=== PATIENT | female | born 1965 | race Caucasian/White ===

== ENCOUNTER 2023-07-15 15:27 | Day surgery (SDC) | payer BC, SELFPAY ==
[2023-07-15] VITALS (16 sets, daily range): BP systolic 139–220; BP diastolic 78–109; PULSE 82–98; RESP 12–20; TEMP 36.3–37.3; O2SAT 93–99; BMI 51.7
--- NOTE | 2023-07-15 | US_ITS ---
Patient: DANIEL COTE Facility:?[facility] Patient ID:?[id number] Site Patient ID:?[id number] Site :?[id number] Study:?US-Pelvis TRANSABDOMINAL AND TRANSVAGINAL-07/15/2023 5:15:53 PM Ordering Physician:?DEMETRIS PABON Final Report: Indication: Vaginal bleeding Technique: Pelvic ultrasound, transabdominal and transvaginal for better assessment of the pelvic anatomy utilizing grayscale and color and spectral Doppler. Comparison: None Findings: The uterus is within normal limits in size measuring 5.0 x 3.0 x 3.5 centimeters. No focal uterine masses or lesions. The endometrium is thickened and heterogeneous measuring 8 millimeters. The cervix is enlarged, measuring up to 4.7 centimeters in greatest dimension, with heterogeneous echogenicity and increased vascularity on color Doppler. The bilateral ovaries are not visualized. There is no suspicious adnexal masses or lesions. No free fluid. Impression: 1. The endometrium is thickened and heterogeneous measuring 8 millimeters, concerning for endometrial malignancy. 2. There is masslike enlargement of the heterogeneous cervix that demonstrates increased vascularity on color Doppler, concerning for cervical malignancy. 3. Recommend outpatient consultation with gynecology for further management recommendations. Dictated by Aristeo Guillaume MD @ 07/15/2023 5:39:56 PM Signed by:?Aristeo Guillaume MD @07/15/2023 5:39:56 PM (Electronic Signature)
--- NOTE | 2023-07-15 16:08 | ED_ITS ---
HPI - General Adult General Date Seen: 07/15/23 Chief complaint: Vaginal Bleeding Stated complaint: vaginal bleeding Time Seen by Provider: 07/15/23 16:08 History of Present Illness HPI narrative: Very pleasant 58-year-old female who is generally healthy but does not go for routine primary care presenting to the ER today for vaginal bleeding. She went through menopause about 5 or 6 years ago and really has not had any bleeding since then. She notes that she has had some intermittent spotting for the past couple of months but it has been very light. Today she is having heavy vaginal bleeding. She is having a fair amount of blood in his soaking through multiple pads per hour and sometimes is passing clots and a a few inches in diameter. She is not lightheaded or dizzy from blood loss yet. She is having lot of pelvic cramping for associated with the bleeding. No fever. No other unusual bleeding or bruising. No bloody stools. She does not take any blood thinners but she does taken [id number] baby aspirin every day. She does not take any other medications. No history of bleeding problems in the past. No known pelvic trauma. No vaginal discharge. Related Data Home Medications Medication Instructions Recorded Confirmed No Known Home Medications 07/15/23 07/15/23 Allergies Allergy/AdvReac Type Severity Reaction Status Date / Time No Known Drug Allergies Allergy Verified 07/15/23 15:50 PFSH PFSH Social History Smoking Status: Never smoker How often do you have a drink containing alcohol: 2-3 times a week AUDIT-C Alcohol total score: 3 Non-prescribed substance use: denies use service: No Exam Narrative: Exam Narrative: Constitutional: Appears well-developed and well-nourished. Alert. Conversant. Non toxic. HENT: Head: Atraumatic. Nose: Nose normal. Mouth/Throat: Oral mucosa is clear and moist. no trismus. Pharynx normal. Tongue normal Eyes: Conjunctivae normal. EOM normal. Pupils equal, round, and reactive to light. No scleral icterus. Neck: Normal range of motion. Neck supple. No tracheal deviation present. Cardiovascular: Normal rate, regular rhythm. No gallop. No friction rub. No murmur heard. Symmetric radial artery pulses . Normal cap refill. No pallor or diaphoresis. Pulmonary/Chest: Effort normal. No stridor. No respiratory distress. No wheezes. No rales. No rhonchi . Abdominal: Soft. Bowel sounds normal. No distension. No mass. Suprapubic tenderness. No rebound. No guarding. Musculoskeletal: RUE: Normal range of motion. No tenderness. No deformity LUE: Normal range of motion. No tenderness. No deformity RLE: Normal range of motion. No edema. No tenderness. No deformity LLE: Normal range of motion. No edema. No tenderness. No deformity Pelvic: Performed with female art installer. External genitalia normal. There is some clotted blood on the external vagina which I wiped away using a gauze. We performed a speculum vaginal exam. There is active bleeding, clots and red blood in the vaginal vault. The we use multiple skull PET Q-tips to remove the blood and clots. There was work recurrent bleeding. I used a ring forceps to remove some clotted material from deeper in the vagina adjacent to the cervix. With this I think I was able to briefly visualize cervical tissue, but I am not able to see the Os due to active bleeding. Neurological: Alert and oriented to person, place, and time. Normal strength. CN II-VII intact. No sensory deficit. GCS eye subscore is 4. GCS verbal subscore is 5. GCS motor subscore is 6. Normal coordination Skin: Skin is warm and dry. No rash noted. No pallor. Normal capillary refill. Psychiatric: Normal mood. Normal affect. Const: Vital Signs, click to edit/add: Vital Signs - 24 hr 07/15/23 15:45 07/15/23 17:38 07/15/23 18:50 Temperature 99.1 F Pulse Rate 93 Pulse Rate [Pulse Oximeter] 98 94 Respiratory Rate 20 20 18 Blood Pressure 180/88 H Blood Pressure [Ri ght Upper Arm] 220/109 H 167/109 H Pulse Oximetry 99 97 96 Oxygen Delivery Me thod Room Air 07/15/23 20:21 07/15/23 20:25 07/15/23 20:30 Temperature 97.9 F 97.9 F 97.9 F Pulse Rate 91 87 87 Pulse Rate [Pulse Oximeter] Respiratory Rate 12 17 18 Blood Pressure 139/78 189/96 H 184/99 H Blood Pressure [Ri ght Upper Arm] Pulse Oximetry 97 95 95 Oxygen Delivery Me thod Room Air Room Air Room Air 07/15/23 20:35 07/15/23 20:40 07/15/23 20:45 Temperature 97.9 F 97.9 F 97.9 F Pulse Rate 89 84 82 Pulse Rate [Pulse Oximeter] Respiratory Rate 16 15 13 Blood Pressure 186/96 H 191/95 H 204/94 H Blood Pressure [Ri ght Upper Arm] Pulse Oximetry 97 93 93 Oxygen Delivery Me thod Room Air Room Air Room Air 07/15/23 20:50 07/15/23 21:15 07/15/23 21:30 Temperature 98.2 F 97.4 F L Pulse Rate 82 85 84 Pulse Rate [Pulse Oximeter] Respiratory Rate 20 18 18 Blood Pressure 184/100 H 201/96 H 209/108 H Blood Pressure [Ri ght Upper Arm] Pulse Oximetry 94 95 97 Oxygen Delivery Me thod Room Air Room Air Room Air 07/15/23 21:45 07/15/23 22:00 07/15/23 22:30 Temperature Pulse Rate 84 88 85 Pulse Rate [Pulse Oximeter] Respiratory Rate 18 18 18 Blood Pressure 209/108 H 193/92 H 191/84 H Blood Pressure [Ri ght Upper Arm] Pulse Oximetry 97 95 97 Oxygen Delivery Me thod Room Air Room Air Room Air 07/15/23 22:39 Temperature 97.9 F Pulse Rate 85 Pulse Rate [Pulse Oximeter] Respiratory Rate 18 Blood Pressure 191/84 H Blood Pressure [Ri ght Upper Arm] Pulse Oximetry 97 Oxygen Delivery Me thod Room Air Course Vital Signs Vital signs: Initial Vital Signs Temperature 99.1 F 07/15/23 15:45 Temperature Source Temporal Artery Scan 07/15/23 15:45 Pulse Rate 98 07/15/23 15:45 Respiratory Rate 07/15/23 15:45 Blood Pressure 220/109 H 07/15/23 15:45 Blood Pressure Mean 146 H 07/15/23 15:45 Blood Pressure Position Supine 07/15/23 15:45 Pulse Oximetry 99 07/15/23 15:45 Oxygen Delivery Method Room Air 07/15/23 15:45 Vital Signs Temperature 99.1 F 07/15/23 15:45 Pulse Rate 98 07/15/23 15:45 Respiratory Rate 20 07/15/23 15:45 Blood Pressure 220/109 H 07/15/23 15:45 Pulse Oximetry 99 07/15/23 15:45 Oxygen Delivery Method Room Air 07/15/23 15:45 Temperature 97.9 F 07/15/23 22:39 Pulse Rate 85 07/15/23 22:39 Respiratory Rate 18 07/15/23 22:39 Blood Pressure 191/84 H 07/15/23 22:39 Pulse Oximetry 97 07/15/23 22:39 Oxygen Delivery Method Room Air 07/15/23 22:39 Medications Administered Medications: Discontinued Medications Generic Name Dose Route Start Last Admin Trade Name Freq PRN Reason Stop Dose Admin Fentanyl 50 mcg 07/15/23 19:55 07/15/23 20:40 Fentanyl 100 Mcg/2 Ml Inj IVP 50 mcg Q5M PRN Administration Hydromorphone HCl 0.5 mg 07/15/23 16:26 07/15/23 17:08 Hydromorphone 0.5 Mg/0.5 Ml Inj IVP 0.5 mg Q1H PRN Administration Pain Lactated Ringer's 1,000 ml 07/15/23 16:14 07/15/23 18:49 Lactated Ringers 1000 Ml IV 07/15/23 16:15 1,000 ml ONCE ONE Administration Lidocaine/Epinephrine 20 ml 07/15/23 19:03 07/15/23 19:54 Lidocaine 1%-Epi 1:100,000 20 Ml INFILTRATI 07/15/23 19:04 5 ml ONCE ONE Administration Morphine Sulfate 4 mg 07/15/23 21:28 07/15/23 21:40 Morphine 4 Mg/Ml Inj IVP 4 mg Q2H PRN Administration Non-Formulary Medication 1 bottle 07/15/23 20:02 07/15/23 20:02 Monsol TOPICAL 07/15/23 20:03 1 bottle ONCE ONE Administration Ondansetron HCl 4 mg 07/15/23 16:26 07/15/23 17:11 Ondansetron 2 Mg/Ml Inj IVP 07/15/23 16:27 4 mg ONCE ONE Administration Oxycodone HCl 2.5 - 10 mg 07/15/23 21:28 07/15/23 22:18 Oxycodone 5 Mg Tablet PO 10 mg Q2H PRN Administration Pain Tranexamic Acid 1,000 mg 07/15/23 18:01 07/15/23 18:26 Tranexamic Acid 100 Mg/Ml Inj IV 07/15/23 18:02 1,000 mg ONCE ONE Administration Medical Decision Making MDM Narrative Medical decision making narrative: Very pleasant 58-year-old female presenting to the ER today with few weeks of light vaginal spotting and heavier vaginal bleeding this afternoon. She soaking through a couple of pads per hour. Here in the ER she does have active bleeding with clots and red blood in her vaginal vault. There was enough active bleeding her pelvic exam that I was not able to confidently identify the cervical os. Cervix seems to be a somewhat abnormal. Pelvic ultrasound is obtained and does show a thickened endometrium and enlarged cervix which is concerning for gynecologic malignancy. We did place consultation to quality lead, Dr. Licea. She graciously came directly to the ER to evaluate the patient. She and I discussed IV TXA but decided to hold off until she could evaluate. Subsequently we did administer 1 g of tranexamic acid. Although she is actively bleeding, so far vital signs are reassuring. Her blood pressure is elevated which may reflect chronic undiagnosed hypertension or possibly could reflect anxiety due to her worry about the bleeding. Pulses in the 90s. Venous lactic acid is normal. She is not anticoagulated or known to be coagulopathic. Platelet count is 299. INR is normal at 0.92. Kidney function normal. Blood type is A positive. We established IV and administered IV crystalloid 1 L. Also Dilaudid and Zofran for symptomatic relief. She has a low-grade fever of 99.1. Oxygen sats normal. No vaginal discharge or concern for STI. We established a 2nd IV due to active bleeding, although not actively crashing and exsanguinating, bleeding is in excess of what is typical for vaginal bleeding and we wanted to be prepared in case she needs large volume transfusion. Given the ongoing active bleeding here in the ER we did consult OB. She will take the patient to the OR for further evaluation and to achieve hemostasis. Suspicion is that she may be bleeding from a cervical or intrauterine malignancy. Lab Data Labs: Lab Results 07/15/23 07/15/23 07/15/23 Range/Units 16:34 19:10 23:10 WBC 9.65 (4.50-11.00) K/uL RBC 3.67 L (4.00-5.20) m/uL Hgb 11.1 L 10.1 L 10.1 L (12.0-16.0) gm/dL Hct 33.8 (33.0-51.0) % MCV 92 (80-100) fL MCH 30 (26-34) pg MCHC 33 (32-36) gm/dL RDW Coeff of Jayleen 13.3 (11.5-15.5) % Plt Count 299 (140-440) K/uL Neut % (Auto) 73.2 H (42.0-72.0) % Lymph % (Auto) 17.9 L (20-44) % Taylor % (Auto) 6.1 (0.0-11.0) % Eos % (Auto) 2.5 (0.0-7.0) % Baso % (Auto) 0.1 (0.0-3.0) % Neut # (Auto) 7.10 H (1.7-7.0) K/uL Lymph # (Auto) 1.70 (0.90-2.90) K/uL Taylor # (Auto) 0.60 (0.00-0.90) K/UL Eos # (Auto) 0.24 (0.00-0.50) K/uL Baso # (Auto) 0.01 (0.00-0.30) K/uL Abs Immat Gran (auto) 0.02 (0.00-0.30) K/uL Imm/Tot Granulo (auto) 0.2 % INR 0.92 (0.91-1.10) Sodium 138 (135-149) mmol/L Potassium 3.7 (3.6-5.1) mmol/L Chloride 105 (96-114) mmol/L Carbon Dioxide 24 (20-32) mmol/L Anion Gap 9 (7-15) mEq/L BUN 22 (7-30) mg/dL Creatinine 0.5 (0.5-1.5) mg/dL Estimated Creat Clear 128.17 Estimated GFR 109 ml/min Glucose 109 (60-115) mg/dL Lactate 1.2 (0.5-1.9) mmol/L Calcium 9.3 (8.4-10.6) mg/dL Blood Type A Positive Antibody Screen NEGATIVE Imaging Data US pelvis: Attestation: I have reviewed the pertinent imaging results. My impression: Phone call from [facility] to notify me that the results are available at 5:45 p.m. Radiologist's impression: Impression: 1. The endometrium is thickened and heterogeneous measuring 8 millimeters, concerning for endometrial malignancy. 2. There is masslike enlargement of the heterogeneous cervix that demonstrates increased vascularity on color Doppler, concerning for cervical malignancy. 3. Recommend outpatient consultation with gynecology for further management recommendations. Discharge Plan Discharge Clinical Impression: Cervical mass, Vaginal bleeding, Thickened endometrium, Anemia
[2023-07-15 16:41] LABS: Lactate* 1.2 mmol/L (0.5-1.9)
[2023-07-15 16:42] LABS: Basophils Absolute Auto 0.01 K/uL (0.00-0.30); Basophils Percent Auto 0.1 % (0.0-3.0); Eosinophils Absolute Auto 0.24 K/uL (0.00-0.50); Eosinophils Percent Auto 2.5 % (0.0-7.0); Hematocrit 33.8 % (33.0-51.0); Hemoglobin* 11.1 gm/dL (12.0-16.0); Immature Granulocytes Abs Auto 0.02 K/uL (0.00-0.30); Immature Granulocytes Pct Auto 0.2 %; Lymphocytes Percent Auto 17.9 % (20-44); Mean Corpuscular HGB Conc 33 gm/dL (32-36); Mean Corpuscular Hemoglobin 30 pg (26-34); Mean Corpuscular Volume 92 fL (80-100); Monocytes Percent Auto 6.1 % (0.0-11.0); Neutrophils Percent Auto 73.2 % (42.0-72.0); Platelet Count* 299 K/uL (140-440); RDW Coefficient of Variation % 13.3 % (11.5-15.5); Red Blood Count 3.67 m/uL (4.00-5.20); White Blood Count* 9.65 K/uL (4.50-11.00)
[2023-07-15 16:53] LABS: Slide Review Reflex No
[2023-07-15 16:57] LABS: Chloride* 105 mmol/L (96-114); Potassium* 3.7 mmol/L (3.6-5.1); Sodium* 138 mmol/L (135-149)
[2023-07-15 16:59] LABS: INR 0.92 (0.91-1.10); Prothrombin Time 12.9 Seconds
[2023-07-15 17:00] LABS: Anion Gap 9 mEq/L (7-15); Carbon Dioxide* 24 mmol/L (20-32); Creatinine* 0.5 mg/dL (0.5-1.5); Est. Creatinine Clearance* 128.17; Estimated Glomerular Filt Rate 109 ml/min
[2023-07-15 17:01] LABS: Blood Urea Nitrogen* 22 mg/dL (7-30); Calcium* 9.3 mg/dL (8.4-10.6); Glucose* 109 mg/dL (60-115)
[2023-07-15] MEDS: HYDROmorphone 0.5 mg/0.5 ml inj IVP (17:08)
[2023-07-15] MEDS: ONDANSETRON 2 MG/ML inj 4 MG IVP (17:11)
[2023-07-15] MEDS: TRANEXAMIC ACID 100 MG/ML INJ 1000 MG IV (18:26)
[2023-07-15] MEDS: LACTATED RINGERS 1000 ML IV (18:49)
--- NOTE | 2023-07-15 18:49 | PM.GYNCN1 ---
BOBBIN HANDLER - CN: HPI Data of Consult Time Seen by Provider: 17:45 Date Seen: 07/15/23 Consult date: 07/15/23 Primary Care Provider: Not a Local Provider Consult Narrative Narrative: Mora Kessler is a 58 year old G0 female seen for acute vaginal bleeding at the request of the ED. Mora's past medical history is complicated only by history of transient global amnesia and prior tobacco use disorder by her report, but she has not seen a primary provider in >13 years. Mora describes her gynecologic history as unremarkable. She underwent menopause in her early 50s. She describes a history of intermittent spotting for the 3 last 3 months or so. Today, she noted onset of heavy vaginal bleeding since about noon. She has been soaking through several pads within an hour and passing blood clots the size of her first. Denies dizziness/lightheadedness, chest pain or dyspnea. She notes onset of low abdominal pain since about 1500, described as cramping. Denies nausea/vomiting, fevers/chills, bladder changes. She notes her stools have become more hard lately, but she continues to have daily bowel movements with no rectal bleeding or change in stool caliber. She denies abnormal vaginal discharge but has questioned malodor in the last few months. Mora has not been sexually active in about 9 years. She last had a pap test sometime >13 years ago, denies history of abnormal paps. Past medical history: Limited due to lack of preventative care - history of tobacco use and transient global amnesia Past surgical history: No prior abdominal surgeries Ob history: G0 Family history: Breast cancer in patient's mother in her late 70s. No history of colon, uterine or ovarian cancers. Social history: , seen today alongside her . Not sexually active. Former smoker, with 15 pack year history. No significant alcohol intake, denies illicit drug use. Transvaginal US today by tech report/my review of images: Uterus measures 5x3x3.5cm with 8mm endometrial stripe. Thick, heterogenous and hypervascular mass thought to be cervical in origin. Ovaries could not be visualized. cc:: CC: PFSH PFSH Social History Smoking Status: Never smoker How often do you have a drink containing alcohol: 2-3 times a week AUDIT-C Alcohol total score: 3 Non-prescribed substance use: denies use service: No Meds Home Medications and Allergies Home Medications Medication Instructions Recorded Confirmed Type No Known Home Medications 07/15/23 07/15/23 History Allergies Allergy/AdvReac Type Severity Reaction Status Date / Time No Known Drug Allergies Allergy Verified 07/15/23 15:50 BOBBIN HANDLER - Exam Physical Exam: Vital signs: Temp Pulse Resp BP Pulse Ox O2 Del Method 99.1 F 93 20 180/88 H 97 Room Air 07/15/23 15:45 07/15/23 17:38 07/15/23 17:38 07/15/23 17:38 07/15/23 17:38 07/15/23 15:45 Narrative: General: Alert and oriented, in no acute distress Psych: Appropriate mood and affect Abdomen: Soft, non-tender and non-distended Pelvic: External genital exam within normal limits. Bimanual exam notable for stricture at the mid-vagina with palpable mass anteriorly. Reaching through the area of stricture, there is palpable mass and nodularity at the proximal vagina seems to include the vaginal fornix circumferentially with left greater than right possible extension to the sidewall. Rectovaginal exam completed and negative for rectal involvement. Speculum exam inserted, where there is blood pooled in the vagina. This is a vacuum weighted with many procotoswabs where normal normal cervix can be identified. At area of palpable mass in the mid vagina anteriorly there is nodular, firm, pink to white mass noted. Ongoing accumulation of blood noted in speculum. Decision was made to proceed to the operating room for an exam under anesthesia and biopsies for better access to bleeding control. Vaginal packing placed. ED RN present as exam nuisance wildlife specialist. BOBBIN HANDLER - Results Labs Labs: Short CBC 07/15/23 Range/Units 16:34 WBC 9.65 (4.50-11.00) K/uL Hgb 11.1 L (12.0-16.0) gm/dL Hct 33.8 (33.0-51.0) % Plt Count 299 (140-440) K/uL BMP 07/15/23 16:34 Sodium 138 Potassium 3.7 Chloride 105 Carbon Dioxide 24 BUN 22 Creatinine 0.5 Glucose 109 Calcium 9.3 Assessment and Plan Assessment and plan (1) Vaginal bleeding: Status: Acute (2) Cervical mass: Status: Acute (3) Anemia: Status: Acute Plan Ms. Kessler is a 58yo G0 seen for acute vaginal bleeding in the emergency department. Past medical history is significant for limited care, episode of transient global amnesia and history of tobacco use disorder. On presentation to the emergency department, she is significantly hypertensive (220/109mmHg) and otherwise hemodynamically stable. She notes vaginal spotting for the last several months, with acute and heavy bleeding today. Throughout her time in the emergency department (approximately 2 hours), she has soaked numerous pads where she is no utilizing a super pad from the OB department. Initial hemoglobin 11.1. Pelvic ultrasound was obtained in for a large, heterogenous, hypervascular likely cervical mass. My pelvic exam in the emergency department affirms this. Specifically, there is an area of stricture at the mid vagina with associated palpable nodularity that is continuous to a mass at the proximal vagina. Mass seems to be replacing any normal cervix, palpated circumferentially around the fornix and likely to the left parametria. Speculum exam notable for ongoing vaginal bleeding, where I feel a tissue diagnosis is important but would most safely be accomplished in the operating room. Plan to proceed with exam under anesthesia, possible cervical and/or vaginal biopsies and proceed as indicated. I explained that I am highly concerned for a possible cervical cancer given my exam findings. Discussed the risks of planned procedure, where bleeding is of particular concern. Plan to proceed with 1 g of IV TXA now. Discussed the likely need for vaginal packing for additional hemostasis at completion of procedure. We reviewed that if further management of her bleeding is required, this would need to be accomplished at a facility with Interventional Radiology. Unfortunately this is not available locally, where we would proceed with transfer if required postprocedurally. All questions answered. Written consent obtained.
--- NOTE | 2023-07-15 18:51 | PC.NURSE ---
When pt. moved her vaginal packing which was part way out fell out intact at 1845, pt just passed a 5-6 cm clot and has ongoing bleeding small to moderate amount
[2023-07-15 19:12] LABS: Hemoglobin* 10.1 gm/dL (12.0-16.0)
[2023-07-15] MEDS: fentaNYL 100 MCG/2 ML inj 50 MCG IVP (20:40)
--- NOTE | 2023-07-15 21:08 | SUR.PHASEI ---
patient met discharge criteria per anesthesia. 400ml left in LR bag
--- NOTE | 2023-07-15 21:11 | W.ANESCHARGE ---
Anesthesia Charges Start Date/Time Anesthesia Start Date: 07/15/23 Anesthesia Start Time: 19:15 Stop Date/Time Anesthesia Stop Date: 07/15/23 Anesthesia Stop Time: 20:25 Summary Emergency: DIRECTOR BUSINESS INTEGRATION
--- NOTE | 2023-07-15 21:16 | W.PM.GYNPROC ---
Procedure Note Time Seen by Provider: 20:15 Date of procedure: 07/15/23 Pre-op diagnosis: Acute vaginal bleeding, cervical mass Post-op diagnosis: same Procedure: Exam under anesthesia, cervical and vaginal biopsies, vaginal packing Anesthesia: GETA Complications: None Surgeon: Heike Licea MD Estimated blood loss (mL): 100 Urine Output (mL): 100 Pathology: specimen obtained, sent to pathology Condition: stable Disposition: observation Findings: Fixed, nodular mass of the proximal vagina that replaces any appreciable normal cervix Mass seems to involve the entire vaginal fornix, with some extension to the left parametria Mass extends down anterior vagina, creating a stricture ring at the mid vagina Uterus is difficult to palpate transabdominally No apparent adnexal mass, though limited by habitus Rectovaginal exam negative for rectal involvement Procedure Description: After verifying written informed consent, the patient was taken to the operating room. A time-out was completed to verify correct patient and procedure. Anesthesia was induced and found to be adequate. She [facility] with care taken to avoid neurologic injury. She was prepared and draped in the usual sterile fashion, with a very gentle internal vaginal prep. A surgical pause was conducted to confirm correct patient and procedure. Bimanual is exam was first performed, with the above findings. Suraj retractors were utilized to visualize the vaginal and cervical mass. Mass tissue is nodular, cauliflower-like and pale pink in color. Characteristic biopsies were obtained at the mid vagina first with Tischler forceps. Sponge stick on a ring was utilized to apply gentle pressure and wipe away bleeding, where fragments of the mass would fall away with minimal pressure. Bleeding was addressed with electrocautery and pressure. The cervical mass was identified and appeared similarly, where characteristic biopsies were obtained and sent as well. Hemostasis was obtained with electrocautery first at biopsy sites. Ongoing oozing was noted across the mass, addressed with cautery. Monsel's solution was then applied. Tight vaginal packing was applied, where the entirety of one pack was inserted and about a quarter of a second. Both vaginal packings were secured to patient's legs and labeled (right distal pack, left proximal pack). Sponge and instrument count was correct. The patient was transferred to the recovery room in excellent condition. Surgical debriefing performed.
[2023-07-15] MEDS: MORPHINE 4 MG/ML INJ IVP (21:40)
[2023-07-15] MEDS: OXYCODONE 5 MG TABLET PO (22:18)
[2023-07-15 23:15] LABS: Hemoglobin* 10.1 gm/dL (12.0-16.0)
--- NOTE | 2023-07-15 23:55 | PC.NURSE ---
Pt arrived from PACU at 2114. Hypertensive, 200's/100's, aware. VS otherwise WNL and pt on RA. Rates pain 7/10 with increasing cramping. Morphine given PRN as well as PO Oxycodone. Joe patent and draining. Pt advanced to regular diet without nausea, ate several saltine crackers and juice. Vaginal packing dry and intact, without visible drainage or bleeding. Hgb drawn at 2250 prior to transfer. Pt was transferred to [facility] in [place] via [facility] at 2340. Zoe called and updated. Report given to SHERON Campbell.
== END 2023-07-15 23:40 | disposition short-term general hospital (02) ==
LOC: ED 18:56 → OR 19:15 → MEDSURG 21:28
PROVIDERS: Family Medicine; Emergency Provider Emergency Medicine; Visit Provider Obstetrics & Gynecology
PROC: (CPT 57500; principal; 2023-07-15 19:15)
DX: N93.8 Other specified abnormal uterine and vaginal bleeding (principal); N95.0 Postmenopausal bleeding; R93.89 Abnormal findings on diagnostic imaging of other specified body structures; D62 Acute posthemorrhagic anemia; I10 Essential (primary) hypertension; C53.9 Malignant neoplasm of cervix uteri, unspecified
CPT/HCPCS: 57500; 57100; 57180; 00940; 36415; 76830; 76856; 80048; 83605; 85018; 85025; 85610; 86850; 86900; 86901; 87210; 87491; 87591; 88305; 88342; 99140; 99284; 99285; A4344; A9270; J0330; J1100; J1170; J2270; J2405; J2704; J3010; J7120

== ENCOUNTER 2023-07-15 23:25 | Outpatient (CLI) | payer BC, SELFPAY | END 2023-07-15 23:26 | disposition home or self-care (01) | LOC: AMB 07-17 18:54 | PROVIDERS: Visit Provider Emergency Medicine | DX: N88.8 Other specified noninflammatory disorders of cervix uteri (principal); D64.9 Anemia, unspecified; R93.89 Abnormal findings on diagnostic imaging of other specified body structures | CPT/HCPCS: A0425; A0427 ==

== ENCOUNTER 2023-08-20 06:53 | Outpatient (CLI) | payer BC, SELFPAY ==
--- NOTE | 2023-08-20 07:15 | MR_ITS ---
Patient: DANIEL COTE Facility:?[facility] Patient ID:?[id number] Site Patient ID:?[id number]. Site :?[id number] Study:?MRI-Pelvis W/ and W/O Cont [address] TISSUE-08/20/2023 8:39:52 AM Ordering Physician:?SUKUMAR MEJIA Final Report: INDICATION: Cervical cancer. COMPARISON: Pelvic ultrasound dated 15 July 2023. TECHNIQUE: Pelvic MRI with T1, T2, and postcontrast images. Intravenous gadolinium administered. FINDINGS: 6.3 x 4.3 x 4.0 cm cervical mass extending circumferentially to the vaginal fornix. The mass abuts and appears to invade the posterior wall of the urinary bladder. Extension into the parametrium bilaterally. The mass abuts but does not appear to invade the anterior wall of the rectum. Single left pelvic sidewall lymph node measures 7 mm in short axis best seen on image 23 of series 15. No other bony or soft tissue abnormalities identified. Impression : 1. Cervical mass involving the vaginal fornix with extension into the parametrium bilaterally. 2. The mass abuts and appears to invade the posterior wall of the urinary bladder. Stage OSVALDO. 3. 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 Dictated by Saeed Perez MD @ 08/21/2023 10:46:53 AM Signed by:?Saeed Perez MD @08/21/2023 10:46:53 AM (Electronic Signature)
== END 2023-08-20 06:54 | disposition home or self-care (01) ==
PROVIDERS: Visit Provider Obstetrics & Gynecology Gynecologic Oncology
DX: C53.1 Malignant neoplasm of exocervix (principal); R19.09 Other intra-abdominal and pelvic swelling, mass and lump
CPT/HCPCS: 72197; A9575

== ENCOUNTER 2023-10-01 07:04 | Outpatient (CLI) | payer BC, SELFPAY ==
--- NOTE | 2023-10-01 07:15 | CRLHL7_ITS ---
For Patients: As a result of the Century Cures Act, medical imaging exams and procedure reports are released immediately into your electronic medical record. You may view this report before your referring provider. If you have questions, please contact your health care provider. INDICATION: Squamous cell carcinoma uterine cervix. Comparison: MRI of the pelvis August 20, 2023; pelvic ultrasound July 15, 2023. TECHNIQUE: MRI of the pelvis without and with intravenous contrast; precontrast T1 and T2 weighted imaging; T2 haste imaging; postcontrast imaging in axial, coronal and sagittal projections; 20 cc dotarem contrast was injected. FINDINGS: Previously noted mass involving the uterine cervix has shown complete necrosis with a large vesicovaginal fistula. Enhancing periphery of the cervical mass. Again appreciated is a 6.3 mm lymph node in the left external iliac chain. Extension of the cervical mass into the parametrium bilaterally. The uterus itself is unremarkable so is the endometrial lining. No obvious adnexal pathology. No free fluid identified in the pelvic cul-de-sac. No obvious involvement of the anterior wall of the rectum. Marked thickening of the wall of the urinary bladder with fluid level. IMPRESSION: 1. Necrosis of the previously noted mass involving the uterine cervix with a large vesicovaginal fistula and marked thickening of the wall of the urinary bladder. 2. Extension of this cervical tumor to the parametrium bilateral. 3. A 0.6 cm lymph node left external iliac chain without any interval change. Dictated by Lissa Yang MD @ 10/02/2023 7:55:50 AM (Electronically Signed)
== END 2023-10-01 07:05 | disposition home or self-care (01) ==
LOC: MRI 07:04
PROVIDERS: Visit Provider Radiology Radiation Oncology
DX: C53.9 Malignant neoplasm of cervix uteri, unspecified (principal)
CPT/HCPCS: 72197; A9575

== ENCOUNTER 2023-12-16 08:52 | Outpatient (CLI) | payer BC, SELFPAY ==
--- OUTSIDE RECORDS SUMMARY | 2023-12-16 08:56 | XMS_ITS | Referral Summary ---
Author Organization [facility] Address [address] [place] [address] Care Team Providers Care Technician Trainee Name Role Phone Clinic, [facility] Primary Care Provider Encounters Date Type Department Care Team Description 11/25/2023 9:47 AM CDT - 11/25/2023 1:55 PM CDT Hospital Encounter [facility] [address] [phone] Non-Fv Credentialed Provider, Radiology Marylin Pavon DO Vesicovaginal fistula Discharge Disposition: Home or Self Care 11/24/2023 Telephone [facility] Inter[facility] [address] [phone] Matilde Hill RN 10/19/2023 Orders Only [facility] [address] [phone] Bhakti Contreras RN Malignant neoplasm of exocervix (H) (Primary Dx) 10/15/2023 7:37 AM CDT - 10/15/2023 3:17 PM CDT Hospital Encounter [facility] [address] [phone] Non-Fv Credentialed Provider, Radiology Ramón Diane MD Cancer of exocervix (H) Discharge Disposition: Home or Self Care 10/13/2023 Telephone [facility] Interventional Radiology [address] [place] [phone] Marielena Benitez RN 10/08/2023 Travel 10/08/2023 12:40 PM CDT Ancillary Procedure [facility] [address] [place] [phone] Aurea Altamirano APRN CNP Malignant neoplasm of exocervix (H) 10/07/2023 7:43 AM CDT - 10/07/2023 12:45 PM CDT Hospital Encounter [facility] [address] [place] [phone] Non-Fv Credentialed Provider, Radiology Aurea Altamirano APRN CORPORATE ADMINISTRATIVE ASSISTANT Malignant neoplasm of exocervix (H) (Primary Dx) Discharge Disposition: Home or Self Care 10/06/2023 Medical Correspondence [facility] [address] [place] [phone] Scan, Non-Provider 10/06/2023 Orders Only [facility] [address] [place] [phone] Brooke Aguillon Malignant neoplasm of exocervix (H) 10/06/2023 Travel 10/06/2023 Orders Only [facility] [address] [place] [phone] Aurea Altamirano APRN CNP Malignant neoplasm of exocervix (H) (Primary Dx) 10/05/2023 7:33 AM CDT Anesthesia Event [facility] [address] [place] [phone] Dixon Golden MD Young, Addilyn 10/05/2023 7:30 AM CDT - 10/05/2023 9:00 AM CDT Surgery [facility] [address] [place] [phone] Jennifer Peguero MD Pelvic examination under anesthesia, 10/05/2023 5:33 AM CDT - 10/05/2023 10:14 AM CDT Hospital Encounter [facility] Pre[facility]/Phase II [address] [place] [phone] Jennifer Peguero MD Discharge Disposition: Home or Self Care 09/30/2023 Travel 09/30/2023 12:20 PM CDT - 09/30/2023 11:59 PM CDT Hospital Encounter [facility] [address] [place] [phone] Aurea Altamirano APRN CNP Cancer of exocervix (H); Kidney failure Discharge Disposition: Home or Self Care from Last 3 Months Allergies Active Allergy Reactions Criticality Noted Date Comments Shellfish-Derived Products Shortness Of Breath,Hives High 08/05/2023 Medications Medication Sig Dispensed Refills Start Date End Date Status hydrOXYzine nii (VISTARIL) 25 MG capsule Take 25 mg by mouth every 4 hours as needed for itching Active carvedilol (COREG) 3.125 MG tablet Take 3.125 mg by mouth 2 times daily (with meals) Active amLODIPine (NORVASC) 10 MG tablet Take 10 mg by mouth daily Active acetaminophen (TYLENOL) 500 MG tablet Take 500-1,000 mg by mouth every 6 hours as needed for mild pain Active ibuprofen (ADVIL/MOTRIN) 200 MG tablet Take 200 mg by mouth every 4 hours as needed for pain Active HYDROmorphone (DILAUDID) 2 MG tabletIndications:A cute post-operative pain Take 1 tablet (2 mg) by mouth every 4 hours as needed for moderate pain 20 tablet 08/11/2023 Active senna-docusate (SENOKOT-S/PERICOLA CE) 8.6-50 MG tabletIndications:D rug-induced constipation Take 1 tablet by mouth 2 times daily as needed for constipation 30 tablet 08/11/2023 Active DULoxetine (CYMBALTA) 30 MG capsule Take 30 mg by mouth 2 times daily Active hydrOXYzine HCl (ATARAX) 25 MG tablet Take 25 mg by mouth 3 times daily as needed for itching Active losartan-hydrochlor othiazide (HYZAAR) 100-12.5 MG tablet Take 1 tablet by mouth daily Active oxyCODONE IR (ROXICODONE) 10 MG tablet Take 5 mg by mouth every 4 hours as needed for severe pain Active Active Problems Problem Noted Date Diagnosed Date Malignant neoplasm of exocervix 10/05/2023 Primary cancer of right middle lobe of lung 12/2023 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 08/10/2023 Social History Tobacco Use Types Packs/Day Years Used Date Smoking Tobacco: Former Cigarettes 1 15 1 4 - 1998 Cigars Smokeless Tobacco: Never Tobacco Cessation:Counseling Given: Not Answered Comments:Cigars a few times a month Alcohol Use Standard Drinks/Week Comments Yes 0 (1 standard drink = 0.6 oz pur e alcohol) 2-3 drinks per week Adolescent Education Answer Date Record ed Getting School Help Needed Not on file 08/09 Sex and Gender Information Value Date Recorded Sex Assigned at Not on file Gender Identity Not on file Sexual Orientation Not on file Last Filed Vital Signs Vital Sign Reading Time Taken Comments Blood Pressure 116/61 11/25/2023 1:15 PM CDT Pulse 69 11/25/2023 1:15 PM CDT Temperature 36.8 ??C (98.2 ??F) 11/25/2023 10:03 AM C DT Respiratory Rate 16 11/25/2023 1:15 PM CDT Oxygen Saturation 99% 11/25/2023 1:15 PM CDT Inhaled Oxygen Concentration - - Weight 135.2 kg (298 lb) 11/25/2023 10:03 AM CDT Height 175.3 cm (5' 9) 11/25/2023 10:03 AM CDT Body Mass Index 44.01 11/25/2023 10:03 AM CDT Plan of Treatment Upcoming Encounters Date Type Department Care Team (Late st Contact Info) Description 03/07/2024 Hospital Encounter [facility] [address] [phone] 03/07/2024 2:20 PM LEGAL ADVISER Ancillary Procedure [facility] [address] [facility] [place] [phone] Otilia Escoto, PA-C [facility] [address] [place] [address] Procedures Procedure Name Priority Date/Time Associated Diagnosis Comments IR PROCEDURE NOTE Routine 11/25/2023 4:3 9 PM CDT IR NEPHROSTOMY TUBE CHANGE BILATERAL Urgent: 3-5 Days 11/25/2023 12:09 PM CDT Vesicovaginal fistula IR NEPHROSTOMY TUBE PLACEMENT BILATERAL Emergency: 1-2 Days 10/15/2023 11:07 AM CDT Cancer of exocervix (H) BASIC METABOLIC PANEL STAT 10/15/2023 8:25 AM CDT INR STAT 10/15/2023 8:[address] ABDOMEN PELVIS W CONTRAST STAT 10/08/2023 12:42 PM CDT Malignant neoplasm of exocervix (H) TRANSFUSE RED BLOOD CELLS (UNIT) Routine 10/07/2023 10:30 AM CDT TRANSFUSE RED BLOOD CELLS (UNIT) Routine 10/07/2023 8:45 AM CDT PREPARE RED BLOOD CELLS (UNIT) Routine 10/07/2023 7:58 AM CDT PREPARE RED BLOOD CELLS (UNIT) Routine 10/07/2023 7:58 AM CDT ANE AIRWAY SUPRAGLOTTIC PERFORMABLE Routine 10/05/2023 7:56 AM CDT PELVIC EXAMINATION W ANESTH 10/05/2023 7:34 AM CDT Malignant neoplasm of exocervix (H) Special Needs *htn, [id number] req ABO/RH TYPE AND SCREEN STAT 10/05/2023 6:27 AM CDT TYPE AND SCREEN, ADULT STAT 10/05/2023 6:27 AM CDT POTASSIUM STAT 10/05/2023 6:27 AM CDT CBC WITH PLATELETS STAT 10/05/2023 6: 27 AM CDT US RENAL COMPLETE NON-VASCULAR STAT 09/30/2023 2:00 PM CDT Cancer of exocervix (H) Kidney failure from Last 3 Months Results * Bilateral nephrostomy tube exchange/upsize (11/25/2023 4:39 PM CDT) Narrative Marylin Pavon DO - 11/25/2023 4:39 PM CDT Marylin Pavon, DO ? 11/25/2023 ??4:40 PM [facility] Procedure: Bilateral nephrostomy tube exchange/upsize Date/Time: 11/25/2023 4:39 PM Performed by: Marylin Pavon DO Authorized by: Marylin Pavon DO ?? UNIVERSAL PROTOCOL Site Marked: NA Prior Images Obtained and Reviewed: ??Yes Required items: Required blood products, implants, devices and special equipment available ?? Patient identity confirmed: ??Verbally with patient, arm band, provided demographic data and hospital-assigned identification number Patient was reevaluated immediately before administering moderate or deep sedation or anesthesia Confirmation Checklist: ??Patient's identity using two indicators, relevant allergies, procedure was appropriate and matched the consent or emergent situation and correct equipment/implants were available Time out: Immediately prior to the procedure a time out was called ?? [place] Protocol: the Joint Commission [place] Protocol was followed ?? Preparation: Patient was prepped and draped in usual sterile fashion ?? ANESTHESIA Anesthesia: ??Local infiltration Local Anesthetic: ??Lidocaine 1% without epinephrine SEDATION Patient Sedated: Yes ?? Sedation Type: ??Moderate (conscious) sedation Vital signs: Vital signs monitored during sedation ?? See dictated procedure note for full details. Findings: Bilateral nephrostomy tube exchange/upsize. Specimens: none Complications: None Condition: Stable Plan: Routine exchange in 3 months. PROCEDURE Patient Tolerance: ??Patient tolerated the procedure well with no immediate complications Length of time physician/provider present for 1:1 monitoring during sedation: 10 Marylin Pavon DO PROCEDURE/ MINOR SURGICAL ORDERABLES * IR Nephrostomy Tube Change Bilateral (11/25/2023 12:09 PM CDT) Anatomical Region Laterality Modality Abdomen/Pelvis Radio Fluoroscop y Impressions 11/26/2023 3:12 PM CDT IMPRESSION: Successful bilateral 10.2 Jordanian nephrostomy tube exchanges/upsize, as detailed above. PLAN: ??The patient should return for routine exchange in 3 months. MARYLIN PAVON DO Narrative 11/26/2023 3:12 PM CDT PROCEDURE(S): 1. Left antegrade nephrostogram 2. Left percutaneous nephrostomy tube exchange 3. Right antegrade nephrostogram 4. Right percutaneous nephrostomy tube exchange DATE OF PROCEDURE: 11/25/2023 MODERATE SEDATION: Versed 3 mg IV; Fentanyl 150 mcg IV. During the time out, immediately prior to the administration of medications, the patient was reassessed for adequacy to receive conscious sedation. Under physician supervision, Versed and fentanyl were administered for moderate sedation. Pulse oximetry, heart rate and blood pressure were continuously monitored by an independent trained observer. The physician spent 9 minutes of [id number] sedation time with the patient. CONTRAST: 10 mL Isovue 300 into the renal collecting system FLUOROSCOPY TIME: 1.1 minutes AIR KERMA: 24.65 mGy COMPLICATIONS: None CLINICAL HISTORY/INDICATION: Vesicovaginal fistula. Nephrostomy tubes with decreasing output and increasing vaginal urine output. PROCEDURES AND FINDINGS: Following a discussion of the risks, benefits, indications and alternatives to treatment, appropriate informed consent was obtained. The patient was brought to the interventional radiology suite and placed prone on the table. The bilateral flank, including the indwelling percutaneous nephrostomy tubes, were prepped and draped in usual sterile fashion. A time out was performed per universal protocol policy to ensure correct patient, site and procedure to be performed. Local anesthesia was obtained at the skin entry sites of the nephrostomy tubes with 1% Lidocaine. An initial spot radiograph was performed and reveals locking loop catheters present in bilateral flanks. ??Contrast was injected through the indwelling left nephrostomy tube. Routine antegrade nephrostogram demonstrates the nephrostomy tube is patent and centered in the renal pelvis. The catheter retention suture was cut and a 0.035 guidewire was advanced into and coiled within the renal pelvis. ??The indwelling nephrostomy tube was then exchanged over the wire for a new 10.2 Jordanian left nephrostomy tube, and its tip was coiled in the renal pelvis. Injection of contrast confirms its location within the renal pelvis. The contrast was aspirated, the tube was flushed, and sutured to the skin using 2 silk. A sterile dressing was applied. The tube was placed to gravity bag drainage. Attention was then turned to the right sided nephrostomy tube. Contrast was injected through the indwelling right nephrostomy tube. Routine antegrade nephrostogram demonstrates nephrostomy tube is patent centered in the renal pelvis. The catheter retention suture was cut and a 0.035 guidewire was advanced through the catheter into the renal pelvis. The catheter was removed maintaining wire access and a new 10.2 Jordanian right sided nephrostomy tube was advanced over the wire and it tip was coiled in the renal pelvis. ??Injection of contrast confirms its location within the renal pelvis. The catheter was aspirated, flushed, and sutured to the skin with 2 silk. A sterile dressing was applied. ?? Throughout the procedure, the patient was monitored by a radiology nurse for cardiac rhythm and oxygen saturation which remained stable. The patient tolerated the procedure well and left interventional radiology in stable condition. Procedure Note Marylin Pavon, DO - 11/26/2023 PROCEDURE(S): 1. Left antegrade nephrostogram 2. Left percutaneous nephrostomy tube exchange 3. Right antegrade nephrostogram 4. Right percutaneous nephrostomy tube exchange DATE OF PROCEDURE: 11/25/2023 MODERATE SEDATION: Versed 3 mg IV; Fentanyl 150 mcg IV. During the time out, immediately prior to the administration of medications, the patient was reassessed for adequacy to receive conscious sedation. Under physician supervision, Versed and fentanyl were administered for moderate sedation. Pulse oximetry, heart rate and blood pressure were continuously monitored by an independent trained observer. The physician spent 9 minutes of [id number] sedation time with the patient. CONTRAST: 10 mL Isovue 300 into the renal collecting system FLUOROSCOPY TIME: 1.1 minutes AIR KERMA: 24.65 mGy COMPLICATIONS: None CLINICAL HISTORY/INDICATION: Vesicovaginal fistula. Nephrostomy tubes with decreasing output and increasing vaginal urine output. PROCEDURES AND FINDINGS: Following a discussion of the risks, benefits, indications and alternatives to treatment, appropriate informed consent was obtained. The patient was brought to the interventional radiology suite and placed prone on the table. The bilateral flank, including the indwelling percutaneous nephrostomy tubes, were prepped and draped in usual sterile fashion. A time out was performed per universal protocol policy to ensure correct patient, site and procedure to be performed. Local anesthesia was obtained at the skin entry sites of the nephrostomy tubes with 1% Lidocaine. An initial spot radiograph was performed and reveals locking loop catheters present in bilateral flanks. Contrast was injected through the indwelling left nephrostomy tube. Routine antegrade nephrostogram demonstrates the nephrostomy tube is patent and centered in the renal pelvis. The catheter retention suture was cut and a 0.035 guidewire was advanced into and coiled within the renal pelvis. The indwelling nephrostomy tube was then exchanged over the wire for a new 10.2 Jordanian left nephrostomy tube, and its tip was coiled in the renal pelvis. Injection of contrast confirms its location within the renal pelvis. The contrast was aspirated, the tube was flushed, and sutured to the skin using 2 silk. A sterile dressing was applied. The tube was placed to gravity bag drainage. Attention was then turned to the right sided nephrostomy tube. Contrast was injected through the indwelling right nephrostomy tube. Routine antegrade nephrostogram demonstrates nephrostomy tube is patent centered in the renal pelvis. The catheter retention suture was cut and a 0.035 guidewire was advanced through the catheter into the renal pelvis. The catheter was removed maintaining wire access and a new 10.2 Jordanian right sided nephrostomy tube was advanced over the wire and it tip was coiled in the renal pelvis. Injection of contrast confirms its location within the renal pelvis. The catheter was aspirated, flushed, and sutured to the skin with 2 silk. A sterile dressing was applied. Throughout the procedure, the patient was monitored by a radiology nurse for cardiac rhythm and oxygen saturation which remained stable. The patient tolerated the procedure well and left interventional radiology in stable condition. IMPRESSION: Successful bilateral 10.2 Jordanian nephrostomy tube exchanges/upsize, as detailed above. PLAN: The patient should return for routine exchange in 3 months. MARYLIN PAVON DO Jennifer Peguero MD [facility] IR ORDERABLES * IR Nephrostomy Tube Placement Bilateral (10/15/2023 11:07 AM CDT) Anatomical Region Laterality Modality Abdomen/Pelvis Radio Fluoroscop y Impressions 10/15/2023 3:59 PM CDT IMPRESSION: ?? 1. Successful bilateral percutaneous nephrostomy tube placement. [place] bag for drainage, no flushing needed. RAMÓN DIANE MD Narrative 10/15/2023 3:59 PM CDT [facility] LOCATION: DATE: 10/15/2023 PROCEDURE: BILATERAL ANTEGRADE PYELOGRAM AND BILATERAL PERCUTANEOUS NEPHROSTOMY 1. Bilateral ultrasound-guided access of the both intrarenal collecting systems. 2. Bilateral antegrade pyelography. 3. Bilateral percutaneous nephrostomy tube placement. 4. Moderate sedation. 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 CONSENT: The risks, benefits and alternatives of bilateral nephrostomy tube placement for urinary diversion were discussed with the patient in detail. All questions were answered. Informed consent was given to proceed with the procedure. MODERATE SEDATION: Versed 12 mg IV; Fentanyl 500 mcg IV. During the time out, immediately prior to the administration of medications, the patient was reassessed for adequacy to receive conscious sedation. Under physician supervision, Versed and fentanyl were administered for moderate sedation. Pulse oximetry, heart rate and blood pressure were continuously monitored by an independent trained observer. The physician spent 68 minutes of [id number]-[id number]-[id number] sedation time with the patient. CONTRAST: 90 cc of Isovue-300 into the collecting system. FLUOROSCOPIC TIME: 19 minutes. RADIATION DOSE: Air Kerma: 1103 mGy. COMPLICATIONS: No immediate complications. STERILE BARRIER TECHNIQUE: Maximum sterile barrier technique was used. Cutaneous antisepsis was performed at the operative site with application of 2% chlorhexidine and large sterile drape. Prior to the procedure, the payloader operator and pathology assistant performed hand hygiene and wore hat, mask, sterile gown, and sterile gloves during the entire procedure. PROCEDURE: ?? Using real-time sonographic guidance, a 22 gauge needle was inserted into the left collecting system, and a left antegrade pyelogram was performed. This was performed multiple times. An AccuStick set was then placed, and a 8 Jordanian nephrostomy tube was placed in the left renal pelvis. A post placement left nephrostogram was performed. The catheter was sutured to the skin and placed to gravity bag drainage. Using real-time sonographic guidance, a 22 gauge needle was inserted into the right collecting system, and a right antegrade pyelogram was performed. This was performed multiple times. An AccuStick set was then placed, and a 8 Jordanian nephrostomy tube was placed in the right renal pelvis. A post placement right nephrostogram was performed. The catheter was sutured to the skin and placed to gravity bag drainage. FINDINGS: Ultrasound demonstrated no evidence of hydronephrosis. Left antegrade pyelogram demonstrates appropriate needle positioning into a posterior middle pole calyx. Postplacement left nephrostogram demonstrates appropriate positioning and function of the left nephrostomy tube in the renal collecting system. Ultrasound demonstrated no evidence of hydronephrosis. Right antegrade pyelogram demonstrates appropriate needle positioning into a posterior middle pole calyx. Postplacement right nephrostogram demonstrates appropriate positioning and function of the right nephrostomy tube in the renal collecting system. Procedure Note Ramón Diane MD - 10/15/2023 [facility] LOCATION: DATE: 10/15/2023 PROCEDURE: BILATERAL ANTEGRADE PYELOGRAM AND BILATERAL PERCUTANEOUS NEPHROSTOMY 1. Bilateral ultrasound-guided access of the both intrarenal collecting systems. 2. Bilateral antegrade pyelography. 3. Bilateral percutaneous nephrostomy tube placement. 4. Moderate sedation. 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 CONSENT: The risks, benefits and alternatives of bilateral nephrostomy tube placement for urinary diversion were discussed with the patient in detail. All questions were answered. Informed consent was given to proceed with the procedure. MODERATE SEDATION: Versed 12 mg IV; Fentanyl 500 mcg IV. During the time out, immediately prior to the administration of medications, the patient was reassessed for adequacy to receive conscious sedation. Under physician supervision, Versed and fentanyl were administered for moderate sedation. Pulse oximetry, heart rate and blood pressure were continuously monitored by an independent trained observer. The physician spent 68 minutes of [id number] sedation time with the patient. CONTRAST: 90 cc of Isovue-300 into the collecting system. FLUOROSCOPIC TIME: 19 minutes. RADIATION DOSE: Air Kerma: 1103 mGy. COMPLICATIONS: No immediate complications. STERILE BARRIER TECHNIQUE: Maximum sterile barrier technique was used. Cutaneous antisepsis was performed at the operative site with application of 2% chlorhexidine and large sterile drape. Prior to the procedure, the payloader operator and pathology assistant performed hand hygiene and wore hat, mask, sterile gown, and sterile gloves during the entire procedure. PROCEDURE: Using real-time sonographic guidance, a 22 gauge needle was inserted into the left collecting system, and a left antegrade pyelogram was performed. This was performed multiple times. An AccuStick set was then placed, and a 8 Jordanian nephrostomy tube was placed in the left renal pelvis. A post placement left nephrostogram was performed. The catheter was sutured to the skin and placed to gravity bag drainage. Using real-time sonographic guidance, a 22 gauge needle was inserted into the right collecting system, and a right antegrade pyelogram was performed. This was performed multiple times. An AccuStick set was then placed, and a 8 Jordanian nephrostomy tube was placed in the right renal pelvis. A post placement right nephrostogram was performed. The catheter was sutured to the skin and placed to gravity bag drainage. FINDINGS: Ultrasound demonstrated no evidence of hydronephrosis. Left antegrade pyelogram demonstrates appropriate needle positioning into a posterior middle pole calyx. Postplacement left nephrostogram demonstrates appropriate positioning and function of the left nephrostomy tube in the renal collecting system. Ultrasound demonstrated no evidence of hydronephrosis. Right antegrade pyelogram demonstrates appropriate needle positioning into a posterior middle pole calyx. Postplacement right nephrostogram demonstrates appropriate positioning and function of the right nephrostomy tube in the renal collecting system. IMPRESSION: 1. Successful bilateral percutaneous nephrostomy tube placement. [place] bag for drainage, no flushing needed. RAMÓN DIANE MD Jennifer Peguero MD [facility] IR ORDERABLES * INR (10/15/2023 8:25 AM CDT) INR 1.08 0.85 - 1.15 10/15/2023 8:45 AM CDT LABORATORY Blood BLOOD SPECIMEN / Unknown IVAD (Port) / Unknown 10/15/2023 8:25 AM CDT 10/15/2023 8:31 AM CDT [facility] G[employer] PRESERVE MANAGER CORPORATE ADMINISTRATIVE ASSISTANT LAB - BLOOD ORDERABLES LABORATORY [facility] [address] 1st floor, [address] [place] [address], [facility] [phone] * (ABNORMAL) Basic metabolic panel (10/15/2023 8:25 AM CDT) Pathologist [facility] Sodium 139 135 - 145 mmol/L 10/15/2023 9:07 AM [facility] Comment:Reference intervals for this test were updated on 01/27/2023 to more accurately reflect our healthy population. There may be differences in the flagging of prior results with similar values performed with this method. Interpretation of those prior results can be made in the context of the updated reference intervals. Potassium 3.8 3.4 - 5.3 mmol/L 10/15/2023 9:07 AM [facility] Chloride 103 98 - 107 mmol/L 10/15/2023 9:07 AM [facility] Carbon Dioxide (CO2) 23 22 - 29 mmol/L 10/15/2023 9:07 AM [facility] Anion Gap 13 7 - 15 mmol/L 10/15/2023 9:07 AM [facility] Urea Nitrogen 32.2(H) 6.0 - 20.0 mg/dL 10/15/2023 9:07 AM [facility] Creatinine 1.51(H) 0.51 - 0.95 mg/dL 10/15/2023 9:07 AM [facility] GFR Estimate 40(L) >60 mL/min/1. 73m2 10/15/2023 9:07 AM [facility] Calcium 7.6(L) 8.6 - 10.0 mg/dL 10/15/2023 9:07 AM [facility] Glucose 101(H) 70 - 99 mg/dL 10/15/2023 9:07 AM CDT LABORATORY Blood BLOOD SPECIMEN / Unknown IVAD (Port) / Unknown 10/15/2023 8:25 AM CDT 10/15/2023 8:31 AM CDT Ashanti Fitzgerald GAME PRESERVE MANAGER CORPORATE ADMINISTRATIVE ASSISTANT LAB - BLOOD ORDERABLES LABORATORY [facility] [address] 1[address] floor, [address] [place] [address], [facility] [phone] * CT Abdomen Pelvis w Contrast (10/08/2023 12:42 PM CDT) Anatomical Region Laterality Modality Abdomen/Pelvis, SUBRAD CT RASHEL DY, UMP CT ABDOMEN PELVIS, RAD CT Computed Tomography 10/08/2023 12:4 2 PM CDT Impressions 10/08/2023 1:14 PM CDT IMPRESSION: 1. ??The known cervical mass is not conspicuous on CT. The bladder is thick- walled with perivesicular fat stranding and contains air within the lumen from known fistulous disease posteriorly. The other bladder findings could be related to an infectious or posttreatment cystitis. 2. ??Stable 1.4 cm indeterminate lesion anteriorly in hepatic segment 3. 3. ??Slightly increased mild splenomegaly with stable indeterminate hypoenhancing lesion. 4. ??Stable mildly enlarged to prominent bilateral inguinal lymph nodes. No new abdominopelvic lymphadenopathy. 5. ??Interval right middle lobe wedge resection, partially imaged. 6. ??Left renal angiomyolipomas. Narrative 10/08/2023 1:14 PM CDT EXAM: CT ABDOMEN PELVIS W CONTRAST LOCATION: [facility] DATE: 10/08/2023 INDICATION: ??Malignant neoplasm of exocervix (H) COMPARISON: 07/16/2023, 10/01/2023. TECHNIQUE: CT scan of the abdomen and pelvis was performed following injection of IV contrast. Multiplanar reformats were obtained. Dose reduction techniques were used. CONTRAST: FINDINGS: LOWER CHEST: Interval right middle lobe wedge resection changes with surrounding soft tissue scarring, incompletely imaged. No new lung base nodule. HEPATOBILIARY: Smooth liver contour with stable 1.4 cm slightly hypoenhancing lesion anteriorly in hepatic segment 3 (series 3, image 81). No new liver lesion. Normal gallbladder and bile ducts. PANCREAS: Normal. SPLEEN: Slightly increased mild splenomegaly measuring 15 cm, previously 14.5 cm. Stable 10 mm hypoenhancing lesion anterolaterally (series 3, image 47). ADRENAL GLANDS: Normal. KIDNEYS/BLADDER: Stable 2.1 cm lesion anteriorly in the interpolar left kidney which contains macroscopic fat, likely an angiomyolipoma. Another 7 mm angiomyolipoma in the left kidney posteriorly is also stable. No hydronephrosis. The bladder is collapsed with diffuse irregular wall thickening, perivesicular stranding and intraluminal air from known fistulous disease. BOWEL: Nondistended. Colonic diverticulosis. LYMPH NODES: No new retroperitoneal lymphadenopathy. Bilateral prominent to mildly enlarged inguinal lymph nodes are stable such as a 15 mm right inguinal lymph node and a 14 mm left inguinal lymph node. VASCULATURE: Mild atherosclerosis without aneurysmal dilation. PELVIC ORGANS: The known cervical mass is not conspicuous on CT. There is irregular appearance of the vaginal cuff and cervix which contain air which extends either into the endocervical canal or lower uterine segment. The remainder of the uterus is normal. Regional soft tissue stranding without distinct soft tissue nodularity no adnexal mass. Presacral edema is posttreatment related. MUSCULOSKELETAL: No aggressive osseous lesion. Procedure Note Félix Padilla MD - 10/08/2023 EXAM: CT ABDOMEN PELVIS W CONTRAST LOCATION: [facility] DATE: 10/08/2023 INDICATION: Malignant neoplasm of exocervix (H) COMPARISON: 07/16/2023, 10/01/2023. TECHNIQUE: CT scan of the abdomen and pelvis was performed followinginjection of IV contrast. Multiplanar reformats were obtained. Dosereduction techniques were used. CONTRAST: FINDINGS: LOWER CHEST: Interval right middle lobe wedge resection changes withsurrounding soft tissue scarring, incompletely imaged. No new lung basenodule. HEPATOBILIARY: Smooth liver contour with stable 1.4 cm slightlyhypoenhancing lesion anteriorly in hepatic segment 3 (series 3, image 81).No new liver lesion. Normal gallbladder and bile ducts. PANCREAS: Normal. SPLEEN: Slightly increased mild splenomegaly measuring 15 cm, jnqyxpkjnt24.5 cm. Stable 10 mm hypoenhancing lesion anterolaterally (series 3,image 47). ADRENAL GLANDS: Normal. KIDNEYS/BLADDER: Stable 2.1 cm lesion anteriorly in the interpolar leftkidney which contains macroscopic fat, likely an angiomyolipoma. Another 7mm angiomyolipoma in the left kidney posteriorly is also stable. Nohydronephrosis. The bladder is collapsed with diffuse irregular wall thickening, perivesicular strandingand intraluminal air from known fistulous disease. BOWEL: Nondistended. Colonic diverticulosis. LYMPH NODES: No new retroperitoneal lymphadenopathy. Bilateral prominentto mildly enlarged inguinal lymph nodes are stable such as a 15 mm rightinguinal lymph node and a 14 mm left inguinal lymph node. VASCULATURE: Mild atherosclerosis without aneurysmal dilation. PELVIC ORGANS: The known cervical mass is not conspicuous on CT. There isirregular appearance of the vaginal cuff and cervix which contain airwhich extends either into the endocervical canal or lower uterine segment.The remainder of the uterus is normal. Regional soft tissue stranding without distinct soft tissuenodularity no adnexal mass. Presacral edema is posttreatment related. MUSCULOSKELETAL: No aggressive osseous lesion. IMPRESSION: 1. The known cervical mass is not conspicuous on CT. The bladder isthick-walled with perivesicular fat stranding and contains air within thelumen from known fistulous disease posteriorly. The other bladder findingscould be related to an infectious or posttreatment cystitis. 2. Stable 1.4 cm indeterminate lesion anteriorly in hepatic segment 3. 3. Slightly increased mild splenomegaly with stable indeterminatehypoenhancing lesion. 4. Stable mildly enlarged to prominent bilateral inguinal lymph nodes. Nonew abdominopelvic lymphadenopathy. 5. Interval right middle lobe wedge resection, partially imaged. 6. Left renal angiomyolipomas. Aurea Altamirano APRN CORPORATE ADMINISTRATIVE ASSISTANT IMG CT ORDERA BLES * Transfuse red blood cells (unit) (10/07/2023 12:25 PM CDT) Only the most recent of2 resultswithin the time period is included. Aurea Altamirano APRN CORPORATE ADMINISTRATIVE ASSISTANT BLOOD TRANSFU TIN ORDERABLES * Prepare red blood cells (unit) (10/07/2023 7:58 AM CDT) Only the most recent of2 resultswithin the time period is included. Blood Component Type Red Blood Cells BLOOD BANK Product Code [id number] SH BLOO D BANK Unit Status Transfused SH BLOO D BANK Unit Number [id number] B LOOD BANK CROSSMATCH Compatible BLOOD BANK CODING SYSTEM [id number] SH BLO OD BANK ISSUE DATE AND TIME [id number] BLOOD BANK UNIT ABO/RH A+ BLOOD BANK UNIT TYPE ISBT 6200 BL OOD BANK 10/07/2023 7:58 AM CDT Aurea Fairbanks Adarsh HANNON CORPORATE ADMINISTRATIVE ASSISTANT BLOOD BANK AL ODUCT ORDERABLES BLOOD BANK [address] [place] [address], [facility] * ANE AIRWAY SUPRAGLOTTIC PERFORMABLE (10/05/2023 7:56 AM CDT) Narrative Lakesha Rosario APRN HOSE TESTER - 10/05/2023 7:56 AM CDT Lakesha Rosario APRN HOSE TESTER ? 10/05/2023 ??7:57 AM Airway ? Patient location during procedure: OR Staff - ? Anesthesiologist: ??Dixon Golden MD ? HOSE TESTER: Lakesha Rosario APRN CRNA ? Other Anesthesia Staff: Garry Butterfield ? Performed By: SRNA and with CRNAs ? Procedure performed by resident/fellow/HOSE TESTER in presence of a teaching physician. Consent for Airway ? Urgency: elective Indications and Patient Condition ? Indications for airway management: nathaly-procedural ? Induction type:intravenous ? Mask difficulty assessment: 0 - not attempted Final Airway Details ? Final airway type: supraglottic airway Supraglottic Airway Details ? Type: LMA ? Brand: Ambu AuraGain ? LMA size: 4 Post intubation assessment ? Placement verified by: capnometry, equal breath sounds and chest rise ? Number of attempts at approach: 1 ? Number of other approaches attempted: 0 ? Secured with: tape ? Ease of procedure: easy ? Dentition: Intact and Unchanged Dixon Golden MD AL ANESTHESIA * Adult Type and Screen (10/05/2023 6:27 AM CDT) Pathologist [facility] ABO/RH(D) A POS 10/05/2023 6:00 AM CDT BLOOD BANK Antibody Screen Negative Negative 10/05/2023 6:00 AM CDT BLOOD BANK SPECIMEN EXPIRATION DATE [id number] 10/05/2023 6:00 AM CDT BLOOD BANK Blood STRUCTURE OF LEFT UPPER LIMB / Unknown Venipuncture / Unknown 10/05/2023 6:27 AM CDT 10/05/2023 6:33 AM CDT Swati Real PA-C LAB - BLOOD BAN K TEST ORDER BLOOD BANK [address] [place] [address], [facility] * Potassium - Pre-Op (10/05/2023 6:27 AM CDT) [facility] Potassium 3.5 3.4 - 5.3 mmol/L 10/05/2023 6:59 AM CDT LABORATORY Blood STRUCTURE OF LEFT UPPER LIMB / Unknown Venipuncture / Unknown 10/05/2023 6:27 AM CDT 10/05/2023 6:33 AM CDT Dixon Golden MD LAB - BLOOD ORDER TRACI LABORATORY [facility] [address] 1[address] floor, [address] [place] [phone], [facility] [phone] * (ABNORMAL) CBC with platelets (10/05/2023 6:27 AM CDT) Pathologist [facility] WBC Count 3.6(L) 4.0 - 11.0 10e3/uL 10/05/2023 6:37 AM CDT LABORATORY RBC Count 2.63(L) 3.80 - 5.20 10e6/uL 10/05/2023 6:37 AM CDT LABORATORY Hemoglobin 7.6(L) 11.7 - 15.7 g/dL 10/05/2023 6:37 AM CDT LABORATORY Hematocrit 23.7(L) 35.0 - 47.0 % 10/05/2023 6:37 AM CDT LABORATORY MCV 90 78 - 100 fL 10/05/2023 6:37 AM CDT LABORATORY MCH 28.9 26.5 - 33.0 pg 10/05/2023 6:37 AM CDT LABORATORY MCHC 32.1 31.5 - 36.5 g/dL 10/05/2023 6:37 AM CDT LABORATORY RDW 16.4(H) 10.0 - 15.0 % 10/05/2023 6:37 AM CDT LABORATORY Platelet Count 112(L) 150 - 450 10e3/uL 10/05/2023 6:37 AM CDT LABORATORY Blood STRUCTURE OF LEFT UPPER LIMB / Unknown Venipuncture / Unknown 10/05/2023 6:27 AM CDT 10/05/2023 6:33 AM CDT Swati Real PA-C LAB - BLOOD ORD ERABLES LABORATORY [facility] [address] 1[address] floor, Room [address] [place] [address], [facility] [phone] * US Renal Complete Non-Vascular (09/30/2023 2:00 PM CDT) Anatomical Region Laterality Modality Abdomen/Pelvis Ultrasound Impressions 09/30/2023 2:07 PM CDT IMPRESSION: 1. ??No hydronephrosis. Unremarkable sonographic appearance of the kidneys. 2. ??Incidentally noted hepatic steatosis. GAVINO WAKEFIELD MD Narrative 09/30/2023 2:07 PM CDT US RENAL COMPLETE NON-VASCULAR 09/30/2023 2:00 PM CLINICAL HISTORY: US Kidney and ureters. Known cervical cancer, now with worsening kidney function. Assess for hydronephrosis or other mechanical blockage; Cancer of exocervix (H); Kidney failure TECHNIQUE: Routine Bilateral Renal and Bladder Ultrasound. COMPARISON: None. FINDINGS: RIGHT KIDNEY: 11.8 x 5.5 x 4.4 cm. Normal echogenicity without hydronephrosis or masses. No cysts. LEFT KIDNEY: 12.2 x 5.0 x 4.6 cm. Normal echogenicity without hydronephrosis or masses. No cysts. BLADDER: Decompressed. Incidentally noted echogenic hepatic parenchyma. Procedure Note Gavino Wakefield MD - 09/30/2023 US RENAL COMPLETE NON-VASCULAR 09/30/2023 2:00 PM CLINICAL HISTORY: US Kidney and ureters. Known cervical cancer, now with worsening kidney function. Assess for hydronephrosis or other mechanical blockage; Cancer of exocervix (H); Kidney failure TECHNIQUE: Routine Bilateral Renal and Bladder Ultrasound. COMPARISON: None. FINDINGS: RIGHT KIDNEY: 11.8 x 5.5 x 4.4 cm. Normal echogenicity without hydronephrosis or masses. No cysts. LEFT KIDNEY: 12.2 x 5.0 x 4.6 cm. Normal echogenicity without hydronephrosis or masses. No cysts. BLADDER: Decompressed. Incidentally noted echogenic hepatic parenchyma. IMPRESSION: 1. No hydronephrosis. Unremarkable sonographic appearance of the kidneys. 2. Incidentally noted hepatic steatosis. GAVINO WAKEFIELD MD Aurea Fairbanks Adarsh GAME PRESERVE MANAGER CORPORATE ADMINISTRATIVE ASSISTANT IMG US ORDERA BLES from Last 3 Months Advance Directives For more information, please contact: [phone] * Full Code (Latest Code Status on File) Date Activated Date Inactivated Comments 08/10/2023 12:09 PM 08/11/2023 3:01 PM All basic and advanced life-sustaining interventions are performed as appropriate Question Answer Comments Code status determined by: Discussion with meg nt/ legal decision maker Care Teams Technician Trainee Relationship Specialty Start Date End Date [facility], [address] [address] PCP - General 07/31/23
--- OUTSIDE RECORDS SUMMARY | 2023-12-16 08:56 | XMS_ITS | Encounter Summary ---
Author Organization [place] Address [address] [place] [address] Care Team Providers Care Carpet Installation Specialist Name Role Phone Clinic, [facility] Primary Care Provider Encounter Details Date Type Department Care Team (Late st Contact Info) Description 11/24/2023 Telephone [facility] Interventional Radiology [address] [facility] [address] [place] [phone] Matilde Hill, RN Social History Tobacco Use Types Packs/Day Years Used Date Smoking Tobacco: Former Cigarettes 1 15 1 4 - 1998 Cigars Smokeless Tobacco: Never Comments:Cigars a few times a month Alcohol Use Standard Drinks/Week Comments Yes 0 (1 standard drink = 0.6 oz pur e alcohol) 2-3 drinks per week Adolescent Education Answer Date Record ed Getting School Help Needed Not on file 08/09 Sex and Gender Information Value Date Recorded Sex Assigned at Not on file Gender Identity Not on file Sexual Orientation Not on file documented as of this encounter Miscellaneous Notes * Telephone Encounter - Matilde Hill RN - 11/24/2023 1:50 PM CDT Called to provide pre-procedure instructions to patient. She states that she has already received them from program services assistant. H&P done today, she is aware of fasting parameters. Matilde Vargas abap developer Urgent Care Physician Assistant [phone] * Telephone Encounter - Matilde Hill RN - 11/24/2023 1:39 PM CDT INTERVENTIONAL RADIOLOGY INSTRUCTIONS You are scheduled for an upcoming procedure in the Interventional Radiology Department at [facility]. Date: ThursdayNovember 24 Procedure: Nephrostomy Tube Change Address: [facility] [address] [place], [place] [address] [facility] [facility] is located on [address], across the street from hospital. There is a skyway connecting this ramp to the hospital and it will deliver you to the patient check in area. Check into the Skyway Lounge at: 10:30 am On the date of procedure, please do not eat any food after: 02:30 am (8 hours before arrival time) On the date of this procedure, you may drink clear liquids until 08:30 am (2 hours before arrival time) Clear liquid examples are: water, apple juice, black coffee or tea (no cream, sugar or milk), Gatorade & Jello. You will need to have someone available to drive you home. A ride share service ([employer], [employer], [employer]) does not qualify for transportation home unless you have another adult accompanying you home. We recommend that you do not not drive, or operate heavy machinery for 24 hours after receiving sedation for this procedure. We recommend that you have a responsible adult with you for 24 hours after you get home. Please take all of your medications as prescribed with a sip of water on the date of this procedure, unless you are contacted by a nurse from our department to hold them. This requirement has been fulfilled. No further action needed! Please confirm that you have received these instructions by replying to this [employer] message, or ifyou have any questions, please call the Interventional Radiology team at [phone]. Thank you! Matilde Vargas Interventional Radiology Intake Nurse Coordinator [phone] documented in this encounter Plan of Treatment Upcoming Encounters Date Type Department Care Team (Late st Contact Info) Description 03/07/2024 Hospital Encounter [facility] Imaging [address] [place] [phone] 03/07/2024 2:20 PM ANIMAL PHYSIOLOGY TEACHER Ancillary Procedure [facility] [address] [place] [phone] Otilia Escoto, PA-C [place] [facility] [address] [address] documented as of this encounter Visit Diagnoses Not on filedocumented in this encounter Care Teams Carpet Installation Specialist Relationship Specialty Start Date End Date Clinic, [address] [address] PCP - General 07/31/23 documented as of this encounter
--- OUTSIDE RECORDS SUMMARY | 2023-12-16 08:56 | XMS_ITS | Encounter Summary ---
Author Organization [place] Address [address] [facility] [place] [address] Care Team Providers Care Leadership Program Associate Name Role Phone Clinic, [facility] Primary Care Provider Reason for Referral * Therapeutic Imaging/IR (Routine) - Pending Review Specialty Diagnoses / Procedures Referred By Pam hay Referred To Contact Radiology. Diagnoses Malignant neoplasm of exocervix (H) Procedures IR Nephrostomy Tube Change Bilateral Ashanti Mandujano APRN [employer] [address] [place] [address] Referral ID Status Reason Start Date Expiration Date V isits Requested Visits Authorized [id number] Pending Review 10/19/2023 10/18/2024 1 1 Encounter Details Date Type Department Care Team (Late st Contact Info) Description 10/19/2023 Orders Only [facility] Interventional Radiology [address] [facility] [place] [phone] Bhakti Contreras, RN Malignant neoplasm of exocervix (H) (Primary Dx) Social History Tobacco Use Types Packs/Day Years Used Date Smoking Tobacco: Former Cigarettes 1 15 1 984 - 1998 Cigars Smokeless Tobacco: Never Comments:Cigars [...] on file documented as of this encounter Plan of Treatment Upcoming Encounters Date Type Department Care Team (Late st Contact Info) Description 03/07/2024 Hospital Encounter [facility] Imaging [address] [place] [phone] 03/07/2024 2:20 PM LANOLIN PLANT OPERATOR Ancillary Procedure [facility] [address] [facility] [place] [phone] Otilia Escoto, PA-C [place] [facility] [address] [place] [address] Scheduled Orders Name Type Priority Associated Diagnoses Orde r Schedule IR Nephrostomy Tube Change Bilateral Imaging Routine Malignant neoplasm of exocervix (H) Expected: 01/19/2024 (Approximate), Expires: 10/18/2024 documented as of this encounter Visit Diagnoses Diagnosis Malignant neoplasm of exocervix (H)- Primary Malignant neoplasm of exocervix documented in this encounter Care Teams Leadership Program Associate Relationship Specialty Start Date End Date Clinic, [facility] [address] [place] [address] PCP - General 07/31/23 documented as of this encounter
--- OUTSIDE RECORDS SUMMARY | 2023-12-16 08:56 | XMS_ITS | Encounter Summary ---
Author Organization [place] Address [address] [facility] [place] [address] Care Team Providers Care Membership Coordinator Name Role Phone Clinic, [facility] Primary Care Provider Reason for Referral * Therapeutic Imaging/IR (Emergency: 1-2 Days) - Closed Specialty Diagnoses / Procedures Referred By Pam hay Referred To Contact Radiology. Diagnoses Cancer of exocervix (H) Procedures IR Nephrostomy Tube Placement Bilateral IR Referral Jennifer Peguero MD [facility] [address] [facility] [address] [place] [address] Interventional Rad [address] [place] [phone] Referral ID Status Reason Start Date Expiration Date Visits Re quested Visits Authorized [id number] Closed 10/05/2023 10/04/2024 1 1 Reason for Visit * Auth/Cert Specialty Diagnoses / Procedures Referred By Pam hay Referred To Contact Med Surg Diagnoses unknown Procedures IR Nephrostomy Tube Placement Bilateral Care Suites [address] [phone] Referral ID Status Reason Start Date Expiration Date Visits Re quested Visits Authorized [id number] 1 1 Encounter Details Date Type Department Care Team (Late st Contact Info) Description 10/15/2023 7:37 AM CDT - 10/15/2023 3:17 PM CDT Hospital Encounter [facility] Care [address]es [address] [phone] Non-Fv Credentialed Provider, Radiology Ramón Diane MD [facility] [address] [place] [address] Cancer of exocervix (H) Discharge Disposition: Home or Self Care Social History Tobacco Use Types Packs/Day Years [...] on file documented as of this encounter Last Filed Vital Signs Vital Sign Reading Time Taken Comments Blood Pressure 130/66 10/15/2023 1:30 PM CDT Pulse 72 10/15/2023 1:15 PM CDT Temperature 36.6 ??C (97.8 ??F) 10/15/2023 7:47 AM CD T Respiratory Rate 16 10/15/2023 1:30 PM CDT Oxygen Saturation 100% 10/15/2023 1:30 PM CDT Inhaled Oxygen Concentration - - Weight 138.8 kg (306 lb) 10/15/2023 7:47 AM CDT Height 175.3 cm (5' 9) 10/15/2023 7:47 AM CDT Body Mass Index 45.19 10/15/2023 7:47 AM CDT documented in this encounter Discharge Instructions * Discharge Instructions* Rodríguez Leos RN - 10/15/2023 9:08 AM CDT Nephrostomy Tube/Stent Insertion/Exchange Discharge Instructions After you go home: You may resume your normal diet Drink plenty of fluids, especially water Have an adult stay with you for 6 hours if you received sedation For 24 hours - due to the sedation you received: Relax and take it easy Do NOT make any important or legal decisions Do NOT drive or operate machines at home or at work Do NOT drink alcohol Care of Tube Site: For the first 48 hrs, check your puncture site every couple hours while you are awake Check the tube site twice a day for signs of infection Keep the dressing around the tube dry Change the dressing every 2-3 days if it is gauze/tape. If there is a Stay Fix dressing intact - this should be changed weekly. Change the dressing if it becomes wet or dirty You may shower but do not get the dressing wet. Place a waterproof cover over the dressing (such asplastic wrap). No tub baths, whirlpools or swimming until the tube is removed Activity: You may go back to normal activity in 24 hours Wait 48 hours before lifting, straining, exercise or other strenuous activity Medicines: You may resume all medications Resume your Warfarin/Coumadin at your regular dose today. Follow up with your provider to have yourINR rechecked Resume your Platelet Inhibitors and Aspirin tomorrow at your regular dose For minor pain, you may take Acetaminophen (Tylenol) or Ibuprofen (Advil) Call the provider who ordered this procedure if: The site is red, swollen, hot or tender There is foul-smelling drainage from the tube site You have pain that is getting worse or that does not improve with pain medication You have chills or a fever greater than 101 F (38 C) Fluid stops draining or is leaking around the tube onto your skin The tube falls out Any questions or concerns Call 911 or go to the Emergency Room if: Severe pain or trouble breathing Bleeding that you cannot control Other Instructions: If the tube falls out - cover the opening with gauze & tape Record drainage output amounts & bring sheet to return appointments Take your temperature daily If you have questions call: [facility] Radiology Dept @ [phone] Or you can contact your provider via My Chart documented in this encounter Medications at Time of Discharge Medication Sig Dispensed Refills Start Date End Date acetaminophen (TYLENOL) 500 MG tablet Take 500-1,000 mg by mouth every 6 hours as needed for mild pain amLODIPine (NORVASC) 10 MG tablet Take 10 mg by mouth daily carvedilol (COREG) 3.125 MG tablet Take 3.125 mg by mouth 2 times daily (with meals) DULoxetine (CYMBALTA) 30 MG capsule Take 30 mg by mouth 2 times daily HYDROmorphone (DILAUDID) 2 MG tabletIndications:Acute post-operative pain Take 1 tablet (2 mg) by mouth every 4 hours as needed for moderate pain 20 tablet 08/11/2023 hydrOXYzine HCl (ATARAX) 25 MG tablet Take 25 mg by mouth 3 times daily as needed for itching hydrOXYzine nii (VISTARIL) 25 MG capsule Take 25 mg by mouth every 4 hours as needed for itching ibuprofen (ADVIL/MOTRIN) 200 MG tablet Take 200 mg by mouth every 4 hours as needed for pain losartan-hydrochlorothi azide (HYZAAR) 100-12.5 MG tablet Take 1 tablet by mouth daily oxyCODONE IR (ROXICODONE) 10 MG tablet Take 5 mg by mouth every 4 hours as needed for severe pain senna-docusate (SENOKOT-S/PERICOLACE) 8.6-50 MG tabletIndications:Drug- induced constipation Take 1 tablet by mouth 2 times daily as needed for constipation 30 tablet 08/11/2023 documented as of this encounter Progress Notes * Rodríguez Leos RN - 10/15/2023 1:53 PM CDT Care Suites Discharge Nursing Note Patient Information Name: Mora Kessler Age: [age] year old Discharge Education: Discharge instructions reviewed: Yes Additional education/resources provided: tube care Patient/patient call center representative verbalizes understanding: Yes Patient discharging on new medications: No Medication education completed: N/A Discharge Plans: Discharge location: home Discharge ride contacted: Yes Approximate discharge time: 1350 Discharge Criteria: Discharge criteria met and vital signs stable: Yes Rao neph tube draining serosangous urine - dressing CDI Patient Belongs: Patient belongings returned to patient: Yes Rodríguez Leos RN * Marylin Hyman RN - 10/15/2023 11:24 AM CDT Care Suites Post Procedure Note Patient Information Name: Mora Kessler Age: [age] year old Post Procedure Time patient returned to Care Suites: 1115 Concerns/abnormal assessment: no If abnormal assessment, provider notified: N/A Plan/Other: Continue to monitor post sedation for 2 hours per IR. Monitor. Marylin Hyman, RN * Rodríguez Leos RN - 10/15/2023 8:30 AM CDT Care Suites Admission Nursing Note Patient Information Name: Mora Kessler Age: [age] year old Reason for admission: Neph tube placement Care Suites arrival time: 0800 Visitor Information Name: Zoe Patient Admission/Assessment Pre-procedure assessment complete: Yes If abnormal assessment/labs, provider notified: N/A NPO: Yes Medications held per instructions/orders: N/A Consent: deferred If applicable, test status: deferred Patient oriented to room: Yes Education/questions answered: Yes Plan/other: proceed with plan Discharge Planning Discharge name/phone number: Zoe [phone] Overnight post sedation caregiver: Zoe Discharge location: home Rodríguez Leos RN documented in this encounter Procedure Notes * Ramón Diane MD - 10/15/2023 11:26 AM CDT Interventional Radiology Post-Procedure Note ? Brief Procedure Note: Patient name: Mora Kessler Pt Date of procedure: 10/15/2023 Procedure(s): Image guided bilateral percutaneous nephrostomy tube placement Sedation method: Moderate sedation was employed. The patient was monitored by an interventional radiology nurse at all times throughout the procedure under my direct guidance. Pre Procedure Diagnosis: Bilateral ureteral fistulae Post Procedure Diagnosis: Same Indications: Hydronephrosis ? Attending: Ramón Diane M.D. Specimen(s) removed: None Additional studies ordered: None Drains: Bilateral 8 Fr locking pigtail nephrostomy catheters Estimated Blood Loss: Minimal Complications: None Vascular closure method: N/A Findings/Notes/Comments: Successful placement of bilateral percutaneous nephrostomy tubes Tubes controls renal collecting systems well. Asher bag drainage without need for flushing. Patient to return to IR in three month intervals for routine exchange or earlier as needed. ? Please see dictation in PACS or under the Imaging tab in [facility] for detailed procedure note. Ramón Diane M.D. Vascular and Interventional Radiology Pager: After Hours / Scheduling: 10/15/2023 11:26 AM documented in this encounter Miscellaneous Notes * IR Note - Luis Fernando Ca RN - 10/15/2023 9:10 AM CDT Patient Name: Mora Kessler Today's Date: 10/15/2023 Procedure: Bilateral Nephrostomy Tube Placement Proceduralist: Dr. Diane Pathology present: no Procedure Start: 953 Procedure end: 1101 Sedation medications administered: Last Dose: 1055, Fentanyl 500 mcg, Versed 12 mg, Lidocaine 11 ml's. Report given to: ANDREI Parrish RN Child Care Education Coordinator: no Other Notes: Pt will require 2 bedrest post procedure. Pt arrived to IR room 2 from 10. Consent reviewed. Pt denies any questions or concerns regarding procedure. Pt positioned prone and monitoredper protocol. Pt tolerated procedure without any noted complications. * Pre-Procedure - Ashanti Mandujano APRN CNP - 10/15/2023 8:37 AM CDT GENERAL PRE-PROCEDURE: Procedure: Bilateral nephrostomy tube placement with moderate sedation Date/Time: 10/15/2023 8:37 AM Written consent obtained?: Yes Risks and benefits: Risks, benefits and alternatives were discussed Consent given by: Patient Patient states understanding of procedure being performed: Yes Patient's understanding of procedure matches consent: Yes Procedure consent matches procedure scheduled: Yes Expected level of sedation: Moderate Appropriately NPO: Yes ASA Class: 3 Mallampati : Grade 3- soft palate visible, posterior pharyngeal wall not visible Lungs: Lungs clear with good breath sounds bilaterally and other (comment) Lung exam comment: Decreased Heart: Normal heart sounds and rate History & Physical reviewed: History and physical reviewed and no updates needed Statement of review: I have reviewed the lab findings, diagnostic data, medications, and the plan for sedation Total time: [address] minutes [address] [facility] Interventional Radiology UNIFIED COMMUNICATIONS ENGINEER ([phone]) (phone [phone]) Electronically signed by [facility] mountain[facility]anti APRN UNIFIED COMMUNICATIONS ENGINEER at 10/15/2023 8:38 AM CDT documented in this encounter Plan of Treatment Upcoming Encounters Date Type Department Care Team (Late st Contact Info) Description 03/07/2024 Hospital Encounter [facility] [address] [place] [phone] 03/07/2024 2:20 PM RECEIVING SUPERVISOR Ancillary Procedure [facility] [address] [facility] [address] Otilia Escoto, PA-C [facility] [address] [place] [address] documented as of this encounter Procedures Procedure Name Priority Date/Time Associated Diagnosis Comments IR NEPHROSTOMY TUBE PLACEMENT BILATERAL Emergency: 1-2 Days 10/15/2023 11:07 AM CDT Cancer of exocervix (H) INR STAT 10/15/2023 8:25 AM CDT BASIC METABOLIC PANEL STAT 10/15/2023 8:25 AM CDT documented in this encounter Results * IR Nephrostomy Tube Placement Bilateral (10/15/2023 11:07 AM CDT) Anatomical Region Laterality Modality Abdomen/Pelvis Radio Fluoroscop y Impressions 10/15/2023 3:59 PM CDT IMPRESSION: ?? 1. Successful bilateral percutaneous nephrostomy tube placement. Asher bag for drainage, no flushing needed. RAMÓN DIANE MD Narrative 10/15/2023 3:59 PM CDT [facility] LOCATION: DATE: 10/15/2023 PROCEDURE: BILATERAL ANTEGRADE [...] observer. The physician spent 68 minutes of [id number] sedation time with the patient. CONTRAST: 90 cc of Isovue-300 into the collecting system. FLUOROSCOPIC TIME: 19 minutes. RADIATION DOSE: Air Kerma: 1103 mGy. COMPLICATIONS: No immediate complications. STERILE BARRIER TECHNIQUE: Maximum sterile barrier technique was used. Cutaneous antisepsis was performed at the operative site with application of 2% chlorhexidine and large sterile drape. Prior to the procedure, the service unit operator and dental office assistant performed hand hygiene and wore hat, mask, sterile gown, and sterile gloves during the entire procedure. PROCEDURE: ?? Using real-time sonographic guidance, a 22 gauge needle was inserted into the left collecting system, and a left antegrade pyelogram was performed. This was performed multiple times. An AccuStick set was then placed, and a 8 Haitian nephrostomy tube was placed in the left [...] set was then placed, and a 8 Haitian nephrostomy tube was placed in the right [...] Procedure Note Ramón Diane MD - 10/15/2023 [facility] LOCATION: DATE: 10/15/2023 PROCEDURE: BILATERAL ANTEGRADE [...] observer. The physician spent 68 minutes of [id number] sedation time with the patient. CONTRAST: 90 cc of Isovue-300 into the collecting system. FLUOROSCOPIC TIME: 19 minutes. RADIATION DOSE: Air Kerma: 1103 mGy. COMPLICATIONS: No immediate complications. STERILE BARRIER TECHNIQUE: Maximum sterile barrier technique was used. Cutaneous antisepsis was performed at the operative site with application of 2% chlorhexidine and large sterile drape. Prior to the procedure, the service unit operator and dental office assistant performed hand hygiene and wore hat, mask, sterile gown, and sterile gloves during the entire procedure. PROCEDURE: Using real-time sonographic guidance, a 22 gauge needle was inserted into the left collecting system, and a left antegrade pyelogram was performed. This was performed multiple times. An AccuStick set was then placed, and a 8 Haitian nephrostomy tube was placed in the left [...] set was then placed, and a 8 Haitian nephrostomy tube was placed in the right [...] 1. Successful bilateral percutaneous nephrostomy tube placement. Asher bag for drainage, no flushing needed. RAMÓN DIANE MD Jennifer Peguero MD [facility] [place] [place] IR ORDERABLES * (ABNORMAL) Basic metabolic panel (10/15/2023 8:25 AM CDT) [facility] Sodium 139 135 - 145 mmol/L 10/15/2023 9:07 AM T LABORATORY Comment:Reference intervals for this test were updated on 01/27/2023 to more accurately reflect our healthy population. There may be differences in the flagging of prior results with similar values performed with this method. Interpretation of those prior results can be made in the context of the updated reference intervals. Potassium 3.8 3.4 - 5.3 mmol/L 10/15/2023 9:07 AM CDT LABORATORY Chloride 103 98 - 107 mmol/L 10/15/2023 9:07 AM CDT LABORATORY Carbon Dioxide (CO2) 23 22 - 29 mmol/L 10/15/2023 9:07 AM CDT LABORATORY Anion Gap 13 7 - 15 mmol/L 10/15/2023 9:07 AM CDT LABORATORY Urea Nitrogen 32.2(H) 6.0 - 20.0 mg/dL 10/15/2023 9:07 AM CDT LABORATORY Creatinine 1.51(H) 0.51 - 0.95 mg/dL 10/15/2023 9:07 AM CDT LABORATORY GFR Estimate 40(L) >60 mL/min/1. 73m2 10/15/2023 9:07 AM CDT LABORATORY Calcium 7.6(L) 8.6 - 10.0 mg/dL 10/15/2023 9:07 AM CDT LABORATORY Glucose 101(H) 70 - 99 mg/dL 10/15/2023 9:07 AM CDT LABORATORY Blood BLOOD SPECIMEN / Unknown IVAD (Port) / Unknown 10/15/2023 8:25 AM CDT 10/15/2023 8:31 AM CDT [facility] - BLOOD ORDERABLES [facility] [address], [place] [address] [address], [facility] [[email or web address]] [phone] * INR (10/15/2023 8:25 AM CDT) INR 1.08 0.85 - 1.15 10/15/2023 8:45 AM CDT LABORATORY Blood BLOOD SPECIMEN / Unknown IVAD (Port) / Unknown 10/15/2023 8:25 AM CDT 10/15/2023 8:31 AM CDT Ashanti Shauna [facility] - BLOOD ORDERABLES [facility] [address], [address] [place] [address], [place] [phone] documented in this encounter Visit Diagnoses Diagnosis Cancer of exocervix (H) Malignant neoplasm of exocervix documented in this encounter Administered Medications Inactive Administered Medications - up to 3 most recent administrations Medication Order MAR Action Action Date Dose Rate Site acetaminophen (TYLENOL) tablet 650 mg 650 mg, Oral, ONCE PRN, mild pain, Starting on Daysi 10/15/23 at 1113, Maximum acetaminophen dose from all sources = 75 mg/kg/day not to exceed 4 grams/day. $Given 10/15/2023 11:56 AM CDT 650 mg cefTAZidime (FORTAZ) 1 g vial to attach to NS 100 ml bag for ADULTS or NS 50 ml bag for PEDS Routine, 1 g, Intravenous, PRE-OP/PRE-PROCEDURE, Starting on Daysi 10/15/23 at 0757, For 1 dose, Give dose within one hour PRIOR to procedure., Indications: Perioperative Pharmacoprophylaxis, IR Pre-procedure $New Bag 10/15/2023 8:57 AM CDT 1 g fentaNYL (PF) (SUBLIMAZE) injection 25-50 mcg 25-50 mcg, Intravenous, EVERY 5 MIN PRN, severe pain, If inadequate response may repeat 25 mcg IV slowly every 5 min PRN severe pain; when verbally requested by provider., Administer over 2 Minutes, Starting on Daysi 10/15/23 at 0921, Doses can be exceeded under direct oversight of patient by physician., IR Intra-procedure $Given 10/15/2023 10:55 AM CDT 50 mcg $Given 10/15/2023 10:50 AM CDT 50 mcg $Given 10/15/2023 10:45 AM CDT 50 mcg flumazenil (ROMAZICON) injection 0.2 mg 0.2 mg, Intravenous, EVERY 1 MIN PRN, benzodiazepine reversal, If inadequate response after 45 seconds, may repeat 0.2 mg IV every 1 minute PRN oversedation., Administer over 1 Minutes, Starting on Daysi 10/15/23 at 0921, Give over 15 seconds. Maximum total dose of 1 mg. Continue monitoring until discharge criteria met for a minimum of 2 hours. Irritant. Use with caution in patients on benzodiazepine therapy., IR Intra-procedure heparin lock flush 10 unit/mL injection 5-10 mL 5-10 mL, Intracatheter, EVERY 1 HOUR PRN, post meds or blood draw, other, to lock each port in dual implanted port, Starting on Daysi 10/15/23 at 0841, Flush each port lumen with the sodium chloride 0.9% flush followed by the heparin flush. MAX dose: 5 mL of heparin for each lumen heparin lock flush 10 unit/mL injection 5-10 mL 5-10 mL, Intracatheter, EVERY 24 HOURS, First dose on Daysi 10/15/23 at 0900, To lock each dormant port in dual implanted port. MAX: 5 mL of heparin for each lumen Check PRN heparin flush order to see when the last dose of the PRN heparin was given before administering this heparin dose. Flush with sodium chloride 0.9% followed by the heparin flush. heparin lock flush 100 unit/mL injection 5-10 mL 5-10 mL, Intracatheter, EVERY 28 DAYS, First dose on Daysi 10/15/23 at 0900, To de-access each port in dual implanted port. Flush with 10 mL NS sodium chloride 0.9% flush followed by 5 mL heparin (100 units/mL) at discharge and at least every 28 days. MAX: 5 mL per each port lumen $Given 10/15/2023 1:34 PM CDT 5 mLs iopamidol (ISOVUE-300) solution 61% 50 mL 50 mL, Tube, ONCE, On Daysi 10/15/23 at 1000, For 1 dose, Supplied and administered by Radiology., IR Intra-procedure $Given 10/15/2023 11:07 AM CDT 90 mLs lidocaine 1 % 1-30 mL 1-30 mL, Intradermal, ONCE PRN, local anesthetic. When verbally ordered by prescriber during the procedure., Starting on Daysi 10/15/23 at 0921, For 1 dose, Dose to be divided into smaller volumes appropriate for the procedure. Provider to administer intradermally., IR Intra-procedure $Given by Other Clinician 10/15/2023 10:58 AM CDT 11 mLs midazolam (VERSED) injection 0.5-2 mg 0.5-2 mg, Intravenous, Administer over 1 Minutes, EVERY 4 MIN PRN, sedation, If inadequate response may repeat 0.5 mg IV slowly every 4 minutes PRN sedation until desired response; when verbally requested by provider., Starting on Daysi 10/15/23 at 0921, Doses can be exceeded under direct oversight of patient by physician. This drug may cause significant respiratory depression. Monitor respiratory status and vital signs carefully for 1 hour after each dose., IR Intra-procedure $Given 10/15/2023 10:55 AM CDT 1 mg $Given 10/15/2023 10:50 AM CDT 1 mg $Given 10/15/2023 10:45 AM CDT 1 mg naloxone (NARCAN) injection 0.2 mg 0.2 mg, Intravenous, EVERY 2 MIN PRN, opioid reversal, Starting on Daysi 10/15/23 at 0921, Administer intravenous route when available and notify provider when administered. For unintended sedation or respiratory depression if all of the below criteria are met: ~ respiratory rate LESS than or EQUAL to 8. ~SaO2 less than 92% and or/end-tidal CO2 is greater than 50. ~ the patient is receiving an opioid, has unintended sedations assessed as RASS (-3), and is currently not on mechanical ventilation. RASS scale moderate (-3) is movement or eye opening to voice but no eye contact. Patient Monitoring Once the patient has demonstrated a response to the naloxone, continue to monitor respiratory rate, depth, oxygen saturation and end-tidal CO2 (if available) every 15 minutes x 2, then every 30 minutes x 2, then every 1 hour x 1 after each naloxone dose. Consider transfer to ICU if patient respiratory parameters have not improved after 4 naloxone doses., IR Intra-procedure naloxone (NARCAN) injection 0.2 mg 0.2 mg, Intramuscular, EVERY 2 MIN PRN, opioid reversal, Starting on Daysi 10/15/23 at 0921, Administer intramuscular if an intravenous route is not available and notify provider when administered. For unintended sedation or respiratory depression if all of the below criteria are met: ~ respiratory rate LESS than or EQUAL to 8. ~SaO2 less than 92% and or/end-tidal CO2 is greater than 50. ~ the patient is receiving an opioid, has unintended sedations assessed as RASS (-3), and is currently not on mechanical ventilation. RASS scale moderate (-3) is movement or eye opening to voice but no eye contact. Patient Monitoring Once the patient has demonstrated a response to the naloxone, continue to monitor respiratory rate, depth, oxygen saturation and end-tidal CO2 (if available) every 15 minutes x 2, then every 30 minutes x 2, then every 1 hour x 1 after each naloxone dose. Consider transfer to ICU if patient respiratory parameters have not improved after 4 naloxone doses., IR Intra-procedure naloxone (NARCAN) injection 0.4 mg 0.4 mg, Intravenous, EVERY 2 MIN PRN, opioid reversal, Starting on [facility] 10/15/23 at 0921, Administer intravenous route when available and notify provider when administered. For unintended sedation or respiratory depression if all of the below criteria are met: ~ respiratory rate LESS than or EQUAL to 8. ~ SaO2 less than 92% and or/end-tidal CO2 is greater than 50. ~ the patient is receiving an opioid, has unintended sedation assessed as RASS (-4) or (-5) and patient is currently not on mechanical ventilation. RASS scale (-4) is deep sedation with no response to voice but movement or eye opening to physical stimulation. RASS scale (-5) is unarousable. Patient Monitoring Once the patient has demonstrated a response to the naloxone, continue to monitor respiratory rate, depth, oxygen saturation and end-tidal CO2 (if available) every 15 minutes x 2, then every 30 minutes x 2, then every 1 hour x 1 after each naloxone dose. Consider transfer to ICU if patient respiratory parameters have not improved after 4 naloxone doses., IR Intra-procedure naloxone (NARCAN) injection 0.4 mg 0.4 mg, Intramuscular, EVERY 2 MIN PRN, opioid reversal, Starting on [facility] 10/15/23 at 0921, Administer intramuscular if an intravenous route is not available and notify provider when administered. For unintended sedation or respiratory depression if all of the below criteria are met: ~ respiratory rate LESS than or EQUAL to 8. ~ SaO2 less than 92% and or/end-tidal CO2 is greater than 50. ~ the patient is receiving an opioid, has unintended sedation assessed as RASS (-4) or (-5) and patient is currently not on mechanical ventilation. RASS scale (-4) is deep sedation with no response to voice but movement or eye opening to physical stimulation. RASS scale (-5) is unarousable. Patient Monitoring Once the patient has demonstrated a response to the naloxone, continue to monitor respiratory rate, depth, oxygen saturation and end-tidal CO2 (if available) every 15 minutes x 2, then every 30 minutes x 2, then every 1 hour x 1 after each naloxone dose. Consider transfer to ICU if patient respiratory parameters have not improved after 4 naloxone doses., IR Intra-procedure sodium chloride (PF) 0.9% PF flush 10-20 mL 10-20 mL, Intracatheter, EVERY 1 MIN PRN, line flush, post meds or blood draw, to flush each lumen of the CVC Implanted port, Starting on [facility] 10/15/23 at 0840, 10 mL per port lumen post IV meds; 20 mL per port lumen post post blood draw. sodium chloride (PF) 0.9% PF flush 10-20 mL 10-20 mL, Intracatheter, EVERY 1 HOUR PRN, other, to de-access port when not in use, Starting on [facility] 10/15/23 at 0840, Use sodium chloride 0.9% at least daily to de-access each port and lock dormant implanted port while not in use. Flush each port access with 10 mL sodium chloride 0.9% MAX: 10 mL per each port lumen sodium chloride (PF) 0.9% PF flush 10-20 mL 10-20 mL, Intracatheter, EVERY 28 DAYS, First dose on [facility] 10/15/23 at 0900, To flush and lock each port in dual implanted port. Flush each port with 10 mL sodium chloride 0.9% followed by either heparin or anticoagulant citrate as ordered. Max: 10 mL per each port lumen. sodium chloride (PF) 0.9% PF flush 3 mL 3 mL, Intracatheter, EVERY 8 HOURS, First dose on [facility] 10/15/23 at 0800, to lock peripheral IV dormant line, IR Pre-procedure sodium chloride (PF) 0.9% PF flush 3 mL 3 mL, Intracatheter, EVERY 1 MIN PRN, line flush, other, to ensure patency or to lock dormant line, Starting on [facility] 10/15/23 at 0757, IR Pre-procedure sodium chloride 0.9 % bag TABLE SOLN 1 Bag, TABLE SOLN, EVERY 5 MIN PRN, other, Catheter prep table solution use as directed by provider., Starting on [facility] 10/15/23 at 0757, For 5 doses, Maximum total dose 5000 mL Nurse will document number of bags used at the end of the procedure., IR Pre-procedure documented in this encounter Active and Recently Administered Medications Times are shown in CDT. Scheduled Medication Order 10/13/2023 10/14/2023 10/15/2023 cefTAZidime (FORTAZ) 1 g vial to attach to NS 100 ml bag for ADULTS or NS 50 ml bag for PEDS (COMPLETED) Routine, 1 g, Intravenous, PRE-OP/PRE-PROCEDURE, Starting on [facility] 10/15/23 at 0757, For 1 dose, Give dose within one hour PRIOR to procedure., Indications: Perioperative Pharmacoprophylaxis, IR Pre-procedure 0857 ($New Bag - Pro vider: Rodríguez Leos RN)1135 (Stopped - Provider: Marylin Hyman RN) heparin lock flush 10 unit/mL injection 5-10 mL 5-10 mL, Intracatheter, EVERY 24 HOURS, First dose on [facility] 10/15/23 at 0900, To lock each dormant port in dual implanted port. MAX: 5 mL of heparin for each lumen Check PRN heparin flush order to see when the last dose of the PRN heparin was given before administering this heparin dose. Flush with sodium chloride 0.9% followed by the heparin flush. 0900 (Canceled Entry - Provider: Orders Generic Provider - Comment: Automatically canceled at discontinue of medication order) heparin lock flush 100 unit/mL injection 5-10 mL 5-10 mL, Intracatheter, EVERY 28 DAYS, First dose on [facility] 10/15/23 at 0900, To de-access each port in dual implanted port. Flush with 10 mL NS sodium chloride 0.9% flush followed by 5 mL heparin (100 units/mL) at discharge and at least every 28 days. MAX: 5 mL per each port lumen 1334 ($Given - Provi yon: Rodríguez Leos RN) iopamidol (ISOVUE-300) solution 61% 50 mL (COMPLETED) 50 mL, Tube, ONCE, On Days[facility] 10/15/23 at 1000, For 1 dose, Supplied and administered by Radiology., IR Intra-procedure 1107 ($Given - Provi yon: Matilde Coelho) sodium chloride (PF) 0.9% PF flush 10-20 mL 10-20 mL, Intracatheter, EVERY 28 DAYS, First dose on [facility] 10/15/23 at 0900, To flush and lock each port in dual implanted port. Flush each port with 10 mL sodium chloride 0.9% followed by either heparin or anticoagulant citrate as ordered. Max: 10 mL per each port lumen. 0900 (Canceled Entry - Provider: Orders Generic Provider - Comment: Automatically canceled at discontinue of medication order) sodium chloride (PF) 0.9% PF flush 3 mL 3 mL, Intracatheter, EVERY 8 HOURS, First dose on [facility] 10/15/23 at 0800, to lock peripheral IV dormant line, IR Pre-procedure 0800 (Canceled Entry - Provider: Orders Generic Provider - Comment: Automatically canceled at discontinue of medication order)1600 (Canceled Entry - Provider: Orders Generic Provider - Comment: Automatically canceled at discontinue of medication order) PRN Medication Order 10/13/2023 10/14/2023 10/15/2023 acetaminophen (TYLENOL) tablet 650 mg 650 mg, Oral, ONCE PRN, mild pain, Starting on [facility] 10/15/23 at 1113, Maximum acetaminophen dose from all sources = 75 mg/kg/day not to exceed 4 grams/day. 1156 ($Given - Provi yon: Marylin Hyman RN) fentaNYL (PF) (SUBLIMAZE) injection 25-50 mcg 25-50 mcg, Intravenous, EVERY 5 MIN PRN, severe pain, If inadequate response may repeat 25 mcg IV slowly every 5 min PRN severe pain; when verbally requested by provider., Administer over 2 Minutes, Starting on [facility] 10/15/23 at 0921, Doses can be exceeded under direct oversight of patient by physician., IR Intra-procedure 0955 ($Given - Provi yon: Luis Fernando Ca RN)1005 ($Given - Provider: Luis Fernando Ca RN)1013 ($Given - Provider: Luis Fernando Ca RN)1018 ($Given - Provider: Luis Fernando Ca, RN)1029 ($Given - Provider: Luis Fernando Ca, SHERON)1035 ($Given - Provider: Luis Fernando Ca, SHERON)1040 ($Given - Provider: Luis Fernando Ca, SHERON)1045 ($Given - Provider: Luis Fernando Ca, RN)1050 ($Given - Provider: Luis Fernando Ca, SHERON)1055 ($Given - Provider: Luis Fernando Ca RN) flumazenil (ROMAZICON) injection 0.2 mg 0.2 mg, Intravenous, EVERY 1 MIN PRN, benzodiazepine reversal, If inadequate response after 45 seconds, may repeat 0.2 mg IV every 1 minute PRN oversedation., Administer over 1 Minutes, Starting on [facility] 10/15/23 at 0921, Give over 15 seconds. Maximum total dose of 1 mg. Continue monitoring until discharge criteria met for a minimum of 2 hours. Irritant. Use with caution in patients on benzodiazepine therapy., IR Intra-procedure heparin lock flush 10 unit/mL injection 5-10 mL 5-10 mL, Intracatheter, EVERY 1 HOUR PRN, post meds or blood draw, other, to lock each port in dual implanted port, Starting on [facility] 10/15/23 at 0841, Flush each port lumen with the sodium chloride 0.9% flush followed by the heparin flush. MAX dose: 5 mL of heparin for each lumen lidocaine 1 % 1-30 mL (COMPLETED) 1-30 mL, Intradermal, ONCE PRN, local anesthetic. When verbally ordered by prescriber during the procedure., Starting on [facility] 10/15/23 at 0921, For 1 dose, Dose to be divided into smaller volumes appropriate for the procedure. Provider to administer intradermally., IR Intra-procedure 1058 ($Given by Nita r Clinician - Provider: Luis Fernando Ca RN) midazolam (VERSED) injection 0.5-2 mg 0.5-2 mg, Intravenous, Administer over 1 Minutes, EVERY 4 MIN PRN, sedation, If inadequate response may repeat 0.5 mg IV slowly every 4 minutes PRN sedation until desired response; when verbally requested by provider., Starting on [facility] 10/15/23 at 0921, Doses can be exceeded under direct oversight of patient by physician. This drug may cause significant respiratory depression. Monitor respiratory status and vital signs carefully for 1 hour after each dose., IR Intra-procedure 0955 ($Given - Provi yon: Luis Fernando Ca RN)1005 ($Given - Provider: Luis Fernando Ca RN)1013 ($Given - Provider: Luis Fernando Ca RN)1018 ($Given - Provider: Luis Fernando Ca RN)1029 ($Given - Provider: Luis Fernando Ca RN)1040 ($Given - Provider: Luis Fernando Ca RN)1045 ($Given - Provider: Luis Fernando Ca RN)1050 ($Given - Provider: Luis Fernando Ca RN)1055 ($Given - Provider: Luis Fernando Ca RN) naloxone (NARCAN) injection 0.2 mg(Linked Group 1) 0.2 mg, Intravenous, EVERY 2 MIN PRN, opioid reversal, Starting on [facility] 10/15/23 at 0921, Administer intravenous route when available and notify provider when administered. For unintended sedation or respiratory depression if all of the below criteria are met: ~ respiratory rate LESS than or EQUAL to 8. ~SaO2 less than 92% and or/end-tidal CO2 is greater than 50. ~ the patient is receiving an opioid, has unintended sedations assessed as RASS (-3), and is currently not on mechanical ventilation. RASS scale moderate (-3) is movement or eye opening to voice but no eye contact. Patient Monitoring Once the patient has demonstrated a response to the naloxone, continue to monitor respiratory rate, depth, oxygen saturation and end-tidal CO2 (if available) every 15 minutes x 2, then every 30 minutes x 2, then every 1 hour x 1 after each naloxone dose. Consider transfer to ICU if patient respiratory parameters have not improved after 4 naloxone doses., IR Intra-procedure naloxone (NARCAN) injection 0.2 mg(Linked Group 1) 0.2 mg, Intramuscular, EVERY 2 MIN PRN, opioid reversal, Starting on [facility] 10/15/23 at 0921, Administer intramuscular if an intravenous route is not available and notify provider when administered. For unintended sedation or respiratory depression if all of the below criteria are met: ~ respiratory rate LESS than or EQUAL to 8. ~SaO2 less than 92% and or/end-tidal CO2 is greater than 50. ~ the patient is receiving an opioid, has unintended sedations assessed as RASS (-3), and is currently not on mechanical ventilation. RASS scale moderate (-3) is movement or eye opening to voice but no eye contact. Patient Monitoring Once the patient has demonstrated a response to the naloxone, continue to monitor respiratory rate, depth, oxygen saturation and end-tidal CO2 (if available) every 15 minutes x 2, then every 30 minutes x 2, then every 1 hour x 1 after each naloxone dose. Consider transfer to ICU if patient respiratory parameters have not improved after 4 naloxone doses., IR Intra-procedure naloxone (NARCAN) injection 0.4 mg(Linked Group 1) 0.4 mg, Intravenous, EVERY 2 MIN PRN, opioid reversal, Starting on [facility] 10/15/23 at 0921, Administer intravenous route when available and notify provider when administered. For unintended sedation or respiratory depression if all of the below criteria are met: ~ respiratory rate LESS than or EQUAL to 8. ~ SaO2 less than 92% and or/end-tidal CO2 is greater than 50. ~ the patient is receiving an opioid, has unintended sedation assessed as RASS (-4) or (-5) and patient is currently not on mechanical ventilation. RASS scale (-4) is deep sedation with no response to voice but movement or eye opening to physical stimulation. RASS scale (-5) is unarousable. Patient Monitoring Once the patient has demonstrated a response to the naloxone, continue to monitor respiratory rate, depth, oxygen saturation and end-tidal CO2 (if available) every 15 minutes x 2, then every 30 minutes x 2, then every 1 hour x 1 after each naloxone dose. Consider transfer to ICU if patient respiratory parameters have not improved after 4 naloxone doses., IR Intra-procedure naloxone (NARCAN) injection 0.4 mg(Linked Group 1) 0.4 mg, Intramuscular, EVERY 2 MIN PRN, opioid reversal, Starting on [facility] 10/15/23 at 0921, Administer intramuscular if an intravenous route is not available and notify provider when administered. For unintended sedation or respiratory depression if all of the below criteria are met: ~ respiratory rate LESS than or EQUAL to 8. ~ SaO2 less than 92% and or/end-tidal CO2 is greater than 50. ~ the patient is receiving an opioid, has unintended sedation assessed as RASS (-4) or (-5) and patient is currently not on mechanical ventilation. RASS scale (-4) is deep sedation with no response to voice but movement or eye opening to physical stimulation. RASS scale (-5) is unarousable. Patient Monitoring Once the patient has demonstrated a response to the naloxone, continue to monitor respiratory rate, depth, oxygen saturation and end-tidal CO2 (if available) every 15 minutes x 2, then every 30 minutes x 2, then every 1 hour x 1 after each naloxone dose. Consider transfer to ICU if patient respiratory parameters have not improved after 4 naloxone doses., IR Intra-procedure sodium chloride (PF) 0.9% PF flush 10-20 mL 10-20 mL, Intracatheter, EVERY 1 MIN PRN, line flush, post meds or blood draw, to flush each lumen of the CVC Implanted port, Starting on Days[facility] 10/15/23 at 0840, 10 mL per port lumen post IV meds; 20 mL per port lumen post post blood draw. sodium chloride (PF) 0.9% PF flush 10-20 mL 10-20 mL, Intracatheter, EVERY 1 HOUR PRN, other, to de-access port when not in use, Starting on [facility] 10/15/23 at 0840, Use sodium chloride 0.9% at least daily to de-access each port and lock dormant implanted port while not in use. Flush each port access with 10 mL sodium chloride 0.9% MAX: 10 mL per each port lumen sodium chloride (PF) 0.9% PF flush 3 mL 3 mL, Intracatheter, EVERY 1 MIN PRN, line flush, other, to ensure patency or to lock dormant line, Starting on [facility] 10/15/23 at 0757, IR Pre-procedure sodium chloride 0.9 % bag TABLE SOLN 1 Bag, TABLE SOLN, EVERY 5 MIN PRN, other, Catheter prep table solution use as directed by provider., Starting on [facility] 10/15/23 at 0757, For 5 doses, Maximum total dose 5000 mL Nurse will document number of bags used at the end of the procedure., IR Pre-procedure Linked Groups Order Group 1: naloxone (NARCAN) injection 0.2 mgJump to med 0.2 mg, Intravenous, EVERY 2 MIN PRN, opioid reversal, Starting on Days[facility] 10/15/23 at 0921, Administer intravenous route when available and notify provider when administered. For unintended sedation or respiratory depression if all of the below criteria are met: ~ respiratory rate LESS than or EQUAL to 8. ~SaO2 less than 92% and or/end-tidal CO2 is greater than 50. ~ the patient is receiving an opioid, has unintended sedations assessed as RASS (-3), and is currently not on mechanical ventilation. RASS scale moderate (-3) is movement or eye opening to voice but no eye contact. Patient Monitoring Once the patient has demonstrated a response to the naloxone, continue to monitor respiratory rate, depth, oxygen saturation and end-tidal CO2 (if available) every 15 minutes x 2, then every 30 minutes x 2, then every 1 hour x 1 after each naloxone dose. Consider transfer to ICU if patient respiratory parameters have not improved after 4 naloxone doses., IR Intra- procedure Or naloxone (NARCAN) injection 0.4 mgJump to med 0.4 mg, Intravenous, EVERY 2 MIN PRN, opioid reversal, Starting on [facility] 10/15/23 at 0921, Administer intravenous route when available and notify provider when administered. For unintended sedation or respiratory depression if all of the below criteria are met: ~ respiratory rate LESS than or EQUAL to 8. ~ SaO2 less than 92% and or/end-tidal CO2 is greater than 50. ~ the patient is receiving an opioid, has unintended sedation assessed as RASS (-4) or (-5) and patient is currently not on mechanical ventilation. RASS scale (-4) is deep sedation with no response to voice but movement or eye opening to physical stimulation. RASS scale (-5) is unarousable. Patient Monitoring Once the patient has demonstrated a response to the naloxone, continue to monitor respiratory rate, depth, oxygen saturation and end-tidal CO2 (if available) every 15 minutes x 2, then every 30 minutes x 2, then every 1 hour x 1 after each naloxone dose. Consider transfer to ICU if patient respiratory parameters have not improved after 4 naloxone doses., IR Intra-procedure Or naloxone (NARCAN) injection 0.2 mgJump to med 0.2 mg, Intramuscular, EVERY 2 MIN PRN, opioid reversal, Starting on [facility] 10/15/23 at 0921, Administer intramuscular if an intravenous route is not available and notify provider when administered. For unintended sedation or respiratory depression if all of the below criteria are met: ~ respiratory rate LESS than or EQUAL to 8. ~SaO2 less than 92% and or/end-tidal CO2 is greater than 50. ~ the patient is receiving an opioid, has unintended sedations assessed as RASS (-3), and is currently not on mechanical ventilation. RASS scale moderate (-3) is movement or eye opening to voice but no eye contact. Patient Monitoring Once the patient has demonstrated a response to the naloxone, continue to monitor respiratory rate, depth, oxygen saturation and end-tidal CO2 (if available) every 15 minutes x 2, then every 30 minutes x 2, then every 1 hour x 1 after each naloxone dose. Consider transfer to ICU if patient respiratory parameters have not improved after 4 naloxone doses., IR Intra- procedure Or naloxone (NARCAN) injection 0.4 mgJump to med 0.4 mg, Intramuscular, EVERY 2 MIN PRN, opioid reversal, Starting on [facility] 10/15/23 at 0921, Administer intramuscular if an intravenous route is not available and notify provider when administered. For unintended sedation or respiratory depression if all of the below criteria are met: ~ respiratory rate LESS than or EQUAL to 8. ~ SaO2 less than 92% and or/end-tidal CO2 is greater than 50. ~ the patient is receiving an opioid, has unintended sedation assessed as RASS (-4) or (-5) and patient is currently not on mechanical ventilation. RASS scale (-4) is deep sedation with no response to voice but movement or eye opening to physical stimulation. RASS scale (-5) is unarousable. Patient Monitoring Once the patient has demonstrated a response to the naloxone, continue to monitor respiratory rate, depth, oxygen saturation and end-tidal CO2 (if available) every 15 minutes x 2, then every 30 minutes x 2, then every 1 hour x 1 after each naloxone dose. Consider transfer to ICU if patient respiratory parameters have not improved after 4 naloxone doses., IR Intra- procedure documented in this encounter Care Teams Membership Coordinator Relationship Specialty Start Date End Date [address] [address] PCP - General 07/31/23 documented as of this encounter
--- OUTSIDE RECORDS SUMMARY | 2023-12-16 08:56 | XMS_ITS | Encounter Summary ---
Author Organization [facility] Address [address] [place] [address] Care Team Providers Care Senior Informatic[employer] Developer Name Role Phone Clinic, [facility] Primary Care Provider Encounter Details Date Type Department Care Team (Late st Contact Info) Description 11/25/2023 9:47 AM CDT - 11/25/2023 1:55 PM CDT Hospital Encounter [facility] Care [facility] [address] [place] [phone] Non-Fv Credentialed Provider, Radiology Marylin Pavon DO [facility] [address] [place], [place] [id number] Vesicovaginal fistula Discharge Disposition: Home or Self Care Social [...] Mass Index 44.01 11/25/2023 10:03 AM CDT documented in this encounter Discharge Instructions * Discharge Instructions* Rodríguez Leos RN - 11/25/2023 10:29 AM CDT Neph. Tube Insertion/Exchange Discharge Instructions After you go home: [...] 911 or go to the Emergency Room if you have: Severe pain or trouble breathing Bleeding that you cannot control Other Instructions: If the tube falls out - cover the opening with gauze & tape Record drainage output amounts & bring sheet to return appointments Take your temperature daily If you have questions call: [facility] Radiology Dept @ [phone] Or you can contact your provider via [...] as of this encounter Progress Notes * Daisy Cabrera RN - 11/25/2023 1:33 PM CDT Care Suites Discharge Nursing Note Patient Information Name: Mora Kessler Age: [age] year old Discharge Education: Discharge instructions reviewed: Yes Additional education/resources provided: AVS Patient/patient policy services representative verbalizes understanding: Yes Patient discharging on new medications: No Medication education completed: N/A Discharge Plans: Discharge location: home Discharge ride contacted: Yes Approximate discharge time: 1350 Discharge Criteria: Discharge criteria met and vital signs stable: Yes. Tolerated crackers and juice. Denies pain. Sites remain CDI. Patient Belongs: Patient belongings returned to patient: Yes Daisy Cabrera RN * Marcia Rivera RN - 11/25/2023 12:33 PM CDT 1107 Report received from Francois Leos RN. Waiting for procedure. 1220 Pt returned from IR. A/O. Bilateral neph tubes securely intact. Drsgs CDI. Pt's family at bedside. Detailed update given. 1230 Pt taking diet & flds well. No complaints. Report given to Daisy Cabrera RN. * Rodríguez Leos RN - 11/25/2023 10:26 AM CDT Care Suites Admission Nursing Note Patient Information Name: Mora Kessler Age: [age] year old Reason for admission: Neph tube change Care Suites arrival time: 1000 Visitor Information Name: Zoe Patient Admission/Assessment Pre-procedure assessment complete: Yes If abnormal assessment/labs, provider notified: N/A NPO: Yes Medications held per instructions/orders: Yes Consent: deferred If applicable, test status: deferred Patient oriented to room: Yes Education/questions answered: Yes Plan/other: Proceed with plan Discharge Planning Discharge name/phone number: Zoe [phone] Overnight post sedation caregiver: Zoe Discharge location: home Rodríguez Leos RN documented in this encounter Procedure Notes * Marylin Pavon DO - 11/25/2023 1:55 PM CDTAssociated Order(s): Bilateral nephrostomy tube exchange/upsize [facility] Procedure: Bilateral nephrostomy tube exchange/upsize Date/Time: 11/25/2023 4:39 PM Performed by: Marylin Pavon DO Authorized by: Marylin Pavon DO [employer] Site Marked: NA Prior Images Obtained and Reviewed: Yes Required items: Required blood products, implants, devices and special equipment available Patient identity confirmed: Verbally with patient, arm band, provided demographic data and hospital-assigned identification number Patient was reevaluated immediately before administering moderate or deep sedation or anesthesia Confirmation Checklist: Patient's identity using two indicators, relevant allergies, procedure was appropriate and matched the consent or emergent situation and correct equipment/implants were available Time out: Immediately prior to the procedure a time out was called Keatchie Protocol: the Joint Commission [place] Protocol was followed Preparation: Patient was prepped and draped in usual sterile fashion ANESTHESIA Anesthesia: Local infiltration Local Anesthetic: Lidocaine 1% without epinephrine SEDATION Patient Sedated: Yes Sedation Type: Moderate (conscious) sedation Vital signs: Vital signs monitored during sedation See dictated procedure note for full details. Findings: Bilateral nephrostomy tube exchange/upsize. Specimens: none Complications: None Condition: Stable Plan: Routine exchange in 3 months. PROCEDURE Patient Tolerance: Patient tolerated the procedure well with no immediate complications Length of time physician/provider present for 1:1 monitoring during sedation: 10 documented in this encounter Miscellaneous Notes * IR Note - Steve Mcnally RN - 11/25/2023 11:40 AM CDT Interventional Radiology Intra-procedural Nursing Note Patient Name: Mora Kessler Today's Date: November 25, 2023 Procedure: Bi-Lateral Nephrostomy Tube Change with Moderate Sedation Start time: 1156 End time: 1205 Report provided to: Marcia HOLBROOK Note: Patient entered Interventional Radiology Suite number 1 via cart. Patient awake, alert and orientated. Assisted onto procedural table in prone position. Prepped and draped. Dr. Pavon in room. Time out and procedure started. Vital signs stable. Telemetry reading NSR. Procedure well tolerated by patient without complications. Procedure end with debrief by Dr. Pavon. Administered medication totals: Lidocaine 1% 10 mL Intradermal Versed 3 mg IVP Fentanyl 150 mcg IVP Last dose of sedation administered at 1159. * Pre-Procedure - LiaAshanti APRN CNP - 11/25/2023 10:40 AM CDT GENERAL PRE-PROCEDURE: Procedure: Bilateral nephrostomy tube exchange with moderate sedation Date/Time: 11/25/2023 10:40 AM Written consent obtained?: Yes Risks and benefits: Risks, benefits and alternatives were discussed Consent given by: Patient Patient states understanding of procedure being performed: Yes Patient's understanding of procedure matches consent: Yes Procedure consent matches procedure scheduled: Yes Expected level of sedation: Moderate Appropriately NPO: Yes ASA Class: 3 Mallampati : Grade 2- soft palate, base of uvula, tonsillar pillars, and portion of posterior pharyngeal wall visible Lungs: Lungs clear with good breath sounds bilaterally Heart: Normal heart sounds and rate History & Physical reviewed: History and physical reviewed and no updates needed Statement of review: I have reviewed the lab findings, diagnostic data, medications, and the plan for sedation Patient has noted decreased outputs from the left PNT and stopped completely for a day on the Rightbut started up again. Increased vaginal urine drainage. She was started on an oral cephalsporin as she was having vaginal burning. She is aware that she may need to start flushing the PNTs as there is sediment in her urine which may plug the tubes easier. Total time: 20 minutes Thanks [facility] Interventional Radiology TELECOM NETWORK MANAGER ([phone]) (phone [phone]) documented in this encounter Plan of Treatment Upcoming Encounters Date Type Department Care Team (Late st Contact Info) Description 03/07/2024 Hospital Encounter [facility] Imaging [address] [phone] 03/07/2024 2:20 PM EDITORIAL DIRECTOR Ancillary Procedure [facility] [address] [place] [phone] Otilia Escoto, [facility] [address] [place] [address] documented as of this encounter Procedures Procedure Name Priority Date/Time Associated Diagnosis Comments IR PROCEDURE NOTE Routine 11/25/2023 4:3 9 PM CDT IR NEPHROSTOMY TUBE CHANGE BILATERAL Urgent: 3-5 Days 11/25/2023 12:09 PM CDT Vesicovaginal fistula documented in this encounter Results * Bilateral nephrostomy tube exchange/upsize (11/25/2023 4:39 PM CDT) Narrative Marylin Pavon DO - 11/25/2023 4:39 PM CDT Marylin Pavon, DO ? 11/25/2023 ??4:40 PM [facility] Procedure: Bilateral nephrostomy tube exchange/upsize Date/Time: 11/25/2023 [...] procedure a time out was called ?? Keatchie Protocol: the Joint Commission Ke[place] Protocol was followed ?? Preparation: Patient was [...] 3:12 PM CDT IMPRESSION: Successful bilateral 10.2 Malian nephrostomy tube exchanges/upsize, as detailed above. PLAN: [...] observer. The physician spent 9 minutes of [id number]-dd-occs sedation time with the patient. CONTRAST: 10 [...] over the wire for a new 10.2 Malian left nephrostomy tube, and its tip was [...] maintaining wire access and a new 10.2 Malian right sided nephrostomy tube was advanced over [...] observer. The physician spent 9 minutes of fosp-vb-voep sedation time with the patient. CONTRAST: 10 [...] over the wire for a new 10.2 Malian left nephrostomy tube, and its tip was [...] maintaining wire access and a new 10.2 Malian right sided nephrostomy tube was advanced over [...] in stable condition. IMPRESSION: Successful bilateral 10.2 Malian nephrostomy tube exchanges/upsize, as detailed above. PLAN: The patient should return for routine exchange in 3 months. MARYLIN PAVON DO Jennifer Peguero MD IMG IR ORDERABLES documented in this encounter Visit Diagnoses Diagnosis Vesicovaginal fistula Urinary-genital tract fistula, female documented in this encounter Administered Medications Inactive Administered Medications - up to 3 most recent administrations Medication Order MAR Action Action Date Dose Rate Site acetaminophen (TYLENOL) tablet 650 mg 650 mg, Oral, ONCE PRN, mild pain, Starting on Thu11/25/23 at 1251, Maximum acetaminophen dose from all sources = 75 mg/kg/day not to exceed 4 grams/day. cefTAZidime (FORTAZ) 1 g vial to attach to NS 100 ml bag for ADULTS or NS 50 ml bag for PEDS Routine, 1 g, Intravenous, PRE-OP/PRE-PROCEDURE, Starting on Thu11/25/23 at 1000, For 1 dose, Give dose within one hour PRIOR to procedure., Indications: Perioperative Pharmacoprophylaxis, IR Pre-procedure $New Bag 11/25/2023 10:38 AM CDT 1 g fentaNYL (PF) (SUBLIMAZE) injection 25-50 mcg 25-50 mcg, Intravenous, EVERY 5 MIN PRN, severe pain, If inadequate response may repeat 25 mcg IV slowly every 5 min PRN severe pain; when verbally requested by provider., Administer over 2 Minutes, Starting on Thu11/25/23 at 1138, Doses can be exceeded under direct oversight of patient by physician., IR Intra-procedure $Given 11/25/2023 11:59 AM CDT 50 mcg $Given 11/25/2023 11:55 AM CDT 50 mcg $Given 11/25/2023 11:49 AM CDT 50 mcg flumazenil (ROMAZICON) injection 0.2 mg 0.2 mg, Intravenous, EVERY 1 MIN PRN, benzodiazepine reversal, If inadequate response after 45 seconds, may repeat 0.2 mg IV every 1 minute PRN oversedation., Administer over 1 Minutes, Starting on Thu11/25/23 at 1138, Give over 15 seconds. Maximum total dose of 1 mg. Continue monitoring until discharge criteria met for a minimum of 2 hours. Use with caution in patients on benzodiazepine therapy., IR Intra-procedure heparin lock flush 10 unit/mL injection 5-10 mL 5-10 mL, Intracatheter, EVERY 1 HOUR PRN, post meds or blood draw, other, to lock each port in dual implanted port, Starting on Thu11/25/23 at 1315, Flush each port lumen with the sodium chloride 0.9% flush followed by the heparin flush. MAX dose: 5 mL of heparin for each lumen heparin lock flush 10 unit/mL injection 5-10 mL 5-10 mL, Intracatheter, EVERY 24 HOURS, First dose on Thu11/25/23 at 1330, To lock each dormant port in dual [...] Intracatheter, EVERY 28 DAYS, First dose on Thu11/25/23 at 1330, To de-access each port in dual implanted port. Flush with 10 mL NS sodium chloride 0.9% flush followed by 5 mL heparin (100 units/mL) at discharge and at least every 28 days. MAX: 5 mL per each port lumen $Given 11/25/2023 1:23 PM CDT 5 mLs iopamidol (ISOVUE-300) solution 61% 50 mL 50 mL, Tube, ONCE, On Thu11/25/23 at 1200, For 1 dose, Supplied and administered by Radiology., IR Intra-procedure $Given 11/25/2023 12:04 PM CDT 10 mLs lidocaine 1 % 0.1-1 mL 0.1-1 mL, Other, EVERY 1 HOUR PRN, mild pain with VAD insertion, Starting on Thu11/25/23 at 1000, MAX dose 1 mL subcutaneous OR intradermal along the side of the vein in divided doses as needed for VAD insertion. Do NOT give if patient has a history of allergy to any local anesthetic or any vinicio product. Do NOT use both lidocaine intradermal/subcutaneous injection and the lidocaine cream on the same site., IR Pre-procedure lidocaine 1 % 1-30 mL 1-30 mL, Intradermal, ONCE PRN, local anesthetic. When verbally ordered by prescriber during the procedure., Starting on Thu11/25/23 at 1138, For 1 dose, Dose to be divided into smaller volumes appropriate for the procedure. Provider to administer intradermally., IR Intra-procedure midazolam (VERSED) injection 0.5-2 mg 0.5-2 mg, Intravenous, Administer over 1 Minutes, EVERY 4 MIN PRN, sedation, If inadequate response may repeat 0.5 mg IV slowly every 4 minutes PRN sedation until desired response; when verbally requested by provider., Starting on Thu11/25/23 at 1138, Doses can be exceeded under direct oversight of patient by physician. This drug may cause significant respiratory depression. Monitor respiratory status and vital signs carefully for 1 hour after each dose., IR Intra-procedure $Given 11/25/2023 11:58 AM CDT 1 mg $Given 11/25/2023 11:55 AM CDT 0.5 mg $Given 11/25/2023 11:48 AM CDT 0.5 mg naloxone (NARCAN) injection 0.2 mg 0.2 mg, Intravenous, EVERY 2 MIN PRN, opioid reversal, Starting on Thu11/25/23 at 1138, Administer intravenous route when available and notify [...] 2 MIN PRN, opioid reversal, Starting on Thu11/25/23 at 1138, Administer intramuscular if an intravenous route is [...] 2 MIN PRN, opioid reversal, Starting on Thu11/25/23 at 1138, Administer intravenous route when available and notify [...] 2 MIN PRN, opioid reversal, Starting on Thu11/25/23 at 1138, Administer intramuscular if an intravenous route is [...] improved after 4 naloxone doses., IR Intra-procedure ondansetron (ZOFRAN) injection 4 mg 4 mg, Intravenous, ONCE PRN, nausea, vomiting, Administer over 2-5 Minutes, Starting on Thu11/25/23 at 1138, For 1 dose, IR Intra-procedure sodium chloride (PF) 0.9% PF flush 10-20 mL 10-20 mL, Intracatheter, EVERY 1 MIN PRN, line flush, post meds or blood draw, to flush each lumen of the CVC Implanted port, Starting on Thu11/25/23 at 1315, 10 mL per port lumen post IV meds; 20 mL per port lumen post post blood draw. sodium chloride (PF) 0.9% PF flush 10-20 mL 10-20 mL, Intracatheter, EVERY 1 HOUR PRN, other, to de-access port when not in use, Starting on Thu11/25/23 at 1315, Use sodium chloride 0.9% at least daily to de-access each port and lock dormant implanted port while not in use. Flush each port access with 10 mL sodium chloride 0.9% MAX: 10 mL per each port lumen $Given 11/25/2023 1:22 PM CDT 20 mLs sodium chloride (PF) 0.9% PF flush 10-20 mL 10-20 mL, Intracatheter, EVERY 28 DAYS, First dose on Thu11/25/23 at 1330, To flush and lock each port in dual implanted port. Flush each port with 10 mL sodium chloride 0.9% followed by either heparin or anticoagulant citrate as ordered. Max: 10 mL per each port lumen. sodium chloride (PF) 0.9% PF flush 3 mL 3 mL, Intracatheter, EVERY 8 HOURS, First dose on Thu11/25/23 at 1030, to lock peripheral IV dormant line, IR Pre-procedure sodium chloride (PF) 0.9% PF flush 3 mL 3 mL, Intracatheter, EVERY 1 MIN PRN, line flush, other, to ensure patency or to lock dormant line, Starting on Thu11/25/23 at 1000, IR Pre-procedure sodium chloride 0.9 % bag TABLE SOLN 1 Bag, TABLE SOLN, EVERY 5 MIN PRN, other, Catheter prep table solution use as directed by provider., Starting on Thu11/25/23 at 1000, For 5 doses, Maximum total dose 5000 mL Nurse will document number of bags used at the end of the procedure., IR Intra-procedure documented in this encounter Active and Recently Administered Medications Times are shown in CDT. Scheduled Medication Order 11/23/2023 11/24/2023 11/25/2023 cefTAZidime (FORTAZ) 1 g vial to attach to NS 100 ml bag for ADULTS or NS 50 ml bag for PEDS (COMPLETED) Routine, 1 g, Intravenous, PRE-OP/PRE-PROCEDURE, Starting on Thu11/25/23 at 1000, For 1 dose, Give dose within one hour PRIOR to procedure., Indications: Perioperative Pharmacoprophylaxis, IR Pre-procedure 1038 ($New Bag - Pro vider: Rodríguez Leos RN)1112 (Stopped - Provider: Rodríguez Leos RN) heparin lock flush 10 unit/mL injection 5-10 mL 5-10 mL, Intracatheter, EVERY 24 HOURS, First dose on Thu11/25/23 at 1330, To lock each dormant port in dual implanted port. MAX: 5 mL of heparin for each lumen Check PRN heparin flush order to see when the last dose of the PRN heparin was given before administering this heparin dose. Flush with sodium chloride 0.9% followed by the heparin flush. 1330 (Canceled Entry - Provider: Orders Generic Provider - Comment: Automatically canceled at discontinue of medication order) heparin lock flush 100 unit/mL injection 5-10 mL 5-10 mL, Intracatheter, EVERY 28 DAYS, First dose on Thu11/25/23 at 1330, To de-access each port in dual implanted port. Flush with 10 mL NS sodium chloride 0.9% flush followed by 5 mL heparin (100 units/mL) at discharge and at least every 28 days. MAX: 5 mL per each port lumen 1323 ($Given - Provi yon: Daisy Cabrera RN) iopamidol (ISOVUE-300) solution 61% 50 mL (COMPLETED) 50 mL, Tube, ONCE, On Thu11/25/23 at 1200, For 1 dose, Supplied and administered by Radiology., IR Intra-procedure 1204 ($Given - Provi yon: Reilly Mcleod ARRT) sodium chloride (PF) 0.9% PF flush 10-20 mL 10-20 mL, Intracatheter, EVERY 28 DAYS, First dose on Thu11/25/23 at 1330, To flush and lock each port in dual implanted port. Flush each port with 10 mL sodium chloride 0.9% followed by either heparin or anticoagulant citrate as ordered. Max: 10 mL per each port lumen. 1330 (Canceled Entry - Provider: Orders Generic Provider - Comment: Automatically canceled at discontinue of medication order) sodium chloride (PF) 0.9% PF flush 3 mL 3 mL, Intracatheter, EVERY 8 HOURS, First dose on Thu11/25/23 at 1030, to lock peripheral IV dormant line, IR Pre-procedure 1030 (Canceled Entry - Provider: Orders Generic Provider - Comment: Automatically canceled at discontinue of medication order) PRN Medication Order 11/23/2023 11/24/2023 11/25/2023 acetaminophen (TYLENOL) tablet 650 mg 650 mg, Oral, ONCE PRN, mild pain, Starting on Thu11/25/23 at 1251, Maximum acetaminophen dose from all sources = 75 mg/kg/day not to exceed 4 grams/day. fentaNYL (PF) (SUBLIMAZE) injection 25-50 mcg 25-50 mcg, Intravenous, EVERY 5 MIN PRN, severe pain, If inadequate response may repeat 25 mcg IV slowly every 5 min PRN severe pain; when verbally requested by provider., Administer over 2 Minutes, Starting on Thu11/25/23 at 1138, Doses can be exceeded under direct oversight of patient by physician., IR Intra-procedure 1149 ($Given - Provi yon: Steve Mcnally RN)1155 ($Given - Provider: Steve Mcnally RN)1159 ($Given - Provider: Steve Mcnally RN - Comment: Per ) flumazenil (ROMAZICON) injection 0.2 mg 0.2 mg, Intravenous, EVERY 1 MIN PRN, benzodiazepine reversal, If inadequate response after 45 seconds, may repeat 0.2 mg IV every 1 minute PRN oversedation., Administer over 1 Minutes, Starting on Thu11/25/23 at 1138, Give over 15 seconds. Maximum total dose of 1 mg. Continue monitoring until discharge criteria met for a minimum of 2 hours. Use with caution in patients on benzodiazepine therapy., IR Intra-procedure heparin lock flush 10 unit/mL injection 5-10 mL 5-10 mL, Intracatheter, EVERY 1 HOUR PRN, post meds or blood draw, other, to lock each port in dual implanted port, Starting on Thu11/25/23 at 1315, Flush each port lumen with the sodium chloride 0.9% flush followed by the heparin flush. MAX dose: 5 mL of heparin for each lumen lidocaine 1 % 0.1-1 mL 0.1-1 mL, Other, EVERY 1 HOUR PRN, mild pain with VAD insertion, Starting on Thu11/25/23 at 1000, MAX dose 1 mL subcutaneous OR intradermal along the side of the vein in divided doses as needed for VAD insertion. Do NOT give if patient has a history of allergy to any local anesthetic or any vinicio product. Do NOT use both lidocaine intradermal/subcutaneous injection and the lidocaine cream on the same site., IR Pre-procedure lidocaine 1 % 1-30 mL 1-30 mL, Intradermal, ONCE PRN, local anesthetic. When verbally ordered by prescriber during the procedure., Starting on Thu11/25/23 at 1138, For 1 dose, Dose to be divided into smaller volumes appropriate for the procedure. Provider to administer intradermally., IR Intra-procedure midazolam (VERSED) injection 0.5-2 mg 0.5-2 mg, Intravenous, Administer over 1 Minutes, EVERY 4 MIN PRN, sedation, If inadequate response may repeat 0.5 mg IV slowly every 4 minutes PRN sedation until desired response; when verbally requested by provider., Starting on Thu11/25/23 at 1138, Doses can be exceeded under direct oversight of patient by physician. This drug may cause significant respiratory depression. Monitor respiratory status and vital signs carefully for 1 hour after each dose., IR Intra-procedure 1138 ($Given - Provi yon: Steve Mcnally RN)1148 ($Given - Provider: Steve Mcnally RN)1155 ($Given - Provider: Steve Mcnally RN)1158 ($Given - Provider: Steve Mcnally RN - Comment: per MD) naloxone (NARCAN) injection 0.2 mg(Linked Group 1) 0.2 mg, Intravenous, EVERY 2 MIN PRN, opioid reversal, Starting on Thu11/25/23 at 1138, Administer intravenous route when available and notify [...] 2 MIN PRN, opioid reversal, Starting on Thu11/25/23 at 1138, Administer intramuscular if an intravenous route is [...] 2 MIN PRN, opioid reversal, Starting on Thu11/25/23 at 1138, Administer intravenous route when available and notify [...] 2 MIN PRN, opioid reversal, Starting on Thu11/25/23 at 1138, Administer intramuscular if an intravenous route is [...] improved after 4 naloxone doses., IR Intra-procedure ondansetron (ZOFRAN) injection 4 mg 4 mg, Intravenous, ONCE PRN, nausea, vomiting, Administer over 2-5 Minutes, Starting on Thu11/25/23 at 1138, For 1 dose, IR Intra-procedure sodium chloride (PF) 0.9% PF flush 10-20 mL 10-20 mL, Intracatheter, EVERY 1 MIN PRN, line flush, post meds or blood draw, to flush each lumen of the CVC Implanted port, Starting on Thu11/25/23 at 1315, 10 mL per port lumen post IV meds; 20 mL per port lumen post post blood draw. sodium chloride (PF) 0.9% PF flush 10-20 mL 10-20 mL, Intracatheter, EVERY 1 HOUR PRN, other, to de-access port when not in use, Starting on Thu11/25/23 at 1315, Use sodium chloride 0.9% at least daily to de-access each port and lock dormant implanted port while not in use. Flush each port access with 10 mL sodium chloride 0.9% MAX: 10 mL per each port lumen 1322 ($Given - Provi yon: Daisy Cabrera RN) sodium chloride (PF) 0.9% PF flush 3 mL 3 mL, Intracatheter, EVERY 1 MIN PRN, line flush, other, to ensure patency or to lock dormant line, Starting on Thu11/25/23 at 1000, IR Pre-procedure sodium chloride 0.9 % bag TABLE SOLN 1 Bag, TABLE SOLN, EVERY 5 MIN PRN, other, Catheter prep table solution use as directed by provider., Starting on Thu11/25/23 at 1000, For 5 doses, Maximum total dose 5000 mL Nurse will document number of bags used at the end of the procedure., IR Intra-procedure Linked Groups Order Group 1: naloxone (NARCAN) injection 0.2 mgJump to med 0.2 mg, Intravenous, EVERY 2 MIN PRN, opioid reversal, Starting on Thu11/25/23 at 1138, Administer intravenous route when available and notify [...] 2 MIN PRN, opioid reversal, Starting on Thu11/25/23 at 1138, Administer intravenous route when available and notify [...] 2 MIN PRN, opioid reversal, Starting on Thu11/25/23 at 1138, Administer intramuscular if an intravenous route is [...] 2 MIN PRN, opioid reversal, Starting on Thu11/25/23 at 1138, Administer intramuscular if an intravenous route is [...] procedure documented in this encounter Care Teams Senior Inform[employer] Developer Relationship Specialty Start Date End Date [place] [id number] PCP - General 07/31/23 documented as of this encounter
--- OUTSIDE RECORDS SUMMARY | 2023-12-16 08:56 | XMS_ITS | Clinical Summary ---
Author Organization [place] Address [address] [facility] [place] [address] Care Team Providers Care Pipe Connector Name Role Phone Clinic, [facility] Primary Care Provider Allergies Active Allergy Reactions Criticality Noted Date [...] middle lobe of right dilcia ng 08/10/2023 Encounters Date Type Department Care Team Description 11/25/2023 9:47 AM CDT - 11/25/2023 1:55 PM CDT Hospital Encounter [facility] [address] [phone] Non-Fv Credentialed Provider, Radiology Marylin Pavon DO Vesicovaginal fistula Discharge Disposition: Home or Self Care 11/24/2023 Telephone [facility] Interventional Radiology [address] [phone] Matilde Hill, SHERON 10/19/2023 Orders Only [facility] Interventional Radiology [address] [phone] Bhakti Contreras, SHERON Malignant neoplasm of exocervix (H) (Primary Dx) 10/15/2023 7:37 AM CDT - 10/15/2023 3:17 PM CDT Hospital Encounter [facility] [address] [phone] Non-Fv Credentialed Provider, Radiology Ramón Diane MD Cancer of exocervix (H) Discharge Disposition: Home or Self Care 10/13/2023 Telephone [facility] Interventional Radiology [address] [place] [address] Marielena Benitez, SHERON 10/08/2023 12:40 PM CDT Ancillary Procedure [facility] [address] [facility] [place] [phone] Aurea Altamirano APRN CNP Malignant neoplasm of exocervix (H) 10/08/2023 Travel 10/07/2023 7:43 AM CDT - 10/07/2023 12:45 PM CDT Hospital Encounter [facility] [address] [phone] Non-Fv Credentialed Provider, Radiology Aurea Altamirano, PARVEZ TWIST MAKER Malignant neoplasm of exocervix (H) (Primary Dx) Discharge Disposition: Home or Self Care 10/06/2023 Medical Correspondence [facility] [address] [phone] Scan, Non-Provider 10/06/2023 Orders Only [facility] Laboratory [address] [phone] Brooke Aguillon Malignant neoplasm of exocervix (H) 10/06/2023 Travel 10/06/2023 Orders Only [facility] Laboratory [address] [phone] Aurea Altamirano, PARVEZ TWIST MAKER Malignant neoplasm of exocervix (H) (Primary Dx) 10/05/2023 7:33 AM CDT Anesthesia Event [facility] PeriOP Services [address] [place] [address] Dixon Golden [facility] 10/05/2023 7:30 AM CDT - 10/05/2023 9:00 AM CDT Surgery [facility] [address] [place] [phone] Jennifer Peguero MD Pelvic examination under anesthesia, 10/05/2023 5:33 AM CDT - 10/05/2023 10:14 AM CDT Hospital Encounter [facility] PreOP/Phase II [address] [place] [phone] Jennifer Peguero MD Discharge Disposition: Home or Self Care 09/30/2023 12:20 PM CDT - 09/30/2023 11:59 PM CDT Hospital Encounter [facility] [address] [phone] Aurea Altamirano APRN TWIST MAKER Cancer of exocervix (H); Kidney failure Discharge Disposition: Home or Self Care 09/30/2023 Travel from Last 3 Months Social History Tobacco Use Types Packs/Day Years [...] st Contact Info) Description 03/07/2024 Hospital Encounter [facility] [address] [phone] 03/07/2024 2:20 PM PRESSURE SUPERVISOR Ancillary Procedure [facility] [address] [facility] [place] [phone] Otilia Escoto, PA-C [facility] [address] [facility] [address] [place] [address] Health Maintenance Due Date Last Done Comments ADVANCE CARE PLANNING 1965 ANNUAL REVIEW OF HM ORDERS 1965 CT COLONOGRAPHY 1965 FIT 1965 FLEX SIG 1965 MAMMO SCREENING 1965 YEARLY PREVENTIVE VISIT 1965 sDNA (Cologuard) 1965 Pneumococcal Vaccine: Pediatrics (0 to 5 Years) and At-Risk Patients (6 to 64 Years) (1 of 2 - PCV) 07/08/1971 COLONOSCOPY 07/08/1975 COLORECTAL CANCER SCREENING 07/08/1975 HIV SCREENING 1980 HEPATITIS C SCREENING 07/08/1983 HEPATITIS B IMMUNIZATION (1 of 3 - 19+ 3-dose series) 1984 ZOSTER IMMUNIZATION (1 of 2) 1984 PAP 1986 LIPID 2005 COVID-19 Vaccine (3 - Pfizer risk series) 10/11/2020 09/13/2020, 08/23/2020 PHQ-2 (once per calendar year) 2023 DTAP/TDAP/TD IMMUNIZATION (2 - Td or Tdap) 10/30/2023 10/29/2013 INFLUENZA VACCINE (#1) 2024 GLUCOSE 10/14/2026 10/15/2023, 08/11/2023, 08/10/2023 HPV IMMUNIZATION Aged Out No longer e ligible based on patient's age to complete this topic IPV IMMUNIZATION Aged Out No longer e ligible based on patient's age to complete this topic MENINGITIS IMMUNIZATION Aged Out No l onger eligible based on patient's age to complete this topic RSV MONOCLONAL ANTIBODY Aged Out No l onger eligible based on patient's age to complete this topic Procedures Procedure Name Priority Date/Time Associated Diagnosis [...] neoplasm of exocervix (H) Special Needs *htn, [id number] req ABO/RH TYPE AND SCREEN STAT 10/05/2023 6:27 AM CDT TYPE AND SCREEN, ADULT STAT 10/05/2023 6:27 AM CDT POTASSIUM STAT 10/05/2023 6:27 AM CDT CBC WITH PLATELETS STAT 10/05/2023 6: 27 AM CDT US RENAL COMPLETE NON-VASCULAR STAT 09/30/2023 2:00 PM CDT Cancer of exocervix (H) Kidney failure from Last 3 Months Results * Bilateral nephrostomy tube exchange/upsize (11/25/2023 4:39 PM CDT) Marylin Rios DO - 11/25/2023 4:39 PM CDT Marylin Pavon, ? 11/25/2023 ??4:40 PM [facility] Procedure: Bilateral nephrostomy tube exchange/upsize Date/Time: 11/25/2023 [...] procedure a time out was called ?? [place] Protocol: the Joint Commission [place] Protocol was followed ?? Preparation: Patient was [...] 3:12 PM CDT IMPRESSION: Successful bilateral 10.2 Ukrainian nephrostomy tube exchanges/upsize, as detailed above. PLAN: [...] observer. The physician spent 9 minutes of gqah-dp-xikr sedation time with the patient. CONTRAST: 10 [...] over the wire for a new 10.2 Ukrainian left nephrostomy tube, and its tip was [...] maintaining wire access and a new 10.2 Ukrainian right sided nephrostomy tube was advanced over [...] interventional radiology in stable condition. Procedure Note Moises Marylin Maribel, DO - 11/26/2023 PROCEDURE(S): 1. Left antegrade [...] observer. The physician spent 9 minutes of lceb-fw-kqdz sedation time with the patient. CONTRAST: 10 [...] over the wire for a new 10.2 Ukrainian left nephrostomy tube, and its tip was [...] maintaining wire access and a new 10.2 Ukrainian right sided nephrostomy tube was advanced over [...] in stable condition. IMPRESSION: Successful bilateral 10.2 Ukrainian nephrostomy tube exchanges/upsize, as detailed above. PLAN: The patient should return for routine exchange in 3 months. MARYLIN PAVON DO Jennifer Peguero MD [facility] [place] ORDERABLES * IR Nephrostomy Tube Placement Bilateral (10/15/2023 11:07 AM CDT) Anatomical Region Laterality Modality Abdomen/Pelvis Radio Fluoroscop y Impressions 10/15/2023 3:59 PM CDT IMPRESSION: ?? 1. Successful bilateral percutaneous nephrostomy tube placement. Ringgold bag for drainage, no flushing needed. RAMÓN DIANE MD Narrative 10/15/2023 3:59 PM CDT [facility] LOCATION: DATE: 10/15/2023 PROCEDURE: BILATERAL ANTEGRADE [...] observer. The physician spent 68 minutes of gzpg-iu-hxrr sedation time with the patient. CONTRAST: 90 cc of Isovue-300 into the collecting system. FLUOROSCOPIC TIME: 19 minutes. RADIATION DOSE: Air Kerma: 1103 mGy. COMPLICATIONS: No immediate complications. STERILE BARRIER TECHNIQUE: Maximum sterile barrier technique was used. Cutaneous antisepsis was performed at the operative site with application of 2% chlorhexidine and large sterile drape. Prior to the procedure, the grapple operator and topographical field assistant performed hand hygiene and wore hat, mask, sterile gown, and sterile gloves during the entire procedure. PROCEDURE: ?? Using real-time sonographic guidance, a 22 gauge needle was inserted into the left collecting system, and a left antegrade pyelogram was performed. This was performed multiple times. An AccuStick set was then placed, and a 8 Ukrainian nephrostomy tube was placed in the left [...] set was then placed, and a 8 Ukrainian nephrostomy tube was placed in the right [...] Procedure Note Ramón Diane MD - 10/15/2023 [facility] LOCATION: DATE: 10/15/2023 PROCEDURE: BILATERAL ANTEGRADE [...] observer. The physician spent 68 minutes of lcht-ad-thpq sedation time with the patient. CONTRAST: 90 cc of Isovue-300 into the collecting system. FLUOROSCOPIC TIME: 19 minutes. RADIATION DOSE: Air Kerma: 1103 mGy. COMPLICATIONS: No immediate complications. STERILE BARRIER TECHNIQUE: Maximum sterile barrier technique was used. Cutaneous antisepsis was performed at the operative site with application of 2% chlorhexidine and large sterile drape. Prior to the procedure, the grapple operator and topographical field assistant performed hand hygiene and wore hat, mask, sterile gown, and sterile gloves during the entire procedure. PROCEDURE: Using real-time sonographic guidance, a 22 gauge needle was inserted into the left collecting system, and a left antegrade pyelogram was performed. This was performed multiple times. An AccuStick set was then placed, and a 8 Ukrainian nephrostomy tube was placed in the left [...] set was then placed, and a 8 Ukrainian nephrostomy tube was placed in the right [...] 1. Successful bilateral percutaneous nephrostomy tube placement. Ringgold bag for drainage, no flushing needed. RAMÓN DIANE MD Jennifer Peguero MD [facility] IR ORDERABLES * INR (10/15/2023 8:25 AM CDT) INR 1.08 0.85 - 1.15 10/15/2023 8:45 AM CDT LABORATORY Blood BLOOD SPECIMEN / Unknown IVAD (Port) / Unknown 10/15/2023 8:25 AM CDT 10/15/2023 8:31 AM CDT [facility] GAME AGENT TWIST MAKER LAB - BLOOD ORDERABLES LABORATORY [facility] [address] floor, [address] [place] [address], [facility] [phone] * (ABNORMAL) Basic metabolic panel (10/15/2023 8:25 AM CDT) [facility] Sodium 139 135 - 145 mmol/L 10/15/2023 9:07 AM [facility] Comment:Reference intervals for this test were [...] 98 - 107 mmol/L 10/15/2023 9:07 AM T LABORATORY Carbon Dioxide (CO2) 23 22 - 29 mmol/L 10/15/2023 9:07 AM T LABORATORY Anion Gap 13 7 - 15 mmol/L 10/15/2023 9:07 AM CDT LABORATORY Urea Nitrogen 32.2(H) 6.0 - 20.0 mg/dL 10/15/2023 9:07 AM T LABORATORY Creatinine 1.51(H) 0.51 - 0.95 mg/dL 10/15/2023 9:07 AM T LABORATORY GFR Estimate 40(L) >60 mL/min/1. 73m2 10/15/2023 9:07 AM T LABORATORY Calcium 7.6(L) 8.6 - 10.0 mg/dL 10/15/2023 9:07 AM T LABORATORY Glucose 101(H) 70 - 99 mg/dL 10/15/2023 9:07 AM T LABORATORY Blood BLOOD SPECIMEN / Unknown IVAD (Port) / Unknown 10/15/2023 8:25 AM CDT 10/15/2023 8:31 AM CDT Ashanti Fitzgerald GAME AGENT TWIST MAKER LAB - BLOOD ORDERABLES LABORATORY [facility] [address] floor, [address] [place] [address], [facility] [phone] * CT Abdomen Pelvis w Contrast (10/08/2023 [...] EXAM: CT ABDOMEN PELVIS W CONTRAST LOCATION: [facility] DATE: 10/08/2023 INDICATION: ??Malignant neoplasm of exocervix [...] EXAM: CT ABDOMEN PELVIS W CONTRAST LOCATION: [facility] DATE: 10/08/2023 INDICATION: Malignant neoplasm of exocervix [...] Slightly increased mild splenomegaly measuring 15 cm, vikraiklgo17.5 cm. Stable 10 mm hypoenhancing lesion anterolaterally [...] 6. Left renal angiomyolipomas. Aurea Altamirano APRN TWIST MAKER IMG CT ORDERA BLES * Transfuse red blood cells (unit) (10/07/2023 12:25 PM CDT) Only the most recent of2 resultswithin the time period is included. Aurea Altamirano APRN TWIST MAKER BLOOD TRANSFU TIN ORDERABLES * Prepare red blood cells (unit) (10/07/2023 7:58 AM CDT) Only the most recent of2 resultswithin the time period is included. Blood Component Type Red Blood Cells BLOOD BANK Product Code [id number] BLOO D BANK Unit Status Transfused BLOO D BANK Unit Number [id number] B LOOD BANK CROSSMATCH Compatible BLOOD BANK CODING SYSTEM [id number] BLO OD BANK ISSUE DATE AND TIME [id number] BLOOD BANK UNIT ABO/RH A+ BLOOD BANK UNIT TYPE ISBT 6200 BL OOD BANK 10/07/2023 7:58 AM CDT Aurea Altamirano GAME AGENT [facility] BLOOD BANK [place] ODUCT ORDERABLES BLOOD BANK [address] [place], [place] [phone], [facility] * ANE AIRWAY SUPRAGLOTTIC PERFORMABLE (10/05/2023 7:56 AM CDT) Narrative Lkaesha Rosario APRN TAPE CONTROL SKIN OR SPAR MILL OPERATOR - 10/05/2023 7:56 AM CDT Lakesha Rosario APRN TAPE CONTROL SKIN OR SPAR MILL OPERATOR ? 10/05/2023 ??7:57 AM Airway ? Patient location during procedure: OR Staff - ? Anesthesiologist: ??Dixon Golden MD ? TAPE CONTROL SKIN OR SPAR MILL OPERATOR: Lakesha Rosario APRN CRNA ? Other Anesthesia Staff: Garry Butterfield ? Performed By: SRNA and with CRNAs ? Procedure performed by resident/fellow/TAPE CONTROL SKIN OR SPAR MILL OPERATOR in presence of a teaching physician. Consent [...] Dentition: Intact and Unchanged Dixon Golden MD [place] ANESTHESIA * Adult Type and Screen (10/05/2023 6:27 AM CDT) ABO/RH(D) A POS 10/05/2023 6:00 AM CDT BLOOD BANK Antibody Screen Negative Negative 10/05/2023 6:00 AM CDT BLOOD BANK SPECIMEN EXPIRATION DATE [id number] 10/05/2023 6:00 AM CDT BLOOD BANK Blood STRUCTURE OF LEFT UPPER LIMB / Unknown Venipuncture / Unknown 10/05/2023 6:27 AM CDT 10/05/2023 6:33 AM CDT Swati Real PA-C LAB - BLOOD BAN K TEST ORDER BLOOD BANK [address] [place] [address], [facility] * Potassium - Pre-Op (10/05/2023 6:27 AM CDT) Potassium 3.5 3.4 - 5.3 mmol/L 10/05/2023 6:59 AM CDT LABORATORY Blood STRUCTURE OF LEFT UPPER LIMB / Unknown Venipuncture / Unknown 10/05/2023 6:27 AM CDT 10/05/2023 6:33 AM CDT Dixon Golden MD LAB - BLOOD ORDER TRACI LABORATORY [facility] [address] floor, [address] [place] [address], [facility] [phone] * (ABNORMAL) CBC with platelets (10/05/2023 6:27 AM CDT) WBC Count 3.6(L) 4.0 - 11.0 10e3/uL [...] PA-C LAB - BLOOD ORD ERABLES LABORATORY [facility] [address], [address] [place] [address], [facility] [phone] * US Renal Complete Non-Vascular (09/30/2023 2:00 [...] noted hepatic steatosis. GAVINO WAKEFIELD MD Aurea Tiki Altamirano GAME AGENT TWIST MAKER IMG US ORDERA BLES from Last 3 Months Advance Directives For more information, please contact: [phone] * Full Code (Latest Code Status on File) Date Activated Date Inactivated Comments 08/10/2023 12:09 PM 08/11/2023 3:01 PM All basic and advanced life-sustaining interventions are performed as appropriate Question Answer Comments Code status determined by: Discussion with meg nt/ legal decision maker Care Teams Pipe Connector Relationship Specialty Start Date End Date Clinic, [facility] [address] [place] [address] PCP - General 07/31/23
--- OUTSIDE RECORDS SUMMARY | 2023-12-16 08:56 | XMS_ITS ---
Author Organization [place] Address [address] [facility] 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 Past Plans No past plan information found. Radiation Treatments * No radiation treatments are documented for this patient in [facility]. Treatments may have been administered in another system. Lifetime Dose Tracking * Chemical Lifetime Dose Automatic Entry Manual Entr y Total Air Kerma 1,127.65 mGy 1,127.65 mGy 0 mGy Fluoro Time 20.1 Minutes 20.1 Minutes 0 Minutes
--- OUTSIDE RECORDS SUMMARY | 2023-12-16 08:57 | XMS_ITS | Encounter Summary ---
Author Organization [place] Address [address] [place] [address] Care Team Providers Care Technical Documentation Specialist Name Role Phone Clinic, [facility] Primary Care Provider Encounter Details Date Type Department Care Team (Late st Contact Info) Description 10/06/2023 Orders Only [facility] [address] [phone] Brooke Aguillon Malignant neoplasm of exocervix (H) Social History Tobacco Use Types Packs/Day Years [...] st Contact Info) Description 03/07/2024 Hospital Encounter [facility] [address] [phone] 03/07/2024 2:20 PM APPLICATIONS SCIENTIST Ancillary Procedure [facility] [address] [phone] Otilia Escoto, PA-C [facility] [address] [place] [address] documented as of this encounter Visit Diagnoses Diagnosis Malignant neoplasm of exocervix (H) Malignant neoplasm of exocervix documented in this encounter Care Teams Technical Documentation Specialist Relationship Specialty Start Date End Date [facility], [address] [address] PCP - General 07/31/23 documented as of this encounter
--- OUTSIDE RECORDS SUMMARY | 2023-12-16 08:57 | XMS_ITS | Clinical Summary ---
Author Organization [employer] [facility] Address [place], [place] [address] Care Team Providers Care Budget Accountant Name Role Phone Paulina Del Valle MD Primary Care Prov ider Allergies Active Allergy Reactions Criticality Noted Date Comments Shellfish Derived Hives,Shortness Of Breath Medications Medication Sig Dispensed Refills Start Date End Date Status ibuprofen (ADVIL; MOTRIN) 200 mg tablet Take 400 mg by mouth every 6 hours if needed for Pain. Active acetaminophen (TYLENOL EXTRA STRGTH) 500 mg tablet Take 1,000 mg by mouth every 6 hours if needed for Pain. Max acetaminophen dose: 4000mg in 24 hrs. Active carvediloL (COREG) 6.25 mg tabletIndication s:HTN (hypertension) Take 1 Tablet (6.25 mg) by mouth two times daily with meals. 120 Tablet 1 08/07/2023 Active sennosides-docus ate (SENOKOT S) (8.6-50 mg) tablet Take 1 Tablet by mouth two times daily. 08/11/2023 Active DULoxetine (CYMBALTA) 30 mg Delayed-release capsuleIndicatio ns:Adjustment disorder, unspecified type Take 1 Capsule (30 mg) by mouth once daily. 30 Capsule 08/14/2023 Active amLODIPine (NORVASC) 10 mg tabletIndication s:HTN (hypertension) Take 1 Tablet (10 mg) by mouth once daily. 90 Tablet 3 09/14/2023 Active hydrOXYzine HCL (ATARAX) 25 mg tabletIndication s:Adjustment disorder, unspecified type Take 1 Tablet (25 mg) by mouth every 6 hours if needed for Anxiety. 90 Tablet 3 09/14/2023 Active losartan-hydroch lorothiazide (HYZAAR) 100-12.5 mg tabletIndication s:HTN (hypertension) Take 1 Tablet by mouth once daily. 90 Tablet 3 10/12/2023 Active HYDROmorphone (DILAUDID) 2 mg tablet Take 2 mg by mouth every 6 hours if needed for Pain. 08/11/2023 Discontinue d(*Med complete/Re gimen complete/Le jil of care change) Active Problems Problem Noted Date Diagnosed Date Adenocarcinoma, lung 07/23/2023 Hypertension 07/23/2023 Hypertensive urgency 07/16/2023 Excessive vaginal bleeding 07/16/2023 Cervical cancer 07/16/2023 Endometrial cancer 07/16/2023 Hyperglycemia 07/16/2023 Acute blood loss anemia 07/16/2023 Morbid obesity 07/16/2023 TGA (transient global amnesia) 12/05/2017 Encounters Date Type Department Care Team Description 12/10/2023 Lab Requisition [facility] [phone] Unknown, Doctor 11/24/2023 3:20 PM CDT Office Visit [facility] [address] [place] [address] Tommie Del Rio MD Preoperative Exam (DOS: 11/25/2023, replacement kidney tubes, [facility], ) 11/24/2023 Travel 10/12/2023 10:40 AM CDT Office Visit [facility] [address] [place] [address] Paulina Del Valle MD Medication Management (Blood pressure ) 10/12/2023 Travel 09/30/2023 10:15 AM CDT Preop Visit [facility] [address] [place] [address] Paulina Del Valle MD Preoperative Exam (10/05/23 [facility] inserting Arnold ring with Dr. Peguero) 09/30/2023 Travel 09/15/2023 Refill [facility] [address] [place] [address] Paulina Del Valle MD Refill Request (Losartan/HCTZ) from Last 3 Months Immunizations Name Administration Dates Next Due COVID-19 vaccine ([employer] 30mcg/0.3mL) BELLA Colon 09/13/2020,08/23/2020 Tdap 10/29/2013 Family History Medical History Relation Name Comments Heart attack Maternal Grandfather Cancer-breast Mother Hypertension Mother Kidney disease Mother on dialysis Atrial fibrillation Sister 1 Diabetes Sister 3 Anesthesia Problem No Family History Relation Name Status Comments Father Alive Maternal Grandfather Maternal Grandmother Mother Alive Paternal Grandfather Paternal Grandmother Sister 1 Alive x3 Sister 2 Alive Sister 3 Alive Social History Tobacco Use Types Packs/Day Years Used Date Smoking Tobacco: Former Cigarettes 1 15 1 984 - 1998 Cigars Tobacco Cessation:Counseling Given: No Comments:cigar a few times a month. Alcohol Use Standard Drinks/Week Comments Yes 0 (1 standard drink = 0.6 oz pur e alcohol) 2-3 drinks per week PHQ-2 Answer Date Recorded PHQ-2 TOTAL SCORE 1 08/14/2023 Social Connections Answer Date Recorded Frequency of Communication with Friends and Fami ly 0 07/16/2023 Alcohol Use Answer Date Recorded How often do you have a drink containing alcohol ? 3 08/07/2023 How many drinks containing a lcohol do you have on a typical day when you are drinking? 0 08/07/2023 How often do you have five or more drinks on one occasion? 0 08/07/2023 Financial Resource Strain Answer Date R ecorded Difficulty of Paying Living Expenses 3 07/16/2023 Difficulty of Paying Living Expenses Not on file 07/16/2023 Food Insecurity Answer Date Recorded Worried About Running Out of Food in the Last Ye ar 1 07/16/2023 Transportation Needs Answer Date Record ed Lack of Transportation (Medical) 1 07/16/2023 Housing Stability Answer Date Recorded Unable to Pay for Housing in the Last Year 1 07/16/2023 Sex and Gender Information Value Date Recorded Sex Assigned at Not on file Gender Identity Not on file Sexual Orientation Not on file Obstetrics History Last Filed Vital Signs Vital Sign Reading Time Taken Comments Blood Pressure 156/88 11/24/2023 3:24 PM CDT Pulse 96 11/24/2023 3:24 PM CDT Temperature 36.4 ??C (97.5 ??F) 08/07/2023 3:02 PM CD T Respiratory Rate 18 07/23/2023 6:39 PM CDT Oxygen Saturation 95% 11/24/2023 3:24 PM CDT Inhaled Oxygen Concentration - - Weight 135.5 kg (298 lb 12.8 oz) 11/24/2023 3:24 PM CDT Height 171.6 cm (5' 7.56) 11/24/2023 3:24 PM CD T Body Mass Index 46.03 11/24/2023 3:24 PM CDT Plan of Treatment Upcoming Encounters Date Type Department Care Team (Late st Contact Info) Description 12/22/2023 3:30 PM CDT Office Visit [facility] [address] [place] [address] Paulina Del Valle MD [address] [place] [address] Health Maintenance Due Date Last Done Comments Pneumococcal series for age 6-64 (1 of 2 - PCV) 07/08/1971 HIV for age 15-65 1980 Hepatitis C screening for age 18-79 07/08/1983 Zoster (shingles) series for age 50+ (1 of 2) 1984 Pap test for age 21-65 1986 Colonoscopy through age 75 2010 Mammogram for age 45-75 2010 COVID-19 vaccine series (3 - Pfizer risk series) 10/11/2020 09/13/2020, 08/23/2020 Tetanus booster 10/30/2023 10/29/2013 Influenza for age 50-64 01/03/2024 Depression screening for age 12+ 08/16/2024 08/17/2023, 08/14/2023, 08/14/2023 BMI (ht and wt on same day) for age 18+ 11/23/2024 11/24/2023, 08/07/2023, 07/23/2023 Lipids for age 45-75 07/15/2028 07/16/2023 Tdap Completed 10/29/2013 Procedures Procedure Name Priority Date/Time Associated Diagnosis Comments PROCESSING 2 Routine 12/10/2023 8:00 AM CDT LIPID PANEL STAT 07/16/2023 1:21 AM CDT from Last 3 Months or Most Recently Relevant to Health Maintenance Results * PROCESSING 2 (12/10/2023 8:00 AM CDT) Other (Other) Client Collect / Unknown 12/10/2023 8:00 AM CDT 12/10/2023 11:42 AM CDT Doctor Unknown LAB BILL ONLY [facility] [address] [place] [address], * LIPID PANEL (07/16/2023 1:21 AM CDT) CHOLESTEROL,TOTAL 154 100 - 199 mg/dL 07/16/2023 2:02 AM [facility] Comment: Cholesterol, Total Reference Ranges Desirable <200 mg/dL Borderline 200-239 mg/dL High >=240 mg/dL TRIGLYCERIDES 105 <150 mg/dL 07/16/2023 2:02 AM [facility] HDL CHOLESTEROL 48 >40 mg/dL 2:02 AM [facility] NON-HDL CHOLESTEROL 106 <145 mg/dl 07/16/2023 2:02 AM [facility] CHOL/HDL RATIO 3.21 <4.50 07/16/2023 2:02 AM [facility] LDL CHOLESTEROL 85 <=130 mg/dL 07/16/2023 2:02 AM [facility] VLDL CHOLESTEROL 21 <=30 mg/dL 07/16/2023 2:02 AM [facility] PROVIDER ORDERED STATUS RANDOM 07/16/2023 2:02 AM [facility] Blood BLOOD SPECIMEN / Unknown Butterfly / Unknown 07/16/2023 1:21 AM CDT 07/16/2023 1:33 AM CDT Daisy Cross MD CHEMISTRY [facility] [place]NAL ZIP [id number] [address] [place] [address] from Last 3 Months or Most Recently Relevant to Health Maintenance Advance Directives * Full Code (Latest Code Status on File) Date Activated Date Inactivated Comments 07/16/2023 12:58 AM 07/17/2023 4:26 PM Question Answer Comments Code Status Discussion: Reviewed Preferences * Full Code Date Activated Date Inactivated Comments 12/05/2017 4:48 PM 12/06/2017 3:22 PM Care Teams Budget Accountant Relationship Specialty Start Date End Date Paulina Del Valle MD [address] [place] [address] PCP - General Family Practice 08/14/23
--- OUTSIDE RECORDS SUMMARY | 2023-12-16 08:57 | XMS_ITS | Referral Summary ---
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 For routine questions regarding patient records, call [phone] during business hours, M-F 8:00 AM - 5:00 PM Central Time. Record requests for emergency care only can be directed to [phone] at any time.[facility] Encounters Date Type Department Care Team Description 12/11/2023 9:00 AM CDT Infusion Department of Infusion Therapy in [address] [phone] Aurea Altamirano C.N.P. Anemia (Primary Dx); Malignant Neoplasm Of Exocervix (HCC) 12/10/2023 2:00 PM CDT Lab Department of Infusion Therapy in [address] [phone] Aurea Altamirano, C.N.P. Malignant Neoplasm Of Exocervix (HCC) (Primary Dx); Anemia 12/09/2023 Orders Only Department of Oncology in [address] [phone] Agata Melendez R.N. Anemia (Primary Dx); Malignant Neoplasm Of Exocervix (HCC) 11/12/2023 8:00 AM CDT Infusion Department of Infusion Therapy in [address] [phone] Czel, Aurea B, C.N.P. Malignant Neoplasm Of Exocervix (HCC) (Primary Dx); Anemia 11/12/2023 7:26 AM CDT - 11/12/2023 11:59 PM CDT Hospital Encounter Department of Laboratory Medicine in [place], [place] [address] [place] [address] Aurea Altamirano, C.N.P. Anemia; Malignant Neoplasm Of Exocervix (HCC) Discharge Disposition: Home or Self Care 11/11/2023 Orders Only Department of Oncology in [place], [place] [address] [place] [phone] Deyanira Mariscal R.N. Anemia (Primary Dx); Malignant Neoplasm Of Exocervix (HCC) from Last 3 Months Allergies Active Allergy Reactions Criticality Noted Date Comments Shellfish Containing Products Hives (Reselect Reaction),Shortness of breath (Reselect Reaction) High 08/05/2023 Medications Medication Sig Dispensed Refills Start Date End Date Status amLODIPine (Norvasc) 10 mg tablet Take 10 mg by mouth daily. 07/18/2023 Active carvediloL (Coreg) 6.25 mg tablet Take 6.25 mg by mouth 2 (two) times a day with meals. 08/07/2023 Active ibuprofen 200 mg tablet Take 400 mg by mouth every 6 (six) hours as needed. Active lidocaine (Xylocaine) 4 % (40 mg/mL) topical solution Apply 1 Application to the mouth or throat as needed. 09/23/2023 Active loperamide (Imodium A-D) 2 mg capsule Take 1 capsule by mouth as needed. 09/21/2023 Active losartan-hydroCHLORO thiazide (Hyzaar) 100-12.5 mg per tablet Take 1 tablet by mouth daily. 10/12/2023 Active morphine (MS Contin) 15 mg ER tablet Take 15 mg by mouth every 12 (twelve) hours. 09/30/2023 Active oxyCODONE (Roxicodone) 10 mg IR tablet Take 5 mg by mouth as needed. Active sennosides-docusate sodium (Senokot-S) 8.6-50 mg per tablet Take 1 tablet by mouth 2 (two) times a day as needed. 08/11/2023 Active Active Problems Problem Noted Date Diagnosed Date Anemia 11/11/2023 Malignant Neoplasm Of Exocervix 11/11/2023 Social History Tobacco Use Types Packs/Day Years Used Date Smoking Tobacco: Never Assessed Nutrition Answer Date Recorded Nutrition: EVOO Fat Source Unknown 07/16 Nutrition: Servings of Fruits/Vegetables per Day Not on file 07/17/2023 Dental Answer Date Recorded Dental: Regular Dentist Unknown 07/17/19 Sex and Gender Information Value Date Recorded Sex Assigned at Not on file Gender Identity Not on file Sexual Orientation Not on file Last Filed Vital Signs Vital Sign Reading Time Taken Comments Blood Pressure 125/69 12/11/2023 2:00 PM CDT Pulse 66 12/11/2023 2:00 PM CDT Temperature 36 ??C (96.8 ??F) 12/11/2023 2:00 PM CDT Respiratory Rate 16 12/11/2023 2:00 PM CDT Oxygen Saturation 100% 12/11/2023 2:00 PM CDT Inhaled Oxygen Concentration - - Weight - - Height - - Body Mass Index - - Plan of Treatment Not on file Procedures Procedure Name Priority Date/Time Associated Diagnosis Comments TRANSFUSE RED BLOOD CELLS Routine 12/11/2023 11:58 AM CDT Anemia Malignant Neoplasm Of Exocervix (HCC) TRANSFUSE RED BLOOD CELLS Routine 12/11/2023 9:38 AM CDT Anemia Malignant Neoplasm Of Exocervix (HCC) PREPARE RED BLOOD CELLS Routine 12/10/2023 2:01 PM CDT Anemia Malignant Neoplasm Of Exocervix (HCC) TESTING LOCATION Routine 12/10/2023 2:01 PM CDT TYPE AND SCREEN Routine 12/10/2023 2:01 PM CDT Anemia Malignant Neoplasm Of Exocervix (HCC) TRANSFUSE RED BLOOD CELLS Routine 11/12/2023 11:47 AM CDT Anemia Malignant Neoplasm Of Exocervix (HCC) TRANSFUSE RED BLOOD CELLS Routine 11/12/2023 9:15 AM CDT Anemia Malignant Neoplasm Of Exocervix (HCC) PREPARE RED BLOOD CELLS Routine 11/12/2023 7:40 AM CDT Anemia Malignant Neoplasm Of Exocervix (HCC) TESTING LOCATION Routine 11/12/2023 7:40 AM CDT TYPE AND SCREEN Routine 11/12/2023 7:40 AM CDT Anemia Malignant Neoplasm Of Exocervix (HCC) from Last 3 Months Results * Transfuse Red Blood Cells : (12/11/2023 2:15 PM CDT) Only the most recent of4 resultswithin the time period is included. Aurea Altamirano C.N.P. BLOOD TRANSFUSION OR DERABLES * Testing Location (12/10/2023 2:01 PM CDT) Only the most recent of2 resultswithin the time period is included. Testing Location [facility] DEFAULT 12/10/2023 2:04 PM CDT NPRG Blood 12/10/2023 2:01 PM CDT 12/10/2023 2:04 PM CDT Soft Results Interface LAB BLOOD BANK TE ST ORDERABLES Performing Organization Address City/State/[facility] Co de Phone Number [facility] [address] [place] [address], [facility] NPRG [place] [address] [place] [address] * Type and Screen (with Reflex Antibody ID) (12/10/2023 2:01 PM CDT) Only the most recent of2 resultswithin the time period is included. ABO Group A 12/10/2023 2:57 PM CDT NPRG Rh Type POS 12/10/2023 2:57 PM CDT NPRG Antibody Screen NEG 2:57 PM CDT NPRG Type & Screen Expiration 12/13/2023 23:59 12/10/2023 2:57 PM CDT NPRG ELXM Eligible Y 12/10/2023 2:57 PM CDT NPRG Blood (Blood, Venous) 12/10/2023 2:01 PM CDT 12/10/2023 2:04 PM CDT Aurea Altamirano C.N.P. LAB BLOOD BANK TEST ORDERABLES [facility] [address] [place] [address], [place] NPRG [facility] [address] [place] [address] from Last [address] HARISH Kumar [phone]
--- OUTSIDE RECORDS SUMMARY | 2023-12-16 08:57 | XMS_ITS | Encounter Summary ---
Author Organization [facility] Address [address] 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] Procedures DC PELVIC EXAMINATION W ANESTH DC INSERT UTERINE TANDEM/VAG OVOID FOR BRACHYTHERAPY Pelvic examination under anesthesia, dilation of cervix, Kari sleeve placement, tandem and ring placement Periop Services [address], [address] [place] [address] Referral ID Status Reason Start Date Expiration Date Visits Re quested Visits Authorized [id number] 1 1 Encounter Details Date Type Department Care Team (Late st Contact Info) Description 10/05/2023 7:30 AM CDT - 10/05/2023 9:00 AM CDT Surgery [facility] PeriOP Services [address] [place] [address] Jennifer Peguero MD [facility] [address] [place], [place] [id number] Pelvic examination under anesthesia, Surgery Details Date/Time Status Location OR Service Patient Class Case Class Case Type Trauma Case? 10/05/23 7:30 AM Posted OR OR M 23 Gynecology Oncology Same Day Surgery Elective Panel 1 Procedure LRB Anes Op Region Wound Class Comments Pelvic examination under anesthesia, N/A General Cervix II-Clean Contaminated Surgeon Surgeon Role Service Panel Swati Real PA-C Assisting 1 Justice Hickman MD Assisting Radiation O ncology 1 Jennifer Peguero MD Primary Gynecology Oncolog y 1 Special Needs *htn, [id number] req documented in this encounter Social History Tobacco Use Types Packs/Day Years Used Date Smoking Tobacco: Former Cigarettes 1 15 1 984 - 1998 Cigars Smokeless Tobacco: Never Tobacco [...] Sign Reading Time Taken Comments Blood Pressure 164/80 10/05/2023 9:00 AM CDT Pulse 78 10/05/2023 9:00 AM CDT Temperature 36.2 ??C (97.1 ??F) 10/05/2023 8:41 AM CD T Respiratory Rate 16 10/05/2023 9:00 AM CDT Oxygen Saturation 95% 10/05/2023 9:00 AM CDT Inhaled Oxygen Concentration - - Weight 139.7 kg (308 lb) 10/05/2023 5:57 AM CDT Height 175.3 cm (5' 9) 10/05/2023 5:57 AM CDT Body Mass Index 45.48 10/05/2023 5:57 AM CDT documented in this encounter Discharge Instructions * Discharge Instructions* Emanuel Godfrey RN - 10/05/2023 8:58 AM CDT Today you received Toradol, an antiinflammatory medication similar to Ibuprofen. You should not take other antiinflammatory medication, such as Ibuprofen, Motrin, Advil, Aleve, Naprosyn, etc until 3:20 PM. Same Day Surgery Discharge Instructions for Sedation and General Anesthesia It's not unusual to feel dizzy, light-headed or faint for up to 24 hours after surgery or while taking pain medication. If you have these symptoms: sit for a few minutes before standing and have someone assist you when you get up to walk or use the bathroom. You should rest and relax for the next 24 hours. We recommend you make arrangements to have an adult stay with you for at least 24 hours after your discharge. Avoid hazardous and strenuous activity. DO NOT DRIVE any vehicle or operate mechanical equipment for 24 hours following the end of your surgery. Even though you may feel normal, your reactions may be affected by the medication you have received. Do not drink alcoholic beverages for 24 hours following surgery. Slowly progress to your regular diet as you feel able. It's not unusual to feel nauseated and/or vomit after receiving anesthesia. If you develop these symptoms, drink clear liquids (apple juice, jose rj, broth, 7-up, etc. ) until you feel better. If your nausea and vomiting persists for 24 hours, please notify your surgeon. All narcotic pain medications, along with inactivity and anesthesia, can cause constipation. Drinking plenty of liquids and increasing fiber intake will help. For any questions of a medical nature, call your surgeon. Do not make important decisions for 24 hours. If you had general anesthesia, you may have a sore throat for a couple of days related to the breathing tube used during surgery. You may use Cepacol lozenges to help with this discomfort. If it worsens or if you develop a fever, contact your surgeon. If you feel your pain is not well managed with the pain medications prescribed by your surgeon, please contact your surgeon's office to let them know so they can address your concerns. If you have questions or concerns about your procedure, call Dr. Peguero at [phone] documented in this encounter Medications at Time [...] as of this encounter Progress Notes * Swati Real PA-C - 10/01/2023 12:07 PM CDT GYNECOLOGIC ONCOLOGY FOLLOW-UP VISIT Patient Name: MORA COTE : 1965 Date of Visit: 09/29/2023 Referring Provider: Attending: Jennifer Peguero (Gynecological/Oncology) Chief Complaint (Exhaust Worker Oncology): Chemo RT surveillance History of Present Illness (Exhaust Worker Oncology): 58 yo postmenopausal female with newly diagnosed dual primaries (squamous cell carcinoma ofcervix and adenocarcinoma of right middle lobe lung) 07/15/2023: Patient presented to [place] ER for heavy vaginal bleeding. Reported soaking through multiple pads in an hour and also passing clots. Hgb was 11.1 --> 10. Pelvic ultrasound noted an abnormal cervical mass. Asset Protection Manager was consulted and she was taken for EUA, cervical and vaginal biopsies, vaginal packing with Dr. Bela Licea. There was fixed, nodular mass of proximal vagina that replaced any appreciable normal cervix. The mass seemed to involve the entire vaginal fornix with some extension to left parametria. Mass extended down anterior vagina creating a stricture ring at midvagina. Tumor was friable and required packing. Pathology returned as moderately differentiated squamous cell carcinoma, both cervical biopsy and vaginal biopsy. Request was made for inpatient transfer due to heavy, brisk bleeding, likely gynecologic malignancy and lack of IR capabilities in event of emergency. Open [facility] bed for transfer was [facility]. 07/15 - : Inpatient transfer/hospitalization at [facility]. Seen by Dr. Noe. CT chest/abd/pelvis with 3.4 cm soft tissue mass at the cervix also with packing material still present. There was apartially cavitary soft tissue mass involving the right middle lobe that measured 1.3 x 1.4 cm. There was hepatic steatosis. There was a 7 mm low-attenuation lesion involving the spleen. There was noevidence for lymphadenopathy involving the pelvis. Hgb rogerio was 9.5. Hgb at time of discharge was 10.1. She was discharged with plan for outpatient CTO Exhaust Worker Onc follow-up. 07/21/2023: CT-guided biopsy of right middle lobe lung mass at [facility]. Pathology returned positive for malignancy, adenocarcinoma of lung. 07/23/2023: Follow-up visit with PCP in [place]. Concern for continued vaginal bleeding. Patient presented to ER in [place] followed by ER visit to [facility] for vaginal bleeding. Hgb 10.7 --> 10.4and bleeding had stabilized. Treated for UTI with dose of ceftriaxone. 07/28/2023: Presented to [facility] for outpatient consultation visits with Exhaust Worker Onc (Dr. Peguero) and Thoracic Surgery (Dr. Gandara). 08/03/2023: PET-CT IMPRESSION: 1. Irregular part solid 1.5 cm right middle lobe pulmonary nodule consistent with biopsy-proven adenocarcinoma. No evidence of metastasis. 2. Irregular infiltrative soft tissue mass involving the cervix measuring up to 5.7 cm with possible early invasion of the bladder.No evidence of metastasis. 08/10/2023: s/p right video-assisted thoracoscopy with resection of right middle lobe lung nodule with Dr. Gandara. Surgical margins negative for malignancy. Final pathologic stage T2a NX M0, final stage IB. 08/11/23: CT head: No acute findings 08/20/2023: MRI pelvis W/WO contrast with extension into parametrium bilaterally and noted to invade posterior wall of the urinary bladder (Stage OSVALDO). 08/25/2023: Tx planning visits with Dr. Hickman & Dr. Peguero for chemoradiation. 09/01/23: C1 cisplatin/RT CA125 = 12.5 U/mL 09/08/23: C2 cisplatin/RT 09/15/23: C3 cisplatin/RT 09/22/23: C4 cisplatin/RT 09/29/23: C5 cisplatin/RT (dose reduced to 20mg/m2) due to renal function Genetic Testing (Exhaust Worker Oncology): Somatic testing (cervical biopsy) = pending Interval History (Exhaust Worker Oncology) She is tearful today. 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 Standing for long periods of time is difficult. She feels exhausted all the time and short of breath. She also has quite a bit of pain vaginally, worse when she urinates which is often. She is using topical lidocaine and barrier creams which help a little bit. Review of Systems: A complete 14-point review of systems is negative except as noted in the above history of present illness. Past Medical History: Adenocarcinoma, right lung Cervical cancer Morbid obesity, BMI 48.21 Excessive vaginal bleeding Acute blood loss anemia Hypertensive urgency Transient global amnesia - 2019 Surgical History: Radical benign tumor resection of left arm at the age of 14 yo. Right video-assisted thoracoscopy with resection of right middle lobe lung nodule. 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 Ab 1. Menarche: 13 yo Remote hx of OCP use x 5 years. Postmenopausal status. Menopause: age 52 yo. Not currently sexually active. Allergies: shellfish derived Medications: Lidocaine Mucosal Liquid 4 % 4 % (40 mg/mL) solution 5 mL to affected mucosal area every 4 hours asneeded. Prochlorperazine Oral 10 mg tablet 1 tablet orally every 6 hours as needed for nausea and vomiting. Sulfamethoxazole-Trimethoprim Oral 800 mg-160 mg (DS) 800-160 mg tablet 1 tablet orally 2 times perday. Oxycodone Oral 5.0 mg Oral Once every 6 Hours Cyclobenzaprine Oral 10 mg tablet 1 tablet orally 3 times per day. as needed for pelvic pain Loperamide Oral 2 mg capsule 1 capsule orally 4 times per day as needed for loose stool. Oxycodone Oral 5 mg tablet 1-2 tabs every 4 hours as needed for cancer related pain Ibuprofen Oral 400.0 mg Oral Once every 6 Hours Polyethylene Glycol Oral Powder 17 gram powder in packet 1 powder in packet orally daily as needed.If needed for opiate-induced constipation Amlodipine Oral 10.0 mg Oral Once a Day Olanzapine Oral 2.5 mg tablet 2.5 mg orally every day at bedtime. Take for 4 days starting Day 1 ofchemotherapy for nausea. Acetaminophen Oral 1000.0 mg Oral Once every 6 Hours Carvedilol Oral 3.125 mg Oral Once every 0.5 Days Hydroxyzine Pamoate Oral 25.0 mg Oral Once every 4 Hours Family History: Breast cancer- mother dx at 78 yo. Social History: Smoking Status Smoking Tobacco : Former smoker. Quit smoking at age 50 yo. Previous use = 1/2 or 1/3 pack of cigarettes a day for 35 years. Intermittent cigar use. Alcohol consumption: 2-3 drinks per week x 10.5 years. is named Zoe. Lives in [place], [place]. Trade school. 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 Health Maintenance: Last pap smear: ~25 years ago Last mammogram: has never had a mammogram Last colonoscopy: has never had a colonoscopy Vital Signs: Blood pressure: 118/74, Pulse: 94, Temperature: 99.7 F, Respirations: 16, O2 sat: 97%, Pain Scale: 4, Height: 70 in, Weight: 313 lb, BSA: 2.52, BMI: 44.91 kg/m2 Physical Exam (Exhaust Worker Oncology): General: alert, cooperative, no acute distress Lungs: CTAB, good inspiratory effort, no wheezes Cardiac: RRR, no murmurs heard Lab Results 09/29/2023 09/22/2023 09/15/2023 09/08/2023 09/01/2023 08/30/2023 Tumor Markers CA 125 U/mL 12.50 Laboratory Data: CBC Lab Results 09/29/2023 09/22/2023 09/15/2023 09/08/2023 09/01/2023 08/30/2023 CBC WBC x 10^3/uL 5.6 6.9 9.2 (H) 10.6 (H) 8.7 RBC x 10^6/uL 3.06 (L) 3.29 (L) 3.37 (L) 3.54 (L) 3.56 (L) NRBC % /100 wbc 0.0 0.0 0.0 0.0 0.0 HGB g/dL 9.0 (L) 9.5 (L) 10.1 (L) 10.6 (L) 10.6 (L) HCT % 27.4 (L) 29.9 (L) 30.7 (L) 31.8 (L) 32.1 (L) MCV fL 89.5 90.9 91.1 89.8 90.2 MCH pg 29.4 28.9 30.0 29.9 29.8 MCHC g/dL 32.8 31.8 32.9 33.3 33.0 RDW % 15.20 14.60 14 13.50 13.30 PLT x 10^3/uL 154 215 199 280 274 MPV fL 8.6 (L) 9.8 9.5 9.2 (L) 9.2 (L) Reema % 80.1 (H) 73.7 85.4 (H) 77.9 (H) 74.0 LY % 4.8 (L) 5.2 (L) 5.4 (L) 8.4 (L) 15.4 MO % 7.4 4.9 (L) 4.6 (L) 8.3 6.8 EO % 6.3 14.2 (H) 3.9 3.9 2.9 IG % 0.9 (H) 1.3 (H) 0.4 1.0 (H) 0.3 Reema # (ANC) x 10^3/uL 4.5 5.1 7.9 (H) 8.3 (H) 6.4 BA % 0.5 0.7 0.3 0.5 0.6 MO # x 10^3/uL 0.4 0.3 0.4 0.9 0.6 EO # x 10^3/uL 0.4 1.0 (H) 0.4 0.4 0.3 BA # x 10^3/uL 0.0 0.1 0.0 0.1 0.1 IG # x 10^3/uL 0.05 (H) 0.09 (H) 0.04 (H) 0.11 (H) 0.03 LY # x 10^3/uL 0.3 (L) 0.4 0.5 0.9 1.3 CMP Lab Results 09/29/2023 09/22/2023 09/15/2023 09/08/202309/01/2023 08/30/2023 Chemistries Glucose mg/dL 138 (H) 106 (H) 110 (H) BUN mg/dL 32.0 (H) 27.0 (H) 17.0 Creatinine mg/dL 1.30 (H) 0.90 0.70 Creatinine, iSTAT mg/dL 1.5 (H) 1.4 (H) 0.9 1.0 0.6 Sodium mmol/L 137 135 (L) 137 Potassium mmol/L 3.8 3.6 3.8 Chloride mmol/L 107 102 103 CO2 mmol/L 20 (L) 23 23 Calcium mg/dL 7.9 (L) 8.5 9.1 Albumin g/dL 3.7 4.2 4.1 Total protein g/dL 7.0 7.5 7.4 Bilirubin, total mg/dL 0.3 0.4 0.2 Alkaline phosphatase U/L 104 96 83 AST/SGOT U/L 27 28 27 ALT/SGPT U/L 23 19 18 GFR estimate mL/min/1.73m2 40.1 (L) 47.6 (L); 43.6 (L) 74.0 74.0; 65.2 100.1; 103.9 Lab Results 09/29/2023 09/22/2023 09/15/2023 09/08/2023 09/01/2023 08/30/2023 Tumor Markers CA 125 U/mL 12.50 Imaging: MRI pelvis W/WO contrast on 08/20/2023 Impression : 1. Cervical mass involving the vaginal fornix with extension into the parametrium bilaterally. 2. The mass abuts and appears to invade the posterior wall of the urinary bladder. Stage OSVALDO. PET-CT Skull Base to Mid-Thigh 08/03/2023 IMPRESSION: 1. Irregular part solid 1.5 cm right middle lobe pulmonary nodule consistent with biopsy-proven adenocarcinoma. No evidence of metastasis. 2. Irregular infiltrative soft tissue mass involving the cervix measuring up to 5.7 cm with possible early invasion of the bladder. No evidence of metastasis. CT chest, abdomen and pelvis on 07/16/2023 IMPRESSION: 1. A 3.4 cm heterogeneously enhancing soft tissue mass at the cervix. Recommend correlation with biopsy results for cervical malignancy. Packing material adjacent to the mass within the vagina. Minimal amount of fluid in the vaginal fornices. 2. Partially cavitary mixed density soft tissue mass involving the right middle lobe anteriorly measuring 1.3 x 1.4 cm. Findings may represent metastatic disease or primary lung malignancy. Benign cavitary nodule or infectious nodule could also have this appearance. Consider further evaluation withPET/CT or tissue diagnosis. 3. A 0.7 cm low-attenuation lesion involving the spleen is indeterminate and may represent a benignentity but metastatic disease cannot be excluded given the cervical mass. This can be further evaluated with PET/CT or MRI. 4. Hepatic steatosis. 5. Mass containing macroscopic fat involving anterior aspect left kidney measuring 1.6 cm most compatible with a renal angiomyolipoma. 6. No evidence for lymphadenopathy involving the pelvis. Problems: Invasive cervical cancer ( Stage Date: Unknown, Stage FIGO IB3 ) ADVANCED DIRECTIVE DISCUSSED WITH PATIENT Dehydration Desquamation Diarrhea Dysuria (finding) Hx of smoking Pain due to neoplastic disease (finding) Palliative care Personal history of lung cancer Radiation-induced dermatitis Renal insufficiency Assessment & Plan (Exhaust Worker Oncology): Mora is a giulia 58 yo postmenopausal female with dual primaries (squamous cell carcinomaof cervix and adenocarcinoma of right middle lobe lung) here for cervical cancer chemotherapy/RT surveillance 1. Squamous cell carcinoma of cervix (Stage IVAr) She is now undergoing chemo/RT with weekly Cisplatin and daily (5x/week) RT. She is working with Dr. Hickman next door. Plan for 6-7 cycles, or for duration of external beam RT (she will not need cisplatin during internal RT). She tells me today that external beam radiation is planned to continue through 10/23/2023. Unfortunately we may need to add an 8 cycle of cisplatin to accommodate this. I have reached out to Dr. Hickman to confirm this. We are planning to do a repeat MRI pelvis coming up as well, which may allow us fewer radiation treatments in general, depending on response Plan for kari sleeve as well, which has been scheduled for October 04. Vaginal brachytherapy currently scheduled for 10/05/2023, 10/09/2023, 10/12/2023, 10/16/2023, and 10/19/2023. She is also interested in possibly pursuing THC. She is also getting a port placed because blood draws have been historically very difficult for her. She met with palliative care who started her on oxycodone for the pain. Toxicities: Nausea: She is utilizing olanzapine every night. As needed Compazine works fairly well. Urinary incontinence: This is a normal and expected side effect from radiation. She is using adult undergarments. Urine culture from 09/15/2023 negative for infection. Dysuria: Urine culture negative. This is a typical side effect from cisplatin. She is utilizing barrier creams , topical lidocaine as well. She also finds that using the Kait bottle during urination helps to dilute it. Decreased kidney function: Creatinine worse today at 1.5. She denies diarrhea, and feels that she is drinking well. I did speak with Dr. Peguero. Will check renal U/S to rule out mechanical barrier aswell. Cisplatin has been dose reduced to 20 mg/m??. Diarrhea: She states this is better. She is utilizing Imodium as needed. I did warn her that use ofoxycodone well solidify stools more. Vaginal pain: She is using topical barrier creams, lidocaine cream, oxycodone which works well. 2. Primary adenocarcinoma of lung (Stage 1B s/p surgery on 08/10/2023) 08/10/2023: right video-assisted thoracoscopy with resection of right middle lobe lung nodule with Dr. Gandara. Surgical margins negative for malignancy. Final pathologic stage T2a NX M0, final stage IB. Will not require adjuvant therapy. Will continue to follow with surveillance visits with Dr. Gandara. 4. Medical comorbidities No medical care for long period of time Has had hypertensive urgency during ER visits & was initiated on anti- hypertensive medications during [facility] inpatient hospitalization Likely underlying chronic HTN Morbid obesity, BMI 47.41 Pain Care Management: Pain Scale: 4 Patient Care needs: Depressions Status: Was screened; Outcome positive: No; Screening Date: 07/28/2023; Screening Tool: MD-PHQ2 Psycho-Social PHQ-9 Follow-up Plan (if applicable): Smoking Status: Smoking Tobacco : Former smoker; Smokeless Tobacco : none found; Vaping : none found Aurea Altamirano APRN, CNP documented in this encounter Nursing Notes * Marixa Call RN - 10/05/2023 10:[address] Stanford notified per patient request. Dr. Stanford called them and there will be no radiation today. Patient to be discharged to home. 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 ANESTHESIA: General with LMA ESTIMATED BLOOD LOSS: 0 cc IV FLUIDS: 400 ml crystalloid URINE OUTPUT: N/A INDICATIONS: Mora Cote is a 58 year old postmenopausal female who was recently discovered to have dual primaries with squamous cell carcinoma of the cervix and adenocarcinoma of right middle lobe of the lung. She is s/p video-assisted thoracoscopy with resection of right middle lobe pulmonary nodule on 08/10/[address] Gandara with final stage IB. Baseline PET-CT on 08/03/2023 noted a 5.7 cm cervical tumor with possible early invasion of the bladder. She underwent baseline MRI pelvison 08/20/2023 which noted bilateral parametrial extension with invasion of the posterior wall of theurinary bladder (Stage OSVALDO). She initiated weekly cisplatin cycle #1 on 09/01/2023 and external beamradiation therapy on 09/01/2023. Recent MRI pelvis has noted vesicovaginal fistula, thus, will plan for urinary diversion and completion of definitive curative intent treatment. She will require internal radiation therapy as part of her treatment plan. She agreed to proceed to the operating room. FINDINGS: On pelvic examination under anesthesia, bilateral vulva were without masses or lesions. The vaginal canal is long, but, narrow. There were necrotic tumor fragments that were removed. The cervix was small and very anterior with a stenotic cervical os. There was a large posterior bladder wall defect as could palpate the Joe bulb through this area. This was at least ~2 x 2 cm. There was constant urine leakage throughout the case. There was cobblestoning circumferentially around the upper vagina difficult to fully differentiate radiation fibrosis versus residual tumor. This seemed consistent with obliterated cervix. Bilateral parametria were without any obvious nodularity and appeared palpably smooth. Dr. Hickman was able to perform pelvic examination and was present during the procedure in terms of treatment decision-making. Kari sleeve was NOT able to be placed secondary to disorted anatomy and inability to place any sutures into surrounding tissues given extensive tumor necrosis and radiation fibrosis. Patient will be scheduled for bilateral percutaneous nephrostomy tubes STAT this week for urinary diversion, as critical to continue radiation therapy with limited interruptions and minimal treatment breaks for curative intent therapy. Patient and aware will likely require a future, complex surgery. Patientwill be referred to Dr. Gaines at [facility] and aware he will be added to her treatment team. SPECIMENS: * No specimens in log * COMPLICATIONS: None. CONDITION: Stable to PACU. OPERATIVE PROCEDURE IN DETAIL: Consent was reviewed with the patient in the preoperative setting and confirmed. The patient received . Bilateral sequential compression devices were placed for venous thromboembolism prophylaxis. A surgical debriefing was performed with the operating room team prior to patient entry into the operating room. The patient was transferred to the operating room and placed in dorsal supine position. General anesthetic was obtained in the usual manner without noted difficulties. The patient was then positioned onto Terry stirrups. The patient was prepped and draped for the above-mentioned procedure. A Joe catheter was placed under sterile technique. Timeout was called at which point the patient's name, procedure and operative site was confirmed bythe operative team. A pelvic examination under anesthesia was performed with findings noted above. A sterile speculum was placed into the patient's vagina. Dr. Hickman was able to be present during my portion of the procedure and was able to perform a pelvic examination under anesthesia. Kari sleeve was NOT able to be placed secondary to disorted anatomy and inability to place any sutures into surrounding tissues given extensive tumor necrosis and radiation fibrosis. The speculum was then removed. The Joe catheter was also removed. There were no qualified assistants available to assist in the case. All instruments and sponge counts were correct x 2. General anesthesia was reserved without any issues. The patient was then awakened and taken to the recovery room in stable condition. I was presentand scrubbed for the entire procedure. Jennifer Peguero MD Gynecologic Oncology [facility] Oncology 10/05/2023 documented in this encounter Plan of Treatment Upcoming Encounters Date Type Department Care Team (Late st Contact Info) Description 03/07/2024 Hospital Encounter [facility] 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 [address] [facility] [place] [phone] Otilia Escoto, PAMarceloC [facility] [address] [place] [address] documented as of this encounter Procedures Procedure Name Priority Date/Time Associated Diagnosis Comments PELVIC EXAMINATION W ANESTH 10/05/2023 7:34 AM CDT Malignant neoplasm of exocervix (H) Special Needs *htn, [id number] req TYPE AND SCREEN, ADULT STAT 10/05/2023 6:27 AM CDT POTASSIUM STAT 10/05/2023 6:27 AM CDT ABO/RH TYPE AND SCREEN STAT 10/05/2023 6:27 AM CDT CBC WITH PLATELETS STAT 10/05/2023 6: 27 AM CDT documented in this encounter Results * Adult Type and Screen (10/05/2023 6:27 AM CDT) ABO/RH(D) A POS 10/05/2023 6:00 AM CDT BLOOD BANK Antibody Screen Negative Negative 10/05/2023 6:00 AM CDT BLOOD BANK SPECIMEN EXPIRATION DATE [id number] 10/05/2023 6:00 AM CDT BLOOD BANK Blood STRUCTURE OF LEFT UPPER LIMB / Unknown Venipuncture / Unknown 10/05/2023 6:27 AM CDT 10/05/2023 6:33 AM CDT Swati Real PA-C LAB - BLOOD BAN K TEST ORDER BLOOD BANK [address] [place] [address], [facility] * Potassium - Pre-Op (10/05/2023 6:27 AM CDT) Pathologist [facility] Potassium 3.5 3.4 - 5.3 mmol/L 10/05/2023 6:59 AM CDT LABORATORY Blood STRUCTURE OF LEFT UPPER LIMB / Unknown Venipuncture / Unknown 10/05/2023 6:27 AM CDT 10/05/2023 6:33 AM CDT Dixon Golden MD LAB - BLOOD ORDER [facility] [address] floor, [address] [place] [address], [facility] [phone] * (ABNORMAL) CBC with platelets (10/05/2023 6:27 [...] PA-C LAB - BLOOD ORD ERABLES LABORATORY [facility] 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 If ordered intravenously (IV) : administer through a running maintenance fluid over 1 minute followed by a flush. If patient complains of pain on injection, may dilute 15-30 mg in 5 mL and push over 1 to 2 minutes., PACU $Given 10/05/2023 9:20 AM CDT 15 mg sodium chloride 0.9% (bottle) irrigation PRN, Starting on Thu10/05/23 at 0805, Intra-procedure $Given 10/05/2023 8:05 AM CDT 1,000 mLs documented in this encounter Active and Recently Administered Medications Times are shown in CDT. Scheduled Medication Order 10/03/2023 10/04/2023 10/05/2023 ceFAZolin Sodium (ANCEF) injection 3 g (COMPLETED) Routine, 3 g, Intravenous, 30 MIN PRE-OP, Starting on Thu10/05/23 at 0559, For 1 dose, Give first dose within 1 hour PRIOR to incision., Indications: Perioperative Pharmacoprophylaxis, Pre-procedure 0735 ($Given - Provi yon: Lakesha Rosario APRN CRNA) ketorolac (TORADOL) injection 15 mg (COMPLETED) 15 mg, Intravenous, ONCE, On Thu10/05/23 at 0930, For 1 dose, Can cause pain on injection. If ordered intravenously (IV) : administer through a running maintenance fluid over 1 minute followed by a flush. If patient complains of pain on injection, may dilute 15-30 mg in 5 mL and push over 1 to 2 minutes., PACU 0920 ($Given - Provi yon: Emanuel Godfrey RN) Continuous Medication Order 10/03/2023 10/04/2023 10/05/2023 lactated ringers infusion (CANCELED) at 10 mL/hr, Intravenous, CONTINUOUS, IF patient NOT on dialysis., Pre-procedure, Starting on Thu10/05/23 at 0630, Until Thu10/05/23 at 0842 0733 ($New Bag - Pro vider: Lakesha Rosario APRN CRNA)0830 (Anesthesia Volume Adjustment - Provider: Lakesha Rosario APRN CRNA) PRN Medication Order 10/03/2023 10/04/2023 10/05/2023 acetaminophen (TYLENOL) tablet 650 mg 650 mg, Oral, ONCE PRN, mild pain, to moderate pain, Starting on Thu10/05/23 at 0857, One time prior to discharge. Maximum acetaminophen dose from all sources = 75 mg/kg/day not to exceed 4 grams/day. oxyCODONE (ROXICODONE) tablet 10 mg 10 mg, Oral, ONCE PRN, other, pain control or improvement in physical function.??, Starting on Thu10/05/23 at 0857, For 1 dose, Notify provider to assess for uncontrolled pain or analgesic side effects. sodium chloride 0.9% (bottle) irrigation (CANCELED) PRN, Starting on Thu10/05/23 at 0805, Intra-procedure 0805 ($Given - Provi yon: Jennifer Peguero MD) documented in this encounter Care Teams K 9 Handler/ Deputy Relationship Specialty Start Date End Date [facility], [place] [id number] PCP - General 07/31/23 documented as of this encounter
--- OUTSIDE RECORDS SUMMARY | 2023-12-16 08:57 | XMS_ITS | Encounter Summary ---
Author Organization [place] Address [address] [facility] [place] [address] Care Team Providers Care Educational Institution Curator Name Role Phone Clinic, [facility] Primary Care Provider Reason for Referral * Diagnostic Imaging Ultrasound (Urgent: 3-5 Days) - Pending Review Specialty Diagnoses / Procedures Referred By Pam hay Referred To Contact Radiology. Diagnoses Cancer of exocervix (H) Kidney failure Procedures US Renal Complete Non-Vascular Aurea Altamirano APRN CNP [facility] [address] [place] [address] Referral ID Status Reason Start Date Expiration Date V isits Requested Visits Authorized [id number] Pending Review 09/30/2023 09/29/2024 1 1 Reason for Visit * Diagnostic Imaging Ultrasound (Urgent: 3-5 Days) - Pending Review Specialty Diagnoses / Procedures Referred By Pam hay Referred To Contact Radiology. Diagnoses Cancer of exocervix (H) Kidney failure Procedures US Renal Complete Non-Vascular Aurea Altamirano APRN CNP [facility] [address] [place] [address] [address] [place] [address] Referral ID Status Reason Start Date Expiration Date V isits Requested Visits Authorized [id number] Pending Review 09/30/2023 09/29/2024 1 1 Encounter Details Date Type Department Care Team (Latest Contact Info) Description 09/30/2023 12:20 PM CDT - 09/30/2023 11:59 PM CDT Hospital Encounter [facility] [address] [place] [phone] Aurea Altamirano APRN [facility] [address] [facility] [address] [place] [phone] Cancer of exocervix (H); Kidney failure Discharge Disposition: Home or Self Care Social History Tobacco Use Types Packs/Day Years Used Date Smoking Tobacco: Former Cigarettes 1 15 1 - 1998 Cigars Smokeless Tobacco: Never Comments:Cigars [...] on file documented as of this encounter Medications at Time of Discharge [...] tablet 08/11/2023 documented as of this encounter Plan of Treatment Upcoming Encounters Date Type Department Care Team (Late st Contact Info) Description 03/07/2024 Hospital Encounter [facility] [address] [place] [phone] 03/07/2024 2:20 PM BOMB LOADER Ancillary Procedure [facility] [address] [place] [phone] Otilia Escoto, PA-C [facility] [address] [place] [address] documented as of this encounter Procedures Procedure Name Priority Date/Time Associated Diagnosis Comments US RENAL COMPLETE NON-VASCULAR STAT 09/30/2023 2:00 PM CDT Cancer of exocervix (H) Kidney failure documented in this encounter Results * US Renal Complete Non-Vascular (09/30/2023 2:00 [...] hepatic steatosis. GAVINO WAKEFIELD MD Aurea Fairbanks Lambertoyogi DIVISION OFFICER [employer] DE[employer] INSURANCE CLERK IMG US ORDERA BLES documented in this encounter Visit Diagnoses Diagnosis Cancer of exocervix (H) Malignant neoplasm of exocervix Kidney failure Renal failure, unspecified documented in this encounter Care Teams Educational Institution Curator Relationship Specialty Start Date End Date [facility], [address] [address] PCP - General 07/31/23 documented as of this encounter
--- OUTSIDE RECORDS SUMMARY | 2023-12-16 08:57 | XMS_ITS | Encounter Summary ---
Author Organization [place] Address [address] [place] [address] Care Team Providers Care Icu Nurse Name Role Phone Clinic, [facility] Primary Care Provider Encounter Details Date Type Department Care Team (Late st Contact Info) Description 10/06/2023 Orders Only [facility] [address] [place] [phone] Aurea Altamirano APRN [facility] [address] [facility] [address] [place] [address] Malignant neoplasm of exocervix (H) (Primary Dx) [...] st Contact Info) Description 03/07/[address] [facility] [address] [place] [phone] 03/07/2024 2:20 PM FURNACE MECHANIC Ancillary Procedure [facility] [address] [facility] [place] [phone] Jevon, Otilia B, PA-C [place] [facility] [address] [place] [address] documented as of this encounter Visit Diagnoses Diagnosis Malignant neoplasm of exocervix (H)- Primary Malignant neoplasm of exocervix documented in this encounter Care Teams Icu Nurse Relationship Specialty Start Date End Date [facility], [facility] [address] [place] [address] PCP - General 07/31/23 documented as of this encounter
--- OUTSIDE RECORDS SUMMARY | 2023-12-16 08:57 | XMS_ITS | Encounter Summary ---
Author Organization [place] Address [address] [facility] [place] [address] Care Team Providers Care Biofuels Production Associate Name Role Phone Clinic, [facility] Primary Care Provider Reason for Visit * Diagnostic Imaging CT Scan (Urgent: 3-5 Days) - Closed Specialty Diagnoses / Procedures Referred By Pam hay Referred To Contact Radiology. Diagnoses Malignant neoplasm of exocervix (H) Procedures CT Abdomen Pelvis w Contrast Aurea Altamirano APRN [facility] [address] [place] [address] Referral ID Status Reason Start Date Expiration Date Visits Re quested Visits Authorized [id number] Closed 10/07/2023 10/06/2024 1 1 Encounter Details Date Type Department Care Team (Latest Contact Info) Description 10/08/2023 12:40 PM CDT Ancillary Procedure [facility] [address] [place] [phone] Aurea Altamirano APRN [facility] [address] [place] [id number] Malignant neoplasm of exocervix (H) Social History [...] Hospital Encounter [facility] [address] [place] [phone] 03/07/2024 2:20 PM MERCHANDISE PROCESSOR Ancillary Procedure [facility] [address] [facility] [place] [phone] Otilia Escoto PA-C [place] [facility] [address] [place] [phone] documented as of this encounter Procedures Procedure Name Priority Date/Time Associated Diagnosis Comments CT ABDOMEN PELVIS W CONTRAST STAT 10/08/2023 12:42 PM CDT Malignant neoplasm of exocervix (H) documented in this encounter Results * CT Abdomen Pelvis w Contrast (10/08/2023 [...] EXAM: CT ABDOMEN PELVIS W CONTRAST LOCATION: [facility] DATE: 10/08/2023 INDICATION: ??Malignant neoplasm of exocervix [...] EXAM: CT ABDOMEN PELVIS W CONTRAST LOCATION: [facility] DATE: 10/08/2023 INDICATION: Malignant neoplasm of exocervix [...] Slightly increased mild splenomegaly measuring 15 cm, ysaxmigave15.5 cm. Stable 10 mm hypoenhancing lesion anterolaterally [...] imaged. 6. Left renal angiomyolipomas. Aurea Altamirano DIRECTOR MEDICARE SALES ENTRY LEVEL MARKETING ASSISTANT IMG CT ORDERA BLES documented in this encounter Visit Diagnoses Diagnosis Malignant neoplasm of exocervix (H) Malignant neoplasm of exocervix documented in this encounter Administered Medications Inactive Administered Medications - up to 3 most recent administrations Medication Order MAR Action Action Date Dose Rate Site iopamidol (ISOVUE-370) solution 100 mL 100 mL, Intravenous, ONCE, On Daysi 10/08/23 at 1230, For 1 dose $Given 10/08/2023 12:25 PM CDT 100 mLs sodium chloride 0.9 % bag [address] scan flush use Intravenous, 40 mL, ONCE, On Daysi 10/08/23 at 1230, For 1 dose, This entry is for use by Radiology to intermittently used as a flush in patients receiving a CT scan. $Given 10/08/2023 12:24 PM CDT 40 mLs documented in this encounter Care Teams Biofuels Production Associate Relationship Specialty Start Date End Date [facility], [facility] [address] [place] [address] PCP - General 07/31/23 documented as of this encounter
--- OUTSIDE RECORDS SUMMARY | 2023-12-16 08:57 | XMS_ITS | Encounter Summary ---
Author Organization [place] Address [address] [facility] [place] [address] Care Team Providers Care Tank Cooper Name Role Phone Clinic, [facility] Primary Care Provider Reason for Visit * Auth/Cert Specialty Diagnoses / Procedures Referred By Pam hay Referred To Contact Med Surg Diagnoses UNKNOWN Care Suites [address] [phone] Referral ID Status Reason Start Date Expiration Date Visits Re quested Visits Authorized [id number] 1 1 Encounter Details Date Type Department Care Team (Late st Contact Info) Description 10/07/2023 7:43 AM CDT - 10/07/2023 12:45 PM CDT Hospital Encounter [facility] [address] [phone] Non-Fv Credentialed Provider, Radiology Aurea Altamirano APRN [facility] ON[facility]Y [address] [facility] [address] [place] [address] Malignant neoplasm of exocervix (H) (Primary Dx) Discharge Disposition: Home or Self Care Social [...] Sign Reading Time Taken Comments Blood Pressure 144/66 10/07/2023 12:25 PM CDT Pulse 67 10/07/2023 12:25 PM CDT Temperature 36.6 ??C (97.9 ??F) 10/07/2023 12:25 PM C DT Respiratory Rate 14 10/07/2023 12:25 PM CDT Oxygen Saturation 98% 10/07/2023 12:25 PM CDT Inhaled Oxygen Concentration - - Weight 139.7 kg (308 lb) 10/07/2023 8:00 AM CDT Height 175.3 cm (5' 9) 10/07/2023 8:00 AM CDT Body Mass Index 45.48 10/07/2023 8:00 AM CDT documented in this encounter Medications at Time [...] as of this encounter Progress Notes * Syeda Fenton RN - 10/07/2023 12:46 PM CDT Care Suites Discharge Nursing Note Patient Information Name: Mora Kessler Age: [age] year old Discharge Education: Discharge instructions reviewed: Yes Additional education/resources provided: No Patient/patient uniforms sales representative verbalizes understanding: Yes Patient discharging on new medications: No Medication education completed: N/A Discharge Plans: Discharge location: home Discharge ride contacted: N/A Approximate discharge time: 1245 Discharge Criteria: Discharge criteria met and vital signs stable: Yes Patient Belongs: Patient belongings returned to patient: Yes Syeda Fenton RN * Eric Smith RN - 10/07/2023 8:03 AM CDT Care Suites Admission Nursing Note Patient Information Name: Mora Kessler Age: [age] year old Reason for admission: blood transfusion Care Suites arrival time: 0800 Visitor Information Name: n/a Patient Admission/Assessment Pre-procedure assessment complete: Yes If abnormal assessment/labs, provider notified: N/A NPO: N/A Medications held per instructions/orders: Yes Consent: obtained If applicable, test status: n/a Patient oriented to room: Yes Education/questions answered: Yes Plan/other: proceed Discharge Planning Discharge name/phone number: shoaib [phone] Overnight post sedation caregiver: n/a Discharge location: home Eric Smith RN documented in this encounter Plan of Treatment Upcoming Encounters Date Type Department Care Team (Late st Contact Info) Description 03/07/2024 Hospital Encounter [facility] [address] [phone] 03/07/2024 2:20 PM NEGATIVE TURNER APPRENTICE Ancillary Procedure [facility] [address] [place] [address] [place] [phone] Otilia Escoto PA-C [place] ONCOLOGY PA [facility] [address] [place] [address] documented as of this encounter Procedures Procedure Name Priority Date/Time Associated Diagnosis Comments TRANSFUSE RED BLOOD CELLS (UNIT) Routine 10/07/2023 10:30 AM CDT TRANSFUSE RED BLOOD CELLS (UNIT) Routine 10/07/2023 8:45 AM CDT PREPARE RED BLOOD CELLS (UNIT) Routine 10/07/2023 7:58 AM CDT PREPARE RED BLOOD CELLS (UNIT) Routine 10/07/2023 7:58 AM CDT documented in this encounter Results * Transfuse red blood cells (unit) (10/07/2023 12:25 PM CDT) Aurea Altamirano APRN LINUX ADMIN ENGINEER BLOOD TRANSFU TIN ORDERABLES * Transfuse red blood cells (unit), 2 Units (10/07/2023 12:25 PM CDT) Aurea Altamirano APRN LINUX ADMIN ENGINEER BLOOD TRANSFU TIN ORDERABLES * Transfuse red blood cells (unit) (10/07/2023 10:18 AM CDT) Aurea Altamirano APRN LINUX ADMIN ENGINEER BLOOD TRANSFU TIN ORDERABLES * Prepare red blood cells (unit) (10/07/2023 7:58 AM CDT) Blood Component Type Red Blood Cells BLOOD BANK Product Code [id number] BLOO D BANK Unit Status Transfused BLOO D BANK Unit Number [id number] B LOOD BANK CROSSMATCH Compatible BLOOD BANK CODING SYSTEM [id number] BLO OD BANK ISSUE DATE AND TIME [id number] BLOOD BANK UNIT ABO/RH A+ BLOOD BANK UNIT TYPE ISBT 6200 BL OOD BANK 10/07/2023 7:58 AM CDT Aurea Altamirano APRN [facility] [place] ODUCT ORDERABLES BLOOD BANK [address] [phone] * Prepare red blood cells (unit) (10/07/2023 7:58 AM CDT) Blood Component Type Red Blood Cells BLOOD BANK Product Code [id number] BLOO D BANK Unit Status Transfused SH BLOO D BANK Unit Number [id number] B LOOD BANK CROSSMATCH Compatible BLOOD BANK CODING SYSTEM [id number] BLO OD BANK ISSUE DATE AND TIME [id number] BLOOD BANK UNIT ABO/RH A+ BLOOD BANK UNIT TYPE ISBT 6200 BL OOD BANK 10/07/2023 7:58 AM CDT Aurea Altamirano BATCH ANALYST [facility] BLOOD [facility] [place] ODUCT ORDERABLES BLOOD BANK [address] [place] [address] documented in this encounter Visit Diagnoses Diagnosis Malignant neoplasm of exocervix (H)- Primary Malignant neoplasm of exocervix documented in this encounter Administered Medications Inactive Administered Medications - up to 3 most recent administrations Medication Order MAR Action Action Date Dose Rate Site heparin lock flush 10 unit/mL injection 5-10 mL 5-10 mL, Intracatheter, EVERY 1 HOUR PRN, post meds or blood draw, other, to lock each port in dual implanted port, Starting on Thu10/07/23 at 0834, Flush each port lumen with the sodium chloride 0.9% flush followed by the heparin flush. MAX dose: 5 mL of heparin for each lumen heparin lock flush 10 unit/mL injection 5-10 mL 5-10 mL, Intracatheter, EVERY 24 HOURS, First dose on Thu10/07/23 at 0900, To lock each dormant port [...] Intracatheter, EVERY 28 DAYS, First dose on Thu10/07/23 at 0900, To de-access each port in dual implanted port. Flush with 10 mL NS sodium chloride 0.9% flush followed by 5 mL heparin (100 units/mL) at discharge and at least every 28 days. MAX: 5 mL per each port lumen $Given 10/07/2023 12:40 PM CDT 5 mLs sodium chloride (PF) 0.9% PF flush 10-20 mL 10-20 mL, Intracatheter, EVERY 1 MIN PRN, line flush, post meds or blood draw, to flush each lumen of the CVC Implanted port, Starting on Thu10/07/23 at 0834, 10 mL per port lumen post IV meds; 20 mL per port lumen post post blood draw. sodium chloride (PF) 0.9% PF flush 10-20 mL 10-20 mL, Intracatheter, EVERY 1 HOUR PRN, other, to de-access port when not in use, Starting on Thu10/07/23 at 0834, Use sodium chloride 0.9% at least daily to de-access each port and lock dormant implanted port while not in use. Flush each port access with 10 mL sodium chloride 0.9% MAX: 10 mL per each port lumen sodium chloride (PF) 0.9% PF flush 10-20 mL 10-20 mL, Intracatheter, EVERY 28 DAYS, First dose on Thu10/07/23 at 0900, To flush and lock each port in dual implanted port. Flush each port with 10 mL sodium chloride 0.9% followed by either heparin or anticoagulant citrate as ordered. Max: 10 mL per each port lumen. sodium chloride 0.9% BOLUS 1-250 mL Intravenous, 1-250 mL, EVERY 1 HOUR PRN, To prime infusion tubing AND flush blood through tubing POST blood component administration., Starting on Thu10/07/23 at 0757, IF blood component ordered, nurse to administer rate and volume of fluid pre-blood component administration to PRIME tubing AND to FLUSH blood through tubing post blood component administration UNTIL tubing is clear of visible blood. Use MINIMUM volume necessary for pre and post blood component administration. IF duplicate order nurse to discontinue the duplicate order. documented in this encounter Active and Recently Administered Medications Times are shown in CDT. Scheduled Medication Order 10/05/2023 10/06/2023 10/07/2023 heparin lock flush 10 unit/mL injection 5-10 mL 5-10 mL, Intracatheter, EVERY 24 HOURS, First dose on Thu10/07/23 at 0900, To lock each dormant port [...] Intracatheter, EVERY 28 DAYS, First dose on Thu10/07/23 at 0900, To de-access each port in dual implanted port. Flush with 10 mL NS sodium chloride 0.9% flush followed by 5 mL heparin (100 units/mL) at discharge and at least every 28 days. MAX: 5 mL per each port lumen 1240 ($Given - Provi yon: Syeda Fenton RN) sodium chloride (PF) 0.9% PF flush 10-20 mL 10-20 mL, Intracatheter, EVERY 28 DAYS, First dose on Thu10/07/23 at 0900, To flush and lock each port in dual implanted port. Flush each port with 10 mL sodium chloride 0.9% followed by either heparin or anticoagulant citrate as ordered. Max: 10 mL per each port lumen. 0900 (Canceled Entry - Provider: Orders Generic Provider - Comment: Automatically canceled at discontinue of medication order) PRN Medication Order 10/05/2023 10/06/2023 10/07/2023 heparin lock flush 10 unit/mL injection 5-10 mL 5-10 mL, Intracatheter, EVERY 1 HOUR PRN, post meds or blood draw, other, to lock each port in dual implanted port, Starting on Thu10/07/23 at 0834, Flush each port lumen with the sodium chloride 0.9% flush followed by the heparin flush. MAX dose: 5 mL of heparin for each lumen sodium chloride (PF) 0.9% PF flush 10-20 mL 10-20 mL, Intracatheter, EVERY 1 MIN PRN, line flush, post meds or blood draw, to flush each lumen of the CVC Implanted port, Starting on Thu10/07/23 at 0834, 10 mL per port lumen post IV meds; 20 mL per port lumen post post blood draw. sodium chloride (PF) 0.9% PF flush 10-20 mL 10-20 mL, Intracatheter, EVERY 1 HOUR PRN, other, to de-access port when not in use, Starting on Thu10/07/23 at 0834, Use sodium chloride 0.9% at least daily to de-access each port and lock dormant implanted port while not in use. Flush each port access with 10 mL sodium chloride 0.9% MAX: 10 mL per each port lumen sodium chloride 0.9% BOLUS 1-250 mL Intravenous, 1-250 mL, EVERY 1 HOUR PRN, To prime infusion tubing AND flush blood through tubing POST blood component administration., Starting on Thu10/07/23 at 0757, IF blood component ordered, nurse to administer rate and volume of fluid pre-blood component administration to PRIME tubing AND to FLUSH blood through tubing post blood component administration UNTIL tubing is clear of visible blood. Use MINIMUM volume necessary for pre and post blood component administration. IF duplicate order nurse to discontinue the duplicate order. documented in this encounter Care Teams Tank Cooper Relationship Specialty Start Date End Date [address] [address] PCP - General 07/31/23 documented as of this encounter
--- OUTSIDE RECORDS SUMMARY | 2023-12-16 08:57 | XMS_ITS | Encounter Summary ---
Author Organization [place] Address [address] [facility] 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] Procedures OK PELVIC EXAMINATION W ANESTH OK INSERT UTERINE TANDEM/VAG OVOID FOR BRACHYTHERAPY Pelvic examination under anesthesia, dilation of cervix, Kari sleeve placement, tandem and ring placement Periop Services [address] [place] [address] Referral ID Status Reason Start Date Expiration Date Visits Re quested Visits Authorized [id number] 1 1 Encounter Details Date Type Department Care Team (Late st Contact Info) Description 10/05/2023 5:33 AM CDT - 10/05/2023 10:14 AM CDT Hospital Encounter [facility] PreOP/Phase II [address] [place] [address] Jennifer Peguero MD [facility] [address] [facility] [address] [place], [place] [address] Discharge Disposition: Home or Self Care Social [...] Sign Reading Time Taken Comments Blood Pressure 150/88 10/05/2023 10:00 AM CDT Pulse 82 10/05/2023 10:00 AM CDT Temperature 36.3 ??C (97.4 ??F) 10/05/2023 10:00 AM C DT Respiratory Rate 16 10/05/2023 10:00 AM CDT Oxygen Saturation 95% 10/05/2023 9:15 AM CDT Inhaled Oxygen Concentration - - Weight 139.7 kg (308 lb) 10/05/2023 5:57 AM CDT Height 175.3 cm (5' 9) 10/05/2023 5:57 AM CDT Body Mass Index 45.48 10/05/2023 5:57 AM CDT documented in this encounter Discharge Instructions * Discharge Instructions* Emanuel Godfrey, SHERON - 10/05/2023 8:58 AM CDT Today you [...] about your procedure, call Dr. 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 Reported soaking through multiple pads in an hour and also passing clots. Hgb was 11.1 --> 10. Pelvic ultrasound noted an abnormal cervical mass. Construction Administrative Assistant was consulted and she was taken for [...] IR capabilities in event of emergency. Open [facility] bed for transfer was [facility]. 07/15 - : Inpatient transfer/hospitalization at [facility]. Seen by Dr. Noe. CT chest/abd/pelvis with [...] She was discharged with plan for outpatient [facility] Server Onc follow-up. 07/21/2023: CT-guided biopsy of right middle lobe lung mass at [facility]. Pathology returned positive for malignancy, adenocarcinoma of lung. 07/23/2023: Follow-up visit with PCP in [place]. Concern for continued vaginal bleeding. Patient presented to ER in [place] followed by ER visit to [facility] for vaginal bleeding. Hgb 10.7 --> 10.4and bleeding had stabilized. Treated for UTI with dose of ceftriaxone. 07/28/2023: Presented to [facility] for outpatient consultation visits with [facility] Onc (Dr. Peguero) and Thoracic Surgery (Dr. [...] 20mg/m2) due to renal function Genetic Testing (Server Oncology): Somatic testing (cervical biopsy) = pending Interval History (Server Oncology) She is tearful today. She is [...] resection of right middle lobe lung nodule. as400 operator History: . Ab 1. Menarche: 13 yo [...] 10.5 years. is named Zoe. Lives in [place], [place]. Trade school. 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 Health Maintenance: Last pap smear: ~25 years ago Last mammogram: has never had a mammogram Last colonoscopy: has never had a colonoscopy Vital Signs: Blood pressure: 118/74, Pulse: 94, Temperature: 99.7 F, Respirations: 16, O2 sat: 97%, Pain Scale: 4, Height: 70 in, Weight: 313 lb, BSA: 2.52, BMI: 44.91 kg/m2 Physical Exam (Server Oncology): General: alert, cooperative, no acute distress [...] 1.3 CMP Lab Results 09/29/2023 09/22/2023 09/15/2023 09/08/2023 09/01/2023 08/30/2023 Chemistries Glucose mg/dL 138 (H) 106 [...] Radiation-induced dermatitis Renal insufficiency Assessment & Plan (Server Oncology): Mora is a giulia 58 yo [...] right middle lobe lung nodule with Dr. aGndara. Surgical margins negative for malignancy. Final pathologic stage T2a NX M0, final stage IB. Will not require adjuvant therapy. Will continue to follow with surveillance visits with Dr. Gandara. 4. Medical comorbidities No medical care for long period of time Has had hypertensive urgency during ER visits & was initiated on anti- hypertensive medications during [facility] inpatient hospitalization Likely underlying chronic HTN Morbid obesity, BMI 47.41 Pain Care Management: Pain Scale: 4 Patient Care needs: Depressions Status: Was screened; Outcome positive: No; Screening Date: 07/28/2023; Screening Tool:PRIME GUTHRIE-PHQ2 Psycho-Social PHQ-9 Follow-up Plan (if applicable): Smoking [...] Gynecologic Oncology Operative Report 10/05/2023 Mora Cote [id number] PREOPERATIVE DIAGNOSIS: Squamous cell carcinoma of cervix (presumed Stage IVAr due to posterior bladder wall involvement), 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 Gaines at [facility] and aware he will be added [...] entire procedure. Jennifer Peguero MD Gynecologic Oncology [facility] Oncology 10/05/2023 documented in this encounter Plan of Treatment Upcoming Encounters Date Type Department Care Team (Late st Contact Info) Description 03/07/2024 Hospital Encounter [facility] Imaging [address] [place] [phone] 03/07/2024 2:20 PM MACHINE SHOP INSPECTOR Ancillary Procedure [facility] Center [address] [place] [phone] Otilia Escoto PAMarceloC [place] [facility] [address] [place] [address] documented as of this encounter Procedures Procedure Name Priority Date/Time Associated Diagnosis Comments PELVIC EXAMINATION W ANESTH 10/05/2023 7:34 AM CDT Malignant neoplasm of exocervix (H) Special Needs *htn, [id number] req TYPE AND SCREEN, ADULT STAT 10/05/2023 [...] AM CDT BLOOD BANK SPECIMEN EXPIRATION DATE [id number] 10/05/2023 6:00 AM CDT BLOOD BANK Blood STRUCTURE OF LEFT UPPER LIMB / Unknown Venipuncture / Unknown 10/05/2023 6:27 AM CDT 10/05/2023 6:33 AM CDT Swati Real PA-C LAB - BLOOD BAN K TEST ORDER BLOOD BANK [address] [place] [phone], [facility] * Potassium - Pre-Op (10/05/2023 6:27 AM CDT) [facility] Potassium 3.5 3.4 - 5.3 mmol/L 10/05/2023 6:59 AM CDT LABORATORY Blood STRUCTURE OF LEFT UPPER LIMB / Unknown Venipuncture / Unknown 10/05/2023 6:27 AM CDT 10/05/2023 6:33 AM CDT Dixon Golden MD LAB - BLOOD ORDER [facility] LABORAT[facility] Acute Care Lab [address] floor, [address] [place] [phone], [facility] [phone] * (ABNORMAL) CBC with platelets (10/05/2023 6:27 AM CDT) [facility] WBC Count 3.6(L) 4.0 - 11.0 10e3/uL [...] AM CDT 10/05/2023 6:33 AM CDT Swati Kellee Real PA-C LAB - BLOOD ORD ERABLES LABORATORY [facility] Acute Care Lab [address] floor, [address] [place] [address], [facility] [phone] documented in this encounter Visit Diagnoses Diagnosis Malignant neoplasm of exocervix (H)- Primary Malignant neoplasm of exocervix Primary cancer of right middle lobe of lung (H) documented in this encounter Admitting Diagnoses Diagnosis [...] $Given 10/05/2023 9:20 AM CDT 15 mg documented in this encounter Active and Recently [...] MD) documented in this encounter Care Teams Truck Chauffeur Relationship Specialty Start Date End Date [facility], [place] [id number] PCP - General 07/31/23 documented as of this encounter
--- OUTSIDE RECORDS SUMMARY | 2023-12-16 08:57 | XMS_ITS | Encounter Summary ---
Author Organization [place] Address [address] [place] [address] Care Team Providers Care Sap Specialist Name Role Phone [facility], [facility] Primary Care Provider Encounter Details Date Type Department Care Team (Latest Contact Info) Description 10/06/2023 Travel Social History Tobacco Use Types Packs/Day Years [...] st Contact Info) Description 03/07/2024 Hospital Encounter [facility] Imaging [address] [place] [phone] 03/07/2024 2:20 PM POLICE ACADEMY PROGRAM COORDINATOR Ancillary Procedure [facility] Center [address] [place] [phone] Otilia Escoto PA-C [place] [facility] [address] [facility] [address] [place] [address] documented as of this encounter Visit Diagnoses Not on filedocumented in this encounter Care Teams Sap Specialist Relationship Specialty Start Date End Date Clinic, [facility] [address] [place] [address] PCP - General 07/31/23 documented as of this encounter
--- OUTSIDE RECORDS SUMMARY | 2023-12-16 08:57 | XMS_ITS | Encounter Summary ---
Author Organization [place] Address [address] [facility] [place] [address] Care Team Providers Care Hydrogenation Operator Name Role Phone Clinic, [facility] Primary Care Provider Encounter Details Date Type Department Care Team (Late st Contact Info) Description 10/13/2023 Telephone [facility] Interventional Radiology [address] [place] [phone] Marielena Benitez RN Social History Tobacco Use Types Packs/Day Years Used Date Smoking Tobacco: Former Cigarettes 1 15 4 - 1998 Cigars Smokeless Tobacco: Never [...] st Contact Info) Description 03/07/2024 Hospital Encounter [facility] Imaging [address] [place] [phone] 03/07/2024 2:20 PM WAITER/WAITRESS FORMAL Ancillary Procedure [facility] Center [address] [facility] [place] [phone] Otilia Escoto, PAMarceloC [place] [facility] [address] [place] [address] documented as of this encounter Visit Diagnoses Not on filedocumented in this encounter Care Teams Hydrogenation Operator Relationship Specialty Start Date End Date Clinic, [address] [address] PCP - General 07/31/23 documented as of this encounter
--- OUTSIDE RECORDS SUMMARY | 2023-12-16 08:57 | XMS_ITS | Encounter Summary ---
Author Organization [place] Address [address] [place] [address] Care Team Providers Care Electrical Integrator Name Role Phone [facility], [facility] Primary Care Provider Encounter Details Date Type Department Care Team (Latest Contact Info) Description 10/08/2023 Travel Social History Tobacco Use Types Packs/Day [...] st Contact Info) Description 03/07/2024 Hospital Encounter [facility] Imaging [address] [place] [phone] 03/07/2024 2:20 PM WAVE GUIDE ASSEMBLER Ancillary Procedure [facility] Center [address] [place] [phone] Otilia Escoto PA-C [place] [facility] [address] [facility] [address] [place] [address] documented as of this encounter Visit Diagnoses Not on filedocumented in this encounter Care Teams Electrical Integrator Relationship Specialty Start Date End Date Clinic, [facility] [address] [place] [address] PCP - General 07/31/23 documented as of this encounter
--- OUTSIDE RECORDS SUMMARY | 2023-12-16 08:57 | XMS_ITS | Encounter Summary ---
Author Organization [facility] Address [address] [facility] [place] [address] Care Team Providers Care Horse Wrangler Name Role Phone Clinic, [facility] Primary Care Provider Encounter Details Date Type Department Care Team (Late Contact Info) Description 10/06/[address] [facility] [address] [place] [address] Scan, Non-Provider Social History Tobacco Use Types Packs/Day Years [...] Encounters Date Type Department Care Team (Late Contact Info) Description 03/07/2024 Hospital Encounter [facility] [address] [place] [phone] 03/07/2024 2:20 PM CONTROL OFFICER Ancillary Procedure [facility] [address] [facility] [place] [phone] Otilia Escoto [facility] [place] [facility] [address] [place] [address] documented as of this encounter Visit Diagnoses Not on filedocumented in this encounter Care Teams Horse Wrangler Relationship Specialty Start Date End Date [facility], [place] [id number] PCP - General 07/31/23 documented as of this encounter
--- OUTSIDE RECORDS SUMMARY | 2023-12-16 08:57 | XMS_ITS | Encounter Summary ---
Author Organization [place] Address [address] [facility] 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 PeriOP Services [address] [place] [address] Dixon Golden MD [facility] [address] [place] [address] [id number] Garry Butterfield Anesthesia Record Procedure Summary Procedure Name Responsible Anesthesiologist Anesthesia Start Time Anesthesia Stop Time Pelvic examination under anesthesia, (Cervix) Dixon Golden MD 10/05/23 0733 10/05/23 0841 Events Date Time Event Comment 10/05/2023 0646 0733 An Start Anesthesia Star t is defined as when the anesthesia provider assumed care, began anesthesia prep, remained continuously present with the patient, and excludes all time for performing the pre-anesthesia evaluation. The Pre-Anesthesia Evaluation was completed before Anesthesia Start. 0734 An Start Data 0734 AN REASSESS I attest that I have identified and re-evaluated the patient immediately before the induction of anesthesia and I am satisfied that the anesthetic plan is suitable for the patient's condition and procedure. The first vital signs recorded are pre- induction. Lakesha Rosario APRN HYDRAULIC LIFT OPERATOR 0738 An Induction 0738 MD Present 0740 An LMA 0743 Anesthesia Ready for Procedu re 0837 MD Present 0839 LMA Removed 0840 an stop data 0841 An Stop Electronically signed by Lakesha Rosario APRN HYDRAULIC LIFT OPERATOR on October 05, 2023 8:46 AM Meds Name Total midazolam 1 mg/mL 2 mg fentaNYL 50 mcg/mL 100 mcg lidocaine 2% 100 mg propofol 10 mg/mL 330 mg propofol drip mcg/kg/min 382.78 mg dexamethasone (DECADRON) 4 mg/mL 4 mg ondansetron 2 mg/mL 4 mg ceFAZolin Sodium (ANCEF) injection 3 g 3 g dexmedeTOMIDine (PRECEDEX) 4 mcg/mL in N aCl 25mL 20 mcg lactated ringers infusion 400 mL * Agents Name O2 N2O Air Exp Sevoflurane Exp Isoflurane Exp Desflurane Ins Sevoflurane Ins Isoflurane Ins Desflurane * Blood No blood administrations on file. Lines, Drains, and Airways Type Details Placement Removal Incision/Surgical Site 08/10/23; Right, Upper, Lateral; Chest 08/10/23 0000 by Berenice Alonso RN Incision/Surgical Site 08/10/23; 1151; R ight, Upper, Posterior; Back; Steri strips 08/10/23 1151 by Jovany Brito RN Port a Cath 10/01/23; 0800; Sing le Lumen; Right; Chest wall; Yes; [id number]; 6 Fr; Dr. figueredo 10/01/23 0800 by Eric Smith RN Peripheral IV 10/05/23; 0632; 20 G ; Right; Hand; Chlorhexidine; None; Tolerated well 10/05/23 0632 by Swati Still RN 10/05/23 0942 by Emanuel Godfrey RN Supraglottic Airway Placement Date: 10/05/23; Placement Time: 0757 (created via procedure documentation); Mask Ventilation: 0; LMA Size: 4; Airway Brand: Ambu AuraGain; Attempts: 1 10/05/23 0757 by Lakesha Rosario APRN CRNA 10/05/23 0839 by Lakesha Rosario APRN CRNA Urethral Catheter 10/05/23; 0809; No; Surgical procedure; 16 fr 10/05/23 0809 by Tiki Khanna RN 10/05/23 0831 by Tiki Khanna RN documented in this encounter Social History Tobacco [...] on file documented as of this encounter OR Notes * Anesthesia Postprocedure Evaluation - Dixon Golden MD - 10/05/2023 9:31 AM CDT Patient: Mora Kessler Procedure: Procedure(s): Pelvic examination under anesthesia, Anesthesia Type: General Note: Disposition: Outpatient Postop Pain Control: Uneventful Sign Out: Well controlled pain PONV: No Neuro/Psych: Uneventful Sign Out: Acceptable/Baseline neuro status Airway/Respiratory: Uneventful Sign Out: Acceptable/Baseline resp. status CV/Hemodynamics: Uneventful Sign Out: Acceptable CV status Other NRE: NONE DID A NON-ROUTINE EVENT OCCUR? No Last vitals: Vitals Value Taken Time BP 144/81 10/05/23 0915 Temp Pulse 80 10/05/23 0921 Resp 12 10/05/23 0921 SpO2 97 % 10/05/23 0922 Vitals shown include unfiled device data. Electronically Signed By: Dixon Golden MD October 05, 2023 9:31 AM * Anesthesia Procedure Notes - Lakesha Rosario APRN CRNA - 10/05/2023 7:56 AM CDTAssociated Order(s): Airway Airway Patient location during procedure: OR Staff - Anesthesiologist: Dixon Golden MD HYDRAULIC LIFT OPERATOR: Lakesha Rosario APRN CRNA Other Anesthesia Staff: Garry Butterfield Performed By: SRNA and with CRNAs Procedure performed by resident/fellow/HYDRAULIC LIFT OPERATOR in presence of a teaching physician. Consent for Airway Urgency: elective Indications and Patient Condition Indications for airway management: nathaly-procedural Induction type:intravenous Mask difficulty assessment: 0 - not attempted Final Airway Details Final airway type: supraglottic airway Supraglottic Airway Details Type: LMA Brand: Ambu AuraGain LMA size: 4 Post intubation assessment Placement verified by: capnometry, equal breath sounds and chest rise Number of attempts at approach: 1 Number of other approaches attempted: 0 Secured with: tape Ease of procedure: easy Dentition: Intact and Unchanged * Anesthesia Preprocedure Evaluation - Dixon Golden MD - 10/05/2023 6:40 AM CDT Anesthesia Pre-Procedure Evaluation Patient: Mora Kessler : 1965 Procedure : Procedure(s): Pelvic examination under anesthesia, dilation of cervix, Arnold sleeve placement, tandem and ring placement Past Medical History: Diagnosis Date Adenocarcinoma, lung, right (H) Anemia due to blood loss, acute Cervical cancer (H) Complicated UTI (urinary tract infection) Endometrial cancer (H) Excessive vaginal bleeding Hyperglycemia Hypertension Hypertensive urgency Morbid obesity (H) Transient global amnesia Urine frequency Past Surgical History: Procedure Laterality Date (IA) MI RADICAL RESEC TUMOR OF ARM/ELBOW<5CM Left 1979 IR LUNG BIOPSY MEDIASTINUM RIGHT 07/21/2023 THORACOSCOPIC WEDGE RESECTION LUNG Right 08/10/2023 Procedure: RIGHT VIDEO ASSISTED THORACOSCOPY WEDGE RESECTION RIGHT MIDDLE LOBE LUNG NODULE; Surgeon: Josafat Gandara MD; Location: OR Allergies Allergen Reactions Shellfish-Derived Products Shortness Of Breath and Hives Social History Tobacco Use Smoking status: Former Current packs/day: 0.00 Average packs/day: 1 pack/day for 15.0 years (15.0 ttl pk-yrs) Types: Cigarettes, Cigars Start date: 1983 Quit date: 1998 Years since quittin.4 Smokeless tobacco: Never Tobacco comments: Cigars a few times a month Substance Use Topics Alcohol use: Yes Comment: 2-3 drinks per week Wt Readings from Last 1 Encounters: 10/05/23 139.7 kg (308 lb) Anesthesia Evaluation ROS/MED HX ENT/Pulmonary: (+) tobacco use, Past use, Neurologic: Cardiovascular: (+) Dyslipidemia hypertension- - - - - METS/Exercise Tolerance: Hematologic: (+) anemia, Musculoskeletal: GI/Hepatic: Renal/Genitourinary: Endo: (+) Obesity, Psychiatric/Substance Use: Infectious Disease: Malignancy: (+) Malignancy, History of Lung and Other.Other CA endometrial/cervical status post. Other: Physical Exam Airway Mallampati: II TM distance: > 3 FB Neck ROM: full Mouth opening: > 3 cm Respiratory Devices and Support Dental Cardiovascular Rhythm and rate: regular and normal Pulmonary breath sounds clear to auscultation OUTSIDE LABS: CBC: Lab Results Component Value Date WBC 3.6 (L) 10/05/2023 WBC 7.3 08/10/2023 HGB 7.6 (L) 10/05/2023 HGB 10.0 (L) 08/10/2023 HCT 23.7 (L) 10/05/2023 HCT 31.1 (L) 08/10/2023 PLT 112 (L) 10/05/2023 PLT 257 08/10/2023 BMP: Lab Results Component Value Date NA 142 08/10/2023 POTASSIUM 4.2 08/10/2023 CHLORIDE 106 08/10/2023 CO2 24 08/10/2023 BUN 16.3 08/10/2023 CR 0.60 08/10/2023 CR 0.66 08/10/2023 GLC 124 (H) 08/11/2023 GLC 120 (H) 08/10/2023 COAGS: Lab Results Component Value Date INR 1.01 08/10/2023 POC: No results found for: BGM, HCG, HCGS HEPATIC: No results found for: ALBUMIN, PROTTOTAL, ALT, AST, GGT, ALKPHOS, BILITOTAL,BILIDIRECT, SHIRIN OTHER: Lab Results Component Value Date GORDO 9.1 08/10/2023 Anesthesia Plan ASA Status: 3 NPO Status: NPO Appropriate Anesthesia Type: General. - Airway: LMA Induction: Intravenous, Propofol. Maintenance: Balanced. Consents Anesthesia Plan(s) and associated risks, benefits, and realistic alternatives discussed. Questions answered and patient/sales representative malt liquors(s) expressed understanding. - Discussed: Risks, Benefits and Alternatives for BOTH SEDATION and the PROCEDURE were discussed - Discussed with: Patient Postoperative Care Pain management: IV analgesics, Multi-modal analgesia. PONV prophylaxis: Ondansetron (or other 5HT-3), Dexamethasone or Solumedrol, Background Propofol Infusion Comments: Dixon Golden MD I have reviewed the pertinent notes and labs in the chart from the past 30 days and (re)examined the patient. Any updates or changes from those notes are reflected in this note. # Thrombocytopenia: Lowest platelets = 112 in last 2 days, will monitor for bleeding # Severe Obesity: Estimated body mass index is 45.48 kg/m?? as calculated from the following: Height as of this encounter: 1.753 m (5' 9). Weight as of this encounter: 139.7 kg (308 lb). 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 Anesthesia Type: General Note: Oropharynx: oropharynx clear of all foreign objects and spontaneously breathing Level of Consciousness: awake Oxygen Supplementation: face mask Level of Supplemental Oxygen (L/min / FiO2): 6 Independent Airway: airway patency satisfactory and stable Dentition: dentition unchanged Vital Signs Stable: post-procedure vital signs reviewed and stable Report to RN Given: handoff report given Patient transferred to: PACU Handoff Report: Identifed the Patient, Identified the Reponsible Provider, Reviewed the pertinent medical history, Discussed the surgical course, Reviewed Intra-OP anesthesia mangement and issues during anesthesia, Set expectations for post-procedure period and Allowed opportunity for questions andacknowledgement of understanding Vitals: Vitals Value Taken Time BP 149/80 Temp Pulse 73 Resp 18 SpO2 100 Electronically Signed By: Lakesha Rosario APRN CRNA October 05, 2023 8:42 AM documented in this encounter Plan of Treatment Upcoming Encounters Date Type Department Care Team (Late st Contact Info) Description 03/07/2024 Hospital Encounter [facility] [address] [place] [address] 03/07/2024 2:20 PM SECURITY SPECIALIST Ancillary Procedure [facility] [address] [place] [phone] Otilia Escoto, PA-C [place] [facility] [address] [facility] [address] [place] [address] documented as of this encounter Procedures Procedure Name Priority Date/Time Associated Diagnosis Comments ANE AIRWAY SUPRAGLOTTIC PERFORMABLE Routine 10/05/2023 7:56 AM CDT documented in this encounter Results * ANE AIRWAY SUPRAGLOTTIC PERFORMABLE (10/05/2023 7:56 AM CDT) Narrative Lakesha Rosario APRN CRNA - 10/05/2023 7:56 AM CDT Lakesha Rosario APRN CRNA ? 10/05/2023 ??7:57 AM Airway ? Patient location during procedure: OR Staff - ? Anesthesiologist: ??Dixon Golden MD ? HYDRAULIC LIFT OPERATOR: Lakesha Rosario APRN CRNA ? Other Anesthesia Staff: Garry Butterfield ? Performed By: SRNA and with CRNAs ? Procedure performed by resident/fellow/HYDRAULIC LIFT OPERATOR in presence of a teaching physician. Consent for Airway ? Urgency: elective Indications and Patient Condition ? Indications for airway management: nathaly-procedural ? Induction type:intravenous ? Mask difficulty assessment: 0 - not attempted Final Airway Details ? Final airway type: supraglottic airway Supraglottic Airway Details ? Type: LMA ? Brand: Ambu WardaGain ? LMA size: 4 Post intubation assessment ? Placement verified by: capnometry, equal breath sounds and chest rise ? Number of attempts at approach: 1 ? Number of other approaches attempted: 0 ? Secured with: tape ? Ease of procedure: easy ? Dentition: Intact and Unchanged Dixon ANSARI ANESTHESIA documented in this encounter Visit Diagnoses Not on filedocumented in this encounter Administered Medications Inactive Administered Medications - up to 3 most recent administrations Medication Order MAR Action Action Date Dose Rate Site ceFAZolin Sodium (ANCEF) injection 3 g Routine, 3 g, Intravenous, 30 MIN PRE-OP, Starting on Thu10/05/23 at 0559, For 1 dose, Give first dose within 1 hour PRIOR to incision., Indications: Perioperative Pharmacoprophylaxis, Pre-procedure $Given 10/05/2023 7:35 AM CDT 3 g dexAMETHasone (DECADRON) injection Intravenous, PRN, Administer over 1 Minutes, Starting on Thu10/05/23 at 0738, Anesthesia Intra-op $Given 10/05/2023 7:38 AM CDT 4 mg dexmedeTOMIDine (PRECEDEX) 4 mcg/mL in sodium chloride 0.9 % 50 mL infusion Intravenous, PRN, Starting on Thu10/05/23 at 0751, Anesthesia Intra-op $Given 10/05/2023 8:11 AM CDT 8 mcg $Given 10/05/2023 7:51 AM CDT 12 mcg fentaNYL (PF) (SUBLIMAZE) injection Intravenous, PRN, Administer over 3-5 Minutes, Starting on Thu10/05/23 at 0738, Anesthesia Intra-op $Given 10/05/2023 7:57 AM CDT 50 mcg $Given 10/05/2023 7:38 AM CDT 50 mcg lactated ringers infusion at 10 mL/hr, Intravenous, CONTINUOUS, IF patient NOT on dialysis., Pre-procedure, Starting on Thu10/05/23 at 0630, Until Thu10/05/23 at 0842 $New Bag 10/05/2023 7:33 AM CDT lidocaine 2% injection (MDV) Intravenous, PRN, Starting on Thu10/05/23 at 0738, Anesthesia Intra-op $Given 10/05/2023 7:38 AM CDT 100 mg midazolam (VERSED) injection Intravenous, Administer over 2 Minutes, PRN, Starting on Thu10/05/23 at 0733, Anesthesia Intra-op $Given 10/05/2023 7:33 AM CDT 2 mg ondansetron (ZOFRAN) injection Intravenous, PRN, Administer over 2-5 Minutes, Starting on Thu10/05/23 at 0830, Anesthesia Intra-op $Given 10/05/2023 8:30 AM CDT 4 mg propofol (DIPRIVAN) infusion Intravenous, CONTINUOUS PRN, Starting on Thu10/05/23 at 0742, Anesthesia Intra-op Rate/Dose Change 10/05/2023 7:50 AM CDT 100 mcg/kg/min 83.82 mL/hr $New Bag 10/05/2023 7:42 AM CDT 30 mcg/kg/min 25.146 mL/ hr propofol (DIPRIVAN) injection 10 mg/mL vial Intravenous, PRN, Starting on Thu10/05/23 at 0738, Anesthesia Intra-op $Given 10/05/2023 8:30 AM CDT 30 mg $Given 10/05/2023 8:15 AM CDT 50 mg $Given 10/05/2023 8:02 AM CDT 50 mg documented in this encounter Care Teams Reading Specialist Relationship Specialty Start Date End Date [address] [address] PCP - General 07/31/23 documented as of this encounter
--- OUTSIDE RECORDS SUMMARY | 2023-12-16 08:57 | XMS_ITS | Encounter Summary ---
Author Organization [place] Address [address] [place] [address] Care Team Providers Care Phlebotomist Lab Assistant Name Role Phone [facility] Primary Care Provider Encounter Details Date Type Department Care Team (Latest Contact Info) Description 09/30/2023 Travel Social History Tobacco Use Types Packs/Day [...] st Contact Info) Description 03/07/2024 Hospital Encounter [facility] [address] [place] [phone] 03/07/2024 2:20 PM WRITING MANAGER Ancillary Procedure [facility] [address] [place] [phone] Otilia Escoto PA-C [place] [facility] [address] [facility] [address] [place] [address] documented as of this encounter Visit Diagnoses Not on filedocumented in this encounter Care Teams Phlebotomist Lab Assistant Relationship Specialty Start Date End Date Clinic, [facility] [address] [place] [address] PCP - General 07/31/23 documented as of this encounter
--- OUTSIDE RECORDS SUMMARY | 2023-12-16 08:57 | XMS_ITS | Clinical Summary ---
Author Organization [facility] Address [address] [place] [address] Care Team Providers Care Flaking Roll Operator Name Role Phone Unavailable Primary Care Provider Unavailabl e Source Comments Patient records contain information from all sites at [facility]. For routine questions regarding patient records, call [phone] during business hours, M-F 8:00 AM - 5:00 PM Central Time. Record requests for emergency care only can be directed to [phone] at any time.[facility] Allergies Active Allergy Reactions Criticality Noted Date [...] Anemia 11/11/2023 Malignant Neoplasm Of Exocervix 11/11/2023 Encounters Date Type Department Care Team Description 12/11/2023 9:00 AM CDT Infusion Department of Infusion Therapy in [address] [place] [address] Aurea Altamirano, C.N.P. Anemia (Primary Dx); Malignant Neoplasm Of Exocervix (HCC) 12/10/2023 2:00 PM CDT Lab Department of Infusion Therapy in [address] [place] [address] Aurea Altamirano C.N.P. Malignant Neoplasm Of Exocervix (HCC) (Primary Dx); Anemia 12/09/2023 Orders Only Department of Oncology in [address] [place] [address] Agata Melendez R.N. Anemia (Primary Dx); Malignant Neoplasm Of Exocervix (HCC) 11/12/2023 8:00 AM CDT Infusion Department of Infusion Therapy in [address] [place] [address] Aurea Altamirano, C.N.P. Malignant Neoplasm Of Exocervix (HCC) (Primary Dx); Anemia 11/12/2023 7:26 AM CDT - 11/12/2023 11:59 PM CDT Hospital Encounter Department of Laboratory Medicine in [address] [place] [address] Aurea Altamirano C.N.P. Anemia; Malignant Neoplasm Of Exocervix (HCC) Discharge Disposition: Home or Self Care 11/11/2023 Orders Only Department of Oncology in [address] [place] [address] Deyanira Mariscal R.N. Anemia (Primary Dx); Malignant Neoplasm Of Exocervix (HCC) from Last 3 Months Social History Tobacco [...] Mass Index - - Plan of Treatment Health Maintenance Due Date Last Done Comments CT Colonography 1965 Cervical Cancer Screening 1965 Cologuard 1965 Colonoscopy 1965 Colorectal Cancer Screening 1965 FIT 1965 Generalized Anxiety (REJI-7) 1965 HIV Screening 1965 Hepatitis C Screening 1965 Mammogram 1965 Hepatitis B Vaccines (1 of 3 - 19+ 3-dose series) 1984 Zoster Vaccines (1 of 2) 07/08/2015 COVID-19 Vaccine (3 - 2022-24 season) 2023 09/13/2020, 08/23/2020 Depression Screening (Annual PHQ-2) 05/04/2023 DTaP,Tdap,and Td Vaccines (2 - Td or Tdap) 10/30/2023 10/29/2013 Controlled Substance Agreement 11/12/2023 Controlled Substance Monitoring (PHQ-9) 11/12/2023 Controlled Substance Monitoring 11/12/2023 Opioid Risk Tool (ORT) 11/12/2023 PEG assessment for Opioid therapy 11/12/2023 Influenza Vaccine (#1) 2024 Creatinine Level (Kidney Function Test) 10/14/2024 10/15/2023, 08/10/2023, 08/10/2023, Additional history exists Potassium Level 10/14/2024 10/15/2023, 06/0 07/2023, 08/10/2023, Additional history exists Sodium Level 10/14/2024 10/15/2023, 04/0 12/2023, 07/23/2023, Additional history exists Fasting Glucose for Diabetes Screening 10/14/2026 10/15/2023, 08/10/2023, 07/23/2023, Additional history exists Lipid (Cholesterol) Screening 07/15/2028 07/16/2023 Pneumococcal vaccine (0-64 years) Aged Out No longer eligible based on patient's age to complete [...] the time period is included. Testing Location [facility] DEFAULT 12/10/2023 2:04 PM CDT NPRG Blood 12/10/2023 2:01 PM CDT 12/10/2023 2:04 PM CDT Soft Results Interface LAB BLOOD BANK TE ST ORDERABLES [facility] [address] [place] [address], [facility] NPRG [place] [address] [place] [address] * Type and Screen (with Reflex Antibody [...] Altamirano C.N.P. LAB BLOOD BANK TEST ORDERABLES [facility] [address] [place] [address], [place] NPRG [place] [address] [place] [address] from Last [address] [place] [address]
--- OUTSIDE RECORDS SUMMARY | 2023-12-16 08:58 | XMS_ITS ---
Author Organization [facility] Address [address] [place] [address] Care Team Providers Care Process Cheese Cooker Name Role Phone Unavailable Unavailable Unavailable Surgery Details Not on file Complications Check Surgery Details section. Procedure Estimated Blood Loss Check Surgery Details section. Procedure Findings Check Surgery Details section. Procedure Specimens Taken Check Surgery Details section.
--- OUTSIDE RECORDS SUMMARY | 2023-12-16 08:58 | XMS_ITS | Encounter Summary ---
Author Organization [facility] Address [address] [place] [address] Care Team Providers Care Candy Starch Mold Printer Name Role Phone Unavailable Primary Care Provider Unavailabl e Encounter Details Date Type Department Care Team (Latest Contact Info) Description 11/12/2023 7:26 AM CDT - 11/12/2023 11:59 PM CDT Hospital Encounter Department of Laboratory Medicine in [place], [place] [address] [place] [address] Aurea Altamirano, C.N.P. [address] , [facility] [address] [place] [address] Anemia; Malignant Neoplasm Of Exocervix (HCC) Discharge Disposition: Home or Self Care Social [...] Sig Dispensed Refills Start Date End Date amLODIPine (Norvasc) 10 mg tablet Take 10 mg by mouth daily. 07/18/2023 carvediloL (Coreg) 6.25 mg tablet Take 6.25 mg by mouth 2 (two) times a day with meals. 08/07/2023 ibuprofen 200 mg tablet Take 400 mg by mouth every 6 (six) hours as needed. lidocaine (Xylocaine) 4 % (40 mg/mL) topical solution Apply 1 Application to the mouth or throat as needed. 09/23/2023 loperamide (Imodium A-D) 2 mg capsule Take 1 capsule by mouth as needed. 09/21/2023 losartan-hydroCHLOROthi azide (Hyzaar) 100-12.5 mg per tablet Take 1 tablet by mouth daily. 10/12/2023 morphine (MS Contin) 15 mg ER tablet Take 15 mg by mouth every 12 (twelve) hours. 09/30/2023 oxyCODONE (Roxicodone) 10 mg IR tablet Take 5 mg by mouth as needed. sennosides-docusate sodium (Senokot-S) 8.6-50 mg per tablet Take 1 tablet by mouth 2 (two) times a day as needed. 08/11/2023 documented as of this encounter Plan of Treatment Not on file documented as of this encounter Procedures Procedure Name Priority Date/Time Associated Diagnosis Comments TESTING LOCATION Routine 11/12/2023 7:40 AM CDT TYPE AND SCREEN Routine 11/12/2023 7:40 AM CDT Anemia Malignant Neoplasm Of Exocervix (HCC) documented in this encounter Results * Testing Location (11/12/2023 7:40 AM CDT) Testing Location [facility] DEFAULT 11/12/2023 7:45 AM CDT NPRG Blood 11/12/2023 7:40 AM CDT 11/12/2023 7:45 AM CDT Soft Results Interface LAB BLOOD BANK TE ST ORDERABLES [facility] [address] [place] [address], [place] NPRG [facility] [address] [place] [address] * Type and Screen (with Reflex Antibody ID) (11/12/2023 7:40 AM CDT) ABO Group A 11/12/2023 8:49 AM CDT NPRG Rh Type POS 11/12/2023 8:49 AM CDT NPRG Antibody Screen NEG 8:55 AM CDT NPRG Type & Screen Expiration 11/15/2023 23:59 11/12/2023 8:55 AM CDT NPRG ELXM Eligible Y 11/12/2023 8:55 AM CDT NPRG Blood (Blood, Venous) 11/12/2023 7:40 AM CDT 11/12/2023 7:45 AM CDT Aurea Altamirano C.N.P. LAB BLOOD BANK TEST ORDERABLES [facility] [address] [place] [address], [facility] NPRG [facility] [address] [place] [address] documented in this encounter Visit Diagnoses Diagnosis Anemia Malignant Neoplasm Of Exocervix (HCC) documented in this encounter
--- OUTSIDE RECORDS SUMMARY | 2023-12-16 08:58 | XMS_ITS | Encounter Summary ---
Author Organization [facility] Address [address] [place] [address] Care Team Providers Care Overlock Waistline Joiner Name Role Phone Unavailable Primary Care Provider Unavailabl e Reason for Visit * Reason Comments Outpatient Infusion 2 units PRBCs Encounter Details Date Type Department Care Team (Late st Contact Info) Description 12/11/2023 9:00 AM CDT Infusion Department of Infusion Therapy in [place], [place] [address] [place] [address] Aurea Altamirano, C.N.P. [address], [facility] [address] [place] [address] Anemia (Primary Dx); Malignant Neoplasm Of Exocervix (HCC) Social History Tobacco Use Types Packs/Day Years Used Date Smoking Tobacco: Never Assessed Nutrition Answer Date Recorded Nutrition: EVOO Fat Source Unknown 07/16 Nutrition: Servings of Fruits/Vegetables per Day Not on file 07/17/2023 Dental Answer Date Recorded Dental: Regular Dentist Unknown 07/17/19 24 Sex and Gender Information Value Date Recorded [...] - - Body Mass Index - - documented in this encounter Patient Instructions * Patient Instructions* Jessica English R.N. - 12/11/2023 9:00 AM CDT You may notice some tenderness or swelling on your arm where you received IV medications, this should disappear in 1-2 days. A warm, wet washcloth applied for 15-20 minutes, four times per day can help ease the discomfort. If pain, swelling, redness or warmth continue, please contact your physician. Watch for signs of a reaction You had a blood transfusion. Although rare, it is possible to have a reaction from the blood you received. This can happen hours, days, weeks, or months after your transfusion. When to get medical help Get emergency medical care if you have: Trouble breathing. Chest pain or tightness. Contact your health care provider if you have: Rash, hives or itching. Red or unusually dark urine. Back pain. Pain around the infusion area. Nausea, vomiting, or both. Fever. Chills. Loss of appetite. Severe fatigue. Dry cough. Unusual bruising, nosebleeds or petechiae, which are small spots of bleeding in the skin. Joint pains. Jaundice or yellow skin. Signs of anemia to include but not limited to shortness of breath, lightheadedness, pale skin colorand or fatigue. To Contact Us: Thursday through Thursday 8:00 a.m. to 4:30 p.m. [phone] After Hours/Weekends/Holidays You will reach the [facility] in [place] switchboard- tell the brush operator you need to leave a message for the oncologist recreation therapy aides teacher and he will return your phone call. documented in this encounter Plan of Treatment Pending Results Name Type Priority Associated Diagnoses Date /Time Prepare Red Blood Cells, 2 Units Blood Bank Routine Anemia Malignant Neoplasm Of Exocervix (HCC) 12/10/2023 2:01 PM CDT documented as of this encounter Procedures Procedure [...] (HCC) documented in this encounter Results * Transfuse Red Blood Cells : (12/11/2023 2:15 PM CDT) Aurea Tolliver Czel C.N.P. BLOOD TRANSFUSION OR DERABLES * Transfuse Red Blood Cells : , 2 Units (12/11/2023 2:15 PM CDT) Aurea Tolliver Czel C.N.P. BLOOD TRANSFUSION OR DERABLES * Transfuse Red Blood Cells : (12/11/2023 11:56 AM CDT) Aurea Tolliver Czel C.N.P. BLOOD TRANSFUSION OR DERABLES documented in this encounter Visit Diagnoses Diagnosis Anemia- Primary Malignant Neoplasm Of Exocervix (HCC) documented in this encounter Administered Medications Inactive Administered Medications - up to 3 most recent administrations Medication Order MAR Action Action Date Dose Rate Site heparin flush 500 Units 500 Units, intra-catheter, As needed, line care, Starting on Thu12/11/23 at 1417, When IVAD accessed and not infusing: When no infusion to maintain patency flush every 7 days following NaCL flush. 5 mL (500 units) of Heparin 100 units/mL to each port/lumen. When IVAD not accessed or infusing: When no infusion to maintain patency flush every 28 days following NaCL flush. 5 mL (500 units) of Heparin 100 units/mL to each port/lumen. Given 12/11/2023 2:00 PM CDT 500 Units sodium chloride 0.9 % injection 10-20 mL 10-20 mL, intra-catheter, As needed, line care, Starting on Thu12/11/23 at 1417, When IVAD accessed and infusing: Flush prior to and following infusion, between multiple consecutive infusions. 10 mL to each port/lumen. Given 12/11/2023 2:00 PM CDT 20 mL documented in this encounter
--- OUTSIDE RECORDS SUMMARY | 2023-12-16 08:58 | XMS_ITS | Encounter Summary ---
Author Organization [facility] Address [address] [place] [address] Care Team Providers Care Glass Vial Bending Conveyor Feeder Name Role Phone Unavailable Primary Care Provider Unavailabl e Reason for Visit * Reason Comments Outpatient Infusion 2 unit prbc Encounter Details Date Type Department Care Team (Late st Contact Info) Description 11/12/2023 8:00 AM CDT Infusion Department of Infusion Therapy in [place], [place] [address] [place] [address] Aurea Altamirano, C.N.P. [address], [facility] [address] [place] [address] Malignant Neoplasm Of Exocervix (HCC) (Primary Dx); Anemia Social History Tobacco Use Types Packs/Day Years [...] Sign Reading Time Taken Comments Blood Pressure 138/65 11/12/2023 2:16 PM CDT Pulse 73 11/12/2023 2:16 PM CDT Temperature 36.6 ??C (97.9 ??F) 11/12/2023 2:16 PM CD T Respiratory Rate 14 11/12/2023 2:16 PM CDT Oxygen Saturation 100% 11/12/2023 2:16 PM CDT Inhaled Oxygen Concentration - - Weight - - Height - - Body Mass Index - - documented in this encounter Plan of Treatment Pending Results Name Type Priority Associated Diagnoses Date /Time Prepare Red Blood Cells, 2 Units Blood Bank Routine Anemia Malignant Neoplasm Of Exocervix (HCC) 11/12/2023 7:40 AM CDT documented as of this encounter Procedures Procedure Name Priority Date/Time Associated Diagnosis Comments TRANSFUSE RED BLOOD CELLS Routine 11/12/2023 11:47 AM CDT Anemia Malignant Neoplasm Of Exocervix (HCC) TRANSFUSE RED BLOOD CELLS Routine 11/12/2023 9:15 AM CDT Anemia Malignant Neoplasm Of Exocervix (HCC) PREPARE RED BLOOD CELLS Routine 11/12/2023 7:40 AM CDT Anemia Malignant Neoplasm Of Exocervix (HCC) documented in this encounter Results * Transfuse Red Blood Cells : (11/12/2023 2:16 PM CDT) Aurea Tolliver Czel C.N.P. BLOOD TRANSFUSION OR DERABLES * Transfuse Red Blood Cells : , 2 Units (11/12/2023 2:16 PM CDT) Aurea Tolliver Czel C.N.P. BLOOD TRANSFUSION OR DERABLES * Transfuse Red Blood Cells : (11/12/2023 11:34 AM CDT) Aurea Tolliver Czel C.N.P. BLOOD TRANSFUSION OR DERABLES documented in this encounter Visit Diagnoses Diagnosis Malignant Neoplasm Of Exocervix (HCC)- Primary Anemia documented in this encounter Administered Medications Inactive Administered Medications - up to 3 most recent administrations Medication Order MAR Action Action Date Dose Rate Site heparin flush 500 Units 500 Units, intra-catheter, As needed, line care, Starting on Thu11/12/23 at 0922, When IVAD accessed and not infusing: When no infusion to maintain patency flush every 7 days following NaCL flush. 5 mL (500 units) of Heparin 100 units/mL to each port/lumen. When IVAD not accessed or infusing: When no infusion to maintain patency flush every 28 days following NaCL flush. 5 mL (500 units) of Heparin 100 units/mL to each port/lumen. Given 11/12/2023 2:17 PM CDT 500 Units sodium chloride 0.9 % injection 10-20 mL 10-20 mL, intra-catheter, As needed, line care, Starting on Daysi 11/12/23 at 0922, When IVAD accessed and infusing: Flush prior to and following infusion, between multiple consecutive infusions. 10 mL to each port/lumen. Given 11/12/2023 2:17 PM CDT 20 mL documented in this encounter
--- OUTSIDE RECORDS SUMMARY | 2023-12-16 08:58 | XMS_ITS | Data Portability ---
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 Unfortunately, with the nature of her disease she is unable to receive the initially planned brachytherapy. Per discussions with Dr. Mejia and Dr. Hickman, because she is unable to receive brachytherapy her disease is currently potentially undertreated. Additionally, she has developed a significant vesicovaginal fistula. Because this is malignant in origin and now status post radiation it is very unlikely to heal given its large size. She continues to have significant leakage despite proximal diversion with bilateral nephrostomy tubes. We had a long discussion about the potential for anterior pelvic exenteration in order to treat any residual cancer in her pelvis as well as manage the vesicovaginal fistula. Unfortunately, it does not appear that she has any other good options for managing both her cancer and her large fistula. I think she was somewhat surprised by this assessment today and was teary but did seem accepting of this plan. We discussed the details of anterior pelvic exenteration/ radical cystectomy with urinary diversion and the expected post-operative course. I explained that this involves removal of the bladder, uterus/cervix, tubes and ovaries, and anterior vaginal wall in order to treat any remaining cancer in the pelvis. We discussed that while the goal of this operation is to cure her cancer, in some cases this is not possible and she may require additional treatments for the cancer. I explained that the best option for urinary diversion for her is ileal conduit. We discussed that the reported overall complication rate of radical cystectomy is nearly 50%, with major complication rate of approximately 10-15%, and mortality rate of 1%. Risks of the procedure include infection, ileus, hernia, stomal stenosis, bowel obstruction, urine leak, blood loss requiring transfusion, injury to nerves, blood vessels, or bowel that could require additional procedures. There is also risk of anesthesia including blood clots, cardiopulmonary complications, and the risk of mortality. - tentatively schedule anterior pelvic exenteration with ileal conduit, coordinate with Dr. Sudhir wheatley Not available 10/29/2023 18:16:08 Plan of Treatment Reminders Order Date Submit Date Provider Last Modified By Organization Details Last Modified Time Details Appointments None record ed. Lab None record ed. Referral None record ed. Procedures None record ed. Surgeries None record ed. Imaging None record ed. Medication Orders None record ed. Patient TargetsNo targets recorded. Patient InstructionsNo instructions recorded. Reason for Referral None Reported. Results Created Date Observation Date Name Description Value Unit Range Abnormal Flag LastModifiedBy Organization Detail LastModifiedTime 10/27/19 24 07/16/2023 CT, chest + abdom en + pelvi s, w/ contr ast No observ ation record ed. Not Available 10/27/2023 10:44:48 Result Notes None recorded. Problems Name Status Onset Date Resolution Date Notes Provider Name and Address Organization Details Recorded Time Carcinoma of cervix Active 10/29/19 Félix talavera MD, PHD [address] [place] [address],[address], [address], [facility] 10/29/2023 12:03:59 Vesicovaginal fistula Active 10/29/19 Félix talavera MD, PHD [address] [place] [address],[address], [address], [facility] 10/29/2023 12:04:07 Problem Notes None recorded. Procedures Surgical History None recorded. Imaging Results Imaging Date Name Status LastModified by Organiz ation Details LastModified Time 07/16/2023 CT, chest + abdomen + pelvis, w/ contrast completed Information not available 10/27/2023 10:44:48 Procedure Notes None recorded. Medical Equipment None Reported. Allergies No known drug allergies Medications Name Sig Start Date Stop Date Status Note LastModified by Organization Details LastModified Time cyclobenzap rine 10 mg tablet TAKE 1 TABLET BY MOUTH 3 TIMES PER DAY NEEDED FOR PELVIC PAIN active Not Available Not Available No t Available amoxicillin 500 mg capsule TAKE 1 CAPSULE BY MOUTH EVERY 6 HOURS UNTIL GONE 10/28 completed Not Available Not Available Not Available carvedilol 6.25 mg tablet 10/28 completed Not Available Not Available Not Available loperamide 2 mg capsule TAKE 1 CAPSULE BY MOUTH FOUR TIMES DAILY NEEDED FOR LOOSE STOOLS active Not Available Not Available No t Available hydrocodone 5 mg-acetamin ophen 325 mg tablet TAKE 1 TABLET BY MOUTH EVERY 4 TO 6 HOURS NEEDED FOR PAIN active Not Available Not Available No t Available prochlorper azine maleate 10 mg tablet TAKE 1 TABLET BY MOUTH EVERY 6 HOURS NEEDED FOR NAUSEA OR VOMITING active Not Available Not Available No t Available sulfamethox azole 800 mg-trimetho prim 160 mg tablet TAKE 1 TABLET BY MOUTH TWICE DAILY active Not Available Not Available No t Available olanzapine 2.5 mg tablet TAKE 1 TABLET BY MOUTH EVERY NIGHT AT BEDTIME. TAKE FOR 4 DAYS STARTING DAY 1 OF CHEMOTHER APY FOR NAUSEA. active Not Available Not Available No t Available carvedilol 3.125 mg tablet active Not Available Not Available Not Available ondansetron 8 mg disintegrat ing tablet DISSOLVE 1 TABLET ON THE TONGUE EVERY 8 HOURS NEEDED FOR NAUSEA OR VOMITING active Not Available Not Available No t Available hydromorpho ne 2 mg tablet 10/28 completed Not Available Not Available Not Available lorazepam 0.5 mg tablet TAKE 1-2 TABLETS BY MOUTH DAILY WITH EACH BRACHYTHE RAPY TREATMENT NEEDED active Not Available Not Available No t Available lidocaine HCl 4 % (40 mg/mL) mucosal solution APPLY 5ML TO AFFECTED MUCOSAL AREA EVERY 4 HOURS NEEDED active Not Available Not Available No t Available amlodipine 10 mg tablet active Not Available Not Available Not Available dexamethaso ne 2 mg tablet active Not Available Not Available Not Available cephalexin 500 mg capsule 10/28 completed Not Available Not Available Not Available hydroxyzine HCl 25 mg tablet 10/28 completed Not Available Not Available Not Available morphine ER 15 mg tablet,exte nded release TAKE 1 TABLET BY MOUTH EVERY 12 HOURS FOR CANCER RELATED PAIN active Not Available Not Available No t Available losartan 50 mg-hydrochl orothiazide 12.5 mg tablet TAKE 1 TABLET BY MOUTH DAILY active Not Available Not Available No t Available oxycodone 5 mg tablet TAKE 1-2 TABLETS BY MOUTH EVERY 4 HOURS NEEDED FOR CANCER RELATED PAIN active Not Available Not Available No t Available hydroxyzine pamoate 25 mg capsule active Not Available Not Available N ot Available duloxetine 30 mg capsule,del ayed release active Not Available Not Available Not Available losartan 100 mg-hydrochl orothiazide 12.5 mg tablet TAKE 1 TABLET BY MOUTH DAILY active Not Available Not Available No t Available Vitals Date Recorded Body height Body mass index (BMI) Body weight Provider Name and Address Organization Details Last Updated DateTime 10/29/2023 175.26 cm 44.3 kg/m2 105027.71 g Félix mulligan MD, PHD [address] [place] [address],[address], [phone] [place] [address] Urology 10/29/2023 11:35:30 Social History Question Answer Notes LastModified by Organizat ion Details LastModified Time Tobacco Smoking Status Former Smoker Félix Gaines MD, PHD [address] [place] [address], [phone], [facility] 10/29/2023 11:38:59 What Is Your Level Of Alcohol Consumption? None Information not available 10/29/2023 What Is Your Level Of Caffeine Consumption? Occasional Information not available 10/29/2023 When Did You Quit Smoking? 6-10yearssincel astcigarette Information not available 10/29/2023 What Was The Date Of Your Most Recent Tobacco Screening? 10/29/2023 Information not available 10/29/2023 Sex: Unknown Functional Status None recorded. Mental Status None recorded. Family History Nothing Reported. Medical History No medical history recorded. Gynecological HistoryNo gynecological history recorded. Obstetrics History GPAL:G 0 P 0 0 0 0 Immunizations Vaccine Type Date Status Provider Name and Address Organization Details Recorded Time Tdap 10/29/2013 completed Félix Gaines MD, PHD [address] [place] [address],[address], [address], [facility] 10/29/2023 11:35:41 Past Encounters Encounter ID Performer Location Encounter Start Date Encounter Closed Date Diagnosis/Indication Diagnosis SNOMED-CT Code [id number] Fléix talavera MD, PHD [facility] [address] [place] [address] 10/29/2023 11:18:50 10/30/2023 12:39:02 Vesicovaginal fistula [id number] Carcinoma of cervix [id number] Health Concerns Section Related Observation LastModified by Organization Detai ls LastModified Time None Recorded Concern Status LastModified by Organization Details LastModified Time None Recorded Advance Directives Directive None Recorded Payers Encounter Date Sequence Insurance Name Policy Number Policy Penn Covered Member ID Penn Member ID Guarantor Name 10/29/2023 1 [place] [employer] Zoe Kessler [id number] Mora Kessler Notes Date Note Type Note Provider Name and Address Organization Details Recorded Time 10/29/2023 text/html HPI Notes: 58F w ith cervical cancer and vesicovaginal fistula. Here Zoe. Has completed RT with Dr Hickman as of 10/22/23. Has bilateral nephrostomies to divert urine. Less bother from leakage but still leaking. Uses 3-4 ppd. Per previous discussions with Dr Mejia, will need anterior pelvic exenteration. 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
--- OUTSIDE RECORDS SUMMARY | 2023-12-16 08:58 | XMS_ITS ---
Author Organization [facility] Address [address] [place] [address] Care Team Providers Care A R Specialist Name Role Phone Unavailable Primary Care Provider Unavailabl e Active Problems Problem Noted Date Diagnosed Date Anemia 11/11/2023 Malignant Neoplasm Of Exocervix 11/11/2023 Current Oncology Plans *Blood Administration - Red Blood Cells (RBC) - For patients greater than 35 kg (Units)* Plan Start Date:12/11/2023 Plan Provider:Generic, Care Everywhere Linked Problems AnemiaMalignant Neoplasm Of Exocervix (HCC) Treatment Medications No medications scheduled. Vascular Access Patency - Implanted Vascular Access Device (IVAD) Venous Non-Valved* Plan Start Date:11/12/2023 Plan Provider:Generic, Care Everywhere Linked Problems Malignant Neoplasm Of Exocer vix (HCC)Anemia Treatment Medications No medications scheduled. Past Plans Blood Plan Name Start Date Discontinue Date Treatment Medications Discontinue Reason Plan Provider *Blood Administration - Red Blood Cells (RBC) - For patients greater than 35 kg (Units) 11/11/2023 11/12/2023 No medications scheduled. Therapy Complete Generic, Care Everywhere Radiation Treatments * No radiation treatments are documented for this patient in [facility]. Treatments may have been administered in another system.
--- OUTSIDE RECORDS SUMMARY | 2023-12-16 08:58 | XMS_ITS | Continuity of Care Document ---
Author Organization [facility] Address [address] [place] [address] Care Team Providers Care Wood Room Supervisor Name Role Phone SUKUMAR MEJIA Referring Provider [phone] Assessment Encounter Date Assessment Date Assessment LastModified [...] contr ast No observ ation record ed. [email or web address] Not Available 10/27/2023 10:44:48 Result Notes None recorded. Problems Name Status Onset Date Resolution Date Notes Provider Name and Address Organization Details Recorded Time Carcinoma of cervix Active 10/29/19 Félix talavera MD, PHD [address] [place] [address], [phone], [facility] 10/29/2023 12:03:59 Vesicovaginal fistula Active 10/29/19 Félix talavera MD, PHD [address] [place] [address],[address], [phone], [facility] 10/29/2023 12:04:07 Problem Notes None recorded. Medical Equipment None Reported. [...] Updated DateTime 10/29/2023 175.26 cm 44.3 kg/m2 836952.71 g Félix mulligan MD, PHD [address] [place] [address], [phone] [place] [address] Urolog 10/29/2023 11:35:30 Social History Question Answer Notes LastModified by Organizat ion Details LastModified Time Tobacco Smoking Status Former Smoker Félix Gaines MD, PHD [address] [place] [address] [phone] [place] [address] Urology 10/29/2023 11:38:59 What Is Your Level [...] Tdap 10/29/2013 completed Félix Gaines MD, PHD [address] [place] [address], [phone], [facility] 10/29/2023 11:35:41 Past Encounters Encounter ID Performer Location Encounter Start Date Encounter Closed Date Diagnosis/Indication Diagnosis SNOMED-CT Code [id number] Félix talavera MD, PHD [facility] [address] [place] [phone] 10/29/2023 11:18:50 10/30/2023 12:39:02 Vesicovaginal fistula [id number] Carcinoma of cervix [id number] Health Concerns Section Related Observation LastModified by Organization Detai ls LastModified Time None Recorded Concern Status LastModified by Organization Details LastModified Time None Recorded Payers Encounter Date Sequence Insurance Name Policy Number Policy Penn Covered Member ID Penn Member ID Guarantor Name 10/29/2023 1 [place] [employer] Zoe Kessler [id number] Mora Kessler Notes Date Note Type Note [...] EtOH: FamHx: Félix Gaines MD, PHD [address], [place], [address], [facility] 10/29/2023 18:16:30 OBGyn Episode No OBEpisode recorded.
--- OUTSIDE RECORDS SUMMARY | 2023-12-16 08:58 | XMS_ITS | Encounter Summary ---
Author Organization [facility] Address [address] [place] [address] Care Team Providers Care Hvac Sheet Metal Installer Name Role Phone Unavailable Primary Care Provider Unavailabl e Encounter Details Date Type Department Care Team (Late st Contact Info) Description 11/11/2023 Orders Only Department of Oncology in [place], [place] [address] [place] [phone] Deyanira Mariscal, RDottieNDottie [address] [place] [phone] Anemia (Primary Dx); Malignant Neoplasm Of Exocervix [...] on file documented as of this encounter Results * Type and Screen (with Reflex Antibody [...] Altamirano C.N.P. LAB BLOOD BANK TEST ORDERABLES [facility] [address] [place] [address], [facility] [address] [place] [address] documented in this encounter Visit Diagnoses Diagnosis Anemia- Primary Malignant Neoplasm Of Exocervix (HCC) documented in this encounter
--- OUTSIDE RECORDS SUMMARY | 2023-12-16 08:58 | XMS_ITS | Encounter Summary ---
Author Organization [facility] Address [address] [place] [address] Care Team Providers Care Endless Belt Finisher Name Role Phone Unavailable Primary Care Provider Unavailabl e Reason for Visit * Reason Comments Lab Monitoring Encounter Details Date Type Department Care Team (Late st Contact Info) Description 12/10/2023 2:00 PM CDT Lab Department of Infusion Therapy in [place], [place] [address] [place] [address] Aurea Altamirano, C.N.P. [address], [facility] [address] [place] [phone] Malignant Neoplasm Of Exocervix (HCC) (Primary Dx); [...] Date/Time Associated Diagnosis Comments TESTING LOCATION Routine 12/10/2023 2:01 PM CDT TYPE AND SCREEN Routine 12/10/2023 2:01 PM CDT Anemia Malignant Neoplasm Of Exocervix (HCC) documented in this encounter Results * Testing Location (12/10/2023 2:01 PM CDT) Testing Location [facility] DEFAULT 12/10/2023 2:04 PM CDT [facility] Blood 12/10/2023 2:01 PM CDT 12/10/2023 2:04 PM CDT Soft Results Interface LAB BLOOD BANK TE ST ORDERABLES Performing Organization Address [facility]/ZIP Co de Phone Number [facility] [address] [place] [address], [facility] NPRG [place] [address] [place] [address] * Type and Screen (with Reflex Antibody ID) (12/10/2023 2:01 PM CDT) ABO Group A 12/10/2023 2:57 PM CDT [facility] Rh Type POS 12/10/2023 2:57 PM CDT NPR[facility] Antibody Screen NEG 2:57 PM CDT NPR[facility] Type & Screen Expiration 12/13/2023 23:59 12/10/2023 2:57 PM CDT NPRG ELXM Eligible Y 12/10/2023 2:57 PM CDT [facility] Blood (Blood, Venous) 12/10/2023 2:01 PM CDT 12/10/2023 2:04 PM CDT Aurea Altamirano C.N.P. LAB BLOOD BANK TEST ORDERABLES Performing Organization Address [facility] Co de Phone Number [facility] [address] [place] [address], [facility] NPRG [place] [address] [place] [address] documented in this encounter Visit Diagnoses Diagnosis Malignant Neoplasm Of Exocervix (HCC)- Primary Anemia documented in this encounter Administered Medications Inactive Administered Medications - up to 3 most recent administrations Medication Order MAR Action Action Date Dose Rate Site heparin flush 500 Units 500 Units, intra-catheter, As needed, line care, Starting on Daysi 12/10/23 at 1354, When IVAD accessed and not infusing: When no infusion to maintain patency flush every 7 days following NaCL flush. 5 mL (500 units) of Heparin 100 units/mL to each port/lumen. When IVAD not accessed or infusing: When no infusion to maintain patency flush every 28 days following NaCL flush. 5 mL (500 units) of Heparin 100 units/mL to each port/lumen. Given 12/10/2023 2:00 PM CDT 500 Units sodium chloride 0.9 % injection 10-20 mL 10-20 mL, intra-catheter, As needed, line care, Starting on Daysi 12/10/23 at 1354, When IVAD accessed and infusing: Flush prior to and following infusion, between multiple consecutive infusions. 10 mL to each port/lumen. Given 12/10/2023 2:00 PM CDT 10 mL documented in this encounter
--- OUTSIDE RECORDS SUMMARY | 2023-12-16 08:58 | XMS_ITS | Encounter Summary ---
Author Organization [facility] Address [address] [place] [address] Care Team Providers Care Primer Boxer Name Role Phone Unavailable Primary Care Provider Unavailabl e Encounter Details Date Type Department Care Team (Late st Contact Info) Description 12/09/2023 Orders Only Department of Oncology in [place], [place] [address] [place] [phone] Agata Melendez R.N. [address] [place] [phone] Anemia (Primary Dx); Malignant Neoplasm Of Exocervix [...] Altamirano C.N.P. LAB BLOOD BANK TEST ORDERABLES [facility] [address] [place] [address], [facility] NPRG [facility] [address] [place] [address] documented in this encounter Visit Diagnoses Diagnosis Anemia- Primary Malignant Neoplasm Of Exocervix (HCC) documented in this encounter
--- NOTE | 2023-12-16 09:15 | CRLHL7_ITS ---
For Patients: As a result of the Century Cures Act, medical imaging exams and procedure reports are released immediately into your electronic medical record. You may view this report before your referring provider. If you have questions, please contact your health care provider. INDICATION: Cervical cancer. Personality change. Technique Multiplanar multisequence MR imaging of brain prior to and following intravenous contrast. Comparison None. FINDINGS: Minimal diffuse cerebral volume loss. No mass effect or midline shift. Minimal FLAIR hyperintensities in the supratentorial white matter, typical for chronic microvascular ischemic changes. No diffusion restriction to suggest acute infarction. Small curvilinear enhancement at the posteromedial right occipital convexity (series 6 image 126). No pathologic intra-axial enhancement. No intracranial hemorrhage or pathologic extra-axial fluid collection. The major arterial flow voids at the skullbase are preserved. The globes are symmetric. Small to moderate maxillary sinus retention cysts or polyps. The mastoid air cells are clear. Large 3.6 cm circumscribed lesion in the left suboccipital scalp, typical for an epidermal inclusion cyst. IMPRESSION: 1. No acute intracranial abnormality. 2. No pathologic brain parenchymal enhancement. 3. Small curvilinear enhancement at the posteromedial right occipital convexity is nonspecific, though may represent a vascular malformation such as a dural arteriovenous fistula, or prominent cortical vein. CTA head may be helpful for further evaluation. 4. Minimal chronic microvascular ischemic changes and diffuse cerebral volume loss. Dictated by Félix Gage MD @ 12/16/2023 12:43:42 PM (Electronically Signed)
== END 2023-12-16 08:53 | disposition home or self-care (01) ==
PROVIDERS: PCP Student in an Organized Health Care Education/Training Program; Visit Provider Nurse Practitioner Family
DX: C53.1 Malignant neoplasm of exocervix (principal); I67.82 Cerebral ischemia
CPT/HCPCS: 70553; A9575

== ENCOUNTER 2024-02-01 09:06 | Outpatient (CLI) | payer BC, SELFPAY ==
--- OUTSIDE RECORDS SUMMARY | 2024-02-03 01:23 | XMS_ITS | Referral Summary ---
Author Organization [place] Address [address] [place] [address] Care Team Providers Care Smooth Stucco Resurfacer Name Role Phone Clinic, [facility] ([place], [place]) Primary Care Provider Encounters Date Type Department Care Team Description 02/01/2024 Travel 02/01/2024 10:14 AM CDT - Present Hospital Encounter [facility] 88 Oncology [address], [address] [place] [phone] Shaista Dimas MD Chen, Oscar Collins MD Severe sepsis (H); Urinary tract infection with hematuria, site unspecified; History of cancer; Renal failure, unspecified chronicity; Generalized weakness; Diarrhea, unspecified type 11/25/2023 9:47 AM CDT - 11/25/2023 1:55 PM CDT Hospital Encounter [facility] [address] [place] [phone] Non-Fv Credentialed Provider, Radiology Marylin Pavon DO Vesicovaginal fistula Discharge Disposition: Home or Self Care 11/24/2023 Telephone [facility] Interventional Radiology [address] [place] [phone] Matilde Hill RN from Last 3 Months Allergies Active Allergy Reactions Criticality Noted Date Comments Shellfish-Derived Products Shortness Of Breath,Hives High 08/05/2023 Medications Medication Sig Dispensed Refills Start Date End Date Status hydrOXYzine nii (VISTARIL) 25 MG capsule Take 25 mg by mouth 3 times daily as needed for itching. 02/01/20 24 Discontinued( Med Rec(No AVS / No eCancel)) carvedilol (COREG) 6.25 MG tablet Take 6.25 mg by mouth 2 times daily (with meals). Suspended amLODIPine (NORVASC) 10 MG tablet Take 10 mg by mouth daily Suspended acetaminophen (TYLENOL) 500 MG tablet Take 500-1,000 mg by mouth every 6 hours as needed for mild pain Suspended ibuprofen (ADVIL/MOTRIN) 200 MG tablet Take 200 mg by mouth every 4 hours as needed for pain 02/01/20 24 Discontinued( Med Rec(No AVS / No eCancel)) HYDROmorphone (DILAUDID) 2 MG tabletIndications :Acute post-operative pain Take 1 tablet (2 mg) by mouth every 4 hours as needed for moderate pain 20 tablet 08/11/2023 02/01/20 24 Discontinued( Med Rec(No AVS / No eCancel)) senna-docusate (SENOKOT-S/AMILCAR LACE) 8.6-50 MG tabletIndications :Drug-induced constipation Take 1 tablet by mouth 2 times daily as needed for constipation 30 tablet 08/11/2023 02/01/20 24 Discontinued( Med Rec(No AVS / No eCancel)) DULoxetine (CYMBALTA) 30 MG capsule Take 30 mg by mouth 2 times daily 02/01/20 24 Discontinued( Med Rec(No AVS / No eCancel)) hydrOXYzine HCl (ATARAX) 25 MG tablet Take 25 mg by mouth 3 times daily as needed for itching 02/01/20 24 Discontinued( Med Rec(No AVS / No eCancel)) losartan-hydrochl orothiazide (HYZAAR) 100-12.5 MG tablet Take 1 tablet by mouth daily Suspended oxyCODONE (ROXICODONE) 5 MG tablet Take 5 mg by mouth every 4 hours as needed for severe pain. Suspended OLANZapine (ZYPREXA) 2.5 MG tablet Take 2.5 mg by mouth at bedtime. Suspended hydrOXYzine HCl (ATARAX) 25 MG tablet Take 25 mg by mouth 3 times daily as needed for itching. Suspended loperamide (IMODIUM) 2 MG capsule Take 2 mg by mouth 4 times daily as needed for diarrhea. Suspended ondansetron (ZOFRAN ODT) 8 MG ODT tab Take 8 mg by mouth every 8 hours as needed for nausea. Suspended predniSONE (DELTASONE) 10 MG tablet Take 10 mg by mouth daily. Suspended Active Problems Problem Noted Date Diagnosed Date Generalized weakness 02/01/2024 History of cancer 02/01/2024 Severe sepsis 02/01/2024 Urinary tract infection with hematuria, site uns pecified 02/01/2024 Renal failure, unspecified chronicity 02/01/2024 Malignant neoplasm of exocervix 10/05/2023 Primary cancer [...] School Help Needed Not on file 08/09 Food Insecurity Answer Date Recorded Within the past 12 months, d id you worry that your food would run out before you got money to buy more? No 02/01/2024 Within the past 12 months, d id the food you bought just not last and you didn? t have money to get more? No 02/01/2024 Housing Stability Answer Date Recorded Do you have housing? (Iraida g is defined as stable permanent housing and does not include staying ouside in a car, in a tent, in an abandoned building, in an overnight fci, or couch-surfing.) No 02/01/2024 Are you worried about losing your housing? Yes 02/01/2024 Financial Resource Strain Answer Date R ecorded Within the past 12 months, h ave you or your family members you live with been unable to get utilities (heat, electricity) when it was really needed? No 02/01/2024 Transportation Needs Answer Date Record ed Within the past 12 months, h as lack of transportation kept you from medical appointments, getting your medicines, non-medical meetings or appointments, work, or from getting things that you need? No 02/01/2024 Interpersonal Safety Answer Date Record ed Do you feel physically and e motionally safe where you currently live? Yes 02/01/2024 Within the past 12 months, h ave you been hit, slapped, kicked or otherwise physically hurt by someone? No 02/01/2024 Within the past 12 months, h ave you been humiliated or emotionally abused in other ways by your partner or ex-partner? No 02/01/2024 Sex and Gender Information Value Date Recorded Sex Assigned at Not on file Gender Identity Not on file Sexual Orientation Not on file Last Filed Vital Signs Vital Sign Reading Time Taken Comments Blood Pressure 136/70 02/02/2024 11:50 PM CDT Pulse 67 02/02/2024 11:50 PM CDT Temperature 36.7 ??C (98 ??F) 02/02/2024 11:50 PM CDT Respiratory Rate 16 02/02/2024 11:50 PM CDT Oxygen Saturation 97% 02/02/2024 11:50 PM CDT Inhaled Oxygen Concentration - - Weight 122.5 kg (270 lb) 02/01/2024 10:18 AM CDT Height 175.3 cm (5' 9) 02/01/2024 10:18 AM CDT Body Mass Index 39.87 02/01/2024 10:18 AM CDT Plan of Treatment Upcoming Encounters Date Type Department Care Team (Late st Contact Info) Description 03/07/2024 Hospital Encounter [facility] [address] [place] [phone] 03/07/2024 2:20 PM [employer] ASSOCIATE Ancillary Procedure [facility] [address] [facility] [facility] [place] [phone] Otilia Escoto, PA-C [facility] [address] [place] [phone] Procedures The patient is currently admitted. The information in this section might not be complete until the patient is discharged. Procedure Name Priority Date/Time Associated Diagnosis Comments CT ABDOMEN PELVIS W/O CONTRAST Routine 02/02/2024 9:45 PM CDT POTASSIUM Timed 02/02/2024 7:36 PM CDT TRANSFUSE RED BLOOD CELLS (UNIT) Routine 02/02/2024 2:26 PM CDT ENTERIC BACTERIA AND VIRUS PANEL BY PCR Routine 02/02/2024 1:29 PM CDT C. DIFFICILE TOXIN B PCR WITH REFLEX TO C. DIFFICILE ANTIGEN AND TOXINS A/B EIA Routine 02/02/2024 1:29 PM CDT PREPARE RED BLOOD CELLS (UNIT) Routine 02/02/2024 12:46 PM CDT ABO/RH TYPE AND SCREEN Routine 02/02/2024 12:31 PM CDT TYPE AND SCREEN, ADULT Routine 02/02/2024 12:31 PM CDT HEMOGLOBIN STAT 02/02/2024 12:31 PM CDT CBC WITH PLATELETS & DIFFERENTIAL Routine 02/02/2024 11:22 AM CDT PROCALCITONIN Add-On 02/02/2024 11:22 AM CDT MANUAL DIFFERENTIAL Routine 02/02/2024 1 1:22 AM CDT CBC WITH PLATELETS AND DIFFERENTIAL Routine 02/02/2024 11:22 AM CDT COMPREHENSIVE METABOLIC PANEL STAT 02/02/2024 11:22 AM CDT MAGNESIUM Timed 02/02/2024 3:33 AM CDT LACTIC ACID WHOLE BLOOD STAT 02/01/2024 1:06 PM CDT URINE CULTURE STAT 02/01/2024 11:11 AM CDT ROUTINE UA WITH MICROSCOPIC REFLEX TO CULTURE STAT 02/01/2024 11:11 AM CDT URINE CULTURE STAT 02/01/2024 11:09 AM CDT ROUTINE UA WITH MICROSCOPIC REFLEX TO CULTURE STAT 02/01/2024 11:09 AM CDT EKG 12-LEAD, TRACING ONLY STAT 02/01/2024 11:07 AM CDT INFLUENZA A/B, RSV, & SARS-COV2 PCR STAT 02/01/2024 10:35 AM CDT ISTAT GASES LACTATE VENOUS POCT STAT 02/01/2024 10:33 AM CDT CBC WITH PLATELETS & DIFFERENTIAL STAT 02/01/2024 10:31 AM CDT VERIGENE GN PANEL Routine 02/01/2024 10: 31 AM CDT BLOOD CULTURE STAT 02/01/2024 10:31 AM CDT MAGNESIUM STAT 02/01/2024 10:31 AM CDT HEMOGLOBIN A1C STAT 02/01/2024 10:31 AM CDT CBC WITH PLATELETS AND DIFFERENTIAL STAT 02/01/2024 10:31 AM CDT COMPREHENSIVE METABOLIC PANEL STAT 02/01/2024 10:31 AM CDT EXTRA PURPLE TOP TUBE STAT 02/01/2024 10:31 AM CDT EXTRA GREEN TOP (LITHIUM HEPARIN) TUBE STAT 02/01/2024 10:31 AM CDT EXTRA RED TOP TUBE STAT 02/01/2024 10 :31 AM CDT EXTRA BLUE TOP TUBE STAT 02/01/2024 1 0:31 AM CDT EXTRA BLOOD CULTURE BOTTLE STAT 02/01/2024 10:31 AM CDT EXTRA TUBE STAT 02/01/2024 10:31 AM CDT IR PROCEDURE NOTE Routine 11/25/2023 4:3 9 PM CDT IR NEPHROSTOMY TUBE CHANGE BILATERAL Urgent: 3-5 Days 11/25/2023 12:09 PM CDT Vesicovaginal fistula from Last 3 Months Results * CT Abdomen Pelvis w/o Contrast (02/02/2024 9:45 PM CDT) Anatomical Region Laterality Modality Abdomen/Pelvis, SUBRAD CT RASHEL DY, UMP CT ABDOMEN PELVIS, RAD CT Computed Tomography 02/02/2024 9:45 PM CDT Impressions 02/02/2024 10:55 PM CDT IMPRESSION: 1. Moderate dilatation of the left intrarenal collecting system and ureter, suggestive of a distal left ureteral obstruction. No left ureteral calculus or other cause of obstruction is visualized. Of note, a left percutaneous nephrostomy tube is in place and therefore the tube is not functioning appropriately. 2. A few foci of gas within a nondistended urinary bladder. Additionally, there is haziness in the perivesical fat. These findings are nonspecific, but could relate to cystitis. Recommend clinical correlation. 3. Mild splenomegaly. 4. No other acute abnormality identified in the abdomen or pelvis. 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 Acute renal insufficiency. Bilateral percutaneous nephrostomy tubes. Sepsis. COMPARISON: 11/10/2023 - PET/CT scan whole body. TECHNIQUE: CT scan of the abdomen and pelvis was performed without oral or IV contrast. Multiplanar reformats were obtained. Dose reduction techniques were used. CONTRAST: None. FINDINGS: LOWER CHEST: A curvilinear opacity in the right middle lobe likely relates to prior surgery. HEPATOBILIARY: The gallbladder is mildly distended, but otherwise unremarkable in appearance. SPLEEN: Mild splenomegaly. The spleen measures 14 cm in craniocaudal dimension. PANCREAS: Unremarkable. ADRENAL GLANDS: Unremarkable. KIDNEYS/BLADDER: Bilateral percutaneous nephrostomy tubes are in place with distal pigtails in the renal pelvises. Moderate dilatation of the left intrarenal collecting system and ureter. No dilatation of the right intrarenal collecting system or ureter. No visualized renal or ureteral calculi bilaterally. Mild left perinephric and periureteric stranding. A small amount of gas is present in a nondistended urinary bladder lumen. Haziness is present in the perivesical fat. BOWEL: A few colonic diverticula are present, without evidence of diverticulitis. A small amount of nonspecific fluid is present in the colonic lumen. Normal appendix. LYMPH NODES: Unremarkable. PELVIC ORGANS: No acute findings. MUSCULOSKELETAL: No acute findings. OTHER: Atherosclerotic calcification in the abdominal aorta. Tiny bilateral inguinal hernias containing fat. Procedure Note Jorge Livingston MD - 02/02/2024 EXAM: CT ABDOMEN AND PELVIS WITHOUT CONTRAST - RENAL STONE PROTOCOL LOCATION: [facility] DATE/TIME: 02/02/2024 9:45 PM CDT INDICATION: History of squamous cell carcinoma of the cervix onchemotherapy. Acute renal insufficiency. Bilateral percutaneousnephrostomy tubes. Sepsis. COMPARISON: 11/10/2023 - PET/CT scan whole body. TECHNIQUE: CT scan of the abdomen and pelvis was performed without oral orIV contrast. Multiplanar reformats were obtained. Dose reductiontechniques were used. CONTRAST: None. FINDINGS: LOWER CHEST: A curvilinear opacity in the right middle lobe likely relatesto prior surgery. HEPATOBILIARY: The gallbladder is mildly distended, but otherwiseunremarkable in appearance. SPLEEN: Mild splenomegaly. The spleen measures 14 cm in craniocaudaldimension. PANCREAS: Unremarkable. ADRENAL GLANDS: Unremarkable. KIDNEYS/BLADDER: Bilateral percutaneous nephrostomy tubes are in placewith distal pigtails in the renal pelvises. Moderate dilatation of theleft intrarenal collecting system and ureter. No dilatation of the rightintrarenal collecting system or ureter. No visualized renal or ureteral calculi bilaterally. Mild leftperinephric and periureteric stranding. A small amount of gas is presentin a nondistended urinary bladder lumen. Haziness is present in theperivesical fat. BOWEL: A few colonic diverticula are present, without evidence ofdiverticulitis. A small amount of nonspecific fluid is present in thecolonic lumen. Normal appendix. LYMPH NODES: Unremarkable. PELVIC ORGANS: No acute findings. MUSCULOSKELETAL: No acute findings. OTHER: Atherosclerotic calcification in the abdominal aorta. Tinybilateral inguinal hernias containing fat. IMPRESSION: 1. Moderate dilatation of the left intrarenal collecting system andureter, suggestive of a distal left ureteral obstruction. No left ureteralcalculus or other cause of obstruction is visualized. Of note, a leftpercutaneous nephrostomy tube is in place and therefore the tube is not functioning appropriately. 2. A few foci of gas within a nondistended urinary bladder. Additionally,there is haziness in the perivesical fat. These findings are nonspecific,but could relate to cystitis. Recommend clinical correlation. 3. Mild splenomegaly. 4. No other acute abnormality identified in the abdomen or pelvis. Bell Hurley PA-C IMG CT ORDERAB LES * Potassium (02/02/2024 7:36 PM CDT) Potassium 3.9 3.4 - 5.3 mmol/L 02/02/2024 8:20 PM CDT LABORATORY Blood STRUCTURE OF LEFT HAND / Unknown Venipuncture / Unknown 02/02/2024 7:36 PM CDT 02/02/2024 7:51 PM CDT Carli Faulkner MD LAB - BLOOD ORDERABL ES LABORATORY [facility] [address], [address] [place] [address], [facility] [phone] * Transfuse red blood cells (unit) (02/02/2024 5:09 PM CDT) Carli Faulkner MD BLOOD TRANSFUSION OR DERABLES * Enteric Bacteria and Virus Panel PCR (02/02/2024 1:29 PM CDT) Campylobacter species Negative Negative 02/02/2024 5:28 PM CDT [facility] Salmonella species Negative Negative 2023 5:28 PM CDT [facility] Vibrio species Negative Negative 02/02/2024 5:28 PM CDT [facility] Vibrio cholerae Negative Negative 5:28 PM CDT [facility] Yersinia enterocolitica Negative Negative 02/02/2024 5:28 PM CDT [facility] Enteropathogenic E. coli (EPEC) Negative Negative, NA 02/02/2024 5:28 PM CDT [facility] Shiga-like toxin-producing E. coli (STEC) Negative Negative 02/02/2024 5:28 PM CDT [facility] Shigella/Enteroinvas nikko E. coli (EIEC) Negative Negative 02/02/2024 5:28 PM CDT [facility] Cryptosporidium species Negative Negative 02/02/2024 5:28 PM CDT [facility] Giardia lamblia Negative Negative 5:28 PM CDT [facility] Norovirus Gl/Gll Negative Negative 02/02/20 5:28 PM CDT [facility] Rotavirus A Negative Negative 02/02/2024 5:28 PM CDT [facility] Plesiomonas shigelloides Negative Negative 02/02/2024 5:28 PM CDT [facility] Enteroaggregative E. coli (EAEC) Negative Negative 02/02/2024 5:28 PM CDT [facility] Enterotoxigenic E. coli (ETEC) Negative Negative 02/02/2024 5:28 PM CDT [facility] E. coli O157 NA Negative, NA 02/02/2024 5:28 PM CDT [facility] Cyclospora cayetanensis Negative Negative 02/02/2024 5:28 PM CDT [facility] Entamoeba histolytica Negative Negative 02/02/2024 5:28 PM CDT [facility] Adenovirus F40/41 Negative Negative 024 5:28 PM CDT [facility] Astrovirus Negative Negative 02/02/2024 5:28 PM CDT [facility] Sapovirus Negative Negative 02/02/2024 5:28 PM CDT [facility] Stool RECTAL CONTENTS / Unknown Non-blood Collection / Unknown 02/02/2024 1:29 PM CDT 02/02/2024 1:44 PM CDT Narrative [facility] - 02/02/2024 5:28 PM CDT Assay performed using the FDA-cleared FilmArray GI Panel from [employer] ??A negative result should not rule out infection in patients with a probability for gastrointestinal infection. The assay does not test for all potential infectious agents of diarrheal disease. ??Positive results do not distinguish between a viable or replicating organism and the presence of a nonviable organism or nucleic acid, nor do they exclude the possibility of coinfection by organisms not in the panel. ??Results are intended to aid in the diagnosis of illness and are meant to be used in conjunction with other clinical findings. This test has been verified and is performed by the Infectious Diseases Diagnostic Laboratory at [facility]. This laboratory is certified under the Clinical Laboratory Improvement Amendments of 1988 (CLIA-88) as qualified to perform high complexity clinical laboratory testing. Carli Faulkner MD LAB - MICRO GENERAL ORDERABLES [facility] Inf. Diseases Diag. Lab [address] [place] [address] * C. difficile Toxin B PCR with reflex to C. difficile Antigen and Toxins A/B EIA (02/02/2024 1:29 PMCDT) [facility] C Difficile Toxin B by PCR Negative Negative 02/02/2024 4:19 PM CDT [facility] Comment:A negative result do es not exclude actual disease due to C. difficile and may be due to improper collection, handling and storage of the specimen or the number of organisms in the specimen is below the detection limit of the assay. Stool RECTAL CONTENTS / Unknown Non-blood Collection / Unknown 02/02/2024 1:29 PM CDT 02/02/2024 1:44 PM CDT Narrative [facility] - 02/02/2024 4:19 PM CDT The CepVionicid Xpert C. difficile Assay, performed on the [employer] Systems, is a qualitative in vitro diagnostic test for rapid detection of toxin B gene sequences from unformed (liquid or soft) stool specimens collected from patients suspected of having Clostridioides difficile infection (CDI). The test utilizes automated real-time polymerase chain reaction (PCR) to detect toxin gene sequences associated with toxin producing C. difficile. The Xpert C. difficile Assay is intended as an aid in the diagnosis of CDI. Carli Faulkner MD LAB - MICRO GENERAL ORDERABLES [facility] Inf. Diseases Diag. Lab [address] [place] [address], [facility] * Prepare red blood cells (unit) (02/02/2024 12:46 PM CDT) Blood Component Type Red Blood Cells BLOOD BANK Product Code [id number] BLOO D BANK Unit Status Transfused BLOO D BANK Unit Number [id number] B LOOD BANK CROSSMATCH Compatible BLOOD BANK CODING SYSTEM [id number] BLO OD BANK ISSUE DATE AND TIME [id number] BLOOD BANK UNIT ABO/RH A+ BLOOD BANK UNIT TYPE ISBT 6200 BL OOD BANK 02/02/2024 12:4 6 PM CDT Carli Faulkner MD BLOOD BANK PRODUCT O RDERABLES Performing Organization Address City/[facility] Co de Phone Number BLOOD BANK [address] [place] [address] * Adult Type and Screen (02/02/2024 12:31 PM CDT) ABO/RH(D) A POS 02/02/2024 12:16 PM CDT BLOOD BANK Antibody Screen Negative Negative 02/02/2024 12:16 PM CDT BLOOD BANK SPECIMEN EXPIRATION DATE [id number] 02/02/2024 12:16 PM CDT BLOOD BANK Blood BLOOD SPECIMEN / Unknown Venipuncture / Unknown 02/02/2024 12:31 PM CDT 02/02/2024 12:35 PM CDT Carli Faulkner MD LAB - BLOOD BANK ANA T ORDER BLOOD BANK [address] [place] [address], [facility] * (ABNORMAL) Hemoglobin (02/02/2024 12:31 PM CDT) Hemoglobin 7.3(L) 11.7 - 15.7 g/dL 02/02/2024 12:37 PM CDT LABORATORY Blood STRUCTURE OF RIGHT UPPER LIMB / Unknown Venipuncture / Unknown 02/02/2024 12:31 PM CDT 02/02/2024 12:35 PM CDT Carli Faulkner MD LAB - BLOOD ORDERABL ES LABORATORY [facility] [address], [address] [place] [address], [facility] [phone] * (ABNORMAL) Manual Differential (02/02/2024 11:22 AM CDT) % Neutrophils 96 % [facility] 02/02/2024 1:14 PM CDT LABORATORY % Lymphocytes 2 % [facility] 02/02/2024 1:14 PM CDT LABORATORY % Monocytes 2 % [facility] 02/02/2024 1:14 PM CDT LABORATORY % Eosinophils 0 % [facility] 02/02/2024 1:14 PM CDT LABORATORY % Basophils 0 % [facility] 02/02/2024 1:14 PM CDT LABORATORY Absolute Neutrophils 3.6 1.6 - 8.3 10e3/uL [facility] 02/02/2024 1:14 PM CDT LABORATORY Absolute Lymphocytes 0.1(L) 0.8 - 5.3 10e3/uL [facility] 02/02/2024 1:14 PM CDT LABORATORY Absolute Monocytes 0.1 0.0 - 1.3 10e3/uL [facility] 02/02/2024 1:14 PM CDT LABORATORY Absolute Eosinophils 0.0 0.0 - 0.7 10e3/uL [facility] 02/02/2024 1:14 PM CDT LABORATORY Absolute Basophils 0.0 0.0 - 0.2 10e3/uL [facility] 02/02/2024 1:14 PM CDT LABORATORY RBC Morphology Confirmed RBC Indices [facility] 02/02/2024 1:14 PM CDT LABORATORY Platelet Assessment Automated Count Confirmed. Platelet morphology is normal. Automated Count Confirmed. Platelet morphology is normal. [facility] 02/02/2024 1:14 PM CDT LABORATORY Toxic Neutrophils Present(A) None Seen [facility] 02/02/2024 1:14 PM CDT LABORATORY Blood STRUCTURE OF RIGHT UPPER LIMB / Unknown Venipuncture / Unknown 02/02/2024 11:22 AM CDT 02/02/2024 11:31 AM CDT Jessica Niño APRN, CNP LAB - BLOOD OR DERABLES LABORATORY [facility] [address], [address] [place] [address], [facility] [phone] * (ABNORMAL) CBC with platelets and differential (02/02/2024 11:22 AM CDT) Only the most recent of2 resultswithin the time period is included. WBC Count 3.8(L) 4.0 - 11.0 10e3/uL 02/02/2024 1:14 PM CDT LABORATORY RBC Count 1.55(L) 3.80 - 5.20 10e6/uL 02/02/2024 1:14 PM CDT LABORATORY Hemoglobin 4.7(LL) 11.7 - 15.7 g/dL 02/02/2024 1:14 PM CDT LABORATORY Hematocrit 14.8(L) 35.0 - 47.0 % 02/02/2024 1:14 PM CDT LABORATORY MCV 96 78 - 100 fL 02/02/2024 1:14 PM CDT LABORATORY MCH 30.3 26.5 - 33.0 pg 02/02/2024 1:14 PM CDT LABORATORY MCHC 31.8 31.5 - 36.5 g/dL 02/02/2024 1:14 PM CDT LABORATORY RDW 17.2(H) 10.0 - 15.0 % 02/02/2024 1:14 PM CDT LABORATORY Platelet Count 118(L) 150 - 450 10e3/uL 02/02/2024 1:14 PM CDT LABORATORY NRBCs per 100 WBC 0 <1 /100 02/02/2024 1:14 PM CDT LABORATORY Absolute NRBCs 0.0 10e3/uL 02/02/2024 1:14 PM CDT LABORATORY Blood STRUCTURE OF RIGHT UPPER LIMB / Unknown Venipuncture / Unknown 02/02/2024 11:22 AM CDT 02/02/2024 11:31 AM CDT Jessica Niño APRN [employer] LAB - BLOOD OR DERABLES LABORATORY [facility] [address], [address] [place] [id number], [facility] [phone] * (ABNORMAL) Procalcitonin (02/02/2024 11:22 AM CDT) Procalcitonin 7.44(HH) <0.50 ng/mL 02/02/2024 3:53 PM CDT LABORATORY Comment: Interpretation and Recommendations <0.5 ng/mL: Systemic bacterial infection unlikely. Local bacterial infection is possible. 0.5-1.99 ng/mL: Systemic bacterial infection possible, but various other conditions are known to induce PCT as well. >=2.00 ng/mL: Systemic bacterial infection likely, unless other causes are known. Decision to start antibiotics should not be based on procalcitonin level alone. See Procalcitonin Guidance document for more details. [email or web address] Factors that may affect PCT levels (not all-inclusive): ?? - Increased PCT level ?Severe trauma/avalos ?Invasive surgery ?Cooling therapy after cardiac arrest/surgery ?Treatment with agents which stimulate cytokines ?Acute kidney injury ?Chronic kidney disease and end stage renal disease ?Acute graft vs host disease ?Non-specific shock causing decreased organ perfusion and/or infarction ?? - Normal or unchanged PCT level ?Early in infections (if low and infection is suspected, repeating in 6-12 hours is recommended) ?Chronic infections (endocarditis, osteomyelitis, prosthetic device/graft infections) ?Localized infections (cellulitis, wound infections, intra-abdominal abscess) Note: PCT has not been extensively studied in /, pediatrics, severe immunosuppression, and cystic fibrosis. Blood STRUCTURE OF RIGHT UPPER LIMB / Unknown Venipuncture / Unknown 02/02/2024 11:22 AM CDT 02/02/2024 11:31 AM CDT Carli Faulkner MD LAB - BLOOD ORDERABL ES LABORATORY [facility] [address] floor, [address] [place] [address], [facility] [phone] * (ABNORMAL) Comprehensive metabolic panel (02/02/2024 11:22 AM CDT) Only the most recent of2 resultswithin the time period is included. [facility] Sodium 139 135 - 145 mmol/L 02/02/2024 12:11 PM CDT LABORATORY Potassium 3.2(L) 3.4 - 5.3 mmol/L 02/02/2024 12:11 PM CDT LABORATORY Carbon Dioxide (CO2) 20(L) 22 - 29 mmol/L 02/02/2024 12:11 PM CDT LABORATORY Anion Gap 16(H) 7 - 15 mmol/L 02/02/2024 12:11 PM CDT LABORATORY Urea Nitrogen 36.3(H) 6.0 - 20.0 mg/dL 02/02/2024 12:11 PM CDT LABORATORY Creatinine 1.76(H) 0.51 - 0.95 mg/dL 02/02/2024 12:11 PM T LABORATORY GFR Estimate 33(L) >60 mL/min/1.7 3m2 02/02/2024 12:11 PM [facility] Comment:eGFR calculated usin 2020 CKD-EPI equation. Calcium 8.4(L) 8.8 - 10.4 mg/dL 02/02/2024 12:11 PM [facility] Comment:Reference intervals for this test were updated on 11/17/2023 to reflect our healthy population more accurately. There may be differences in the flagging of prior results with similar values performed with this method. Those prior results can be interpreted in the context of the updated reference intervals. Chloride 103 98 - 107 mmol/L 02/02/2024 12:11 PM [facility] Glucose 117(H) 70 - 99 mg/dL 02/02/2024 12:11 PM [facility] Alkaline Phosphatase 98 40 - 150 U/L 02/02/2024 12:11 PM [facility] AST 17 0 - 45 U/L 02/02/2024 12:11 PM T LABORATORY ALT 26 0 - 50 U/L 02/02/2024 12:11 PM T LABORATORY Protein Total 6.2(L) 6.4 - 8.3 g/dL 02/02/2024 12:11 PM [facility] Albumin 2.7(L) 3.5 - 5.2 g/dL 02/02/2024 12:11 PM [facility] Bilirubin Total 0.4 <=1.2 mg/dL 02/02/2024 12:11 PM [facility] Blood STRUCTURE OF RIGHT UPPER LIMB / Unknown Venipuncture / Unknown 02/02/2024 11:22 AM CDT 02/02/2024 11:31 AM CDT Jessica Niño APRN [employer] LAB - BLOOD OR DERABLES LABORATORY [facility] [address], [address] [place] [address], [facility] [phone] * (ABNORMAL) Magnesium (02/02/2024 3:33 AM CDT) Only the most recent of2 resultswithin the time period is included. Magnesium 2.9(H) 1.7 - 2.3 mg/dL 02/02/2024 4:02 AM CDT LABORATORY Blood STRUCTURE OF RIGHT HAND / Unknown Venipuncture / Unknown 02/02/2024 3:33 AM CDT 02/02/2024 3:44 AM CDT Oscar Dumont MD LAB - BLOOD ORDER TRACI LABORATORY [facility] [address], [address], [place] [address], [facility] [phone] * Lactic acid whole blood (02/01/2024 1:06 PM CDT) [facility] Lactic Acid 1.0 0.7 - 2.0 mmol/L 02/01/2024 1:09 PM CDT LABORATORY Blood BLOOD SPECIMEN / Unknown Venipuncture / Unknown 02/01/2024 1:06 PM CDT 02/01/2024 1:08 PM CDT Shaista Dimas MD LAB - BLOOD ORDERAB LES LABORATORY [facility] Lab [address], [address] [address], [facility] [phone] * (ABNORMAL) UA with Microscopic reflex to Culture (02/01/2024 11:11 AM CDT) Only the most recent of2 resultswithin the time period is included. Color Urine [place](A) Colorless, Straw, Light Yellow, Yellow 02/01/2024 11:38 AM CDT LABORATORY Appearance Urine Cloudy(A) Clear 02/01/20 11:38 AM CDT LABORATORY Glucose Urine Negative Negative mg/dL 02/01/2024 11:38 AM CDT LABORATORY Bilirubin Urine Negative Negative 11:38 AM CDT LABORATORY Ketones Urine Negative Negative mg/dL 02/01/2024 11:38 AM CDT LABORATORY Specific [facility] Urine 1.022 1.003 - 1.035 02/01/2024 11:38 AM CDT LABORATORY Blood Urine Negative Negative 02/01/2024 11:38 AM CDT LABORATORY pH Urine 8.5(H) 5.0 - 7.0 02/01/2024 11:38 AM CDT LABORATORY Protein Albumin Urine >600(A) Negative mg/dL 02/01/2024 11:38 AM CDT LABORATORY Urobilinogen Urine Normal Normal, 2.0 mg/dL 02/01/2024 11:38 AM CDT LABORATORY Nitrite Urine Negative Negative 02/01/2024 11:38 AM CDT LABORATORY Leukocyte Esterase Urine Large(A) Negative 02/01/2024 11:38 AM CDT LABORATORY Bacteria Urine Few(A) None Seen /HPF 02/01/2024 11:38 AM CDT LABORATORY Mucus Urine Present(A) None Seen /LPF 02/01/2024 11:38 AM CDT LABORATORY Triple Phosphate Crystals Urine Moderate(A) None Seen /HPF 02/01/2024 11:38 AM CDT LABORATORY RBC Urine 4(H) <=2 /HPF 02/01/2024 11:38 AM CDT LABORATORY WBC Urine 13(H) <=5 /HPF 02/01/2024 11:38 AM CDT LABORATORY Granular Casts Urine 8(H) None Seen /LPF 02/01/2024 11:38 AM CDT LABORATORY Urine NEPHROSTOMY TUBE SUBMITTED SPECIMEN / Unknown Non-blood Collection / Unknown 02/01/2024 11:11 AM CDT 02/01/2024 11:17 AM CDT Narrative LABORATORY - 02/01/2024 11:38 AM CDT Urine Culture ordered based on laboratory criteria Shaista Dimas MD LAB - URINE ORDERAB LES LABORATORY [facility] [address], [address] [place] [address], [facility] [phone] * (ABNORMAL) Urine Culture (02/01/2024 11:11 AM CDT) Only the most recent of2 resultswithin the time period is included. Culture 50,000-100,000 CFU/mL Lactose fermenting gram negative bacilli(A) 02/02/2024 2:21 PM CDT [facility] Culture 10,000-50,000 CFU/mL Lactose fermenting gram negative bacilli(A) 02/02/2024 2:21 PM CDT [facility] Culture >100,000 CFU/mL Gram positive cocci(A) 02/02/2024 2:21 PM CDT [facility] Culture >100,000 CFU/mL Gram positive cocci(A) 02/02/2024 2:21 PM CDT [facility] Urine NEPHROSTOMY TUBE SUBMITTED SPECIMEN / Unknown Non-blood Collection / Unknown 02/01/2024 11:11 AM CDT 02/01/2024 11:38 AM CDT Narrative [facility] - 02/02/2024 2:21 PM CDT Multiple morphotypes present with no predominant organism. ??Growth consistent with probable contamination during collection. ??Suggest repeat specimen if clinically indicated. Shaista Dimas MD LAB - MICRO GENERAL ORDERABLES [facility] Inf. Diseases Diag. Lab [address] [place] [address] * EKG 12-lead, tracing only (02/01/2024 11:07 AM CDT) Systolic Blood Pressure mmHg RADIOLOGY RESULTS Diastolic Blood Pressure mmHg RADIOLOGY RESULTS Ventricular Rate 113 BPM RAD IOLOGY RESULTS Atrial Rate 113 BPM RADIOLOG Y RESULTS [place] Interval 130 ms RADIOLOG Y RESULTS QRS Duration 84 ms RADIOLO GY RESULTS QT 372 ms RADIOLOGY RESULTS QTc 510 ms RADIOLOGY RESULTS P [place] 29 degrees RADIOLOGY RESULTS R AXIS 4 degrees RADIOLOGY RESULTS T [place] 129 degrees RADIOLOGY RESULTS Interpretation ECG Sinus tachycardia with occasional Premature ventricular complexes Left ventricular hypertrophy with repolarization abnormality ( R in aVL , Romhilt-Mckeon ) Abnormal ECG No previous ECGs available Confirmed by GENERATED REPORT, COMPUTER ([id number]), rewrite editor FAWAD CHU ([id number]) on 02/02/2024 5:45:31 PM RADIOLOGY RESULTS 02/01/2024 11:0 7 AM CDT 02/02/2024 5:45 PM CDT Shaista Dimas MD ECG ORDERABLES RADIOLOGY RESULTS * Symptomatic Influenza A/B, RSV, & SARS-CoV2 PCR (COVID-19) Nasopharyngeal (02/01/2024 10:35 AM CDT) [facility] Influenza A PCR Negative Negative 02/01/2024 11:31 AM CDT LABORATORY Influenza B PCR Negative Negative 02/01/2024 11:31 AM CDT LABORATORY RSV PCR Negative Negative 02/01/2024 11:31 AM CDT LABORATORY SARS CoV2 PCR Negative Negative 02/01/2024 11:31 AM CDT LABORATORY Comment:NEGATIVE: SARS-CoV-2 (COVID-19) RNA not detected, presumed negative. Swab NASOPHARYNGEAL STRUCTURE / Unknown Non-blood Collection / Unknown 02/01/2024 10:35 AM CDT 02/01/2024 10:45 AM CDT Narrative LABORATORY - 02/01/2024 11:31 AM CDT Testing was performed using the Xpert Xpress CoV2/Flu/RSV Assay on the [employer] GeneXpert Instrument. This test should be ordered for the detection of SARS- CoV2, influenza, and RSV viruses in individuals with signs and symptoms of respiratory tract infection. This test is for in vitro diagnostic use under the [place] FDA for laboratories certified under CLIA to perform high or moderate complexity testing. This test has been [place] FDA cleared. A negative result does not rule out the presence of PCR inhibitors in the specimen or target RNA in concentration below the limit of detection for the assay. If only one viral target is positive but coinfection with multiple targets is suspected, the sample should be re-tested with another FDA cleared, approved, or authorized test, if coninfection would change clinical management. This test was validated by the [facility]. These laboratories are certified under the Clinical Laboratory Improvement Amendments of 1988 (CLIA-88) as qualified to perfom high complexity laboratory testing. Shaista Dimas MD LAB - MICRO GENERAL ORDERABLES LABORATORY [facility] [address] 1[address], [address] [place] [address], [facility] [phone] * (ABNORMAL) iStat Gases (lactate) venous, POCT (02/01/2024 10:33 AM CDT) Lactic Acid POCT 3.6(H) <=2.0 mmol/L 02/01/2024 10:59 AM CDT LABORATORY POC Comment:--- Bicarbonate Venous POCT 24 21 - 28 mmol/L 02/01/2024 10:59 AM CDT LABORATORY POC Comment:--- O2 Sat, Venous POCT 22(L) 70 - 75 % 02/01/2024 10:59 AM CDT LABORATORY POC Comment:--- pCO2 Venous POCT 43 40 - 50 mm Hg 02/01/2024 10:59 AM CDT LABORATORY POC Comment:--- pH Venous POCT 7.34 7.32 - 7.43 02/01/2024 10:59 AM CDT LABORATORY POC Comment:--- pO2 Venous POCT 17(L) 25 - 47 mm Hg 02/01/2024 10:59 AM CDT LABORATORY POC Comment:--- Base Excess/Deficit (+/-) POCT -2.0 -3.0 - 3.0 mmol/L 02/01/2024 10:59 AM CDT LABORATORY POC Comment:--- Blood, venous BLOOD SPECIMEN / Unknown 02/01/2024 10:33 AM CDT 02/01/2024 10:59 AM CDT Shaista Dimas MD LAB - BEAKER POCT LABORATORY POC [facility] [address], [address] [place] [address], [facility] * (ABNORMAL) Verigene GN Panel (02/01/2024 10:31 AM CDT) [facility] Acinetobacter species Not Detected Not Detected 02/02/2024 5:48 AM CDT [facility] Citrobacter species Not Detected Not Detected 02/02/2024 5:48 AM CDT [facility] Enterobacter species Not Detected Not Detected 02/02/2024 5:48 AM CDT [facility] Proteus species Not Detected Not Detected 02/02/2024 5:48 AM CDT [facility] Escherichia coli Not Detected Not Detected 02/02/2024 5:48 AM CDT [facility] Klebsiella pneumoniae Not Detected Not Detected 02/02/2024 5:48 AM CDT [facility] Klebsiella oxytoca Detected(A) Not Detected 02/02/2024 5:48 AM CDT [facility] Comment:Positive for Klebsie lla oxytoca by Verigene multiplex nucleic acid test. Final identification and antimicrobial susceptibility testing will be verified by standard methods. Pseudomonas aeruginosa Not Detected Not Detected 02/02/2024 5:48 AM CDT [facility] CTX-M Not Detected Not Detected, NA 02/02/2024 5:48 AM CDT [facility] KPC Not Detected Not Detected, NA 02/02/2024 5:48 AM CDT [facility] NDM Not Detected Not Detected, NA 02/02/2024 5:48 AM CDT [facility] VIM Not Detected Not Detected, NA 02/02/2024 5:48 AM CDT [facility] IMP Not Detected Not Detected, NA 02/02/2024 5:48 AM CDT [facility] OXA Not Detected Not Detected, NA 02/02/2024 5:48 AM CDT [facility] Blood BLOOD SPECIMEN / Unknown Venipuncture / Unknown 02/01/2024 10:31 AM CDT 02/01/2024 10:45 AM CDT Narrative [facility] - 02/02/2024 5:48 AM CDT Specimen tested with Verigene multiplex, gram-negative blood culture nucleic acid test for the following targets: Acinetobacter species, Citrobacter species, Enterobacter species, Proteus species, Escherichia coli, Klebsiella pneumoniae, Klebsiella oxytoca, Pseudomonas aeruginosa, and the following resistance markers: CTX-M, KPC, NDM, VIM, IMP and OXA. Shaista Dimas MD LAB - MICRO GENERAL ORDERABLES [facility] Inf. Diseases Diag. Lab [address] [place] [address] * Extra Blood Culture Bottle (02/01/2024 10:31 AM CDT) Hold Specimen [facility] 02/01/2024 11:46 AM CDT LABORATORY Blood BLOOD SPECIMEN / Unknown Venipuncture / Unknown 02/01/2024 10:31 AM CDT 02/01/2024 10:45 AM CDT Shaista Dimas MD LAB - BLOOD ORDERAB LES LABORATORY [facility] [address], [address] [place] [address], [facility] [phone] * Extra Purple Top Tube (02/01/2024 10:31 AM CDT) Hold Specimen [facility] 02/01/2024 11:46 AM CDT LABORATORY Blood BLOOD SPECIMEN / Unknown Venipuncture / Unknown 02/01/2024 10:31 AM CDT 02/01/2024 10:45 AM CDT Shaista Dimas MD LAB - BLOOD ORDERAB LES LABORATORY [facility] [address], [address] [place] [address], [facility] [phone] * Extra Green Top ([place] Heparin) Tube (02/01/2024 10:31 AM CDT) Hold Specimen [facility] 02/01/2024 11:46 AM CDT LABORATORY Blood BLOOD SPECIMEN / Unknown Venipuncture / Unknown 02/01/2024 10:31 AM CDT 02/01/2024 10:45 AM CDT Shaista Dimas MD LAB - BLOOD ORDERAB LES [facility] [address], [address] [place] [address], [facility] [phone] * Extra Red Top Tube (02/01/2024 10:31 AM CDT) Hold Specimen [facility] 02/01/2024 11:46 AM CDT LABORATORY Blood BLOOD SPECIMEN / Unknown Venipuncture / Unknown 02/01/2024 10:31 AM CDT 02/01/2024 10:45 AM CDT Shaista Dimas MD LAB - BLOOD ORDERAB LES LABORATORY [facility] [address], [address] [place] [address], [facility] [phone] * Extra Blue Top Tube (02/01/2024 10:31 AM CDT) Hold Specimen [facility] 02/01/2024 11:46 AM CDT LABORATORY Blood BLOOD SPECIMEN / Unknown Venipuncture / Unknown 02/01/2024 10:31 AM CDT 02/01/2024 10:45 AM CDT Shaista Dimas MD LAB - BLOOD ORDERAB LES [facility] [address], [address] [place] [address], [place] [phone] * (ABNORMAL) Hemoglobin A1c (02/01/2024 10:31 AM CDT) Estimated Average Glucose 131(H) <117 mg/dL 02/01/2024 4:53 PM CDT LABORATORY Hemoglobin A1C 6.2(H) <5.7 % 02/01/2024 4:53 PM CDT LABORATORY Comment: Normal <5.7% Prediabetes 5.7-6.4% ?? Diabetes 6.5% or higher Note: Adopted from ADA consensus guidelines. Blood BLOOD SPECIMEN / Unknown Venipuncture / Unknown 02/01/2024 10:31 AM CDT 02/01/2024 10:45 AM CDT Jessica Niño APRN [employer] LAB - BLOOD OR DERABLES LABORATORY [facility] [address], [address] [place] [address], [facility] [phone] * Bilateral nephrostomy tube exchange/upsize (11/25/2023 4:39 PM CDT) Narrative Marylin Pavon DO - 11/25/2023 4:39 PM CDT Marylin Pavon, ? 11/25/2023 ??4:40 PM [facility] [...] procedure a time out was called ?? [place] Protocol: the Joint Commission [place] Protocol was followed ?? Preparation: Patient was [...] 3:12 PM CDT IMPRESSION: Successful bilateral 10.2 [place] nephrostomy tube exchanges/upsize, as detailed above. PLAN: [...] observer. The physician spent 9 minutes of isfo-ly-aedb sedation time with the patient. CONTRAST: 10 [...] over the wire for a new 10.2 [place] left nephrostomy tube, and its tip was [...] maintaining wire access and a new 10.2 [place] right sided nephrostomy tube was advanced over [...] in stable condition. Procedure Note Marylin Pavon, - 11/26/2023 PROCEDURE(S): 1. Left antegrade nephrostogram [...] observer. The physician spent 9 minutes of vyxd-ke-ioku sedation time with the patient. CONTRAST: 10 [...] over the wire for a new 10.2 [place] left nephrostomy tube, and its tip was [...] maintaining wire access and a new 10.2 [place] right sided nephrostomy tube was advanced over [...] in stable condition. IMPRESSION: Successful bilateral 10.2 [place] nephrostomy tube exchanges/upsize, as detailed above. PLAN: The patient should return for routine exchange in 3 months. MARYLIN PAVON DO Jennifer Peguero MD IMG IR ORDERABLES from Last 3 Months Advance Directives For more information, please contact: [phone] * Full Code (Latest Code Status on File) Date Activated Date Inactivated Comments 02/01/2024 7:07 PM All basic and advanced life-sustaining interventions are performed as appropriate Question Answer Comments Code status determined by: Discussion with meg nt/ legal decision maker * Full Code Date Activated Date Inactivated Comments 08/10/2023 12:09 PM 08/11/2023 3:01 PM All basic and advanced life-sustaining interventions are performed as appropriate Question Answer Comments Code status determined by: Discussion with meg nt/ legal decision maker Care Teams [employer] Resurfacer Relationship Specialty Start Date End Date Clinic, [facility] ([place], [place]) [address] [place] [address] PCP - General 07/31/23
--- OUTSIDE RECORDS SUMMARY | 2024-02-03 01:23 | XMS_ITS | Clinical Summary ---
Author Organization [facility] Address [address] [facility] [place] [address] Care Team Providers Care Office Cashier Name Role Phone Clinic, [facility] Primary Care Provider Allergies Active Allergy Reactions [...] Date Type Department Care Team Description 02/01/2024 10:14 AM CDT - Present Hospital Encounter [place] [address] Oncology [address] [place] [address] Shaista Dimas MD Chen, George Anthony, MD Severe sepsis (H); Urinary tract infection with hematuria, site unspecified; History of cancer; Renal failure, unspecified chronicity; Generalized weakness; Diarrhea, unspecified type 02/01/2024 Travel 11/25/2023 9:47 AM CDT - 11/25/2023 1:55 PM CDT Hospital Encounter [facility] [address] [phone] Non-Fv Credentialed Provider, Radiology Marylin Pavon, DO Vesicovaginal fistula Discharge Disposition: Home or Self Care 11/24/2023 Telephone [facility] Interventional Radiology [address] [place] [phone] Matilde Hill RN from Last 3 Months Social History Tobacco [...] Date Recorded Do you have housing? (Iraida bermeo is defined as stable permanent housing and does not include staying ouside in a car, in a tent, in an abandoned building, in an overnight jail, or couch-surfing.) No 02/01/2024 Are you worried [...] Contact Info) Description 03/07/2024 Hospital Encounter M [facility] Imaging [address] [place] [phone] 03/07/2024 2:20 PM BOOTH USHER Ancillary Procedure [facility] [address] [facility] [place] [phone] Otilia Escoto, PA-C [place] [facility] [address] [place] [address] Health Maintenance Due Date Last Done Comments [...] 10/30/2023 10/29/2013 INFLUENZA VACCINE (#1) 2024 GLUCOSE 02/01/2027 02/02/2024, 01/04, 10/15/2023, Additional history exists RSV VACCINE (1 - 1-dose 75+ series) 2040 HPV IMMUNIZATION Aged Out No longer e ligible based on patient's age to complete this topic MENINGITIS IMMUNIZATION Aged Out No l onger eligible based on patient's age to complete this topic RSV MONOCLONAL ANTIBODY Aged Out No l onger eligible based on patient's age to complete this topic Procedures The patient is currently admitted. The [...] WITHOUT CONTRAST - RENAL STONE PROTOCOL LOCATION: [facility] DATE/TIME: 02/02/2024 9:45 PM CDT INDICATION: [...] WITHOUT CONTRAST - RENAL STONE PROTOCOL LOCATION: [facility] DATE/TIME: 02/02/2024 9:45 PM CDT INDICATION: [...] MD LAB - BLOOD ORDERABL ES LABORATORY [facility] [address] 1[address] floor, [address] [place] [address], [facility] [phone] * Transfuse red blood cells (unit) (02/02/2024 [...] IDD LABORATORY Norovirus Gl/Gll Negative Negative 02/02/20 24 5:28 PM CDT U[facility] IDD LABORATORY Rotavirus [...] PM CDT Assay performed using the FDA-cleared LettuceArray GI Panel from [employer] ??A negative result should not rule [...] by the Infectious Diseases Diagnostic Laboratory at [facility]. This laboratory is certified under the Clinical Laboratory Improvement Amendments of 1988 (CLIA-88) as qualified to perform high complexity clinical laboratory testing. Carli Faulkner MD LAB - MICRO GENERAL ORDERABLES Performing Organization Address City/[facility]/ZIP Co de Phone Number UU IDD LABORATORY [facility] Inf. Diseases Diag. Lab [address] [facility], [address] [place] [phone] * C. difficile Toxin B PCR with reflex to C. difficile Antigen and Toxins A/B EIA (02/02/2024 1:29 PMCDT) [facility] C Difficile Toxin B by PCR Negative [...] 1:29 PM CDT 02/02/2024 1:44 PM CDT [facility] IDD LABORATORY - 02/02/2024 4:19 PM CDT The Cepheid Xpert C. difficile Assay, performed on the [employer]?? Instrument Systems, is a qualitative in vitro [...] Faulkner MD LAB - MICRO GENERAL ORDERABLES Performing Organization Address City/[facility]/ZIP Co de Phone Number UU IDD LABORATORY [facility] Inf. Diseases Diag. Lab [address] [facility], [address] [place] [address], [facility] * Prepare red blood cells (unit) (02/02/2024 12:46 PM CDT) Blood Component Type Red Blood Cells BLOOD BANK Product Code [id number] BLOO D BANK Unit Status Transfused BLOO D BANK Unit Number [id number] B LOOD BANK CROSSMATCH Compatible BLOOD BANK CODING SYSTEM [id number] BLO OD BANK ISSUE DATE AND TIME [id number] BLOOD BANK UNIT ABO/RH A+ BLOOD BANK UNIT TYPE ISBT 6200 BL OOD BANK 02/02/2024 12:4 6 PM CDT Carli Faulkner MD BLOOD BANK PRODUCT O RDERABLES Performing Organization Address City/[facility]/ZIP Co de Phone Number BLOOD BANK [address] [place] [phone], [facility] * Adult Type and Screen (02/02/2024 12:31 PM CDT) ABO/RH(D) A POS 02/02/2024 12:16 PM CDT BLOOD BANK Antibody Screen Negative Negative 02/02/2024 12:16 PM CDT BLOOD BANK SPECIMEN EXPIRATION DATE [id number] 02/02/2024 12:16 PM CDT BLOOD BANK Blood BLOOD SPECIMEN / Unknown Venipuncture / Unknown 02/02/2024 12:31 PM CDT 02/02/2024 12:35 PM CDT Carli Faulkner MD LAB - BLOOD BANK ANA T ORDER BLOOD BANK [address] [place] [address], [facility] * (ABNORMAL) Hemoglobin (02/02/2024 12:31 PM CDT) Hemoglobin 7.3(L) 11.7 - 15.7 g/dL 02/02/2024 12:37 PM CDT LABORATORY Blood STRUCTURE OF RIGHT UPPER LIMB / Unknown Venipuncture / Unknown 02/02/2024 12:31 PM CDT 02/02/2024 12:35 PM CDT Carli Faulkner MD LAB - BLOOD ORDERABL ES LABORATORY [facility] [address] floor, [address] [place] [address], [facility] [phone] * (ABNORMAL) Manual Differential (02/02/2024 11:22 AM CDT) Pathologist [facility] % Neutrophils 96 % RUDOLPH 02/02/2024 1:14 [...] CDT LABORATORY RBC Morphology Confirmed RBC Indices RUDOLPH 02/02/2024 1:14 PM CDT LABORATORY Platelet Assessment Automated Count Confirmed. Platelet morphology is normal. Automated Count Confirmed. Platelet morphology is normal. RUDOLPH 02/02/2024 1:14 PM CDT LABORATORY Toxic Neutrophils Present(A) None Seen RUDOLPH 02/02/2024 1:14 PM CDT LABORATORY Blood STRUCTURE OF RIGHT UPPER LIMB / Unknown Venipuncture / Unknown 02/02/2024 11:22 AM CDT 02/02/2024 11:31 AM CDT Jessica Niño APRN INTEGRATION AIDE LAB - BLOOD OR DERABLES LABORATORY [facility] [address] floor, [address] [place] [address], [facility] [phone] * (ABNORMAL) CBC with platelets and differential [...] AM CDT 02/02/2024 11:31 AM CDT Jessica Annaleedanae Niño APRN INTEGRATION AIDE LAB - BLOOD OR DERABLES LABORATORY [facility] [address] 1[address] floor, [address] [place] [address], [facility] [phone] * (ABNORMAL) Procalcitonin (02/02/2024 11:22 AM CDT) [...] See Procalcitonin Guidance document for more details. [email or web address] Factors that may affect PCT levels (not [...] MD LAB - BLOOD ORDERABL ES LABORATORY [facility] [address] floor, [address] [place] [address], [facility] [phone] * (ABNORMAL) Comprehensive metabolic panel (02/02/2024 11:22 AM CDT) Only the most recent of2 resultswithin the time period is included. [facility] Sodium 139 135 - 145 mmol/L 02/02/2024 12:11 PM T LABORATORY Potassium 3.2(L) 3.4 - 5.3 mmol/L 02/02/2024 12:11 PM T LABORATORY Carbon Dioxide (CO2) 20(L) 22 - 29 mmol/L 02/02/2024 12:11 PM T LABORATORY Anion Gap 16(H) 7 - 15 mmol/L 02/02/2024 12:11 PM T LABORATORY Urea Nitrogen 36.3(H) 6.0 - 20.0 mg/dL 02/02/2024 12:11 PM T LABORATORY Creatinine 1.76(H) 0.51 - 0.95 mg/dL 02/02/2024 12:11 PM T LABORATORY GFR Estimate 33(L) >60 mL/min/1.7 3m2 02/02/2024 12:11 PM T LABORATORY Comment:eGFR calculated usin 2020 CKD-EPI equation. Calcium 8.4(L) 8.8 - 10.4 mg/dL 02/02/2024 12:11 PM T LABORATORY Comment:Reference intervals for this test were updated on 11/17/2023 to reflect our healthy population more accurately. There may be differences in the flagging of prior results with similar values performed with this method. Those prior results can be interpreted in the context of the updated reference intervals. Chloride 103 98 - 107 mmol/L 02/02/2024 12:11 PM CDT LABORATORY Glucose 117(H) 70 - 99 mg/dL 02/02/2024 12:11 PM CDT LABORATORY Alkaline Phosphatase 98 40 - 150 U/L 02/02/2024 12:11 PM CDT LABORATORY AST 17 0 - 45 U/L 02/02/2024 12:11 PM CDT LABORATORY ALT 26 0 - 50 U/L 02/02/2024 12:11 PM CDT LABORATORY Protein Total 6.2(L) 6.4 - 8.3 g/dL 02/02/2024 12:11 PM CDT LABORATORY Albumin 2.7(L) 3.5 - 5.2 g/dL 02/02/2024 12:11 PM CDT LABORATORY Bilirubin Total 0.4 <=1.2 mg/dL 02/02/2024 12:11 PM CDT LABORATORY Blood STRUCTURE OF RIGHT UPPER LIMB / Unknown Venipuncture / Unknown 02/02/2024 11:22 AM CDT 02/02/2024 11:31 AM CDT Jessica Niño ACCOUNTING/FINANCE TUTOR INTEGRATION AIDE LAB - BLOOD OR DERABLES LABORATORY [facility] [address] floor, [address] [place] [address], [facility] [phone] * (ABNORMAL) Magnesium (02/02/2024 3:33 AM CDT) Only the most recent of2 resultswithin the time period is included. Magnesium 2.9(H) 1.7 - 2.3 mg/dL 02/02/2024 4:02 AM CDT LABORATORY Blood STRUCTURE OF RIGHT HAND / Unknown Venipuncture / Unknown 02/02/2024 3:33 AM CDT 02/02/2024 3:44 AM CDT Oscar Dumont MD LAB - BLOOD ORDER TRACI LABORATORY [facility] [address] 1[address] floor, [address] [place] [address], [facility] [phone] * Lactic acid whole blood (02/01/2024 1:06 PM CDT) Lactic Acid 1.0 0.7 - 2.0 mmol/L 02/01/2024 1:09 PM CDT LABORATORY Blood BLOOD SPECIMEN / Unknown Venipuncture / Unknown 02/01/2024 1:06 PM CDT 02/01/2024 1:08 PM CDT Shaista Dimas MD LAB - BLOOD ORDERAB LES Performing Organization Address City/[facility]/ZIP Co de Phone Number LABORATORY [facility] [address] floor, [address] [place] [address], [facility] [phone] * (ABNORMAL) UA with Microscopic reflex to Culture (02/01/2024 11:11 AM CDT) Only the most recent of2 resultswithin the time period is included. Color Urine [place](A) Colorless, Straw, Light Yellow, Yellow 02/01/2024 11:38 AM CDT LABORATORY Appearance Urine Cloudy(A) Clear 02/01/20 24 11:38 AM CDT LABORATORY Glucose Urine Negative Negative mg/dL 02/01/2024 11:38 AM CDT LABORATORY Bilirubin Urine Negative Negative 4 11:38 AM CDT LABORATORY Ketones Urine Negative Negative mg/dL 02/01/2024 11:38 AM CDT LABORATORY Specific [place] Urine 1.022 1.003 - 1.035 02/01/2024 11:38 [...] MD LAB - URINE ORDERAB LES LABORATORY [facility] [address] floor, [address] [place] [address], [facility] [phone] * (ABNORMAL) Urine Culture (02/01/2024 11:11 AM [...] - MICRO GENERAL ORDERABLES UU IDD LABORATORY [facility] Inf. Diseases Diag. Lab [address] [facility], [address] [place] [phone] * EKG 12-lead, tracing only (02/01/2024 11:07 AM CDT) Systolic Blood Pressure mmHg RADIOLOGY RESULTS Diastolic Blood Pressure mmHg RADIOLOGY RESULTS Ventricular Rate 113 BPM RAD IOLOGY RESULTS Atrial Rate 113 BPM RADIOLOG Y RESULTS ID Interval 130 ms RADIOLOG Y RESULTS QRS Duration 84 ms RADIOLO GY RESULTS QT 372 ms RADIOLOGY RESULTS QTc 510 ms RADIOLOGY RESULTS P [place] 29 degrees RADIOLOGY RESULTS R AXIS 4 degrees RADIOLOGY RESULTS T [place] 129 degrees RADIOLOGY RESULTS Interpretation ECG Sinus tachycardia with occasional Premature ventricular complexes Left ventricular hypertrophy with repolarization abnormality ( R in aVL , Romhilt-Mckeon ) Abnormal ECG No previous ECGs available Confirmed by GENERATED REPORT, COMPUTER ([id number]), graphics editor FAWAD CHU ([id number]) on 02/02/2024 5:45:31 PM RADIOLOGY RESULTS 02/01/2024 11:0 7 AM CDT 02/02/2024 5:45 PM CDT Shaista Dimas MD ECG ORDERABLES RADIOLOGY RESULTS * Symptomatic Influenza A/B, RSV, & SARS-CoV2 PCR (COVID-19) Nasopharyngeal (02/01/2024 10:35 AM CDT) Influenza A PCR Negative Negative 02/01/2024 11:31 [...] 10:35 AM CDT 02/01/2024 10:45 AM CDT [facility] LABORATORY - 02/01/2024 11:31 AM CDT Testing was performed using the Xpert Xpress CoV2/Flu/RSV Assay on the [employer] Corporation[employer]pert Instrument. This test should be ordered for [...] management. This test was validated by the [facility]. These laboratories are certified under the Clinical Laboratory Improvement Amendments of 1988 (CLIA-88) as qualified to perfom high complexity laboratory testing. Shaista Dimas MD LAB - MICRO GENERAL ORDERABLES LABORATORY [facility] [address] 1[address] floor, [address] [place] [address], [facility] [phone] * (ABNORMAL) iStat Gases (lactate) venous, POCT [...] 02/01/2024 10:59 AM CDT Shaista Dimas MD [facility] POCT LABORATORY POC [facility] [address] floor, [address] [place] [address] * (ABNORMAL) Verigene GN Panel (02/01/2024 10:31 AM CDT) Pathologist [facility] Acinetobacter species Not Detected Not Detected 02/02/2024 [...] - MICRO GENERAL ORDERABLES UU IDD LABORATORY [facility] Inf. Diseases Diag. Lab [address] [facility], [address] [place] [phone] * Extra Blood Culture Bottle (02/01/2024 10:31 AM CDT) Hold Specimen [facility] 02/01/2024 11:46 AM CDT LABORATORY Blood BLOOD SPECIMEN / Unknown Venipuncture / Unknown 02/01/2024 10:31 AM CDT 02/01/2024 10:45 AM CDT Shaista Dimas MD LAB - BLOOD ORDERAB LES [facility] [address] floor, [address] [place] [address], [facility] [phone] * Extra Purple Top Tube (02/01/2024 10:31 AM CDT) Hold Specimen [facility] 02/01/2024 11:46 AM CDT LABORATORY Blood BLOOD SPECIMEN / Unknown Venipuncture / Unknown 02/01/2024 10:31 AM CDT 02/01/2024 10:45 AM CDT Shaista Dimas MD LAB - BLOOD ORDERAB LES [facility] [address] floor, [address] [place] [address], [facility] [phone] * Extra Green Top ([place] Heparin) Tube (02/01/2024 10:31 AM CDT) Hold Specimen [facility] 02/01/2024 11:46 AM CDT LABORATORY Blood BLOOD SPECIMEN / Unknown Venipuncture / Unknown 02/01/2024 10:31 AM CDT 02/01/2024 10:45 AM CDT Shaista Dimas MD LAB - BLOOD ORDERAB LES [facility] [address] floor, [address] [place] [address], [facility] [phone] * Extra Red Top Tube (02/01/2024 10:31 AM CDT) Hold Specimen [facility] 02/01/2024 11:46 AM CDT LABORATORY Blood BLOOD SPECIMEN / Unknown Venipuncture / Unknown 02/01/2024 10:31 AM CDT 02/01/2024 10:45 AM CDT Shaista Dimas MD LAB - BLOOD ORDERAB LES LABORATORY [facility] [address], Room [address] [place] [address], [facility] [phone] * Extra Blue Top Tube (02/01/2024 10:31 AM CDT) [facility] Signature Hold Specimen [facility] 02/01/2024 11:46 AM CDT LABORATORY Blood BLOOD SPECIMEN / Unknown Venipuncture / Unknown 02/01/2024 10:31 AM CDT 02/01/2024 10:45 AM CDT Shaista Dimas MD LAB - BLOOD ORDERAB LES LABORATORY [facility] [address] floor, [address] [place] [address], [facility] [phone] * (ABNORMAL) Hemoglobin A1c (02/01/2024 10:31 AM CDT) [facility] Signature Estimated Average Glucose 131(H) <117 mg/dL 02/01/2024 4:53 PM CDT LABORATORY Hemoglobin A1C 6.2(H) <5.7 % 02/01/2024 4:53 PM CDT LABORATORY Comment: Normal <5.7% Prediabetes 5.7-6.4% ?? Diabetes 6.5% or higher Note: Adopted from ADA consensus guidelines. Blood BLOOD SPECIMEN / Unknown Venipuncture / Unknown 02/01/2024 10:31 AM CDT 02/01/2024 10:45 AM CDT Jessica Niño APRN INTEGRATION AIDE LAB - BLOOD OR DERABLES LABORATORY [facility] [address] floor, [address] [place] [address], [facility] [phone] * Bilateral nephrostomy tube exchange/upsize (11/25/2023 4:39 PM CDT) Narrative Marylin aPvon, - 11/25/2023 4:39 PM CDT Marylin Pavon, DO ? 11/25/2023 ??4:40 PM [facility] Procedure: Bilateral nephrostomy tube exchange/upsize Date/Time: 11/25/2023 4:39 PM Performed by: Marylin Pavon DO Authorized by: Marylin Pavon, DO ?? UNIVERSAL PROTOCOL Site Marked: NA [...] procedure a time out was called ?? Eek Protocol: the Joint Commission Eek Protocol was followed ?? Preparation: Patient was [...] for 1:1 monitoring during sedation: 10 Marylin Maribel Pavon DO PROCEDURE/ MINOR SURGICAL ORDERABLES * IR Nephrostomy Tube Change Bilateral (11/25/2023 12:09 PM CDT) Anatomical Region Laterality Modality Abdomen/Pelvis Radio Fluoroscop y Impressions 11/26/2023 3:12 PM CDT IMPRESSION: Successful bilateral 10.2 Cuban nephrostomy tube exchanges/upsize, as detailed above. PLAN: [...] observer. The physician spent 9 minutes of [id number] sedation time with the patient. CONTRAST: 10 [...] over the wire for a new 10.2 Cuban left nephrostomy tube, and its tip was [...] maintaining wire access and a new 10.2 Cuban right sided nephrostomy tube was advanced over [...] observer. The physician spent 9 minutes of [id number] sedation time with the patient. CONTRAST: 10 [...] over the wire for a new 10.2 Cuban left nephrostomy tube, and its tip was [...] maintaining wire access and a new 10.2 Cuban right sided nephrostomy tube was advanced over [...] in stable condition. IMPRESSION: Successful bilateral 10.2 Cuban nephrostomy tube exchanges/upsize, as detailed above. PLAN: The patient should return for routine exchange in 3 months. MARYLIN PAVON DO Jennifer Peguero MD IMG IR ORDERABLES from Last 3 Months Advance Directives For more information, please contact: [phone] * Full Code (Latest Code Status on [...] meg nt/ legal decision maker Care Teams Office Cashier Relationship Specialty Start Date End Date [facility] [address] [place] [address] PCP - General 07/31/23
--- OUTSIDE RECORDS SUMMARY | 2024-02-03 01:24 | XMS_ITS | Encounter Summary ---
Author Organization [place] Address [address] [place] [address] Care Team Providers Care Sql Programmer Analyst Name Role Phone Clinic, [facility] Primary Care Provider Encounter Details Date Type Department Care Team (Late st Contact Info) Description 10/06/2023 Orders Only [facility] [address] [phone] Aurea Altamirano APRN [facility] ONCOLOGY [address] [facility] [address] [place] [address] Malignant neoplasm of exocervix (H) (Primary Dx) [...] st Contact Info) Description 03/07/2024 Hospital Encounter [facility] [address] 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
--- OUTSIDE RECORDS SUMMARY | 2024-02-03 01:24 | XMS_ITS | Encounter Summary ---
Author Organization [place] Address [address] [place] [address] Care Team Providers Care Blacking Machine Operator Name Role Phone Clinic, [facility] Primary Care Provider Encounter Details Date Type Department Care Team (Latest Contact Info) Description 02/01/2024 Travel Social History Tobacco Use Types Packs/Day [...] in an abandoned building, in an overnight detention, or couch-surfing.) No 02/01/2024 Are you worried [...] st Contact Info) Description 03/07/2024 Hospital Encounter [facility] [address] [place] [phone] 03/07/2024 2:20 PM CASING SEWER Ancillary Procedure [facility] [address] [facility] [place] [phone] Otilia Escoto PAMarceloC [place] [facility] [address] [place] [address] documented as of this encounter Visit Diagnoses Not on filedocumented in this encounter Additional Health Concerns Infection Onset Date Last Indicated Resolved Time Rule Out COVID-19 02/01/2024 02/01/2024 02/01/2024 11:31 AM CDT documented as of this encounter Care Teams Blacking Machine Operator Relationship Specialty Start Date End Date Clinic, [facility] [address] [place] [address] PCP - General 07/31/23 documented as of this encounter
--- OUTSIDE RECORDS SUMMARY | 2024-02-03 01:24 | XMS_ITS | Encounter Summary ---
Author Organization [place] Address [address] [facility] [address] [place] [address] Care Team Providers Care Trial Judge Name Role Phone Clinic, [facility] Primary Care Provider Encounter Details Date Type Department Care Team (Late st Contact Info) Description 11/25/2023 9:47 AM CDT - 11/25/2023 1:55 PM CDT Hospital Encounter [facility] [address] [place] [phone] Non-Fv Credentialed Provider, Radiology Marylin Pavon DO [facility] [address] [place], [place] [id number] Vesicovaginal fistula Discharge Disposition: Home or Self [...] temperature daily If you have questions call: [facility] Radiology Dept @ [phone] Or you can contact your provider via My Chart documented in this encounter Medications at Time of Discharge Medication Sig Dispensed Refills Start Date End Date acetaminophen (TYLENOL) 500 MG tablet Take 500-1,000 mg by mouth every 6 hours as needed for mild pain amLODIPine (NORVASC) 10 MG tablet Take 10 mg by mouth daily carvedilol (COREG) 6.25 MG tablet Take 6.25 mg by mouth 2 times daily (with meals). losartan-hydrochloroth iazide (HYZAAR) 100-12.5 MG tablet Take 1 tablet by mouth daily oxyCODONE (ROXICODONE) 5 MG tablet Take 5 mg by mouth every 4 hours as needed for severe pain. DULoxetine (CYMBALTA) 30 MG capsule Take 30 mg by mouth 2 times daily 02/01/2024 HYDROmorphone (DILAUDID) 2 MG tabletIndications:Acut e post-operative pain Take 1 tablet (2 mg) by mouth every 4 hours as needed for moderate pain 20 tablet 08/11/2023 02/01/2024 hydrOXYzine HCl (ATARAX) 25 MG tablet Take 25 mg by mouth 3 times daily as needed for itching 02/01/2024 hydrOXYzine nii (VISTARIL) 25 MG capsule Take 25 mg by mouth 3 times daily as needed for itching. 02/01/2024 ibuprofen (ADVIL/MOTRIN) 200 MG tablet Take 200 mg by mouth every 4 hours as needed for pain 02/01/2024 senna-docusate (SENOKOT-S/PERICOLACE) 8.6-50 MG tabletIndications:Drug -induced constipation Take 1 tablet by mouth 2 times daily as needed for constipation 30 tablet 08/11/2023 02/01/2024 documented as of this encounter Progress Notes * Daisy Cabrera RN - 11/25/2023 1:33 PM CDT Care Suites Discharge Nursing Note Patient Information Name: Mora Kessler Age: [age] year old Discharge Education: Discharge instructions reviewed: Yes Additional education/resources provided: AVS Patient/patient bilingual call center representative verbalizes understanding: Yes Patient [...] plan Discharge Planning Discharge name/phone number: Zoe [phone] Overnight post sedation caregiver: Zoe Discharge location: home Rodríguez Leos RN documented in this encounter Procedure Notes * Marylin Pavon DO - 11/25/2023 1:55 PM CDTAssociated Order(s): Bilateral nephrostomy tube exchange/upsize [facility] Procedure: Bilateral nephrostomy tube exchange/upsize [...] the procedure a time out was called [place] Protocol: the Joint Commission [place] Protocol was followed Preparation: Patient was prepped [...] End time: 1205 Report provided to: Marcia RN Note: Patient entered Interventional Radiology Suite number [...] sedation administered at 1159. * [facility] SUPERVISOR STATEMENT CLERKS - 11/25/2023 10:40 AM CDT GENERAL PRE-PROCEDURE: [...] tubes easier. Total time: 20 minutes Thanks [facility] Interventional Radiology SUPERVISOR STATEMENT CLERKS ([phone]) (phone [phone]) documented in this encounter Plan of Treatment Upcoming Encounters Date Type Department Care Team (Late st Contact Info) Description 03/07/2024 Hospital Encounter [facility] Imaging [address] [place] [phone] 03/07/2024 2:20 PM POWER BENDER OPERATOR Ancillary Procedure [facility] [address] [place] [phone] Otilia Escoto, PA-C [facility] [address] [place] [address] documented as of this encounter Procedures Procedure [...] CDT Marylin Pavon, ? 11/25/2023 ??4:40 PM [facility] Procedure: Bilateral nephrostomy tube exchange/upsize [...] procedure a time out was called ?? [place] Protocol: the Joint Commission [place] Protocol was followed ?? Preparation: Patient was [...] 3:12 PM CDT IMPRESSION: Successful bilateral 10.2 Maldivian nephrostomy tube exchanges/upsize, as detailed above. PLAN: [...] observer. The physician spent 9 minutes of [id number] sedation time with the patient. CONTRAST: 10 [...] over the wire for a new 10.2 Maldivian left nephrostomy tube, and its tip was [...] maintaining wire access and a new 10.2 Maldivian right sided nephrostomy tube was advanced over [...] observer. The physician spent 9 minutes of [id number] sedation time with the patient. CONTRAST: 10 [...] over the wire for a new 10.2 Maldivian left nephrostomy tube, and its tip was [...] maintaining wire access and a new 10.2 Maldivian right sided nephrostomy tube was advanced over [...] in stable condition. IMPRESSION: Successful bilateral 10.2 Maldivian nephrostomy tube exchanges/upsize, as detailed above. PLAN: [...] Provider: Steve Mcnally RN - Comment: Per MD) flumazenil (ROMAZICON) injection 0.2 mg 0.2 mg, [...] Provider: Steve Mcnally RN - Comment: per ) naloxone (NARCAN) injection 0.2 mg(Linked Group 1) [...] procedure documented in this encounter Care Teams Trial Judge Relationship Specialty Start Date End Date [address] [address] PCP - General 07/31/23 documented as of this encounter
--- OUTSIDE RECORDS SUMMARY | 2024-02-03 01:24 | XMS_ITS | Encounter Summary ---
Author Organization [place] Address [address] [place] [address] Care Team Providers Care Manager Of Compliance Name Role Phone Clinic, [facility] Primary Care Provider Encounter Details Date Type Department Care Team (Late st Contact Info) Description 11/24/2023 Telephone [facility] Interventional Radiology [address] [facility] [address] [place] [phone] Matilde Hill, RN Social History Tobacco Use [...] that she has already received them from medical appointment scheduler. H&P done today, she is aware of fasting parameters. Matilde Vargas eap clinician Flour Tester [phone] * Telephone Encounter - Matilde Hill RN - 11/24/2023 1:39 PM CDT INTERVENTIONAL RADIOLOGY INSTRUCTIONS You are scheduled for an upcoming procedure in the Interventional Radiology Department at [facility]. Date: ThursdayNovember 24 Procedure: Nephrostomy Tube Change Address: [facility] [address] [place], [place] [address] [employer] is located on [...] drive you home. A ride share service ([employer], [employer], [employer]) does not qualify for transportation home [...] received these instructions by replying to this Localmind message, or ifyou have any questions, please call the Interventional Radiology team at [phone]. Thank you! Matilde Vargas Interventional Radiology Intake Nurse Coordinator [phone] documented in this encounter Plan of Treatment Upcoming Encounters Date Type Department Care Team (Late st Contact Info) Description 03/07/2024 Hospital Encounter [facility] Imaging [address] [phone] 03/07/2024 2:20 PM REACHER Ancillary Procedure [facility] [address] [place] [phone] Otilia Escoto, PA-C [place] [facility] [address] [address] documented as of this encounter Visit Diagnoses Not on filedocumented in this encounter Care Teams Manager Of Compliance Relationship Specialty Start Date End Date Clinic, [address] [address] PCP - General 07/31/23 documented as of this encounter
--- OUTSIDE RECORDS SUMMARY | 2024-02-03 01:24 | XMS_ITS ---
Author Organization [place] Address [address] [place] [address] Care Team Providers Care Kier Tender Name Role Phone Clinic, [facility] Primary Care Provider Active Problems [...] treatments are documented for this patient in [facility]. Treatments may have been administered in another system. Lifetime Dose Tracking * Chemical Lifetime Dose Automatic Entry Manual Entr y Total Air Kerma 1,127.65 mGy 1,127.65 mGy 0 mGy Fluoro Time 20.1 Minutes 20.1 Minutes 0 Minutes
--- OUTSIDE RECORDS SUMMARY | 2024-02-03 01:24 | XMS_ITS | Encounter Summary ---
Author Organization [facility] Address [address] [facility] 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[employer] Name Role Phone Clinic, [facility] Primary Care Provider Reason for Visit * Reason Comments Generalized Weakness * Auth/Cert (Routine) Specialty Diagnoses / Procedures Referred By Pam t Referred To Contact EMERGENCY MEDICINE Diagnoses Severe sepsis (H) Urinary tract infection with hematuria, site unspecified History of cancer Renal failure, unspecified chronicity Generalized weakness Emergency Dept [address] [place] [address] Referral ID Status Reason Start Date Expiration Date Visits Re quested Visits Authorized [id number] 1 1 Encounter Details Date Type Department Care Team (Late st Contact Info) Description 02/01/2024 10:14 AM CDT - Present Hospital Encounter [place] [address] [facility] [address], [address] [place] [address] Shaista Dimas MD [facility] [address] [place], [place] [phone] Oscar Dumont MD [address] [place], [place] [phone] Severe sepsis (H); Urinary tract infection with hematuria, site unspecified; History of cancer; Renal failure, unspecified chronicity; Generalized weakness; Diarrhea, unspecified type Social History Tobacco Use Types Packs/Day Years [...] in an abandoned building, in an overnight intermediate, or couch-surfing.) No 02/01/2024 Are you worried [...] Mass Index 39.87 02/01/2024 10:18 AM CDT documented in this encounter Progress Notes * Carli Faulkner MD - 02/02/2024 2:07 PM CDT [facility] Hospitalist Progress Note Interval History Patient is awake and alert. Appears very deconditioned. Was febrile overnight. Having significant foul-smelling diarrhea. Very reduced output through the nephrostomy drains and is having output through her fistula. -Data reviewed today: I reviewed all new labs and imaging results over the last 24 hours. I personally reviewed no images or EKG's today. Physical Exam Temp: 98.1 ??F (36.7 ??C) Temp src: Oral BP: (!) 152/76 Pulse: 73 Resp: 20 SpO2: 99 % O2 Device: None (Room air) Vitals: 02/01/24 1018 Weight: 122.5 kg (270 lb) Vital Signs with Ranges Temp: [97.7 ??F (36.5 ??C)-100.6 ??F (38.1 ??C)] 98.1 ??F (36.7 ??C) Pulse: [73-104] 73 Resp: [20-21] 20 BP: (104-152)/(58-76) 152/76 SpO2: [96 %-100 %] 99 % I/O last 3 completed shifts: In: 50 [P.O.:50] Out: 1125 [Urine:1125] Physical Exam Constitutional: Appearance: She is obese. She is ill-appearing. Cardiovascular: Rate and Rhythm: Regular rhythm. Tachycardia present. Pulses: Normal pulses. Heart sounds: Normal heart sounds. Pulmonary: Effort: Pulmonary effort is normal. No respiratory distress. Breath sounds: Normal breath sounds. Abdominal: General: Bowel sounds are normal. There is distension. Tenderness: There is no abdominal tenderness. There is no guarding. 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 Reduced output through the nephrostomy drains. Has leakage with saturation of the dressing around her nephrostomy drains Skin: General: Skin is warm and dry. Coloration: Skin is pale. Neurological: General: No focal deficit present. Medications Current Facility-Administered Medications Medication Dose Route Frequency Provider Last Rate Last Admin sodium chloride 0.9 % infusion Intravenous Continuous Jessica Niño APRN CNP sodium chloride 0.9 % infusion Intravenous Continuous Jessica Niño APRN CNP 100 mL/hr at 02/02/24 0604 New Bag at 02/02/24 0604 Current Facility-Administered Medications Medication Dose Route Frequency Provider Last Rate Last Admin carvedilol (COREG) tablet 6.25 mg 6.25 mg Oral BID w/meals Jessica Niño APRN CNP 6.25 mg at 02/02/24 0956 ceFEPIme (MAXIPIME) 2 g vial to attach to NS 100 mL bag for ADULTS or NS 50 mL bag for PEDS 2 g Intravenous Q12H Jessica Niño APRN SENIOR RADIATION PROTECTION TECHNICIAN 2 g at 02/02/24 0543 heparin ANTICOAGULANT injection 5,000 Units 5,000 Units Subcutaneous Q8H Jessica Niño APRN CNP 5,000 Units at 02/02/24 1308 OLANZapine (zyPREXA) tablet 2.5 mg 2.5 mg Oral At Bedtime Jessica Niño APRN CNP 2.5 mg at 02/01/24 2129 predniSONE (DELTASONE) tablet 10 mg 10 mg Oral Daily Jessica Niño APRN SENIOR RADIATION PROTECTION TECHNICIAN 10 mg at 02/02/24 0956 sodium chloride (PF) 0.9% PF flush 3 mL 3 mL Intracatheter Q8H Jessica Niño APRN CNP 3 mL at 02/02/24 0543 Data Recent Labs Lab 02/02/24 1231 02/02/24 1122 02/01/24 1031 WBC -- 3.8* 4.8 HGB 7.3* 4.7* 8.7* MCV -- 96 96 PLT -- 118* 121* NA -- 139 134* POTASSIUM -- 3.2* 3.2* CHLORIDE -- 103 95* CO2 -- 20* 22 BUN -- 36.3* 39.0* CR -- 1.76* 2.04* ANIONGAP -- 16* 17* GORDO -- 8.4* 8.5* GLC -- 117* 174* ALBUMIN -- 2.7* 3.0* PROTTOTAL -- 6.2* 6.3* BILITOTAL -- 0.4 0.7 ALKPHOS -- 98 103 ALT -- 26 19 AST -- 17 17 No results found for this or any previous visit (from the past 24 hour(s)). Assessment & Plan Mora Kessler is a 58 year old female significant past medical history for adenocarcinoma of the lung, cervical cancer, hypertension, morbid obesity who presented to the ER with severe progression ofweakness. She was found to have fever, chills, tachycardia, and elevated lactic in ER initiated on fluid resuscitation and antibiotics. The hospitalist are requested to admit for further treatment and evaluation. Severe sepsis, suspect secondary to urinary infection -progressing weakness over the last 2 days with significant increase of severity today -temp 101.2, tachycardia 117, lactic 3.6 upon arrival -bilateral nephrostomy tubes with significant abnormality of urine and bilateral tubes noting greatamount of leukocyte esterase and bacteria -Mild leukopenia -Blood culture positive for gram-negative rods. Repeat blood culture drawn. -Infectious disease consulted -CT abdomen pelvis without contrast ordered in the setting of TASHA. -Received Zosyn in the ER. Transition to IV cefepime. Continue for now. -procalcitonin pending -Wound care consult placed for discharge and maceration around the vesicovaginal fistula site Acute on possible chronic stage III ckd Bilateral nephrostomy tubes, exchanged on 11/25/2023 Renal insufficiency -Follows with [place] [facility] -Patient's creatinine 2.04 on admission last creatinine 1.51 on 10/15/2023 was normal prior to this. -Patient's received 2 L NS due to severe sepsis as noted above -Recheck creatinine improved to 1.76. -Left nephrostomy drain having very minimal output and she is having increased output through vesicovaginal fistula. Concern for possible obstruction. Urology consulted. Patient will likely need replacement of both the percutaneous drains. -CT abdomen pelvis without contrast ordered. -hx of renal insufficiency, does take daily steroids prednisone 10mg -appears to receive stress dosing with [place] [facility] during chemo -will continue prednisone . Can consider stress dose steroids if blood pressures start dropping Loose stools -Patient reports ongoing for over a month -Attributes it to her changes in chemotherapy -Stool studies ordered and pending. Contact precautions till then. -Likely having electrolyte imbalances secondary to this as well as hypovolemia Hypovolemic hyponatremia Hypokalemia -Multifactorial attributed from decreased oral intake as well as prevalence of loose stools -Initial lactic acid elevated 3.6 did normalize after 2 L NS that was received while in the emergency department at 1.0 -Continue gentle fluid resuscitation with NS at 100 cc/h -Recheck chemistry in the a.m. Anion gap metabolic acidosis -Receiving fluid resuscitation secondary likely to hypovolemia and infection -Monitor closely. -Anion gap 17---16 Hyperglycemia without history of diabetes -Check hemoglobin A1c -Suspect this is secondary due to hypovolemic status with prevalence of loose stools and infection -Rechecking chemistry in a.m. monitor for now Hypokalemia Hypomagnesemia -k+ 3.2 -replaced in ER -place on replacement protocol -recheck chem in am -likely secondary to frequent loose stools -Hypomagnesemia resolved Anemia of chronic disease chemotherapy Thrombocytopenia, chronic Mild leukopenia -hgb 8.7 previous 7.6 on 10/05/2023 -Hemoglobin was down to 4.7 on 02/02/2024. Immediate recheck was at 7.3. -1 unit packed RBCs given after consent obtained. -platelets 121, previous 112 -WBC at 3.8 -monitor CBC closely Cervical cancer, stg OSVALDO Adenocarcinoma of lung, quiescent Uterine caner -follows [place] [facility] -on paclitaxel, pembrolizumab, carboplatin -on current chemotherapy, last , receives fluids tid with [facility] -consult [facility] - s/p thoracic surgery w/ Dr. Gandara on 08/10/2023 with no additional treatment necessary s/p surgery. Hypertension -did not take medications 01/31/2024 -b/p a bit soft here with sepsis and hypovolemia 105/70 -hold amlodipine and hyzaar -coreg with sbp hold parameter of 110< Chronic pain secondary to cancer -continue oxycodone -tylenol -zyprexa Morbid obesity -bmi 39.87 Diet: clears, advance as tolerated DVT Prophylaxis: Heparin SQ Joe Catheter: Not present Lines: PRESENT Cardiac Monitoring: None Code Status: Full code Clinically Significant Risk Factors # Hypokalemia: Lowest K = 3.2 mmol/L in last 2 days, will replace as needed # Hyponatremia: Lowest Na = 134 mmol/L in last 2 days, will monitor as appropriate # Hypomagnesemia: Lowest Mg = 1.4 mg/dL in last 2 days, will replace as needed # Hypoalbuminemia: Lowest albumin = 2.7 g/dL at 02/02/2024 11:22 AM, will monitor as appropriate # Thrombocytopenia: Lowest platelets = 118 in last 2 days, will monitor for bleeding # Obesity: Estimated body mass index is 39.87 kg/m?? as calculated from the following: Height as of this encounter: 1.753 m (5' 9). Weight as of this encounter: 122.5 kg (270 lb)., PRESENT ON ADMISSION Medically Ready for Discharge: Anticipated in 2-4 Days Greater than 50 minutes spent on documentation review, lab review, imaging review, discussing care with patient and family at bedside Carli Faulkner MD, (p) * Dewayne Tam RD - 02/02/2024 7:33 AM CDT CLINICAL NUTRITION SERVICES - ASSESSMENT NOTE Recommendations Ordered by Registered Dietitian (RD): Encouraged po intake, emphasizing the importance of protein to preserve lean muscle mass multivitamin with minerals until adequate po intake mixed asles Ensure and either flavor of Gel+ TID w/ meals. Future/Additional Recommendations: Update supplements when >/= FLD Malnutrition: % Weight Loss: > 10% in 6 months (severe malnutrition) - at least 20% wt loss in 6 months % Intake: <75% for >/= 1 month (moderate malnutrition) - at least Subcutaneous Fat Loss: None observed - difficult to accurately assess habitus Muscle Loss: None observed - suspect losses have occurred but difficult to accurately assess habitus Fluid Retention: None noted Malnutrition Diagnosis: At least Moderate malnutrition In Context of: Acute illness or injury Chronic illness or disease REASON FOR ASSESSMENT Mora Kessler is a 58 year old female seen by Registered Dietitian for Admission Nutrition Risk Screen for positive Malnutrition Score: 5 (02/01/241951) for unintentional wt loss and poor appetite. PMH of: adenocarcinoma of the lung, cervical cancer, hypertension, morbid obesity who presented to the ER with severe progression of weakness NUTRITION HISTORY - Information obtained from chart review, spouse in chair, and pt in bed, who endorsed the wt loss and a poor appetite. - Pt report a lack of appetite with the loose stools for the past month or so and explained she's had minimal po intake. When asked how much less than normal she been eating she said a lot less, I was hardly eating anything at all. - Pt reported a stable wt of 347 lbs before she lost wt and eventually saying she's lost at least 70 lbs in total. - Use of oral supplements: pt drinks Premier Protein at home, vanilla and caramel flavors. While onCLD she'd like mixed sales Ensure and either flavor of Gel+ TID w/ meals. If/when diet advances >/= FLD, she'd like vanilla flavor drinks and can decrease amounts accordingly. She's also OK w/ SF Gel+ and/or Glucerna if on Moderate consistent carbohydrate diet CURRENT NUTRITION ORDERS Diet Order: Clear Liquid - They had no questions about the CLD Current Intake/Tolerance: Daiana had just finsihed her breakfast tray. Politely reported it was bland, and very clear! NUTRITION FOCUSED PHYSICAL ASSESSMENT FOR DIAGNOSING MALNUTRITION) Yes Observed: No nutrition-related physical findings observed ANTHROPOMETRICS Height: 5' 9 Weight: 270 lbs 0 oz Body mass index is 39.87 kg/m??. Weight Status: Obesity Grade II BMI 35-39.9 - upper end of range IBW: 66.2 kg % IBW: >120% Weight History: Stable wt prior to wt loss - 157.7 kg (347 lbs) Wt Readings from Last 10 Encounters: 02/01/24 122.5 kg (270 lb) 11/25/23 135.2 kg (298 lb) 10/15/23 138.8 kg (306 lb) 10/07/23 139.7 kg (308 lb) 10/05/23 139.7 kg (308 lb) 08/10/23 (!) 152.4 kg (336 lb) - 20% wt loss in 6 months LABS Na 134 (L), K+ 3.2 (L), BUN 39 (H), Cr 2.04 (H), GFR 28 (L), Mg 2.9 (H), BG 174, MEDICATIONS Medications reviewed ASSESSED NUTRITION NEEDS PER APPROVED PRACTICE GUIDELINES: Dosing Weight 80.3 kg (adjusted) Estimated Energy Needs: 9253-9280 kcals (20-25 Kcal/Kg) Justification: obese Estimated Protein Needs: 80-96 grams protein (1-1.2 g pro/Kg) Justification: maintenance Estimated Fluid Needs: 9796-1246 mL (1 mL/Kcal) Justification: maintenance MALNUTRITION: % Weight Loss: > 10% in 6 months (severe malnutrition) - at least 20% wt loss in 6 months % Intake: <75% for >/= 1 month (moderate malnutrition) - at least Subcutaneous Fat Loss: None observed - difficult to accurately assess habitus Muscle Loss: None observed - suspect losses have occurred but difficult to accurately assess habitus Fluid Retention: None noted Malnutrition Diagnosis: At least Moderate malnutrition In Context of: Acute illness or injury Chronic illness or disease NUTRITION DIAGNOSIS: Inadequate oral intake related to altered GI function as evidenced by loose stools for 1 month or so, lack of appetite, at least <75% po intake for 1 month or so, and at least 20% wt loss in 6 months NUTRITION INTERVENTIONS Recommendations / Nutrition Prescription Encouraged po intake, emphasizing the importance of protein to preserve lean muscle mass mixed sales Ensure and either flavor of Gel+ TID w/ meals. multivitamin with minerals until adequate po intake Continue CLD, per MD Update supplements when >/= FLD Implementation Nutrition education: Per Provider order if indicated General/healthful diet and Medical Food Supplement Nutrition Goals PO intake - advance textures as able PO intake - >75% of meal trays and/or the equivalent in supplements TID MONITORING AND EVALUATION: Progress towards goals will be monitored and evaluated per protocol and Practice Guidelines Dewayne Tam RD, LD * eBll Hurley PA-C - 02/02/2024 7:13 AM CDT UROLOGY BRIEF NOTE Pt with lung and cervical cancer, vesicovaginal fistula. Follows with [facility] and has seen Dr. Gaines in the past for surgical planning. She has bilateral PCNs in place, last changed 2mo ago. Now admitted with concern for sepsis, cultures pending. Her creat is up to 2.04, was 1.5 when last checked 10/15/23 and <1 prior to then. RN noting leaking from left PCN. Would check CT abd/pelvis as further workup Favor PCN exchange by IR this admission, ideally after several days of abx but sooner if concern for malfunction Will see pt later today for formal consult and discuss with Dr. Eder Hurley PA-C [facility] [email or web address] Text Page (7am to 5pm) * Romel Faith RN - 02/02/2024 7:09 AM CDT Summary: Presented with increased weakness, UTI; hx lung cancer, cervical cancer. Primary Diagnosis: UTI Orientation: A&O x4 Aggression Stop Light: Green Mobility: Ax2, lift, weak; independent at baseline until recently per pt Abnl VS: on RA. Pain Management: Denies Diet: Clears Bowel/Bladder: Incontinent b/b, No BM this shift; bilateral neph tubes, L neph tube leaking at insertion site, dressing changed CDI this AM. Abnormal Lab/Assessments: Mag 2.9, AM recheck for tomorrow AM. Awaiting AM labs. Positive blood cx for klebsiella MD zoraida notified. Drain/Device/Wound: PIV L arm with NS infusing @ 100 mL/hr; bilateral neph tubes; port R chest not accessed. Consults: Hem/ Onc; Urology D/C Day/Goals/Place: Discharge pending. Significant information: L neph tube leaking at insertion site, dressing changed x1 * Naman Lawson RN - 02/01/2024 5:50 PM CDT RECEIVING UNIT ED HANDOFF REVIEW ED Nurse Handoff Report was reviewed by: Naman Lawson RN on February 01, 2024 at 5:50 PM documented in this encounter H&P Notes * Jessica Niño, [employer] SENIOR RADIATION PROTECTION TECHNICIAN - 02/01/2024 1:19 PM CDT [facility] History and Physical - Hospitalist Service Date of Admission: 02/01/2024 Assessment & Plan Mora Kessler is a 58 year old female significant past medical history for adenocarcinoma of the lung, cervical cancer, hypertension, morbid obesity who presented to the ER with severe progression ofweakness. She was found to have fever, chills, tachycardia, and elevated lactic in ER initiated on fluid resuscitation and antibiotics. The hospitalist are requested to admit for further treatment and evaluation. Severe sepsis, suspect secondary to urinary infection -progressing weakness over the last 2 days with significant increase of severity today -temp 101.2, tachycardia 117, lactic 3.6 upon arrival -bilateral nephrostomy tubes with significant abnormality of urine and bilateral tubes noting greatamount of leukocyte esterase and bacteria -White blood cell count however normal at 4.8 without left shift -Need to consider possibility of different source or perhaps even SIRS. -Patient will benefit from CT chest abdomen pelvis for further investigation, however her GFR is currently not above 30 we will reassess chemistry panel after fluid resuscitation and consider CT thereafter. -patient did receive dose of zosyn in ER. Will continue antibiotic coverage with cefepime for now, and de-escalate transition to cultures -bc drawn and pending -procalcitonin pending Acute on possible chronic stage III ckd Bilateral nephrostomy tubes, exchanged on 11/25/2023 Renal insufficiency -Follows with [place] [facility] -Patient's creatinine 2.04 on admission last creatinine 1.51 on 10/15/2023 was normal prior to this. -Patient's received 2 L NS due to severe sepsis as noted above -Recheck chemistry in the a.m. -Hope for improvement of GFR as patient would benefit from CT chest abdomen pelvis with contrast for further investigation of infectious process. -hx of renal insufficiency, does take daily steroids prednisone 10mg -appears to receive stress dosing with [facility] during chemo -will continue prednisone Loose stools -Patient reports ongoing for over a month -Attributes it to her changes in chemotherapy -[facility] with stool samples collected and pending at this time -Likely having electrolyte imbalances secondary to this as well as hypovolemia Hypovolemic hyponatremia -Multifactorial attributed from decreased oral intake as well as prevalence of loose stools -Initial lactic acid elevated 3.6 did normalize after 2 L NS that was received while in the emergency department at 1.0 -Continue gentle fluid resuscitation with NS at 100 cc/h -Recheck chemistry in the a.m. Anion gap metabolic acidosis -Receiving fluid resuscitation secondary likely to hypovolemia and infection -Recheck chemistry in a.m. Hyperglycemia without history of diabetes -Check hemoglobin A1c -Suspect this is secondary due to hypovolemic status with prevalence of loose stools and infection -Rechecking chemistry in a.m. monitor for now Hypokalemia -k+ 3.2 -replaced in ER -place on replacement protocol -recheck chem in am -likely secondary to frequent loose stools Anemia of chronic disease chemotherapy Thrombocytopenia, chronic -hgb 8.7 previous 7.6 on 10/05/2023 -platelets 121, previous 112 -monitor, recheck cbc in am Cervical cancer, stg OSVALDO Adenocarcinoma of lung, quiescent Uterine caner -follows [place] [facility] -on paclitaxel, pembrolizumab, carboplatin -on current chemotherapy, last , receives fluids tid with [facility] -consult [facility] - s/p thoracic surgery w/ Dr. Gandara on 08/10/2023 with no additional treatment necessary s/p surgery. Hypertension -did not take medications 01/31/2024 -b/p a bit soft here with sepsis and hypovolemia 105/70 -hold amlodipine and hyzaar -coreg with sbp hold parameter of 110< Chronic pain secondary to cancer -continue oxycodone -tylenol -zyprexa Morbid obesity -bmi 39.87 Diet: clears, advance as tolerated DVT Prophylaxis: Heparin SQ Joe Catheter: Not present Lines: PRESENT Cardiac Monitoring: None Code Status: Full code Clinically Significant Risk Factors Present on Admission # Hypokalemia: Lowest K = 3.2 mmol/L in last 2 days, will replace as needed # Hyponatremia: Lowest Na = 134 mmol/L in last 2 days, will monitor as appropriate # Hypoalbuminemia: Lowest albumin = 3 g/dL at 02/01/2024 10:31 AM, will monitor as appropriate # Thrombocytopenia: Lowest platelets = 121 in last 2 days, will monitor for bleeding # Hypertension: Home medication list includes antihypertensive(s) # Anemia: based on hgb <11 # Obesity: Estimated body mass index is 39.87 kg/m?? as calculated from the following: Height as of this encounter: 1.753 m (5' 9). Weight as of this encounter: 122.5 kg (270 lb). Disposition Plan Medically Ready for Discharge: Anticipated in 2-4 Days The patient's care was discussed with the Attending Physician, Dr. Dumont . Jessica Niño, [facility] Hospitalist Service [facility] Securely message with [employer] (more info) Text page via [employer] Paging/Directory Chief Complaint Weakness History is obtained from the patient, electronic health record, emergency department physician, andpatient's significant other History of Present Illness Mora Kessler is a 58 year old female significant past medical history for adenocarcinoma of the lung s/p thoracic surgery w/ Dr. Gandara on 08/10/2023 with no additional treatment necessary s/p surgery, stg OSVALDO cervical cancer follows with [facility], hypertension, anemia, and morbid obesity who presented to the ER with severe progression of weakness. She was found to have fever 101.2, chills, tachycardia 117, and elevated lactic3.6 in ER. She is also found to be covered in feces with having ongoing loose stools for a month but with addition of severe onset of severe weakness today was not able to get up out of bed. Patient received 2 L NS fluid resuscitation and was initiated on IV antibiotics. The hospitalist are requested for further treatment evaluation. Patient seen while still in the emergency department upon entering room patient is alert, oriented,very pleasant and her is at bedside. Patient denies knowing that she was having any fevers at home she says that she did have some chills perhaps yesterday. She denies any headache. She denies any shortness of breath or chest pain. She denies any nausea or vomiting. She states that her appetite is quite poor she has had significant decrease in oral fluid intake and has been having ongoingloose stool which seems to increase with chemotherapy. She does receive outpatient fluids 3 times aweek through her [place] oncology office. She states typically she is able to get up and able to take care of herself taking showers etc. but was so weak that she was not able to get herself to therestroom with having profound stools today. She lives at home with her again typically ableto perform her own ADLs. Past Medical History Past Medical History: Diagnosis Date Adenocarcinoma, lung, right (H) Anemia due to blood loss, acute Cervical cancer (H) Complicated UTI (urinary tract infection) Endometrial cancer (H) Excessive vaginal bleeding Hyperglycemia Hypertension Hypertensive urgency Morbid obesity (H) Transient global amnesia Urine frequency Past Surgical History Past Surgical History: Procedure Laterality Date ([place]) [facility] RADICAL RESEC TUMOR OF ARM/ELBOW<5CM Left 1979 EXAM UNDER ANESTHESIA PELVIC N/A 10/05/2023 Procedure: Pelvic examination under anesthesia,; Surgeon: Jennifer Peguero MD; Location: [facility] IR LUNG BIOPSY MEDIASTINUM RIGHT 07/21/2023 IR NEPHROSTOMY TUBE CHANGE BILATERAL 11/25/2023 IR NEPHROSTOMY TUBE PLACEMENT BILATERAL 10/15/2023 THORACOSCOPIC WEDGE RESECTION LUNG Right 08/10/2023 Procedure: RIGHT VIDEO ASSISTED THORACOSCOPY WEDGE RESECTION RIGHT MIDDLE LOBE LUNG NODULE; Surgeon: Josafat Gandara MD; Location: [facility] OR Prior to Admission Medications Prior to Admission Medications Prescriptions Last Dose Informant Patient Reported? Taking? DULoxetine (CYMBALTA) 30 MG capsule Yes No Sig: Take 30 mg by mouth 2 times daily HYDROmorphone (DILAUDID) 2 MG tablet No No Sig: Take 1 tablet (2 mg) by mouth every 4 hours as needed for moderate pain acetaminophen (TYLENOL) 500 MG tablet Yes No Sig: Take 500-1,000 mg by mouth every 6 hours as needed for mild pain amLODIPine (NORVASC) 10 MG tablet Yes No Sig: Take 10 mg by mouth daily carvedilol (COREG) 3.125 MG tablet Yes No Sig: Take 3.125 mg by mouth 2 times daily (with meals) hydrOXYzine HCl (ATARAX) 25 MG tablet Yes No Sig: Take 25 mg by mouth 3 times daily as needed for itching hydrOXYzine nii (VISTARIL) 25 MG capsule Yes No Sig: Take 25 mg by mouth every 4 hours as needed for itching ibuprofen (ADVIL/MOTRIN) 200 MG tablet Yes No Sig: Take 200 mg by mouth every 4 hours as needed for pain losartan-hydrochlorothiazide (HYZAAR) 100-12.5 MG tablet Yes No Sig: Take 1 tablet by mouth daily oxyCODONE IR (ROXICODONE) 10 MG tablet Yes No Sig: Take 5 mg by mouth every 4 hours as needed for severe pain senna-docusate (SENOKOT-S/PERICOLACE) 8.6-50 MG tablet No No Sig: Take 1 tablet by mouth 2 times daily as needed for constipation Facility-Administered Medications: None Social History I have reviewed this patient's social history and updated it with pertinent information if needed. Social History Tobacco Use Smoking status: Former Current packs/day: 0.00 Average packs/day: 1 pack/day for 15.0 years (15.0 ttl pk-yrs) Types: Cigarettes, Cigars Start date: 1983 Quit date: 1998 Years since quittin.7 Smokeless tobacco: Never Tobacco comments: Cigars a few times a month Substance Use Topics Alcohol use: Yes Comment: 2-3 drinks per week Drug use: Never Physical Exam Vital Signs: Temp: (!) 101.2 ??F (38.4 ??C) Temp src: Oral BP: 100/63 Pulse: 105 Resp: 10 SpO2: 98 % Weight: 270 lbs 0 oz Physical Exam Constitutional: Appearance: She is diaphoretic. Comments: Currently unhygienic with fecal matter noted on exam HENT: Head: Normocephalic. Comments: Alopecia Nose: Nose normal. Mouth/Throat: Mouth: Mucous membranes are dry. Eyes: Pupils: Pupils are equal, round, and reactive to light. Cardiovascular: Rate and Rhythm: Regular rhythm. Tachycardia present. Pulses: Normal pulses. Heart sounds: Normal heart sounds. Pulmonary: Effort: Pulmonary effort is normal. Breath sounds: Normal breath sounds. Abdominal: General: Bowel sounds are normal. Palpations: Abdomen is soft. Musculoskeletal: General: Normal range of motion. Skin: General: Skin is warm. Neurological: General: No focal deficit present. Mental Status: She is alert and oriented to person, place, and time. Psychiatric: Mood and Affect: Mood normal. Medical Decision Making 68 MINUTES SPENT BY ME on the date of service doing chart review, history, exam, documentation & further activities per the note. Data I have personally reviewed the following data over the past 24 hrs: 4.8 \ 8.7 (L) / 121 (L) 134 (L) 95 (L) 39.0 (H) / 174 (H) 3.2 (L) 22 2.04 (H) \ ALT: 19 AST: 17 AP: 103 TBILI: 0.7 ALB: 3.0 (L) TOT PROTEIN: 6.3 (L) LIPASE: N/A Procal: N/A CRP: N/A Lactic Acid: 1.0 Imaging results reviewed over the past 24 hrs: No results found for this or any previous visit (from the past 24 hour(s)). Associated attestation - Oscar Dumont MD - 02/01/2024 4:46 PM CDT Physician Attestation I have reviewed and discussed with the advanced practice provider their history, physical and plan for Mora Kessler. I did not participate in a shared visit; this is an advanced practice provider only visit. Oscar Dumont MD Date of Service (when I saw the patient): I did not personally see this patient today. documented in this encounter Consult Notes * Tamy Robins BSW - 02/02/2024 4:24 PM CDTAssociated Order(s): CARE MANAGEMENT / SOCIAL WORK IP CONSULT Care Management Initial Consult General Information Assessment completed with: Patient, Spouse or significant other, Pt, Zoe Type of CM/SW Visit: Initial Assessment Primary Care Provider verified and updated as needed: Yes Readmission within the last 30 days: no previous admission in last 30 days Reason for Consult: other (see comments) (elevated risk) Advance Care Planning: Advance Care Planning Reviewed: no concerns identified Communication Assessment Patient's communication style: spoken language (Maldivian or Bilingual) Hearing Difficulty or Deaf: no Wear Glasses or Blind: yes Cognitive Cognitive/Neuro/Behavioral: WDL Living Environment: People in home: spouse Zoe Current living Arrangements: house Able to return to prior arrangements: yes Family/Social Support: Care provided by: spouse/significant other Provides care for: no one, unable/limited ability to care for self Marital Status: Support system: , Friend Zoe Description of Support System: Supportive, Involved Support Assessment: Adequate family and caregiver support Current Resources: Patient receiving home care services: No Community Resources: None Equipment currently used at home: cane, straight, raised toilet seat, shower chair Supplies currently used at home: None Employment/Financial: Employment Status: employed part-time Financial Concerns: none Referral to Financial Worker: No Does the patient's insurance plan have a 3 day qualifying hospital stay waiver? No Lifestyle & Psychosocial Needs: Social Determinants of Health Food Insecurity: Low Risk (02/01/2024) Food Insecurity Within the past 12 months, did you worry that your food would run out before you got money to buy more?: No Within the past 12 months, did the food you bought just not last and you didn???t have money to getmore?: No Depression: Not at risk (08/14/2023) Received from [facility] PHQ-2 PHQ-2 TOTAL SCORE: 1 Housing Stability: High Risk (02/01/2024) Housing Stability Do you have housing? : No Are you worried about losing your housing?: Yes Tobacco Use: Medium Risk (02/01/2024) Patient History Smoking Tobacco Use: Former Smokeless Tobacco Use: Never Passive Exposure: Not on file Financial Resource Strain: Low Risk (02/01/2024) Financial Resource Strain Within the past 12 months, have you or your family members you live with been unable to get utilities (heat, electricity) when it was really needed?: No Alcohol Use: Not At Risk (08/07/2023) Received from [facility], [employer] [facility] [employer] [facility] Alcohol Use How often do you have a drink containing alcohol?: 3 How many drinks containing alcohol do you have on a typical day when you are drinking?: 0 How often do you have five or more drinks on one occasion?: 0 Transportation Needs: Low Risk (02/01/2024) Transportation Needs Within the past 12 months, has lack of transportation kept you from medical appointments, getting your medicines, non-medical meetings or appointments, work, or from getting things that you need?: No Physical Activity: Not on file Interpersonal Safety: Low Risk (02/01/2024) Interpersonal Safety Do you feel physically and emotionally safe where you currently live?: Yes Within the past 12 months, have you been hit, slapped, kicked or otherwise physically hurt by someone?: No Within the past 12 months, have you been humiliated or emotionally abused in other ways by your partner or ex-partner?: No Stress: Not on file Social Connections: Socially Integrated (07/16/2023) Received from [employer] [employer] [facility] Social Connections Frequency of Communication with Friends and Family: 0 Health Literacy: Not on file Functional Status: Prior to admission patient needed assistance: Dependent ADLs:: Ambulation-cane Dependent IADLs:: Cleaning, Cooking, Laundry, Shopping, Meal Preparation, Money Management, Medication Management, Transportation, Incontinence Assesssment of Functional Status: Not at baseline with ADL Functioning Mental Health Status: Chemical Dependency Status: Values/Beliefs: Spiritual, Cultural Beliefs, Restorationist Practices, Values that affect care: no Discussed ???Partnership in Safe Discharge Planning??? document with patient/family: No Additional Information: Per care management consult, chart was reviewed. H&P states pt is a 58 year old female significant past medical history for adenocarcinoma of the lung, cervical cancer, hypertension, morbid obesity who presented to the ER with severe progression of weakness. JOHN met with pt and , Zoe, at bedside. Pt lives in a house with her . Their home has 4 levels, about 8 stairs between each level. Pt reports having a hard time doing the stairs lately due to increased weakness. Pr reports spending the most time on the level with her bedroom and bathroom. Pt has a cane but is wanting a cane with a wider base for more stability. SW recommended speaking with their PCP or looking online. Pt also has a shower chair and raised toilet seat. Pt is independent in ADL's and requires assistance with IADLs. 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 Zoe works from home so he is able to help pt. Pt reports having strong support from family and friends. Zoe and pt decline needing additional services at this time. SW told them to ask if they have any additional questions or concerns. Next Steps: Follow for safe discharge planning, maybe home care? Tamy Escalante [facility] Inpatient Care Management * Jennifer Mckeon RN - 02/02/2024 1:02 PM CDTAssociated Order(s): WOUND OSTOMY CONTINENCE NURSE IP CONSULT [facility] Nurse Note S-(situation): [facility] nurse consulted for vesicovaginal. Crepe Maker reached out to ordering provider Alena who referred insurance underwriter sales to bedside RN as consult was requested for nursing concern. Crepe Maker reached out to RN via Bobby who reports that patient is asking for recommendations to manage the drainage from the known vesicovaginal fistula. B-(background): Crepe Maker completed thorough chart review. Patient arrived to ED and had been incontinent of stool x3 days. She has bilateral nephrostomy tubes in place. Patient receives care at [facility] and is recently established with Dr. Gaines at [facility]. Notes indicate that there is a plan in place for a joint case between Mailing Machine Operator/Onc and Urology for an anterior exenterative surgery with removal of uterus, cervix, parametrial tissue, and bladder, along with the placement of a permanent urinary conduit. A-(assessment): Urology will be seeing patient this admission. Patient is well- established with Mailing Machine Operator/Onc and Urology. Unfortunately, there is nothing [facility] nurse can recommend regarding containment of drainage from vesicovaginal fistula. R-(recommendations): Recommend following incontinence protocol (see document in Policy Tech) and providing meticulous nathaly cares. If there is a concern that stool is coming from vagina, then colorectal should be consulted. RN or patient can escalate concerns about drainage to Urology team, as it isoutside of [facility] nurse practice to address infectious processes or internal lesions. Please reach outto [facility] team if there are wounds in the genital or perineal area that we can assist with. Crepe Maker will complete this consult. Jennifer Mckeon RN, CWOCN Please contact via Vocera at [facility] nurse- M-F [phone] Leave VM @ [phone] for non-urgent needs. Checked occasionally M-F. * Marylin Vogel PA-C - 02/02/2024 1:00 PM CDTAssociated Order(s): HEMATOLOGY & ONCOLOGY IP CONSULT [facility] COMMERCE DEVELOPER/ONC CONSULT Patient Name: Mora Kessler Address: [address] [place] [id number] Age:[age] year old, : 1965 Sex: female Admission Date/Time: 02/01/2024 10:14 AM CC: I was asked to see . Mora Kessler by Dr. Oscar Dumont in consultation for sepsis HPI: ONCOLOGY TREATMENT SUMMARY 07/15/2023: Patient presented to [place] ER for heavy vaginal bleeding. Reported soaking through multiple pads in an hour and also passing clots. Hgb was 11.1 --> 10. Pelvic ultrasound noted an abnormal cervical mass. Manufacturing Supervisor was consulted and she was taken for [...] emergency. Open [facility] bed for transfer was [facility]. 07/15 - : Inpatient transfer/hospitalization at [facility]. Seen by Dr. Noe. CT chest/abd/pelvis [...] She was discharged with plan for [place] [facility] follow-up. 07/21/2023: CT-guided biopsy of right middle lobe lung mass at [facility]. Pathology returned positive for malignancy, adenocarcinoma of lung. 07/23/2023: Follow-up visit with PCP in [place]. Concern for continued vaginal bleeding. Patient presented to ER in [place] followed by ER visit to [facility] for vaginal bleeding. Hgb 10.7 --> 10.4and bleeding had stabilized. Treated for UTI with dose of ceftriaxone. 07/28/2023: Presented to [facility] for outpatient consultation visits with Mailing Machine Operator Onc (Dr. Peguero) and Thoracic Surgery (Dr. [...] reduced to 20mg/m2) due to renal function 10/01/23: Right central port placement with VIE. MRI pelvis: Necrosis of the previously noted mass involving the uterine cervix with a large vesicovaginal fistula and marked thickening of the wall of the urinary bladder. Previously noted mass involving the uterine cervix has shown complete necrosis. 10/05/23: Attempted Arnold sleeve placement. Both Dr. Peguero and Dr. Wattson present in OR. Unable to place sleeve secondary to large vesicovaginal fistula. Still persistent tumor present with cobblestoning of the upper vagina and surrounding tissue. Parametria were without any obvious residual nodularity. Unable to perform brachytherapy. Discussed radiation boost to at least treat areas that couldaffect potential margin status of future exenterative procedure. 10/06/23: C6 cisplatin/RT 10/07/23: transfusion 2 U PRBC's 10/08/23: CT A/P: Known cervical mass not conspicuous on CT. Bladder is thick- walled with perivesicular fat stranding and contains air within the lumen from known fistulous disease posteriorly. Stable 1.4 cm indeterminate lesion anteriorly in hepatic segment 3. Slightly increased mild splenomegaly with stable indeterminate hypoenhancing lesion. Stable mildly enlarged prominent bilateral inguinal lymph nodes. No new abdominal pelvic lymphadenopathy. Interval right middle lobe wedge resection, partially imaged. Left renal angiomyolipomas. 10/13/23: C7 cisplatin/RT 10/15/23: Bilateral nephrostomy tube placement with IR at [facility]. 10/20/23: C8 chemo/RT 10/22/23: Completion of EBRT 45 Gy x 25 fractions followed by boost to central pelvis & cervix 16 Gy x [address] Hickman at [facility]. 10/29/23: Consultation with Dr. Gaines at [facility] for discussion on anterior pelvic exenteration. Discussed radical cystectomy with urinary diversion and expected postoperative course. 11/10/2023: Interval PET-CT with marked decreased in extent of FDG uptake of the cervix suggestive ofpartial response to therapy. Persistent FDG uptake at the cervix and vagina which suggest residual disease, however, evaluation is limited due to vesicovaginal fistula and urinary excretion of radiotracer. s/p right middle lobe wedge resection without suspicious focal FDG uptake at the operative site. No new findings of FDG avid metastatic disease. New RLL measuring 7 mm which is indeterminate, but, does not demonstrate significant FDG activity. Focal FDG uptake in the descending colon, of which 20% represent benign/malignant polyps. Colonoscopy may be helpful for further evaluation. 11/24/23: Interval follow-up visit, treatment planning, review of PET-CT results. Given residual disease, recommend at 4-6 cycles of systemic chemotherapy withOUT avastin (given large fistula) with carboplatin (AUC 4) / paclitaxel (135 mg/m2) / pembrolizumab (200 mg) q21 day cycles with IV fluids scheduled on day 5-7 of every cycle. Will start with dose reduction given her fatigue, elevated Cr andoverall deconditioning. Discussed will need to regain strength and be in optimal condition for extensive surgery, which likely will occur in March. Chemotherapy will help bridge and allow for tumor shrinkage. 11/25/2023: Bilateral IR nephrostomy tubes repositioned. 12/04/23: C1 Carbo/Taxol/Pembro Q21 days 12/11/23: Transfusion 2 units PRBC's 12/16/23: MRI Head- No acute intracranial abnormality 01/01/24: C2 Carbo/Taxol/Pembro w/ Aranesp Q21 days * with ongoing diarrhea resulting in dehydration and electrolyte derangements, it has been elected to move to weekly Taxol, carbo with pembrollizumab Q 3 weeks 01/20/24: began prednisone 1mg/kg (rounded to 100 mg daily) for continued severe diarrhea, possibly immune-mediated. Will hold pembrolizuamb with cycle 3 and continue to hold until Mora can taper toprednisone 10 mg daily or less. 01/22/24: C3 carbo/taxol (pembro HELD) Carbo/taxol changed to weekly INTERVAL HISTORY Mora reports that she has had diarrhea and fecal incontinence for the past 3 weeks. She has no control of stools, unsure of where stool is coming out of. She has had progressive weakness which prompted evaluation in the ED. Upon arrival to ER yesterday she was febrile (101.2 F) and tachycardic (HR 110's). Labs notable for lactic acidosis (3.6). WBC 3.8. UA had >100 WBC, 31 RBC, many bacteria; UCx preliminarily growing >100k GPC and 50-100k lactose-fermenting GNB; BCX + GNB. Creatinine 2.04 on admission, improved to 1.76 today following IV hydration. Received zosyn in the ER, transitioned to cefepime. Urology and ID consulted. Plan for CT scan later today and perc neph tube exchange tomorrow morning. REVIEW OF SYSTEMS GENERAL: +fevers, chills, malaise HEENT: no URI symptoms, no changes with vision, no difficulty swallowing CARDIOVASCULAR: denies chest pain, palpitations, dyspnea on exertion PULMONARY: no SOB, no cough, no history of asthma GI: +diarrhea, fecal incontinence : +flank pain E COMMERCE DEVELOPER: no vaginal bleeding or discharge SKIN: no recent rashes or discoloration, no jaundice HEME: +anemia requiring transfusion ENDOCRINE: no history of diabetes or thyroid problems NEURO: no history of seizures, no headaches, no neurologic disorders PAST MEDICAL HISTORY Past Medical History: Diagnosis Date Adenocarcinoma, lung, right ([facility]) Anemia due to blood loss, acute Cervical cancer (H) Complicated UTI (urinary tract infection) Endometrial cancer (H) Excessive vaginal bleeding Hyperglycemia Hypertension Hypertensive urgency Morbid obesity (H) Transient global amnesia Urine frequency PAST SURGICAL HISTORY Past Surgical History: Procedure Laterality Date (IA) VA RADICAL RESEC TUMOR OF ARM/ELBOW<5CM Left 1979 EXAM UNDER ANESTHESIA PELVIC N/A 10/05/2023 Procedure: Pelvic examination under anesthesia,; Surgeon: Jennifer Peguero MD; Location: OR IR LUNG BIOPSY MEDIASTINUM RIGHT 07/21/2023 IR NEPHROSTOMY TUBE CHANGE BILATERAL 11/25/2023 IR NEPHROSTOMY TUBE PLACEMENT BILATERAL 10/15/2023 THORACOSCOPIC WEDGE RESECTION LUNG Right 08/10/2023 Procedure: RIGHT VIDEO ASSISTED THORACOSCOPY WEDGE RESECTION RIGHT MIDDLE LOBE LUNG NODULE; Surgeon: Josafat Gandara MD; Location: OR CURRENT MEDS Current Facility-Administered Medications Medication Dose Route Frequency Provider Last Rate Last Admin acetaminophen (TYLENOL) tablet 650 mg 650 mg Oral Q4H PRN Jessica Niño APRN SENIOR RADIATION PROTECTION TECHNICIAN 650 mg at 02/02/24 0020 Or acetaminophen (TYLENOL) Suppository 650 mg 650 mg Rectal Q4H PRN Jessica Niño APRN CNP calcium carbonate (TUMS) chewable tablet 1,000 mg 1,000 mg Oral 4x Daily PRN Jessica Niño APRN CNP carvedilol (COREG) tablet 6.25 mg 6.25 mg Oral BID w/meals Jessica Niño APRN CNP 6.25 mg at 02/02/24 0956 ceFEPIme (MAXIPIME) 2 g vial to attach to NS 100 mL bag for ADULTS or NS 50 mL bag for PEDS 2 g Intravenous Q12H Jessica Niño APRN CNP 2 g at 02/02/24 0543 heparin ANTICOAGULANT injection 5,000 Units 5,000 Units Subcutaneous Q8H Jessica Niño APRN CNP 5,000 Units at 02/02/24 0543 hydrALAZINE (APRESOLINE) tablet 10 mg 10 mg Oral Q4H PRN Jessica Niño APRN CNP Or hydrALAZINE (APRESOLINE) injection 10 mg 10 mg Intravenous Q4H PRN Jessica Niño APRN CNP lidocaine (LMX4) cream Topical Q1H PRN Jessica Niño APRN CNP lidocaine 1 % 0.1-1 mL 0.1-1 mL Other Q1H PRN Jessica Niño APRN CNP melatonin tablet 5 mg 5 mg Oral At Bedtime PRN Jessica Niño APRN CNP naloxone (NARCAN) injection 0.2 mg 0.2 mg Intravenous Q2 Min PRN Frank Lindsey RPH Or naloxone (NARCAN) injection 0.4 mg 0.4 mg Intravenous Q2 Min PRN Frank Lindsey RPH Or naloxone (NARCAN) injection 0.2 mg 0.2 mg Intramuscular Q2 Min PRN Frank Lindsey RPH Or naloxone (NARCAN) injection 0.4 mg 0.4 mg Intramuscular Q2 Min PRN Frank Lindsey RPH OLANZapine (zyPREXA) tablet 2.5 mg 2.5 mg Oral At Bedtime Jessica Niño APRN CNP 2.5 mg at 02/01/242128 ondansetron (ZOFRAN ODT) ODT tab 4 mg 4 mg Oral Q6H PRN Jessica Niño APRN CNP Or ondansetron (ZOFRAN) injection 4 mg 4 mg Intravenous Q6H PRN Jessica Niño APRN CNP oxyCODONE (ROXICODONE) tablet 10 mg 10 mg Oral Q4H PRN Jessica Niño APRN CNP oxyCODONE (ROXICODONE) tablet 5 mg 5 mg Oral Q4H PRN Jessica Niño APRN CNP potassium chloride ivone ER (KLOR-CON M20) CR tablet 40 mEq 40 mEq Oral Once Carli Faulkner MD predniSONE (DELTASONE) tablet 10 mg 10 mg Oral Daily Jessica Niño APRN CNP 10 mg at 02/02/24 0956 prochlorperazine (COMPAZINE) injection 10 mg 10 mg Intravenous Q6H PRN Jessica Niño APRN CNP Or prochlorperazine (COMPAZINE) tablet 10 mg 10 mg Oral Q6H PRN Jessica Niño APRN CNP Or prochlorperazine (COMPAZINE) suppository 25 mg 25 mg Rectal Q12H PRN Jessica Niño APRN CNP senna-docusate (SENOKOT-S/PERICOLACE) 8.6-50 MG per tablet 1 tablet 1 tablet Oral BID Jessica Chou APRN CNP Or senna-docusate (SENOKOT-S/PERICOLACE) 8.6-50 MG per tablet 2 tablet 2 tablet Oral BID PRN Jessica Niño APRN CNP sodium chloride (PF) 0.9% PF flush 3 mL 3 mL Intracatheter Q8H Jessica Niño APRN CNP 3 mL at 02/02/24 0543 sodium chloride (PF) 0.9% PF flush 3 mL 3 mL Intracatheter q1 min prn Jessica Niño APRN CNP sodium chloride 0.9 % infusion Intravenous Continuous Jessica Niño APRN CNP sodium chloride 0.9 % infusion Intravenous Continuous Jessica Niño APRN CNP 100 mL/hr at 02/02/24 0604 New Bag at 02/02/24 0604 ALLERGIES/SENSITIVITIES Allergies Allergen Reactions Shellfish-Derived Products Shortness Of Breath and Hives FAMILY HISTORY History reviewed. No pertinent family history. SOCIAL HISTORY Social History Socioeconomic History Marital status: Spouse name: Not on file Number of children: Not on file Years of education: Not on file Highest education level: Not on file Occupational History Not on file Tobacco Use Smoking status: Former Current packs/day: 0.00 Average packs/day: 1 pack/day for 15.0 years (15.0 ttl pk-yrs) Types: Cigarettes, Cigars Start date: 1983 Quit date: 1998 Years since quittin.7 Smokeless tobacco: Never Tobacco comments: Cigars a few times a month Substance and Sexual Activity Alcohol use: Yes Comment: 2-3 drinks per week Drug use: Never Sexual activity: Not on file Other Topics Concern Not on file Social History Narrative Not on file Social Determinants of Health Financial Resource Strain: Low Risk (02/01/2024) Financial Resource Strain Within the past 12 months, have you or your family members you live with been unable to get utilities (heat, electricity) when it was really needed?: No Food Insecurity: Low Risk (02/01/2024) Food Insecurity Within the past 12 months, did you worry that your food would run out before you got money to buy more?: No Within the past 12 months, did the food you bought just not last and you didn???t have money to getmore?: No Transportation Needs: Low Risk (02/01/2024) Transportation Needs Within the past 12 months, has lack of transportation kept you from medical appointments, getting your medicines, non-medical meetings or appointments, work, or from getting things that you need?: No Physical Activity: Not on file Stress: Not on file Social Connections: Socially Integrated (07/16/2023) [facility] [employer] [facility] [employer] & [employer] [facility] Social Connections Frequency of Communication with Friends and Family: 0 Interpersonal Safety: Low Risk (02/01/2024) Interpersonal Safety Do you feel physically and emotionally safe where you currently live?: Yes Within the past 12 months, have you been hit, slapped, kicked or otherwise physically hurt by someone?: No Within the past 12 months, have you been humiliated or emotionally abused in other ways by your partner or ex-partner?: No Housing Stability: High Risk (02/01/2024) Housing Stability Do you have housing? : No Are you worried about losing your housing?: Yes PHYSICAL EXAM BP (!) 152/76 (BP Location: Right arm) Pulse 73 Temp 98.1 ??F (36.7 ??C) (Oral) Resp 20 Ht 1.753 m (5' 9) Wt 122.5 kg (270 lb) SpO2 99% BMI 39.87 kg/m?? Body mass index is 39.87 kg/m??. GENERAL: ill appearing, NAD HEENT: normocephalic, no scleral icterus, mucosa moist CV: RRR LUNGS: No dyspnea ABDOMEN: Non distended, soft, mild tenderness but no peritoneal signs BACK: bilateral nephrostomy tubes to gravity bag drainage RECTAL/GENITAL: deferred EXTREMITIES: No edema, no deformities SKIN: pale, no rashes or jaundice NEURO: motor exam intact PSYCH: appropriate mood and affect LABS Recent Labs Lab Test 02/02/24 1231 02/02/24 1122 02/01/24 1031 WBC -- 3.8* 4.8 RBC -- 1.55* 2.90* HGB 7.3* 4.7* 8.7* HCT -- 14.8* 27.9* MCV -- 96 96 MCH -- 30.3 30.0 MCHC -- 31.8 31.2* PLT -- 118* 121* Recent Labs Lab Test 02/02/24 1122 02/01/24 1031 POTASSIUM 3.2* 3.2* CHLORIDE 103 95* BUN 36.3* 39.0* Recent Labs Lab Test 02/02/24 1122 02/01/24 1111 02/01/24 1109 02/01/24 1031 PROTEIN -- >600* 300* -- BILITOTAL 0.4 -- -- 0.7 AST 17 -- -- 17 ALT 26 -- -- 19 INR (no units) Date Value 10/15/2023 1.08 ASSESSMENT AND PLAN : 58 year old female with dual primaries (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 She has known large vesicovaginal fistula (s/p bilateral PCN) with persistent/residual disease after chemoradiation (brachytherapy omitted due to distorted anatomy). Admitted for sepsis, suspect secondary to urinary infection. Squamous cell carcinoma of cervix (Stage IVAr), PDL1+, with large vesicovaginal fistula and persistent / residual disease after chemoradiation therapy (brachytherapy had to be omitted secondary to distorted anatomy) -Was recently switched to weekly carbo/paclitaxel given how poorly she is tolerating chemotherapy. Pembro remains q 21 days -She has been needing IV hydration and electrolyte repletion multiple times a week -Plan was to complete 4-6 cycles and then proceed with anterior exenterative surgery with removal of uterus, cervix, parametrial tissues, and bladder along with placement of permanent urinary conduit, likely March or April, depending on how she responds to treatment -Due for PET CT scan to assess status, will need to be done as outpatient. Severe sepsis, suspect secondary to urinary infection -blood culture positive for gram-negative rods. Repeat blood culture drawn. -IV cefepime -ID consulted -Urology consulted -Plan for PCN exchange tomorrow -Follow up on CT scan scheduled for later today Diarrhea - Stool cultures and C. Diff pending - There have been questions of fistula. Will follow up on CT scan results and infectious workup. Ifconcern for fistula can consider with CT scan with rectal contrast. -Patient does not tolerate zinc products, will order Vaseline as barrier, its what she uses at home. Anemia -She is 4 days out from most recent round of weekly carbo/taxol -hgb down to 4.7 02/02/24, immediate recheck was 7.3 -1 unit prbc given today -Continue to monitor closely BRENDA Braxton documented in this encounter ED Notes * Patricio Cummings RN - 02/01/2024 11:[address] [facility] ED Nurse Handoff Report ED Chief complaint: Generalized Weakness ED Diagnosis: Final diagnoses: None Code Status: Full Code Allergies: Allergies Allergen Reactions Shellfish-Derived Products Shortness Of Breath and Hives Patient Story: Mora Kessler is a 58 year old female who presents to the Emergency Department for an evaluation of generalized weakness. Focused Assessment: Cardiac: ST Resp: SOLANO Neuro: A&Ox4 Skin: Pt arrived covered in stool Genitourinary: Bilat neph tubes Treatments and/or interventions provided: 2000ml bolus NS, Zosyn 4.5g, tylenol 1g Patient's response to treatments and/or interventions: NA To be done/followed up on inpatient unit: Continue care Does this patient have any cognitive concerns?: na Activity level - Baseline/Home: na Activity Level - Current: Independent Patient's Preferred language: Maldivian [employer] Needed?: No Isolation: Contact Infection: Other, Pt arrived to ED covered in stool. Patient tested for COVID 19 prior to admission: YES Bariatric?: Yes Vital Signs: Vitals: 02/01/24 1040 02/01/24 1041 02/01/24 1056 02/01/24 1116 BP: 99/57 Pulse: 112 113 105 105 Resp: 20 26 22 19 Temp: TempSrc: SpO2: 97% 98% Weight: Height: Cardiac Rhythm:Cardiac Rhythm: Sinus tachycardia Was the PSS-3 completed: Yes What interventions are required if any? Family Comments: na OBS brochure/video discussed/provided to patient/family: [place] of person given brochure if not patient: na Relationship to patient: na For the majority of the shift this patient's behavior was Green. Behavioral interventions performed were na. ED NURSE PHONE NUMBER: *[id number] * Shaista Dimas MD - 02/01/2024 10:56 AM CDT Emergency Department Note History of Present Illness Chief Complaint Generalized Weakness HPI Mora Kessler is a 58 year old female with history of cervical cancer on chemotherapy who presents for generalized weakness. She has not been able to get out of bed since yesterday because is tired and weak. Her legs are too tired for her to bear weight. She arrived covered in feces because she could not make it to the toilet. The last time she was able to make it was three days ago. at home takes care of her. She is not having any new pain and is not confused. No cough or fever. She denies any urinary symtoms. Patient has not been eating or drinking much and goes in three times per week for IV fluids with the past being three days ago. She was scheduled for fluids today. Chemo is he lping. No hysterectomy. She has a port in place. No history of [place] or heart failure. Independent Historian None Review of External Notes Office visit from 11/24/23. Past Medical History Medical History and Problem List Past Medical History: Diagnosis Date Adenocarcinoma, lung, right (H) Anemia due to blood loss, acute Cervical cancer (H) Complicated UTI (urinary tract infection) Endometrial cancer (H) Excessive vaginal bleeding Hyperglycemia Hypertension Hypertensive urgency Morbid obesity (H) Transient global amnesia Urine frequency Medications acetaminophen (TYLENOL) 500 MG tablet amLODIPine (NORVASC) 10 MG tablet carvedilol (COREG) 3.125 MG tablet DULoxetine (CYMBALTA) 30 MG capsule HYDROmorphone (DILAUDID) 2 MG tablet hydrOXYzine HCl (ATARAX) 25 MG tablet hydrOXYzine nii (VISTARIL) 25 MG capsule ibuprofen (ADVIL/MOTRIN) 200 MG tablet losartan-hydrochlorothiazide (HYZAAR) 100-12.5 MG tablet oxyCODONE IR (ROXICODONE) 10 MG tablet senna-docusate (SENOKOT-S/PERICOLACE) 8.6-50 MG tablet Surgical History Past Surgical History: Procedure Laterality Date (IA) [facility] RADICAL RESEC TUMOR OF ARM/ELBOW<5CM Left 1979 EXAM UNDER ANESTHESIA PELVIC N/A 10/05/2023 Procedure: Pelvic examination under anesthesia,; Surgeon: Jennifer Peguero MD; Location: OR IR LUNG BIOPSY MEDIASTINUM RIGHT 07/21/2023 IR NEPHROSTOMY TUBE CHANGE BILATERAL 11/25/2023 IR NEPHROSTOMY TUBE PLACEMENT BILATERAL 10/15/2023 THORACOSCOPIC WEDGE RESECTION LUNG Right 08/10/2023 Procedure: RIGHT VIDEO ASSISTED THORACOSCOPY WEDGE RESECTION RIGHT MIDDLE LOBE LUNG NODULE; Surgeon: Josafat Gandara MD; Location: OR Physical Exam Patient Vitals for the past 24 hrs: BP Temp Temp src Pulse Resp SpO2 Height Weight 02/01/24 1431 -- -- -- 84 21 -- -- -- 02/01/24 1430 114/69 -- -- 83 -- -- -- -- 02/01/24 1339 -- -- -- 87 20 -- -- -- 02/01/24 1330 106/67 -- -- 87 20 -- -- -- 02/01/24 1303 -- -- Oral -- -- -- -- -- 02/01/24 1300 111/64 -- -- 87 19 -- -- -- 02/01/24 1230 108/61 -- -- 86 16 -- -- -- 02/01/24 1200 108/66 -- -- 91 19 -- -- -- 02/01/24 1150 -- -- -- 105 10 -- -- -- 02/01/24 1143 -- -- -- 96 24 -- -- -- 02/01/24 1133 -- -- -- 104 20 -- -- -- 02/01/24 1132 100/63 -- -- 108 -- -- -- -- 02/01/24 1116 -- -- -- 105 19 -- -- -- 02/01/24 1056 -- -- -- 105 22 98 % -- -- 02/01/24 1041 -- -- -- 113 26 97 % -- -- 02/01/24 1040 99/57 -- -- 112 20 -- -- -- 02/01/24 1039 -- -- -- 116 23 -- -- -- 02/01/24 1018 110/64 (!) 101.2 ??F (38.4 ??C) Oral 117 20 98 % 1.753 m (5' 9) 122.5 kg (270 lb) Physical Exam Nursing note and vitals reviewed. Constitutional: Appears comfortable. Generally weak. Stool on her legs. HENT: Nose normal. No discharge. Oral mucosa is moist. Eyes: Conjunctivae are normal without injection. Pupils are equal. Cardiovascular: Normal rate, regular rhythm with normal S1 and S2. Normal heart sounds and peripheral pulses 2+ and equal. No murmur or cha. Pulmonary: Effort normal and breath sounds clear to auscultation bilaterally. No respiratory distress. No stridor. No wheezes. No rales. GI: Soft. No distension and no mass. No tenderness. No flank pain. Musculoskeletal: Normal range of motion. No extremity deformity. No edema and no tenderness. Neurological: Alert and oriented. No focal weakness. Skin: Skin is warm and dry. No rash noted. Portacath in right chest wall. Psychiatric: Behavior is normal. Appropriate mood and affect. Judgment and thought content normal. Diagnostics Lab Results Labs Ordered and Resulted from Time of ED Arrival to Time of ED Departure COMPREHENSIVE METABOLIC PANEL - Abnormal Result Value Sodium 134 (*) Potassium 3.2 (*) Carbon Dioxide (CO2) 22 Anion Gap 17 (*) Urea Nitrogen 39.0 (*) Creatinine 2.04 (*) GFR Estimate 28 (*) Calcium 8.5 (*) Chloride 95 (*) Glucose 174 (*) Alkaline Phosphatase 103 AST 17 ALT 19 Protein Total 6.3 (*) Albumin 3.0 (*) Bilirubin Total 0.7 CBC WITH PLATELETS AND DIFFERENTIAL - Abnormal WBC Count 4.8 RBC Count 2.90 (*) Hemoglobin 8.7 (*) Hematocrit 27.9 (*) MCV 96 MCH 30.0 MCHC 31.2 (*) RDW 17.5 (*) Platelet Count 121 (*) % Neutrophils 91 % Lymphocytes 4 % Monocytes 3 % Eosinophils 0 % Basophils 1 % Immature Granulocytes 2 NRBCs per 100 WBC 0 Absolute Neutrophils 4.4 Absolute Lymphocytes 0.2 (*) Absolute Monocytes 0.1 Absolute Eosinophils 0.0 Absolute Basophils 0.1 Absolute Immature Granulocytes 0.1 Absolute NRBCs 0.0 ISTAT GASES LACTATE VENOUS POCT - Abnormal Lactic Acid POCT 3.6 (*) Bicarbonate Venous POCT 24 O2 Sat, Venous POCT 22 (*) pCO2 Venous POCT 43 pH Venous POCT 7.34 pO2 Venous POCT 17 (*) Base Excess/Deficit (+/-) POCT -2.0 ROUTINE UA WITH MICROSCOPIC REFLEX TO CULTURE - Abnormal Color Urine [place] (*) Appearance Urine Cloudy (*) Glucose Urine Negative Bilirubin Urine Negative Ketones Urine Negative Specific [place] Urine 1.015 Blood Urine Negative pH Urine 8.5 (*) Protein Albumin Urine 300 (*) Urobilinogen Urine Normal Nitrite Urine Negative Leukocyte Esterase Urine Large (*) Bacteria Urine Many (*) Mucus Urine Present (*) Amorphous Crystals Urine Few (*) Triple Phosphate Crystals Urine Few (*) RBC Urine 31 (*) WBC Urine 181 (*) ROUTINE UA WITH MICROSCOPIC REFLEX TO CULTURE - Abnormal Color Urine [place] (*) Appearance Urine Cloudy (*) Glucose Urine Negative Bilirubin Urine Negative Ketones Urine Negative Specific [place] Urine 1.022 Blood Urine Negative pH Urine 8.5 (*) Protein Albumin Urine >600 (*) Urobilinogen Urine Normal Nitrite Urine Negative Leukocyte Esterase Urine Large (*) Bacteria Urine Few (*) Mucus Urine Present (*) Triple Phosphate Crystals Urine Moderate (*) RBC Urine 4 (*) WBC Urine 13 (*) Granular Casts Urine 8 (*) INFLUENZA A/B, RSV, & SARS-COV2 PCR - Normal Influenza A PCR Negative Influenza B PCR Negative RSV PCR Negative SARS CoV2 PCR Negative LACTIC ACID WHOLE BLOOD - Normal Lactic Acid 1.0 BLOOD CULTURE URINE CULTURE URINE CULTURE Imaging No orders to display EKG ECG results from 02/01/24 EKG 12-lead, tracing only Value Systolic Blood Pressure Diastolic Blood Pressure Ventricular Rate 113 Atrial Rate 113 VA Interval 130 QRS Duration 84 QT 372 QTc 510 P [place] 29 R AXIS 4 T [place] 129 Interpretation ECG Sinus tachycardia with occasional Premature ventricular complexes Left ventricular hypertrophy with repolarization abnormality ( R in aVL , Romhilt-Mckeon ) Abnormal ECG Independent Interpretation None ED Course Medications Administered Medications sodium chloride 0.9 % infusion (has no administration in time range) sodium chloride 0.9% BOLUS 1,000 mL (0 mLs Intravenous Stopped 02/01/24 1128) piperacillin-tazobactam (ZOSYN) 4.5 g vial to attach to NS 100 mL bag (0 g Intravenous Stopped 02/01/24 1200) acetaminophen (TYLENOL) tablet 1,000 mg (1,000 mg Oral $Given 02/01/24 1129) sodium chloride 0.9% BOLUS 1,000 mL (0 mLs Intravenous Stopped 02/01/24 1306) potassium chloride ivone ER (KLOR-CON M20) CR tablet 40 mEq (40 mEq Oral $Given 02/01/24 1303) Procedures Procedures Discussion of Management Admitting Hospitalist, Dr Dumont ED Course ED Course as of 02/01/24 1441 Mon Feb 01, 2024 1055 I evaluated the patient, obtained history, and performed a physical exam as detailed above. Additional Documentation None Medical Decision Making / Diagnosis [facility] Diagnoses: The patient has signs of sepsis Sepsis ED evaluation The patient has signs of sepsis as evidenced by: 1. Presence of 2 SIRS criteria, suspected infection, AND 2. Organ dysfunction: Lactic Acidosis with value >2.0 due to infection Time zero: 1035 on 02/01/24 as this was the time when Lactate resulted, raising suspicion for bacterial infection and Lactate was resulted and the level was greater than 2. Note: Due to a national blood culture bottle shortage, reduced blood cultures may have been drawn on this patient. Lactic Acid Results: Recent Labs Lab Test 02/01/24 1306 02/01/24 1033 LACT 1.0 3.6* 3 Hour Bundle 6 Hour Bundle (Reassessment) Blood Cultures before IV Antibiotics: Yes Antibiotics given: see below Prehospital fluid volume (mL): Total fluids given (ED +Pre-hospital): The patient responded to a lesser volume of IV fluids. The initial volume ordered was 2000 mL. Repeat Lactic Acid Level: Ordered by reflex for 2 hours after initial lactic acid collection. Vasopressors: MAP>65 after initial IVF bolus, will continue to monitor fluid status and vital signs. Repeat perfusion exam: I attest to having performed a repeat sepsis exam and assessment of perfusion at 1330 . BMI Readings from Last 1 Encounters: 02/01/24 39.87 kg/m?? Anti-infectives (From admission through now) Start Dose/Rate Route Frequency Ordered Stop 02/01/24 1110 piperacillin-tazobactam (ZOSYN) 4.5 g vial to attach to NS 100 mL bag Note to Pharmacy: For [facility], [facility] and [facility]: For Zosyn-naive patients, use the Zosyn initial dose + extended infusion order panel. 4.5 g over 30 Minutes Intravenous ONCE 02/01/24 1105 02/01/24 1200 and None MIPS None [facility] Mora Kessler is a 58 year old female with cervical, bladder, and lung cancer currently undergoing chemotherapy has not been feeling well since Thursday. She has had chronic diarrhea, she has been so weak over the last 3 days that she could not get out of bed and there was stool all over at the scene. She looked dehydrated when she came in with dry mucous membranes, her blood pressure was in the 90s systolic and she was given 2 L of fluids and her blood pressure normalized. Labs were obtained anthony sepsis workup started because she came in with a fever of 101.2 although she denied any recent fevers. 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 I am concerned that she may have a pyelonephritis as a cause for her fever as she does not have a cough or chest pain and really no severe abdominal pain. Her lungs were clear and sats were normal. I did not give her a full 3 L of fluids as she responded to 2 L and she already has some edema and I did not want to make it worse, she has renal failure as well and I did not want to fluid overload her. Her white count came back normal, hemoglobin at 8.7 platelets are low at 121. Initial lactate was 3.6, with unknown source for fever but suspected renal or urinary tract, I loaded herwith Zofran after blood culture was obtained. Both nephrostomy tubes were cultured and labeled and one of them came back looking more infected. Potassium is low at 3.2 sodium low at 134 she has renalfailure with a GFR of 28 creatinine 2.04 better BUN was also high at 39. Liver function test normal. After 2 L of fluid her lactate came back normal at 1.0. I believe she does have severe sepsis but was very dehydrated as well. The patient is too weak to go home and we need to wait for culture resul ts. She will be admitted to Dr. Dumont pending culture results and will continue antibiotics. Will get oncology and urology to see the patient. Will need to monitor her renal function as well. Disposition The patient was admitted to the hospital. Diagnosis ICD-10-CM 1. Severe sepsis (H) A41.9 R65.20 2. Urinary tract infection with hematuria, site unspecified N39.0 R31.9 Suspect pyelonephritis with infected nephrostomy 3. History of cancer Z85.9 Cervical, bladder, lung 4. Renal failure, unspecified chronicity N19 5. Generalized weakness R53.1 6. Diarrhea, unspecified type R19.7 Discharge Medications New Prescriptions No medications on file Scribe Disclosure: I, Destiney Michelle, am serving as a scribe at 10:59 AM on 02/01/2024 to document services personally performed by Shaista Dimas MD based on my observations and the provider's statements to me. Shaista Dimas MD 02/01/24 1441 * Patricio Cummings RN - 02/01/2024 10:21 AM CDT Images from the original note were not included. Pt reports being treated for cervix cancer. Pt notes being on chemo. Pt lives at home with .Pt reports feeling increasingly weakness since Thursday when she had chemo.Pt arrives to ED covered in stool. Triage Assessment (Adult) Row Name 02/01/24 1020 Triage Assessment Airway WDL WDL Respiratory WDL Respiratory WDL WDL Skin Circulation/Temperature WDL Skin Circulation/Temperature WDL X Pt arrived via EMS covered in stool Cardiac WDL Cardiac WDL X Cardiac Rhythm ST Peripheral/Neurovascular WDL Peripheral Neurovascular WDL WDL Cognitive/Neuro/Behavioral WDL Cognitive/Neuro/Behavioral WDL WDL * Nidhi Thibodeaux RN - 02/01/2024 10:14 AM CDT Bed: ED14 Expected date: Expected time: Means of arrival: Comments: [address] [id number] cancer, weak documented in this encounter Miscellaneous Notes * Plan of Care - Jeff Parada RN - 02/02/2024 10:35 PM CDT Goal Outcome Evaluation: Orientation: Aox4. Calm and cooperative with cares. Aggression Stop Light: Green Activity: up A2 and L, patient able to shift weight independently. Not OOB this shift. Diet/BS Checks: Clear liquid diet. Tolerating well. Tele: Tele NSR. IV Access/Drains: R PIV infusing NS at 100mL/hr. Lidocaine applied to port site, pt requesting to wait before attempting to access port. Pain Management: PRN oxy per pt request. Abnormal VS/Results: VSS on RA. UC+ for gram + cocci and gram negative bacilli. K+ & Mg AM rechecks. Bowel/Bladder: Incontinent of B/B. Bilateral neph tubes, L neph tube drainage at dressing site, dressing changed x2 today. Vesicovaginal fistula drainage noted. Skin/Wounds: Blanchable redness on Coccyx Consults: Uro, ID, HemOnc, SW D/C Disposition: Pending Other Info: - Abd CT completed. Awaiting results. - C-diff (-) * Provider Notification - Jeff Parada RN - 02/02/2024 4:11 PM CDT MD Notification Notified Person: MD Notified Person Name: Dr. Carli Faulkner Notification Date/Time: 02/02/2024 3:56PM Notification Interaction: Bobby Purpose of Notification: Critical lab value Orders Received: Continue Antibiotics * Plan of Care - Belle Piper RN - 02/02/2024 3:04 PM CDT Goal Outcome Evaluation: Orientation: AOx4 Aggression Stop Light: Green Activity: up A2 and L, patient able to shift weight independently. Diet/BS Checks: Clear liquid diet. Tele: Tele NSR. IV Access/Drains: R PIV infusing 1 PRBC. Lidocaine applied to port site, pt requesting to wait before attempting to access port. Pain Management: PRN oxy given per pt request for /10 cervical pain. Abnormal VS/Results: VSS on RA. UC+ for gram + cocci and gram negative bacilli. K+ 3.3, PO replacement given, recheck at 5:15 pm. Bowel/Bladder: Incontinent of B/B. Bilateral neph tubes, L neph tube drainage at dressing site, dressing changed today. Vesicovaginal fistula drainage noted. Skin/Wounds: Skin intact. Scattered bruising throughout. Consults: Uro, ID, HemOnc, SW D/C Disposition: Discharge pending clinical improvement. Other Info: Abd CT ordered, waiting for opening in schedule. C-diff and enteric panel results pending, enteric precautions maintained. * Provider Notification - Romel Faith RN - 02/02/2024 6:12 AM CDT Notification Notified Person: MD Notified Person Name: Lambert Traceeakira Notification Date/Time: 02/02/24 612am Notification Interaction: vocera page Purpose of Notification: Received call from lab, verigen ID came back as klebsiella oxytoca Orders Received: No change in abx at this time Comments: * Plan of Care - Catrachita Hummel RN - 02/02/2024 3:46 AM CDT Summary: Presented with increased weakness, UTI; hx lung cancer, cervical cancer. Primary Diagnosis: UTI Orientation: A&O x4 Aggression Stop Light: Green Mobility: Ax2, lift, weak; independent at baseline until recently per pt Abnl VS: Febrile (100.6) on RA, PRN Tylenol given, recheck T 97.7. Pain Management: Denies Diet: Clears Telemetry: NSR Bowel/Bladder: Incontinent b/b, large BM x2; bilateral neph tubes Abnormal Lab/Assessments: Mg replaced, recheck at 0430; Hgb 8.7; creatinine 2. 04 Drain/Device/Wound: PIV L arm with NS infusing @ 100 mL/hr; bilateral neph tubes; port R chest not accessed. Consults: Hem/ Onc; Urology D/C Day/Goals/Place: Discharge pending. * Provider Notification - Romel Faith RN - 02/02/2024 3:41 AM CDT MD Notification Notified Person: MD Notified Person Name: Lambert Ricketts Notification Date/Time: 02/02/24 340am Notification Interaction: vocera page Purpose of Notification: Blood culture from 01/31 positive for gram negative bacilli. Per lab, will do rapid organism ID and call us back. Orders Received: Comments: * Plan of Care - Maria Guadalupe Rivas RN - 02/01/2024 10:32 PM CDT [id number] Orientation: A&Ox4 Aggression Stop Light: Green Activity: A2 lift, turns well with 1 Diet/BS Checks: Clear liquid Tele: NSR IV Access/Drains: Bilateral nephrostomy tubes CDI, LPIV CDI infusing NS 100 mL/hr Pain Management: Denied Abnormal VS/Results: VSS ex tachycardic at times, on RA. K recheck in AM per MD note. Mag replacement to be sent up by pharmacy, recheck 0423. Bowel/Bladder: Incontinent of bowel and bladder, pt having loose stools Skin/Wounds: Bruising the bilateral legs and scattered, jabari redness to sacrum Consults: Hem/Onc, Urology D/C Disposition: pending * Plan of Care - Naman Lawson RN - 02/01/2024 7:37 PM CDT Goal Outcome Evaluation: Plan of Care Reviewed With: patient Overall Patient Progress: no changeOverall Patient Progress: no change [id number] Summary: Transferred from ED, Admitted from home for 3days of weakness and incontinence Primary Diagnosis: Generalized weakness Orientation: A&Ox4 Aggression Stop Light: Green Mobility: A2T/R Pain Management: Denies Diet: Clear Bowel/Bladder: Incontinent Bowel, Bilateral neph tubes Abnormal Lab/Assessments: VS tachy (106) on RA. Recheck K, CBC & Chem in AM Drain/Device/Wound: Bilateral Neph tubes Consults: pending D/C Day/Goals/Place: pending Shift Note: K replaced in ED - Partial assessment completed, 2 nurse skin check completed. Pt arrived on unit covered in feces. RN gave bed bath to pt and settled pt in room. End of shift report given to oncoming nurse. * Pharmacy-Admission Medication History - Lynne Blanton RPH - 02/01/2024 3:03 PM CDT Pharmacist Admission Medication History Admission medication history is complete. The information provided in this note is only as accurateas the sources available at the time of the update. Information Source(s): Patient, Family member, [facility] via in-person Pertinent Information: None Changes made to MAINTENANCE ASSOCIATE medication list: Added: loperamide, prednisone, olanzapine, ondansetron Deleted: duloxetine, hydromorphone, ibuprofen Changed: None Allergies reviewed with patient and updates made in EHR: yes Medication History Completed By: Lynne Blanton RPH 02/01/2024 3:03 PM MAINTENANCE ASSOCIATE Med List Medication Sig Last Dose acetaminophen (TYLENOL) 500 MG tablet Take 500-1,000 mg by mouth every 6 hours as needed for mild pain amLODIPine (NORVASC) 10 MG tablet Take 10 mg by mouth daily Past Week carvedilol (COREG) 6.25 MG tablet Take 6.25 mg by mouth 2 times daily (with meals). Past Week hydrOXYzine HCl (ATARAX) 25 MG tablet Take 25 mg by mouth 3 times daily as needed for itching. loperamide (IMODIUM) 2 MG capsule Take 2 mg by mouth 4 times daily as needed for diarrhea. losartan-hydrochlorothiazide (HYZAAR) 100-12.5 MG tablet Take 1 tablet by mouth daily Past Week OLANZapine (ZYPREXA) 2.5 MG tablet Take 2.5 mg by mouth at bedtime. Past Week ondansetron (ZOFRAN ODT) 8 MG ODT tab Take 8 mg by mouth every 8 hours as needed for nausea. oxyCODONE IR (ROXICODONE) 10 MG tablet Take 5 mg by mouth every 4 hours as needed for severe pain predniSONE (DELTASONE) 10 MG tablet Take 10 mg by mouth daily. Past Week documented in this encounter Plan of Treatment Upcoming Encounters Date Type Department Care Team (Late st Contact Info) Description 03/07/2024 Hospital Encounter [facility] 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 Ancillary Procedure [facility] [address] [place] [address] [place] [address] Otilia Escoto, PA-C [facility] [address] [place] [address] Pending Results Name Type Priority Associated Diagnoses Date /Time Blood Culture Peripheral Blood Microbiology STAT 02/01/2024 10:3 1 AM CDT Blood Culture Arm, Right Microbiology STAT 02/02/2024 11:22 AM CDT Scheduled Orders Name Type Priority Associated Diagnoses Orde r Schedule Platelet count Lab Routine Every 3 Da ys until discontinued starting 02/04/2024 Blood Culture Peripheral Blood Microbiology Routine Routine for 1 Occurrences starting 02/02/2024 until 02/02/2024, 1 completed Magnesium Lab Routine AM Draw for 1 Occurrences starting 02/03/2024 until 02/03/2024 Prepare red blood cells (unit), 1 Units Blood Bank Routine Once for 1 Occurrences starting 02/02/2024 until 02/02/2024 Potassium Lab Routine AM Draw for 1 Occurrences starting 02/03/2024 until 02/03/2024 documented as of this encounter Procedures The patient is currently admitted. The [...] CELLS (UNIT) Routine 02/02/2024 12:46 PM CDT TYPE AND SCREEN, ADULT Routine 12:31 PM CDT HEMOGLOBIN STAT 02/02/2024 12:31 PM CDT ABO/RH TYPE AND SCREEN Routine 12:31 PM CDT MANUAL DIFFERENTIAL Routine 02/02/2024 1 1:22 AM CDT CBC WITH PLATELETS AND DIFFERENTIAL Routine 02/02/2024 11:22 AM CDT PROCALCITONIN Add-On 02/02/2024 11:22 AM CDT CBC WITH PLATELETS & DIFFERENTIAL Routine 02/02/2024 11:22 AM CDT COMPREHENSIVE METABOLIC PANEL STAT 02/02/2024 11:22 AM CDT MAGNESIUM Timed 02/02/2024 3:33 AM CDT LACTIC ACID WHOLE BLOOD STAT 02/01/2024 1:06 PM CDT ROUTINE UA WITH MICROSCOPIC REFLEX TO CULTURE STAT 02/01/2024 11:11 AM CDT URINE CULTURE STAT 02/01/2024 11:11 AM CDT ROUTINE UA WITH MICROSCOPIC REFLEX TO CULTURE STAT 02/01/2024 11:09 AM CDT URINE CULTURE STAT 02/01/2024 11:09 AM CDT EKG 12-LEAD, TRACING ONLY STAT 02/01/2024 11:07 AM CDT INFLUENZA A/B, RSV, & SARS-COV2 PCR STAT 02/01/2024 10:35 AM CDT ISTAT GASES LACTATE VENOUS POCT STAT 02/01/2024 10:33 AM CDT VERIGENE GN PANEL Routine 02/01/2024 10: 31 AM CDT EXTRA TUBE STAT 02/01/2024 10:31 AM CDT EXTRA BLOOD CULTURE BOTTLE STAT 02/01/2024 10:31 AM CDT EXTRA PURPLE TOP TUBE STAT 02/01/2024 10:31 AM CDT EXTRA GREEN TOP (LITHIUM HEPARIN) TUBE STAT 02/01/2024 10:31 AM CDT EXTRA RED TOP TUBE STAT 02/01/2024 10 :31 AM CDT EXTRA BLUE TOP TUBE STAT 02/01/2024 1 0:31 AM CDT CBC WITH PLATELETS AND DIFFERENTIAL STAT 02/01/2024 10:31 AM CDT CBC WITH PLATELETS & DIFFERENTIAL STAT 02/01/2024 10:31 AM CDT MAGNESIUM STAT 02/01/2024 10:31 AM CDT HEMOGLOBIN A1C STAT 02/01/2024 10:31 AM CDT COMPREHENSIVE METABOLIC PANEL STAT 02/01/2024 10:31 AM CDT BLOOD CULTURE STAT 02/01/2024 10:31 AM CDT documented in this encounter Results * CT Abdomen Pelvis w/o Contrast [...] WITHOUT CONTRAST - RENAL STONE PROTOCOL LOCATION: [facility] DATE/TIME: 02/02/2024 9:45 PM CDT INDICATION: [...] WITHOUT CONTRAST - RENAL STONE PROTOCOL LOCATION: [facility] DATE/TIME: 02/02/2024 9:45 PM CDT INDICATION: [...] MD LAB - BLOOD ORDERABL ES LABORATORY [facility] [address] floor, [address] [place] [address], [facility] [phone] * Transfuse red blood cells (unit) (02/02/2024 5:09 PM CDT) Carli Faulkner MD BLOOD TRANSFUSION OR DERABLES * Transfuse red blood cells (unit), 1 Units (02/02/2024 5:09 PM CDT) Carli Faulkner MD [...] PM CDT Assay performed using the FDA-cleared Easy Bill OnlineArray GI Panel from [employer]. ??A negative result should not rule out [...] by the Infectious Diseases Diagnostic Laboratory at [facility]. This laboratory is certified under the Clinical Laboratory Improvement Amendments of 1988 (CLIA-88) as qualified to perform high complexity clinical laboratory testing. Carli Faulkner MD LAB - MICRO GENERAL ORDERABLES [facility] IDD LABORATORY [facility] Inf. Diseases Diag. Lab [address] [facility] [place] [address], [facility] * C. difficile Toxin B PCR with reflex to C. difficile Antigen and Toxins A/B EIA (02/02/2024 1:29 PMCDT) [facility] C Difficile Toxin B by PCR [...] LABORATORY - 02/02/2024 4:19 PM CDT The CepGetYourGuideid Xpert C. difficile Assay, performed on the [employer] Instrument Systems, is a qualitative in vitro [...] GENERAL ORDERABLES [facility]U IDD LABORATORY [facility] Inf. Diseases Diag. Lab [address] [facility], [address] [place] [address] * Prepare red blood cells (unit) (02/02/2024 12:46 PM CDT) Blood Component Type Red Blood Cells BLOOD BANK Product Code [id number] BLOO D BANK Unit Status Transfused BLOO D BANK Unit Number [id number] B LOOD BANK CROSSMATCH Compatible BLOOD BANK CODING SYSTEM [id number] BLO OD BANK ISSUE DATE AND TIME [id number] BLOOD BANK UNIT ABO/RH A+ BLOOD BANK UNIT TYPE ISBT 6200 BL OOD BANK 02/02/2024 12:4 6 PM CDT Carli Faulkner MD BLOOD BANK PRODUCT O RDERABLES BLOOD BANK [address] [place] [address], [facility] * Adult Type and Screen (02/02/2024 12:31 PM CDT) ABO/RH(D) A POS 02/02/2024 12:16 PM CDT BLOOD BANK Antibody Screen Negative Negative 02/02/2024 12:16 PM CDT BLOOD BANK SPECIMEN EXPIRATION DATE [id number] 02/02/2024 12:16 PM CDT BLOOD BANK Blood BLOOD SPECIMEN / Unknown Venipuncture / Unknown 02/02/2024 12:31 PM CDT 02/02/2024 12:35 PM CDT Carli Faulkner MD LAB - BLOOD BANK ANA T ORDER BLOOD BANK [address] [place] [address], [facility] * (ABNORMAL) Hemoglobin (02/02/2024 12:31 PM CDT) Hemoglobin 7.3(L) 11.7 - 15.7 g/dL 02/02/2024 12:37 PM CDT LABORATORY Blood STRUCTURE OF RIGHT UPPER LIMB / Unknown Venipuncture / Unknown 02/02/2024 12:31 PM CDT 02/02/2024 12:35 PM CDT Carli Faulkner MD LAB - BLOOD ORDERABL ES Performing Organization Address City/[facility]/ZIP Co de Phone Number LABORATORY [facility] [address], [address] [place] [address], [facility] [phone] * (ABNORMAL) Procalcitonin (02/02/2024 11:22 AM CDT) [...] See Procalcitonin Guidance document for more details. [email or web address] Factors that may affect PCT levels (not [...] MD LAB - BLOOD ORDERABL ES LABORATORY [facility] [address], [address] [place] [address], [facility] [phone] * (ABNORMAL) Manual Differential (02/02/2024 11:22 AM [...] 02/02/2024 11:31 AM CDT Jessica Niño APRN SENIOR RADIATION PROTECTION TECHNICIAN LAB - BLOOD OR DERABLES LABORATORY [facility] [address], [address] [place] [address], [facility] [phone] * (ABNORMAL) CBC with platelets and differential (02/02/2024 11:22 AM CDT) [facility] WBC Count 3.8(L) 4.0 - 11.0 10e3/uL [...] CDT 02/02/2024 11:31 AM CDT Jessica Niño [employer] SENIOR RADIATION PROTECTION TECHNICIAN LAB - BLOOD OR DERABLES LABORATORY [facility] [address], [address] [place] [address], [facility] [phone] * (ABNORMAL) Comprehensive metabolic panel (02/02/2024 11:22 AM CDT) Sodium 139 135 - 145 mmol/L 02/02/2024 12:11 PM CDT LABORATORY Potassium 3.2(L) 3.4 - 5.3 mmol/L 02/02/2024 12:11 PM CDT LABORATORY Carbon Dioxide (CO2) 20(L) 22 - 29 mmol/L 02/02/2024 12:11 PM [facility] Anion Gap 16(H) 7 - 15 mmol/L 02/02/2024 12:11 PM [facility] Urea Nitrogen 36.3(H) 6.0 - 20.0 mg/dL 02/02/2024 12:11 PM [facility] Creatinine 1.76(H) 0.51 - 0.95 mg/dL 02/02/2024 12:11 PM [facility] GFR Estimate 33(L) >60 mL/min/1.7 3m2 02/02/2024 12:11 PM [facility] Comment:eGFR calculated us2020 CKD-EPI equation. Calcium 8.4(L) 8.8 - 10.4 mg/dL 02/02/2024 12:11 PM [facility] Comment:Reference intervals for this test were updated on 11/17/2023 to reflect our healthy population more accurately. There may be differences in the flagging of prior results with similar values performed with this method. Those prior results can be interpreted in the context of the updated reference intervals. Chloride 103 98 - 107 mmol/L 02/02/2024 12:11 PM [facility] Glucose 117(H) 70 - 99 mg/dL 02/02/2024 12:11 PM [facility] Alkaline Phosphatase 98 40 - 150 U/L 02/02/2024 12:11 PM [facility] AST 17 0 - 45 U/L 02/02/2024 12:11 PM [facility] ALT 26 0 - 50 U/L 02/02/2024 12:11 PM [facility] Protein Total 6.2(L) 6.4 - 8.3 g/dL 02/02/2024 12:11 PM [facility] Albumin 2.7(L) 3.5 - 5.2 g/dL 02/02/2024 12:11 PM [facility] Bilirubin Total 0.4 <=1.2 mg/dL 02/02/2024 12:11 PM [facility] Blood STRUCTURE OF RIGHT UPPER LIMB / Unknown Venipuncture / Unknown 02/02/2024 11:22 AM CDT 02/02/2024 11:31 AM T Jessica Niño APRN, CNP LAB - BLOOD OR DERABLES LABORATORY [facility] [address], [address] [place] [address], [facility] [phone] * (ABNORMAL) Magnesium (02/02/2024 3:33 AM CDT) Magnesium 2.9(H) 1.7 - 2.3 mg/dL 02/02/2024 4:02 AM CDT LABORATORY Blood STRUCTURE OF RIGHT HAND / Unknown Venipuncture / Unknown 02/02/2024 3:33 AM CDT 02/02/2024 3:44 AM CDT Oscar Dumont MD LAB - BLOOD ORDER TRACI LABORATORY [facility] [address], [address] [address], [facility] [phone] * Lactic acid whole blood (02/01/2024 1:06 PM CDT) Lactic Acid 1.0 0.7 - 2.0 mmol/L 02/01/2024 1:09 PM CDT LABORATORY Blood BLOOD SPECIMEN / Unknown Venipuncture / Unknown 02/01/2024 1:06 PM CDT 02/01/2024 1:08 PM CDT Shaista Dimas MD LAB - BLOOD ORDERAB LES LABORATORY [facility] [address], [address] [place] [address], [facility] [phone] * (ABNORMAL) Urine Culture (02/01/2024 11:11 AM CDT) Culture 50,000-100,000 CFU/mL Lactose fermenting gram negative [...] GENERAL ORDERABLES [facility]U IDD LABORATORY [facility] Inf. Diseases Diag. Lab [address] [facility], [address] [place] [phone] * (ABNORMAL) UA with Microscopic reflex to Culture (02/01/2024 11:11 AM CDT) Color Urine Marl[place](A) Colorless, Straw, Light Yellow, Yellow 02/01/2024 11:38 AM CDT LABORATORY Appearance Urine Cloudy(A) Clear 02/01/20 24 11:38 AM CDT LABORATORY Glucose Urine Negative Negative mg/dL 02/01/2024 11:38 AM CDT LABORATORY Bilirubin Urine Negative Negative 11:38 AM CDT LABORATORY Ketones Urine Negative Negative mg/dL 02/01/2024 11:38 AM CDT LABORATORY Specific [place] Urine 1.022 1.003 - 1.035 02/01/2024 11:38 [...] MD LAB - URINE ORDERAB LES LABORATORY [facility] [address], [address] [place] [address], [facility] [phone] * (ABNORMAL) Urine Culture (02/01/2024 11:09 AM CDT) Culture 50,000-100,000 CFU/mL Non lactose fermenting gram negative bacilli(A) 02/02/2024 2:16 PM CDT UU IDD LABORATORY Culture 50,000-100,000 CFU/mL Non lactose fermenting gram negative bacilli(A) 02/02/2024 2:16 PM CDT [facility] IDD LABORATORY Culture 10,000-50,000 CFU/mL Lactose fermenting gram negative bacilli(A) 02/02/2024 2:16 PM CDT [facility] IDD LABORATORY Culture 50,000-100,000 CFU/mL Gram positive cocci(A) 02/02/2024 2:16 PM CDT [facility] IDD LABORATORY Urine NEPHROSTOMY TUBE SUBMITTED SPECIMEN / Unknown Non-blood Collection / Unknown 02/01/2024 11:09 AM CDT 02/01/2024 11:38 AM CDT Narrative UU IDD LABORATORY - 02/02/2024 2:16 PM CDT Multiple morphotypes present with no predominant organism. ??Growth consistent with probable contamination during collection. ??Suggest repeat specimen if clinically indicated. Shaista Dimas MD LAB - MICRO GENERAL ORDERABLES UU IDD LABORATORY [facility] Inf. Diseases Diag. Lab [address] [facility], [address] [place], [place] [phone] * (ABNORMAL) UA with Microscopic reflex to Culture (02/01/2024 11:09 AM CDT) Color Urine Marl[place](A) Colorless, Straw, Light Yellow, Yellow 02/01/2024 11:39 AM T LABORATORY Appearance Urine Cloudy(A) Clear 02/01/20 24 11:39 AM CDT LABORATORY Glucose Urine Negative Negative mg/dL 02/01/2024 11:39 AM CDT LABORATORY Bilirubin Urine Negative Negative 11:39 AM CDT LABORATORY Ketones Urine Negative Negative mg/dL 02/01/2024 11:39 AM CDT LABORATORY Specific [place] Urine 1.015 1.003 - 1.035 02/01/2024 11:39 AM CDT LABORATORY Blood Urine Negative Negative 02/01/2024 11:39 AM CDT LABORATORY pH Urine 8.5(H) 5.0 - 7.0 02/01/2024 11:39 AM CDT LABORATORY Protein Albumin Urine 300(A) Negative mg/dL 02/01/2024 11:39 AM CDT LABORATORY Urobilinogen Urine Normal Normal, 2.0 mg/dL 02/01/2024 11:39 AM CDT LABORATORY Nitrite Urine Negative Negative 02/01/2024 11:39 AM CDT LABORATORY Leukocyte Esterase Urine Large(A) Negative 02/01/2024 11:39 AM CDT LABORATORY Bacteria Urine Many(A) None Seen /HPF 02/01/2024 11:39 AM CDT LABORATORY Mucus Urine Present(A) None Seen /LPF 02/01/2024 11:39 AM CDT LABORATORY Amorphous Crystals Urine Few(A) None Seen /HPF 02/01/2024 11:39 AM CDT LABORATORY Triple Phosphate Crystals Urine Few(A) None Seen /HPF 02/01/2024 11:39 AM CDT LABORATORY RBC Urine 31(H) <=2 /HPF 02/01/2024 11:39 AM CDT SH LABORATORY WBC Urine 181(H) <=5 /HPF 02/01/2024 11:39 AM CDT LABORATORY Urine NEPHROSTOMY TUBE SUBMITTED SPECIMEN / Unknown Non-blood Collection / Unknown 02/01/2024 11:09 AM CDT 02/01/2024 11:17 AM CDT Narrative LABORATORY - 02/01/2024 11:39 AM CDT Urine Culture ordered based on laboratory criteria Shaista Dimas MD LAB - URINE ORDERAB LES LABORATORY [facility] [address], [address] [place] [address], [facility] [phone] * EKG 12-lead, tracing only (02/01/2024 11:07 AM CDT) Systolic Blood Pressure mmHg RADIOLOGY RESULTS Diastolic Blood Pressure mmHg RADIOLOGY RESULTS Ventricular Rate 113 BPM RAD IOLOGY RESULTS Atrial Rate 113 BPM RADIOLOG Y RESULTS VA Interval 130 ms RADIOLOG Y RESULTS QRS Duration 84 ms RADIOLO GY RESULTS QT 372 ms RADIOLOGY RESULTS QTc 510 ms RADIOLOGY RESULTS P [place] 29 degrees RADIOLOGY RESULTS R AXIS 4 degrees RADIOLOGY RESULTS T [place] 129 degrees RADIOLOGY RESULTS Interpretation ECG Sinus tachycardia with occasional Premature ventricular complexes Left ventricular hypertrophy with repolarization abnormality ( R in aVL , Romhilt-Mckeon ) Abnormal ECG No previous ECGs available Confirmed by GENERATED REPORT, COMPUTER ([id number]), acquisitions editor FAWAD CHU ([id number]) on 02/02/2024 5:45:31 PM RADIOLOGY RESULTS 02/01/2024 11:0 7 AM CDT 02/02/2024 5:45 PM CDT Shaista Dimas MD ECG ORDERABLES RADIOLOGY RESULTS * Symptomatic Influenza A/B, RSV, & SARS-CoV2 PCR (COVID-19) Nasopharyngeal (02/01/2024 10:35 AM CDT) [facility] Influenza A PCR Negative Negative 02/01/2024 11:31 [...] the Xpert Xpress CoV2/Flu/RSV Assay on the [employer] GeneXpert Instrument. This test should be ordered [...] management. This test was validated by the [facility] [employer]. These laboratories are certified under the Clinical Laboratory Improvement Amendments of 1988 (CLIA-88) as qualified to perfom high complexity laboratory testing. Shaista Dimas MD LAB - MICRO GENERAL ORDERABLES LABORATORY [facility] [address], [address] [place] [address], [facility] [phone] * (ABNORMAL) iStat Gases (lactate) venous, POCT [...] Shaista Dimas MD LAB - BEAKER POCT Performing Organization Address City/[facility]/ZIP Co de Phone Number LABORATORY POC [facility] [address], [address] [place] [address], [facility] * (ABNORMAL) Verigene GN Panel (02/01/2024 10:31 AM CDT) [facility] Acinetobacter species Not Detected Not Detected 02/02/2024 [...] GENERAL ORDERABLES UU IDD LABORATORY [facility] Inf. Diseases Diag. Lab [address] [facility], [address] [place] [address], [facility] * (ABNORMAL) Magnesium (02/01/2024 10:31 AM CDT) Pathologist [facility] Magnesium 1.4(L) 1.7 - 2.3 mg/dL 02/01/2024 4:46 PM CDT LABORATORY Blood BLOOD SPECIMEN / Unknown Venipuncture / Unknown 02/01/2024 10:31 AM CDT 02/01/2024 10:45 AM CDT Jessica Niño APRN SENIOR RADIATION PROTECTION TECHNICIAN LAB - BLOOD OR DERABLES LABORATORY [facility] [address], [address] [place] [address], [facility] [phone] * (ABNORMAL) Hemoglobin A1c (02/01/2024 10:31 AM CDT) Pathologist [facility] Estimated Average Glucose 131(H) <117 mg/dL 02/01/2024 4:53 PM CDT LABORATORY Hemoglobin A1C 6.2(H) <5.7 % 02/01/2024 4:53 PM CDT LABORATORY Comment: Normal <5.7% Prediabetes 5.7-6.4% ?? Diabetes 6.5% or higher Note: Adopted from ADA consensus guidelines. Blood BLOOD SPECIMEN / Unknown Venipuncture / Unknown 02/01/2024 10:31 AM CDT 02/01/2024 10:45 AM CDT Jessica Niño APRN SENIOR RADIATION PROTECTION TECHNICIAN LAB - BLOOD OR DERABLES LABORATORY [facility] [address], [address] [place] [address], [facility] [phone] * (ABNORMAL) CBC with platelets and differential (02/01/2024 10:31 AM CDT) WBC Count 4.8 4.0 - 11.0 10e3/uL 02/01/2024 10:51 AM CDT LABORATORY RBC Count 2.90(L) 3.80 - 5.20 10e6/uL 02/01/2024 10:51 AM CDT LABORATORY Hemoglobin 8.7(L) 11.7 - 15.7 g/dL 02/01/2024 10:51 AM CDT LABORATORY Hematocrit 27.9(L) 35.0 - 47.0 % 02/01/2024 10:51 AM CDT LABORATORY MCV 96 78 - 100 fL 02/01/2024 10:51 AM CDT LABORATORY MCH 30.0 26.5 - 33.0 pg 02/01/2024 10:51 AM CDT LABORATORY MCHC 31.2(L) 31.5 - 36.5 g/dL 02/01/2024 10:51 AM CDT LABORATORY RDW 17.5(H) 10.0 - 15.0 % 02/01/2024 10:51 AM CDT LABORATORY Platelet Count 121(L) 150 - 450 10e3/uL 02/01/2024 10:51 AM CDT LABORATORY % Neutrophils 91 % 02/01/2024 10:51 AM CDT LABORATORY % Lymphocytes 4 % 02/01/2024 10:51 AM CDT LABORATORY % Monocytes 3 % 02/01/2024 10:51 AM CDT LABORATORY % Eosinophils 0 % 02/01/2024 10:51 AM CDT LABORATORY % Basophils 1 % 02/01/2024 10:51 AM CDT LABORATORY % Immature Granulocytes 2 % 02/01/2024 10:51 AM CDT LABORATORY NRBCs per 100 WBC 0 <1 /100 024 10:51 AM CDT LABORATORY Absolute Neutrophils 4.4 1.6 - 8.3 10e3/uL 02/01/2024 10:51 AM CDT LABORATORY Absolute Lymphocytes 0.2(L) 0.8 - 5.3 10e3/uL 02/01/2024 10:51 AM CDT LABORATORY Absolute Monocytes 0.1 0.0 - 1.3 10e3/uL 02/01/2024 10:51 AM CDT LABORATORY Absolute Eosinophils 0.0 0.0 - 0.7 10e3/uL 02/01/2024 10:51 AM CDT LABORATORY Absolute Basophils 0.1 0.0 - 0.2 10e3/uL 02/01/2024 10:51 AM CDT LABORATORY Absolute Immature Granulocytes 0.1 <=0.4 10e3/uL 02/01/2024 10:51 AM CDT LABORATORY Absolute NRBCs 0.0 10e3/uL 02/01/2024 10:51 AM CDT LABORATORY Blood BLOOD SPECIMEN / Unknown Venipuncture / Unknown 02/01/2024 10:31 AM CDT 02/01/2024 10:45 AM CDT Shaista Dimas MD LAB - BLOOD ORDERAB LES LABORATORY [facility] [address], [address] [place] [address], [facility] [phone] * (ABNORMAL) Comprehensive metabolic panel (02/01/2024 10:31 AM CDT) Sodium 134(L) 135 - 145 mmol/L 02/01/2024 11:10 AM CDT LABORATORY Potassium 3.2(L) 3.4 - 5.3 mmol/L 02/01/2024 11:10 AM CDT LABORATORY Carbon Dioxide (CO2) 22 22 - 29 mmol/L 02/01/2024 11:10 AM CDT LABORATORY Anion Gap 17(H) 7 - 15 mmol/L 02/01/2024 11:10 AM CDT LABORATORY Urea Nitrogen 39.0(H) 6.0 - 20.0 mg/dL 02/01/2024 11:10 AM CDT LABORATORY Creatinine 2.04(H) 0.51 - 0.95 mg/dL 02/01/2024 11:10 AM CDT LABORATORY GFR Estimate 28(L) >60 mL/min/1.7 3m2 02/01/2024 11:10 AM CDT LABORATORY Comment:eGFR calculated us2020 CKD-EPI equation. Calcium 8.5(L) 8.8 - 10.4 mg/dL 02/01/2024 11:10 AM T LABORATORY Comment:Reference intervals for this test were updated on 11/17/2023 to reflect our healthy population more accurately. There may be differences in the flagging of prior results with similar values performed with this method. Those prior results can be interpreted in the context of the updated reference intervals. Chloride 95(L) 98 - 107 mmol/L 02/01/2024 11:10 AM CDT LABORATORY Glucose 174(H) 70 - 99 mg/dL 02/01/2024 11:10 AM CDT LABORATORY Alkaline Phosphatase 103 40 - 150 U/L 02/01/2024 11:10 AM CDT LABORATORY AST 17 0 - 45 U/L 02/01/2024 11:10 AM CDT LABORATORY ALT 19 0 - 50 U/L 02/01/2024 11:10 AM CDT LABOR[facility]ORY Protein Total 6.3(L) 6.4 - 8.3 g/dL 02/01/2024 11:10 AM CDT LABORATORY Albumin 3.0(L) 3.5 - 5.2 g/dL 02/01/2024 11:10 AM CDT LABORATORY Bilirubin Total 0.7 <=1.2 mg/dL 02/01/2024 11:10 AM T LABORATORY Blood BLOOD SPECIMEN / Unknown Venipuncture / Unknown 02/01/2024 10:31 AM CDT 02/01/2024 10:45 AM CDT Shaista Dimas MD LAB - BLOOD ORDERAB LES LABORATORY [facility] [address] 1st floor, Room [address] [place] [address], [facility] [phone] * Extra Purple Top Tube (02/01/2024 10:31 AM CDT) Hold Specimen [facility] 02/01/2024 11:46 AM CDT LABORATORY Blood BLOOD SPECIMEN / Unknown Venipuncture / Unknown 02/01/2024 10:31 AM CDT 02/01/2024 10:45 AM CDT Shaista Dimas MD LAB - BLOOD ORDERAB LES [facility] [address] 1st floor, Room [address] [place] [address], [place] [phone] * Extra Green Top ([place] Heparin) Tube (02/01/2024 10:31 AM CDT) Hold Specimen [facility] 02/01/2024 11:46 AM CDT LABORATORY Blood BLOOD SPECIMEN / Unknown Venipuncture / Unknown 02/01/2024 10:31 AM CDT 02/01/2024 10:45 AM CDT Shaista Dimas MD LAB - BLOOD ORDERAB LES [facility] [address] 1st floor, Room [address] [place] [address], [place] [phone] * Extra Red Top Tube (02/01/2024 10:31 AM CDT) Hold Specimen [facility] 02/01/2024 11:46 AM CDT LABORATORY Blood BLOOD SPECIMEN / Unknown Venipuncture / Unknown 02/01/2024 10:31 AM CDT 02/01/2024 10:45 AM CDT Shaista Dimas MD LAB - BLOOD ORDERAB LES [facility] [address] 1[address] floor, [address] [place] [address], [place] [phone] * Extra Blue Top Tube (02/01/2024 10:31 AM CDT) Hold Specimen [facility] 02/01/2024 11:46 AM CDT LABORATORY Blood BLOOD SPECIMEN / Unknown Venipuncture / Unknown 02/01/2024 10:31 AM CDT 02/01/2024 10:45 AM CDT Shaista Dimas MD LAB - BLOOD ORDERAB LES LABORATORY [facility] [address] 1st floor, [address] [place] [address], [facility] [phone] * Extra Blood Culture Bottle (02/01/2024 10:31 AM CDT) Hold Specimen [facility] 02/01/2024 11:46 AM CDT LABORATORY Blood BLOOD SPECIMEN / Unknown Venipuncture / Unknown 02/01/2024 10:31 AM CDT 02/01/2024 10:45 AM CDT Shaista Dimas MD LAB - BLOOD ORDERAB LES Performing Organization Address City/[facility]/ZIP Co de Phone Number [facility] [address] 1st floor, [address] [place] [address], [facility] [phone] documented in this encounter Visit Diagnoses Diagnosis Severe sepsis (H) Urinary tract infection with hematuria, site unspecified History of cancer Personal history of unspecified malignant neoplasm Renal failure, unspecified chronicity Generalized weakness Other malaise and fatigue Diarrhea, unspecified type Generalized weakness Other malaise and fatigue History of cancer Personal history of unspecified malignant neoplasm Severe sepsis (H) Urinary tract infection with hematuria, site unspecified Renal failure, unspecified chronicity documented in this encounter Administered Medications Active Administered Medications - up to 3 most recent administrations Medication Order MAR Action Action Date Dose Rate Site acetaminophen (TYLENOL) Suppository 650 mg 650 mg, Rectal, EVERY 4 HOURS PRN, mild pain, other, and adjunct with moderate or severe pain or per patient request, Starting on Thu02/01/24 at 1907, Alternate with ibuprofen if ordered. Maximum acetaminophen dose from all sources = 75 mg/kg/day not to exceed 4 grams/day. acetaminophen (TYLENOL) tablet 650 mg 650 mg, Oral, EVERY 4 HOURS PRN, mild pain, other, and adjunct with moderate or severe pain or per patient request, Starting on Thu02/01/24 at 1907, Alternate with ibuprofen if ordered. Maximum acetaminophen dose from all sources = 75 mg/kg/day not to exceed 4 grams/day. $Given 02/02/2024 12:20 AM CDT 650 mg carvedilol (COREG) tablet 6.25 mg 6.25 mg, Oral, 2 TIMES DAILY WITH MEALS, First dose on Thu02/01/24 at 1930, Tablets can be crushed and given via enteral route. HOLD for SBP <110 $Given 02/02/2024 5:33 PM CDT 6.25 mg $Given 02/02/2024 9:56 AM CDT 6.25 mg $Given 02/01/2024 7:47 PM CDT 6.25 mg ceFEPIme (MAXIPIME) 2 g vial to attach to NS 100 mL bag for ADULTS or NS 50 mL bag for PEDS STAT, 2 g, Intravenous, EVERY 12 HOURS, First dose on Thu02/01/24 at 1730, Dose adjusted per renal dosing policy. Estimated CrCl = 30-60 mL/min., Indications: Sepsis, Urinary Tract Infection $New Bag 02/02/2024 5:33 PM CDT 2 g $New Bag 02/02/2024 5:43 AM CDT 2 g $New Bag 02/01/2024 7:49 PM CDT 2 g heparin ANTICOAGULANT injection 5,000 Units 5,000 Units, Subcutaneous, EVERY 8 HOURS, First dose on Thu02/01/24 at 2200, Contact provider if platelet count drops by 50% or more after heparin initiation OR if platelet count falls below 50 x 10e3/uL High concentration heparin. Not for line flush or cath care. $Given 02/02/2024 10:16 PM CDT 5,000 Units $Given 02/02/2024 1:08 PM CDT 5,000 Units $Given 02/02/2024 5:43 AM CDT 5,000 Units hydrALAZINE (APRESOLINE) injection 10 mg 10 mg, Intravenous, EVERY 4 HOURS PRN, high blood pressure, for systolic BP greater than 180 mmHg, Administer over 1 Minutes, Starting on Thu02/01/24 at 1907 hydrALAZINE (APRESOLINE) tablet 10 mg 10 mg, Oral, EVERY 4 HOURS PRN, high blood pressure, for systolic BP greater than 180 mmHg, Starting on Thu02/01/24 at 1907 lidocaine (LMX4) cream Topical, EVERY 1 HOUR PRN, pain, with VAD insertion, Starting on Thu02/01/24 at 1907, Apply at least 30 minutes prior to VAD insertion in divided doses as needed for size of site for insertion. MAX Dose: 2.5 g (?? of 5 g tube) Do NOT give if patient has a history of allergy to any local anesthetic or any vinicio product. Do NOT use both lidocaine intradermal/subcutaneous injection and the lidocaine cream on the same site. $Given 02/02/2024 1:08 PM CDT multivitamin w/minerals (THERA-VIT-M) tablet 1 tablet 1 tablet, Oral, DAILY, First dose on Thu02/02/24 at 1500 $Given 02/02/2024 4:00 PM CDT 1 tablet naloxone (NARCAN) injection 0.2 mg 0.2 mg, Intravenous, EVERY 2 MIN PRN, opioid reversal, Starting on Thu02/01/24 at 190, Administer intravenous route when available and notify [...] parameters have not improved after 4 naloxone doses. naloxone (NARCAN) injection 0.2 mg 0.2 mg, Intramuscular, EVERY 2 MIN PRN, opioid reversal, Starting on Thu02/01/24 at 1907, Administer intramuscular if an intravenous route is [...] parameters have not improved after 4 naloxone doses. naloxone (NARCAN) injection 0.4 mg 0.4 mg, Intravenous, EVERY 2 MIN PRN, opioid reversal, Starting on Thu02/01/24 at 1907, Administer intravenous route when available and notify [...] parameters have not improved after 4 naloxone doses. naloxone (NARCAN) injection 0.4 mg 0.4 mg, Intramuscular, EVERY 2 MIN PRN, opioid reversal, Starting on Thu02/01/24 at 1907, Administer intramuscular if an intravenous route is [...] parameters have not improved after 4 naloxone doses. OLANZapine (zyPREXA) tablet 2.5 mg 2.5 mg, Oral, AT BEDTIME, First dose on Thu02/01/24 at 2200, Combined IM and PO doses may significantly increase the risk of orthostatic hypotension at 30 mg per day or higher. $Given 02/02/2024 10:17 PM CDT 2.5 mg $Given 02/01/2024 9:29 PM CDT 2.5 mg ondansetron (ZOFRAN ODT) ODT tab 4 mg 4 mg, Oral, EVERY 6 HOURS PRN, nausea, vomiting, Starting on Thu02/01/24 at 1907, This is Step 1 of nausea and vomiting management. If nausea not resolved in 15 minutes, go to Step 2 prochlorperazine (COMPAZINE). With dry hands, peel back foil backing and gently remove tablet. Do not push oral disintegrating tablet through foil backing. Administer immediately on tongue and oral disintegrating tablet dissolves in seconds, then swallow with saliva. Liquid not required. ondansetron (ZOFRAN) injection 4 mg 4 mg, Intravenous, EVERY 6 HOURS PRN, nausea, vomiting, Administer over 2-5 Minutes, Starting on Thu02/01/24 at 1907, Give IF patient unable to tolerate oral medication. This is Step 1 of nausea and vomiting management. If nausea not resolved in 15 minutes, go to Step 2 prochlorperazine (COMPAZINE). oxyCODONE (ROXICODONE) tablet 10 mg 10 mg, Oral, EVERY 4 HOURS PRN, severe pain, IF pain not managed with non-pharmacological and non-opioid interventions, Starting on Thu02/01/24 at 1907, May use concomitant with non-opioid analgesics. $Given 02/02/2024 2:45 PM CDT 10 mg oxyCODONE (ROXICODONE) tablet 5 mg 5 mg, Oral, EVERY 4 HOURS PRN, moderate pain, IF pain not managed with non-pharmacological and non-opioid interventions, Starting on Thu02/01/24 at 1907, May use concomitant with non-opioid analgesics. $Given 02/02/2024 10:16 PM CDT 5 mg predniSONE (DELTASONE) tablet 10 mg 10 mg, Oral, DAILY, First dose on Thu02/01/24 at 1930 $Given 02/02/2024 9:56 AM CDT 10 mg $Given 02/01/2024 7:47 PM CDT 10 mg prochlorperazine (COMPAZINE) injection 10 mg 10 mg, Intravenous, EVERY 6 HOURS PRN, nausea, vomiting, Administer over 1-2 Minutes, Starting on Thu02/01/24 at 1907, IF patient unable to tolerate oral medication. This is Step 2 of nausea and vomiting management. Give if nausea not resolved 15 minutes after giving ondansetron (ZOFRAN). prochlorperazine (COMPAZINE) suppository 25 mg 25 mg, Rectal, EVERY 12 HOURS PRN, nausea, vomiting, Starting on Thu02/01/24 at 1907, This is Step 2 of nausea and vomiting management. Give if nausea not resolved 15 minutes after giving ondansetron (ZOFRAN). prochlorperazine (COMPAZINE) tablet 10 mg 10 mg, Oral, EVERY 6 HOURS PRN, vomiting, Starting on Thu02/01/24 at 1907, This is Step 2 of nausea and vomiting management. Give if nausea not resolved 15 minutes after giving ondansetron (ZOFRAN). senna-docusate (SENOKOT-S/PERICOLACE) 8.6-50 MG per tablet 1 tablet 1 tablet, Oral, 2 TIMES DAILY PRN, constipation, Starting on Thu02/01/24 at 1907, If no bowel movement in 24 hours, increase to 2 tablets by mouth. IF more than 1 constipation PRN medication is ordered, administer step-obrien as indicated, moving to the next step ONLY if prior step ineffective. Step 1: senna-docusate (SENOKOT-S; PERICOLACE) OR bisacodyl (DULCOLAX) EC tablet Step 2: polyethylene glycol (MIRALAX/GLYCOLAX) Step 3: bisacodyl (DULCOLAX) suppository Step 4: enema Hold for loose stools. senna-docusate (SENOKOT-S/PERICOLACE) 8.6-50 MG per tablet 2 tablet 2 tablet, Oral, 2 TIMES DAILY PRN, constipation, Starting on Thu02/01/24 at 1907, IF more than 1 constipation PRN medication is ordered, administer step-obrien as indicated, moving to the next step ONLY if prior step ineffective. Step 1: senna-docusate (SENOKOT-S; PERICOLACE) OR bisacodyl (DULCOLAX) EC tablet Step 2: polyethylene glycol (MIRALAX/GLYCOLAX) Step 3: bisacodyl (DULCOLAX) suppository Step 4: enema Hold for loose stools. sodium chloride (PF) 0.9% PF flush 3 mL 3 mL, Intracatheter, EVERY 8 HOURS, First dose on Thu02/01/24 at 1930, to lock peripheral IV dormant line $Given 02/02/2024 5:43 AM CDT 3 mLs $Given 02/01/2024 7:52 PM CDT 3 mLs sodium chloride 0.9 % infusion at 100 mL/hr, Intravenous, CONTINUOUS, Starting on Thu02/01/24 at 1355, Until Discontinued sodium chloride 0.9 % infusion at 100 mL/hr, Intravenous, CONTINUOUS, Starting on Thu02/01/24 at 1930, Until Discontinued $New Bag 02/02/2024 6:04 AM CDT 100 mL/hr Rate/Dose Verify 02/02/2024 1:51 AM CDT 100 mL/ hr $New Bag 02/01/2024 7:49 PM CDT 100 mL/hr white petrolatum GEL Topical, 4 TIMES DAILY PRN, other, vaginal area as barrier, Starting on Thu02/02/24 at 1725, Apply to vagina and anus as barrier. Inactive Administered Medications - up to 3 most recent administrations Medication Order MAR Action Action Date Dose Rate Site acetaminophen (TYLENOL) tablet 1,000 mg 1,000 mg, Oral, ONCE, On Thu02/01/24 at 1110, For 1 dose, Maximum acetaminophen dose from all sources = 75 mg/kg/day not to exceed 4 gram $Given 02/01/2024 11:29 AM CDT 1,000 mg magnesium sulfate 4 g in 100 mL sterile water intermittent infusion 4 g, Intravenous, Administer over 120 Minutes, at 50 mL/hr, ONCE, On Thu02/01/24 at 2300, For 1 dose, Magnesium level 1.1-1.5 mg/dL. Administer 4 gm magnesium IV x 1 dose and recheck magnesium level 2-4 hours AFTER the last dose is infused. Ordered from the Magnesium replacement order set. $New Bag 02/02/2024 12:12 AM CDT 4 g 50 mL/hr piperacillin-tazobactam (ZOSYN) 4.5 g vial to attach to NS 100 mL bag STAT, 4.5 g, Intravenous, ONCE, On Thu02/01/24 at 1110, For 1 dose, Lactated Ringer's solution is not compatible with piperacillin-tazobactam for injection., Indications: Sepsis $New Bag 02/01/2024 11:30 AM CDT 4.5 g potassium chloride ivone ER (KLOR-CON M20) CR tablet 40 mEq 40 mEq, Oral, ONCE, On Thu02/01/24 at 1200, For 1 dose, DO NOT CRUSH $Given 02/01/2024 1:03 PM CDT 40 mEq potassium chloride ivone ER (KLOR-CON M20) CR tablet 40 mEq 40 mEq, Oral, ONCE, On Thu02/02/24 at 1330, For 1 dose, Potassium level 3.1 - 3.4 mmol/L Ordered from the Potassium replacement order set. DO NOT CRUSH, Potassium Replacement: Potassium level 3.1-3.4 mmol/L, Recheck: Potassium level 4 hours AFTER last oral dose $Given 02/02/2024 1:08 PM CDT 40 mEq sodium chloride 0.9% BOLUS 1,000 mL Intravenous, 1,000 mL, ONCE, On Thu02/01/24 at 1040, For 1 dose $New Bag 02/01/2024 10:39 AM CDT 1,000 mLs sodium chloride 0.9% BOLUS 1,000 mL Intravenous, 1,000 mL, ONCE, at 1,000 mL/hr, Administer over 1 Hours, On Thu02/01/24 at 1110, For 1 dose $New Bag 02/01/2024 11:30 AM CDT 1,000 mLs 1000 mL/hr documented in this encounter Active and Recently Administered Medications Times are shown in CDT. Scheduled Medication Order 02/01/2024 02/02/2024 02/03/2024 acetaminophen (TYLENOL) tablet 1,000 mg (COMPLETED) 1,000 mg, Oral, ONCE, On Thu02/01/24 at 1110, For 1 dose, Maximum acetaminophen dose from all sources = 75 mg/kg/day not to exceed 4 gram 1129 ($Given - Provider: Patricio Cummings RN) carvedilol (COREG) tablet 6.25 mg 6.25 mg, Oral, 2 TIMES DAILY WITH MEALS, First dose on Thu02/01/24 at 1930, Tablets can be crushed and given via enteral route. HOLD for SBP <110 1946 ($Given - Provider: Maria Guadalupe Rivas RN) 0956 ($Given - Provider: Belle Piper RN)173 ($Given - Provider: Jeff Parada, SHERON) 0900 (Due)1800 (Due) ceFEPIme (MAXIPIME) 2 g vial to attach to NS 100 mL bag for ADULTS or NS 50 mL bag for PEDS STAT, 2 g, Intravenous, EVERY 12 HOURS, First dose on Thu02/01/24 at 1730, Dose adjusted per renal dosing policy. Estimated CrCl = 30-60 mL/min., Indications: Sepsis, Urinary Tract Infection 1948 ($New Bag - Provider: Maria Guadalupe Rivas RN) 0543 ($New Bag - Provider: Romel Faith RN)1733 ($New Bag - Provider: Jeff Parada, SHERON) 0530 (Due)1730 (Due) heparin ANTICOAGULANT injection 5,000 Units 5,000 Units, Subcutaneous, EVERY 8 HOURS, First dose on Thu02/01/24 at 2200, Contact provider if platelet count drops by 50% or more after heparin initiation OR if platelet count falls below 50 x 10e3/uL High concentration heparin. Not for line flush or cath care. 2128 ($Given - Provider: Maria Guadalupe A Evelyn, RN) 0543 ($Given - Provider: Romel Faith RN)1308 ($Given - Provider: Belle Piper RN)2216 ($Given - Provider: Jeff Parada, SHERON) 0600 (Due)1400 (Due)2200 (Due) magnesium sulfate 4 g in 100 mL sterile water intermittent infusion (COMPLETED) 4 g, Intravenous, Administer over 120 Minutes, at 50 mL/hr, ONCE, On Thu02/01/24 at 2300, For 1 dose, Magnesium level 1.1-1.5 mg/dL. Administer 4 gm magnesium IV x 1 dose and recheck magnesium level 2-4 hours AFTER the last dose is infused. Ordered from the Magnesium replacement order set. 0012 ($New Bag - Provider: Catrachita Hummel RN) multivitamin w/minerals (THERA-VIT-M) tablet 1 tablet 1 tablet, Oral, DAILY, First dose on Thu02/02/24 at 1500 1600 ($Given - Provider: Jeff Parada RN) 0900 (Due) OLANZapine (zyPREXA) tablet 2.5 mg 2.5 mg, Oral, AT BEDTIME, First dose on Thu02/01/24 at 2200, Combined IM and PO doses may significantly increase the risk of orthostatic hypotension at 30 mg per day or higher. 2129 ($Given - Provider: Maria Guadalupe Rivas RN) 2217 ($Given - Provider: Jeff Parada RN) 2200 (Due) piperacillin-tazobactam (ZOSYN) 4.5 g vial to attach to NS 100 mL bag (COMPLETED) STAT, 4.5 g, Intravenous, ONCE, On Thu02/01/24 at 1110, For 1 dose, Lactated Ringer's solution is not compatible with piperacillin-tazobactam for injection., Indications: Sepsis 1130 ($New Bag - Provider: Patricio Cummings, SHERON)1200 (Stopped - Provider: Patricio Cummings RN) potassium chloride ivone ER (KLOR-CON M20) CR tablet 40 mEq (COMPLETED) 40 mEq, Oral, ONCE, On Thu02/01/24 at 1200, For 1 dose, DO NOT CRUSH 1303 ($Given - Provider: Patricio Cummings, SHERON) potassium chloride ivone ER (KLOR-CON M20) CR tablet 40 mEq (COMPLETED) 40 mEq, Oral, ONCE, On Thu02/02/24 at 1330, For 1 dose, Potassium level 3.1 - 3.4 mmol/L Ordered from the Potassium replacement order set. DO NOT CRUSH, Potassium Replacement: Potassium level 3.1-3.4 mmol/L, Recheck: Potassium level 4 hours AFTER last oral dose 1308 ($Given - Provider: Belle Piper, SHERON) predniSONE (DELTASONE) tablet 10 mg 10 mg, Oral, DAILY, First dose on Thu02/01/24 at 1930 1947 ($Given - Provider: Maria Guadalupe Rivas, SHERON) 0956 ($Given - Provider: Belle Piper, SHERON) 0900 (Due) sodium chloride (PF) 0.9% PF flush 3 mL 3 mL, Intracatheter, EVERY 8 HOURS, First dose on Thu02/01/24 at 1930, to lock peripheral IV dormant line 1952 ($Given - Provider: Maria Guadalupe Rivas RN) 0543 ($Given - Provider: Romel Faith RN)1231 (Not Given - Provider: Belle Piper RN - Reason: IV Infusing)1902 (Not Given - Provider: Jeff Parada RN - Reason: IV Infusing) 0330 (Due)1130 (Due)1930 (Due) sodium chloride 0.9% BOLUS 1,000 mL (COMPLETED) Intravenous, 1,000 mL, ONCE, On Thu02/01/24 at 1040, For 1 dose 1039 ($New Bag - Provider: Patricio Cummings RN)1128 (Stopped - Provider: Patricio Cummings RN) sodium chloride 0.9% BOLUS 1,000 mL (COMPLETED) Intravenous, 1,000 mL, ONCE, at 1,000 mL/hr, Administer over 1 Hours, On Thu02/01/24 at 1110, For 1 dose 1130 ($New Bag - Provider: Patricio Cummings RN)1306 (Stopped - Provider: Patricio Cummings RN) Continuous Medication Order 02/01/2024 02/02/2024 02/03/2024 sodium chloride 0.9 % infusion at 100 mL/hr, Intravenous, CONTINUOUS, Starting on Thu02/01/24 at 1355, Until Discontinued 2331 (Canceled Entry - Provider: Catrachita Hummel RN) sodium chloride 0.9 % infusion at 100 mL/hr, Intravenous, CONTINUOUS, Starting on Thu02/01/24 at 1930, Until Discontinued 1948 ($New Bag - Provider: Maria Guadalupe Rivas RN) 0151 (Rate/Dose Verify - Provider: Catrachita Hummel RN)0604 ($New Bag - Provider: Romel Faith, SHERON) PRN Medication Order 02/01/2024 02/02/2024 02/03/2024 acetaminophen (TYLENOL) Suppository 650 mg(Linked Group 1) 650 mg, Rectal, EVERY 4 HOURS PRN, mild pain, other, and adjunct with moderate or severe pain or per patient request, Starting on Thu02/01/24 at 1907, Alternate with ibuprofen if ordered. Maximum acetaminophen dose from all sources = 75 mg/kg/day not to exceed 4 grams/day. 0020 (See Alternative - Provider: Catrachita Hummel RN) acetaminophen (TYLENOL) tablet 650 mg(Linked Group 1) 650 mg, Oral, EVERY 4 HOURS PRN, mild pain, other, and adjunct with moderate or severe pain or per patient request, Starting on Thu02/01/24 at 1907, Alternate with ibuprofen if ordered. Maximum acetaminophen dose from all sources = 75 mg/kg/day not to exceed 4 grams/day. 0020 ($Given - Provider: Catrachita Hummel RN) calcium carbonate (TUMS) chewable tablet 1,000 mg 1,000 mg, Oral, 4 TIMES DAILY PRN, heartburn, Starting on Thu02/01/24 at 1907 hydrALAZINE (APRESOLINE) injection 10 mg(Linked Group 2) 10 mg, Intravenous, EVERY 4 HOURS PRN, high blood pressure, for systolic BP greater than 180 mmHg, Administer over 1 Minutes, Starting on Thu02/01/24 at 1907 hydrALAZINE (APRESOLINE) tablet 10 mg(Linked Group 2) 10 mg, Oral, EVERY 4 HOURS PRN, high blood pressure, for systolic BP greater than 180 mmHg, Starting on Thu02/01/24 at 1907 lidocaine (LMX4) cream Topical, EVERY 1 HOUR PRN, pain, with VAD insertion, Starting on Thu02/01/24 at 1907, Apply at least 30 minutes prior to VAD insertion in divided doses as needed for size of site for insertion. MAX Dose: 2.5 g (?? of 5 g tube) Do NOT give if patient has a history of allergy to any local anesthetic or any vinicio product. Do NOT use both lidocaine intradermal/subcutaneous injection and the lidocaine cream on the same site. 1308 ($Given - Provider: Belle Piper RN) lidocaine 1 % 0.1-1 mL 0.1-1 mL, Other, EVERY 1 HOUR PRN, mild pain with VAD insertion, Starting on Thu02/01/24 at 1907, MAX dose 1 mL subcutaneous OR intradermal along the side of the vein in divided doses as needed for VAD insertion. Do NOT give if patient has a history of allergy to any local anesthetic or any vinicio product. Do NOT use both lidocaine intradermal/subcutaneous injection and the lidocaine cream on the same site. melatonin tablet 5 mg 5 mg, Oral, AT BEDTIME PRN, sleep, Starting on Thu02/01/24 at 1907, Do not give unless at least 6 hours of uninterrupted sleep is expected. If patient has multiple medications ordered PRN sleep/insomnia, offer melatonin first. naloxone (NARCAN) injection 0.2 mg(Linked Group 3) 0.2 mg, Intravenous, EVERY 2 MIN PRN, opioid reversal, Starting on Thu02/01/24 at 1907, Administer intravenous route when available and notify [...] parameters have not improved after 4 naloxone doses. naloxone (NARCAN) injection 0.2 mg(Linked Group 3) 0.2 mg, Intramuscular, EVERY 2 MIN PRN, opioid reversal, Starting on Thu02/01/24 at 1907, Administer intramuscular if an intravenous route is [...] parameters have not improved after 4 naloxone doses. naloxone (NARCAN) injection 0.4 mg(Linked Group 3) 0.4 mg, Intravenous, EVERY 2 MIN PRN, opioid reversal, Starting on Thu02/01/24 at 1907, Administer intravenous route when available and notify [...] parameters have not improved after 4 naloxone doses. naloxone (NARCAN) injection 0.4 mg(Linked Group 3) 0.4 mg, Intramuscular, EVERY 2 MIN PRN, opioid reversal, Starting on Thu02/01/24 at 1907, Administer intramuscular if an intravenous route is [...] parameters have not improved after 4 naloxone doses. ondansetron (ZOFRAN ODT) ODT tab 4 mg(Linked Group 4) 4 mg, Oral, EVERY 6 HOURS PRN, nausea, vomiting, Starting on Thu02/01/24 at 1907, This is Step 1 of nausea and vomiting management. If nausea not resolved in 15 minutes, go to Step 2 prochlorperazine (COMPAZINE). With dry hands, peel back foil backing and gently remove tablet. Do not push oral disintegrating tablet through foil backing. Administer immediately on tongue and oral disintegrating tablet dissolves in seconds, then swallow with saliva. Liquid not required. ondansetron (ZOFRAN) injection 4 mg(Linked Group 4) 4 mg, Intravenous, EVERY 6 HOURS PRN, nausea, vomiting, Administer over 2-5 Minutes, Starting on Thu02/01/24 at 1907, Give IF patient unable to tolerate oral medication. This is Step 1 of nausea and vomiting management. If nausea not resolved in 15 minutes, go to Step 2 prochlorperazine (COMPAZINE). oxyCODONE (ROXICODONE) tablet 10 mg 10 mg, Oral, EVERY 4 HOURS PRN, severe pain, IF pain not managed with non-pharmacological and non-opioid interventions, Starting on Thu02/01/24 at 1907, May use concomitant with non-opioid analgesics. 1445 ($Given - Provider: Belle Piper RN - Comment: Patient requesting 10 mg oxy) oxyCODONE (ROXICODONE) tablet 5 mg 5 mg, Oral, EVERY 4 HOURS PRN, moderate pain, IF pain not managed with non-pharmacological and non-opioid interventions, Starting on Thu02/01/24 at 1907, May use concomitant with non-opioid analgesics. 2216 ($Given - Provider: Abhinav Parada RN - Comment: Pt request) prochlorperazine (COMPAZINE) injection 10 mg(Linked Group 5) 10 mg, Intravenous, EVERY 6 HOURS PRN, nausea, vomiting, Administer over 1-2 Minutes, Starting on Thu02/01/24 at 1907, IF patient unable to tolerate oral medication. This is Step 2 of nausea and vomiting management. Give if nausea not resolved 15 minutes after giving ondansetron (ZOFRAN). prochlorperazine (COMPAZINE) suppository 25 mg(Linked Group 5) 25 mg, Rectal, EVERY 12 HOURS PRN, nausea, vomiting, Starting on Thu02/01/24 at 1907, This is Step 2 of nausea and vomiting management. Give if nausea not resolved 15 minutes after giving ondansetron (ZOFRAN). prochlorperazine (COMPAZINE) tablet 10 mg(Linked Group 5) 10 mg, Oral, EVERY 6 HOURS PRN, vomiting, Starting on Thu02/01/24 at 1907, This is Step 2 of nausea and vomiting management. Give if nausea not resolved 15 minutes after giving ondansetron (ZOFRAN). senna-docusate (SENOKOT-S/PERICOLACE) 8.6-50 MG per tablet 1 tablet(Linked Group 6) 1 tablet, Oral, 2 TIMES DAILY PRN, constipation, Starting on Thu02/01/24 at 1907, If no bowel movement in 24 hours, increase to 2 tablets by mouth. IF more than 1 constipation PRN medication is ordered, administer step-obrien as indicated, moving to the next step ONLY if prior step ineffective. Step 1: senna-docusate (SENOKOT-S; PERICOLACE) OR bisacodyl (DULCOLAX) EC tablet Step 2: polyethylene glycol (MIRALAX/GLYCOLAX) Step 3: bisacodyl (DULCOLAX) suppository Step 4: enema Hold for loose stools. senna-docusate (SENOKOT-S/PERICOLACE) 8.6-50 MG per tablet 2 tablet(Linked Group 6) 2 tablet, Oral, 2 TIMES DAILY PRN, constipation, Starting on Thu02/01/24 at 1907, IF more than 1 constipation PRN medication is ordered, administer step-obrien as indicated, moving to the next step ONLY if prior step ineffective. Step 1: senna-docusate (SENOKOT-S; PERICOLACE) OR bisacodyl (DULCOLAX) EC tablet Step 2: polyethylene glycol (MIRALAX/GLYCOLAX) Step 3: bisacodyl (DULCOLAX) suppository Step 4: enema Hold for loose stools. sodium chloride (PF) 0.9% PF flush 3 mL 3 mL, Intracatheter, EVERY 1 MIN PRN, line flush, other, to ensure patency or to lock dormant line, Starting on Thu02/01/24 at 1907 white petrolatum GEL Topical, 4 TIMES DAILY PRN, other, vaginal area as barrier, Starting on Thu02/02/24 at 1725, Apply to vagina and anus as barrier. Linked Groups Order Group 1: acetaminophen (TYLENOL) tablet 650 mgJump to med 650 mg, Oral, EVERY 4 HOURS PRN, mild pain, other, and adjunct with moderate or severe pain or per patient request, Starting on Thu02/01/24 at 1907, Alternate with ibuprofen if ordered. Maximum acetaminophen dose from all sources = 75 mg/kg/day not to exceed 4 grams/day. Or acetaminophen (TYLENOL) Suppository 650 mgJump to med 650 mg, Rectal, EVERY 4 HOURS PRN, mild pain, other, and adjunct with moderate or severe pain or per patient request, Starting on Thu02/01/24 at 1907, Alternate with ibuprofen if ordered. Maximum acetaminophen dose from all sources = 75 mg/kg/day not to exceed 4 grams/day. Group 2: hydrALAZINE (APRESOLINE) tablet 10 mgJump to med 10 mg, Oral, EVERY 4 HOURS PRN, high blood pressure, for systolic BP greater than 180 mmHg, Starting on Thu02/01/24 at 1907 Or hydrALAZINE (APRESOLINE) injection 10 mgJump to med 10 mg, Intravenous, EVERY 4 HOURS PRN, high blood pressure, for systolic BP greater than 180 mmHg, Administer over 1 Minutes, Starting on Thu02/01/24 at 1907 Group 3: naloxone (NARCAN) injection 0.2 mgJump to med 0.2 mg, Intravenous, EVERY 2 MIN PRN, opioid reversal, Starting on Thu02/01/24 at 1907, Administer intravenous route when available and notify [...] parameters have not improved after 4 naloxone doses. Or naloxone (NARCAN) injection 0.4 mgJump to med 0.4 mg, Intravenous, EVERY 2 MIN PRN, opioid reversal, Starting on Thu02/01/24 at 1907, Administer intravenous route when available and notify [...] parameters have not improved after 4 naloxone doses. Or naloxone (NARCAN) injection 0.2 mgJump to med 0.2 mg, Intramuscular, EVERY 2 MIN PRN, opioid reversal, Starting on Thu02/01/24 at 1907, Administer intramuscular if an intravenous route is [...] parameters have not improved after 4 naloxone doses. Or naloxone (NARCAN) injection 0.4 mgJump to med 0.4 mg, Intramuscular, EVERY 2 MIN PRN, opioid reversal, Starting on Thu02/01/24 at 1907, Administer intramuscular if an intravenous route is [...] parameters have not improved after 4 naloxone doses. Group 4: ondansetron (ZOFRAN ODT) ODT tab 4 mgJump to med 4 mg, Oral, EVERY 6 HOURS PRN, nausea, vomiting, Starting on Thu02/01/24 at 1907, This is Step 1 of nausea and vomiting management. If nausea not resolved in 15 minutes, go to Step 2 prochlorperazine (COMPAZINE). With dry hands, peel back foil backing and gently remove tablet. Do not push oral disintegrating tablet through foil backing. Administer immediately on tongue and oral disintegrating tablet dissolves in seconds, then swallow with saliva. Liquid not required. Or ondansetron (ZOFRAN) injection 4 mgJump to med 4 mg, Intravenous, EVERY 6 HOURS PRN, nausea, vomiting, Administer over 2-5 Minutes, Starting on Thu02/01/24 at 1907, Give IF patient unable to tolerate oral medication. This is Step 1 of nausea and vomiting management. If nausea not resolved in 15 minutes, go to Step 2 prochlorperazine (COMPAZINE). Group 5: prochlorperazine (COMPAZINE) injection 10 mgJump to med 10 mg, Intravenous, EVERY 6 HOURS PRN, nausea, vomiting, Administer over 1-2 Minutes, Starting on Thu02/01/24 at 1907, IF patient unable to tolerate oral medication. This is Step 2 of nausea and vomiting management. Give if nausea not resolved 15 minutes after giving ondansetron (ZOFRAN). Or prochlorperazine (COMPAZINE) tablet 10 mgJump to med 10 mg, Oral, EVERY 6 HOURS PRN, vomiting, Starting on Thu02/01/24 at 1907, This is Step 2 of nausea and vomiting management. Give if nausea not resolved 15 minutes after giving ondansetron (ZOFRAN). Or prochlorperazine (COMPAZINE) suppository 25 mgJump to med 25 mg, Rectal, EVERY 12 HOURS PRN, nausea, vomiting, Starting on Thu02/01/24 at 1907, This is Step 2 of nausea and vomiting management. Give if nausea not resolved 15 minutes after giving ondansetron (ZOFRAN). Group 6: senna-docusate (SENOKOT-S/PERICOLACE) 8.6-50 MG per tablet 1 tabletJump to med 1 tablet, Oral, 2 TIMES DAILY PRN, constipation, Starting on Thu02/01/24 at 1907, If no bowel movement in 24 hours, increase to 2 tablets by mouth. IF more than 1 constipation PRN medication is ordered, administer step-obrien as indicated, moving to the next step ONLY if prior step ineffective. Step 1: senna-docusate (SENOKOT-S; PERICOLACE) OR bisacodyl (DULCOLAX) EC tablet Step 2: polyethylene glycol (MIRALAX/GLYCOLAX) Step 3: bisacodyl (DULCOLAX) suppository Step 4: enema Hold for loose stools. Or senna-docusate (SENOKOT-S/PERICOLACE) 8.6-50 MG per tablet 2 tabletJump to med 2 tablet, Oral, 2 TIMES DAILY PRN, constipation, Starting on Thu02/01/24 at 1907, IF more than 1 constipation PRN medication is ordered, administer step-obrien as indicated, moving to the next step ONLY if prior step ineffective. Step 1: senna-docusate (SENOKOT-S; PERICOLACE) OR bisacodyl (DULCOLAX) EC tablet Step 2: polyethylene glycol (MIRALAX/GLYCOLAX) Step 3: bisacodyl (DULCOLAX) suppository Step 4: enema Hold for loose stools. documented in this encounter Additional Health Concerns Infection Onset Date Last Indicated Resolved Time Rule Out COVID-19 02/01/2024 02/01/2024 02/01/2024 11:31 AM CDT Rule Out C-difficile 02/02/2024 02/02/2024 024 4:19 PM CDT documented as of this encounter Care Teams Sweeper Cleaner Industrial Relationship Specialty Start Date End Date Clinic, [address] [address] PCP - General 07/31/23 documented as of this encounter
--- OUTSIDE RECORDS SUMMARY | 2024-02-03 01:24 | XMS_ITS | Encounter Summary ---
Author Organization [place] Address [address] [place] [address] Care Team Providers Care Manager Of Internal Audit Name Role Phone Clinic, [facility] Primary Care Provider Encounter Details Date Type Department Care Team (Late st Contact Info) Description 10/06/2023 Orders Only [facility] [address] [phone] Brooke Aguillon Malignant neoplasm of exocervix (H) [...] st Contact Info) Description 03/07/2024 Hospital Encounter [facility] [address] [phone] 03/07/2024 2:20 PM PIPELINE MAINTENANCE SUPERVISOR Ancillary Procedure [facility] [address] [phone] Otilia Escoto, PA-C [facility] [address] [place] [address] documented as of this encounter Visit Diagnoses Diagnosis Malignant neoplasm of exocervix (H) Malignant neoplasm of exocervix documented in this encounter Additional Health Concerns Infection Onset Date Last Indicated Resolved Time Rule Out COVID-19 02/01/2024 02/01/2024 02/01/2024 11:31 AM CDT Rule Out C-difficile 02/02/2024 02/02/2024 024 4:19 PM CDT documented as of this encounter Care Teams Manager Of Internal Audit Relationship Specialty Start Date End Date [facility], [facility] [address] [place] [address] PCP - General 07/31/23 documented as of this encounter
--- OUTSIDE RECORDS SUMMARY | 2024-02-03 01:25 | XMS_ITS | Encounter Summary ---
Author Organization [facility] Address [address] [place] [address] Care Team Providers Care Supervisor Fertilizer Name Role Phone Unavailable Primary Care Provider Unavailabl e Encounter Details Date Type Department Care Team (Late st Contact Info) Description 12/09/2023 Orders Only Department of Oncology in [place], [place] [address] [place] [phone] Agata Melendez R.N. [address] [place] [phone] Anemia (Primary Dx); Malignant Neoplasm Of Exocervix [...] Altamirano C.N.P. LAB BLOOD BANK TEST ORDERABLES [facility] [address] [place] [address], [facility] NPRG [facility] [address] [place] [address] documented in this encounter Visit Diagnoses Diagnosis Anemia- Primary Malignant Neoplasm Of Exocervix (HCC) documented in this encounter
--- OUTSIDE RECORDS SUMMARY | 2024-02-03 01:25 | XMS_ITS ---
Author Organization [facility] Address [address] [place] [address] Care Team Providers Care Pbx Operator Name Role Phone Unavailable Unavailable Unavailable Surgery Details Not on file Complications Check Surgery Details section. Procedure Estimated Blood Loss Check Surgery Details section. Procedure Findings Check Surgery Details section. Procedure Specimens Taken Check Surgery Details section.
--- OUTSIDE RECORDS SUMMARY | 2024-02-03 01:25 | XMS_ITS | Clinical Summary ---
Author Organization [facility] Address [place], [place] [address] Care Team Providers Care Night Worker Name Role Phone Paulina Del Valle MD [...] acetaminophen dose: 4000mg in 24 hrs. Active sennosides-docusat e (SENOKOT S) (8.6-50 mg) tablet Take 1 Tablet by mouth two times daily. 08/11/2023 Active DULoxetine (CYMBALTA) 30 mg Delayed-release capsuleIndications :Adjustment disorder, unspecified type Take 1 Capsule (30 mg) by mouth once daily. 30 Capsule 08/14/2023 Active amLODIPine (NORVASC) 10 mg tabletIndications: HTN (hypertension) Take 1 Tablet (10 mg) by mouth once daily. 90 Tablet 3 09/14/2023 Active hydrOXYzine HCL (ATARAX) 25 mg tabletIndications: Adjustment disorder, unspecified type Take 1 Tablet (25 mg) by mouth every 6 hours if needed for Anxiety. 90 Tablet 3 09/14/2023 Active losartan-hydrochlo rothiazide (HYZAAR) 100-12.5 mg tabletIndications: HTN (hypertension) Take 1 Tablet by mouth once daily. 90 Tablet 3 10/12/2023 Active carvediloL (COREG) 6.25 mg tabletIndications: HTN (hypertension) Take 1 Tablet (6.25 mg) by mouth two times daily with meals. 180 Tablet 3 12/22/2023 Active Active Problems Problem Noted Date Diagnosed Date Adenocarcinoma, lung 07/23/2023 Hypertension 07/23/2023 Hypertensive urgency 07/16/2023 Excessive vaginal bleeding 07/16/2023 Cervical cancer 07/16/2023 Endometrial cancer 07/16/2023 Hyperglycemia 07/16/2023 Acute blood loss anemia 07/16/2023 Morbid obesity 07/16/2023 TGA (transient global amnesia) 12/05/2017 Encounters Date Type Department Care Team Description 12/21/2023 Telephone [facility] [address] [place] [address] Paulina Del Valle MD Appointment 12/16/2023 Orders Only [facility] Scanner 1 scan: (1-Ord) THERESA, HEAD/ BRAIN WO/W CON, 12/16/2023 12/10/2023 Lab Requisition [facility] [phone] Unknown, Doctor 11/24/2023 3:20 PM CDT Office Visit [facility] [address] [place] [address] Tommie Del Rio MD Preoperative Exam (DOS: 11/25/2023, replacement kidney tubes, [facility], [facility]) 11/24/2023 Travel from Last 3 Months Immunizations Name Administration Dates Next Due COVID-19 vaccine ([employer] 30mcg/0.3mL) BELLA Colon 09/13/2020,08/23/2020 Tdap 10/29/2013 Family [...] 11/24/2023 3:24 PM CDT Plan of Treatment Health Maintenance Due Date Last Done Comments HIV for age 15-65 1980 Hepatitis C screening for ag e 18-79 07/08/1983 Pap test for age 21-65 1986 Colonoscopy through age 75 2010 Mammogram for age 45-75 2010 Zoster (shingles) series for age 50+ (1 of 2) 07/08/2015 Tetanus booster 10/30/2023 10/29/2013 COVID-19 vaccine series (2023- season) 2024 09/13/2020, 08/23/2020 Influenza for age 50-64 01/03/2024 Depression screening for age 12+ 08/16/2024 08/17/2023, 08/14/2023, 08/14/2023 BMI (ht and wt on same day) for age 18+ 11/23/2024 11/24/2023, 08/07/2023, 07/23/2023 Lipids for age 45-75 07/15/2028 07/16/2023 Tdap Completed 10/29/2013 Pneumococcal series for age 6-64 Aged Out No longer eligible b ased on patient's age to complete this topic Procedures Procedure Name Priority Date/Time Associated Diagnosis Comments SCAN-MRI INTERPRETATION 12/16/19 12:00 AM CDT PROCESSING 2 Routine 12/10/2023 8:00 AM CDT LIPID PANEL STAT 07/16/2023 1:21 AM CDT from Last 3 Months or Most Recently Relevant to Health Maintenance Results * SCAN-MRI INTERPRETATION (12/16/2023 12:00 AM CDT) Anatomical Region Laterality Modality Other Scanner OTHER * PROCESSING 2 (12/10/2023 8:00 AM CDT) Other (Other) Client Collect / Unknown 12/10/2023 8:00 AM CDT 12/10/2023 11:42 AM CDT Doctor Unknown LAB BILL ONLY [facility] [address] [place] [address], * LIPID PANEL (07/16/2023 1:21 AM CDT) CHOLESTEROL,TOTAL 154 100 - 199 mg/dL 07/16/2023 2:02 AM CDT [facility] Comment: Cholesterol, Total Reference Ranges Desirable <200 mg/dL Borderline 200-239 mg/dL High >=240 mg/dL TRIGLYCERIDES 105 <150 mg/dL 07/16/2023 2:02 AM [facility] HDL CHOLESTEROL 48 >40 mg/dL 2:02 AM [facility] NON-HDL CHOLESTEROL 106 <145 mg/dl 07/16/2023 2:02 AM [facility] CHOL/HDL RATIO 3.21 <4.50 07/16/2023 2:02 AM [facility] LDL CHOLESTEROL 85 <=130 mg/dL 07/16/2023 2:02 AM [facility] VLDL CHOLESTEROL 21 <=30 mg/dL 07/16/2023 2:02 AM [facility] PROVIDER ORDERED STATUS RANDOM 07/16/2023 2:02 AM [facility] Blood BLOOD SPECIMEN / Unknown Butterfly / Unknown 07/16/2023 1:21 AM CDT 07/16/2023 1:33 AM T Daisy Cross MD CHEMISTRY [facility] INTERNAL ZIP [id number] [address] [place] [address] from Last 3 Months or Most Recently Relevant to Health Maintenance Advance Directives * Full Code (Latest Code Status on File) Date Activated Date Inactivated Comments 07/16/2023 12:58 AM 07/17/2023 4:26 PM Question Answer Comments Code Status Discussion: Reviewed Preferences * Full Code Date Activated Date Inactivated Comments 12/05/2017 4:48 PM 12/06/2017 3:22 PM Care Teams Night Worker Relationship Specialty Start Date End Date [place] [address] PCP - General Family Practice 08/14/23
--- OUTSIDE RECORDS SUMMARY | 2024-02-03 01:25 | XMS_ITS | Clinical Summary ---
Author Organization [facility] Address [address] [place] [address] Care Team Providers Care Electronic Components Assembler Name Role Phone Unavailable Primary Care Provider Unavailabl e Source Comments Patient records contain information from all sites at [facility]. For routine questions regarding patient records, call [phone] during business hours, M-F 8:00 AM - 5:00 PM Central Time. Record requests for emergency care only can be directed to [phone] at any time.[facility] Allergies Active Allergy Reactions Criticality Noted Date [...] Encounters Date Type Department Care Team Description 01/11/2024 10:30 AM CDT Infusion Department of Infusion Therapy in [address] [place] [address] Aurea Altamirano, C.N.P. Malignant Neoplasm Of Exocervix (HCC) (Primary Dx); Anemia 01/11/2024 9:30 AM CDT Lab Department of Infusion Therapy in [address] [place] [address] Aurea Altamirano C.N.P. Anemia; Malignant Neoplasm Of Exocervix (HCC) 01/11/2024 Orders Only Department of Oncology in [address] [place] [address] Talisha Munguia, R.N. Anemia (Primary Dx); Malignant Neoplasm Of Exocervix (HCC) 12/11/2023 9:00 AM CDT Infusion Department of Infusion Therapy in [address] [place] [address] Aurea Altamirano, C.N.P. Anemia (Primary Dx); Malignant Neoplasm Of Exocervix (HCC) 12/10/2023 2:00 PM CDT Lab Department of Infusion Therapy in [address] [place] [address] Aurea Altamirano, C.N.P. Malignant Neoplasm Of Exocervix (HCC) (Primary Dx); Anemia 12/09/2023 Orders Only Department of Oncology in [address] [place] [address] Agata Melendez, RDottieN. Anemia (Primary Dx); Malignant Neoplasm Of Exocervix (HCC) 11/12/2023 8:00 AM CDT Infusion Department of Infusion Therapy in [address] [address] Aurea Altamirano C.N.P. Malignant Neoplasm Of Exocervix (HCC) (Primary Dx); Anemia 11/12/2023 7:26 AM CDT - 11/12/2023 11:59 PM CDT Hospital Encounter Department of Laboratory Medicine in [address] [address] Aurea Altamirano C.N.P. Anemia; Malignant Neoplasm Of Exocervix (HCC) Discharge Disposition: Home or Self Care 11/11/2023 Orders Only Department of Oncology in [address] [phone] Deyanira Mariscal R.N. Anemia (Primary Dx); Malignant [...] Sign Reading Time Taken Comments Blood Pressure 162/84 01/11/2024 3:09 PM CDT Pulse 88 01/11/2024 3:09 PM CDT Temperature 36.1 ??C (97 ??F) 01/11/2024 3:09 PM CDT Respiratory Rate 16 01/11/2024 3:09 PM CDT Oxygen Saturation 99% 01/11/2024 3:09 PM CDT Inhaled Oxygen Concentration - - [...] 1984 Zoster Vaccines (1 of 2) 07/08/2015 Depression Screening (Annual PHQ-2) 05/04/2023 DTaP,Tdap,and Td Vaccines (2 - Td or Tdap) 10/30/2023 10/29/2013 Controlled Substance Agreement 11/12/2023 Controlled Substance Monitoring (PHQ-9) 11/12/2023 Controlled Substance Monitoring 11/12/2023 Opioid Risk Tool (ORT) 11/12/2023 PEG assessment for Opioid therapy 11/12/2023 COVID-19 Vaccine ( season) 2024 09/13/2020, 08/23/2020 Influenza Vaccine (#1) 2024 Office Visit for Blood Pressure Check / Re-check 04/11/2024 01/11/2024 Creatinine Level (Kidney Function Test) 10/14/2024 10/15/2023, 08/10/2023, 08/10/2023, Additional history exists Potassium Level 10/14/2024 10/15/2023, 06/07/2023, 08/10/2023, Additional history exists Sodium Level 10/14/2024 10/15/2023, 04/0 12/2023, 07/23/2023, Additional history exists Fasting Glucose for Diabetes Screening 10/14/2026 10/15/2023, 08/10/2023, 07/23/2023, Additional history exists Lipid (Cholesterol) Screening 07/15/2028 07/16/2023 Pneumococcal vaccine (0-64 years) Aged Out No longer eligible based on patient's age to complete this topic Procedures Procedure Name Priority Date/Time Associated Diagnosis Comments TRANSFUSE RED BLOOD CELLS Routine 01/11/2024 12:54 PM CDT Anemia Malignant Neoplasm Of Exocervix (HCC) TRANSFUSE RED BLOOD CELLS Routine 01/11/2024 10:38 AM CDT Anemia Malignant Neoplasm Of Exocervix (HCC) PREPARE RED BLOOD CELLS Routine 01/11/2024 9:38 AM CDT Anemia Malignant Neoplasm Of Exocervix (HCC) TESTING LOCATION Routine 01/11/2024 9:38 AM CDT TYPE AND SCREEN Routine 01/11/2024 9:38 AM CDT Anemia Malignant Neoplasm Of Exocervix (HCC) TRANSFUSE RED BLOOD CELLS Routine 12/11/2023 11:58 [...] Results * Transfuse Red Blood Cells : (01/11/2024 3:09 PM CDT) Only the most recent of6 resultswithin the time period is included. Aurea Altamirano C.N.P. BLOOD TRANSFUSION OR DERABLES * Testing Location (01/11/2024 9:38 AM CDT) Only the most recent of3 resultswithin the time period is included. Testing Location [facility] DEFAULT 01/11/2024 9:39 AM CDT NPRG Blood 01/11/2024 9:38 AM CDT 01/11/2024 9:39 AM CDT Soft Results Interface LAB BLOOD BANK TE ST ORDERABLES [facility] [address] [place] [address], [facility] NPRG [place] [address] [place] [address] * Type and Screen (with Reflex Antibody ID) (01/11/2024 9:38 AM CDT) Only the most recent of3 resultswithin the time period is included. ABO Group A 01/11/2024 10:25 AM CDT NPRG Rh Type POS 01/11/2024 10:25 AM CDT NPR[facility] Antibody Screen NEG 10:28 AM CDT NPRG Type & Screen Expiration 01/14/2024 23:59 01/11/2024 10:28 AM CDT NPRG ELXM Eligible Y 01/11/2024 10:28 AM CDT NPRG Blood (Blood, Venous) 01/11/2024 9:38 AM CDT 01/11/2024 9:39 AM CDT Aurea Altamirano C.N.P. LAB BLOOD BANK TEST ORDERABLES Performing Organization Address City/[facility] [[email or web address]] Co de Phone Number [facility] [address] [place] [address], [facility] NPRG [place] [address] [place] [address] from Last 3 Months
--- OUTSIDE RECORDS SUMMARY | 2024-02-03 01:25 | XMS_ITS | Encounter Summary ---
Author Organization [facility] Address [address] [place] [address] Care Team Providers Care Gasoline Power Shovel Operator Name Role Phone Unavailable Primary Care Provider Unavailabl e Reason for Visit * Reason Comments Lab Monitoring Encounter Details Date Type Department Care Team (Late st Contact Info) Description 12/10/2023 2:00 PM CDT Lab Department of Infusion Therapy in [place], [place] [address] [place] [address] Aurea Altamirano, C.N.P. [address], [facility] [address] [place] [phone] Malignant Neoplasm Of Exocervix (HCC) (Primary Dx); [...] BANK TE ST ORDERABLES Performing Organization Address [facility]/ZIP Co de Phone Number [facility] [address] [place] [address], [facility] NPRG [place] [address] [place] [address] * Type and Screen (with Reflex Antibody [...] BLOOD BANK TEST ORDERABLES Performing Organization Address [facility] Co de Phone Number [facility] [address] [place] [address], [facility] NPRG [place] [address] [place] [address] documented in this encounter Visit Diagnoses Diagnosis [...]
--- OUTSIDE RECORDS SUMMARY | 2024-02-03 01:25 | XMS_ITS | Encounter Summary ---
Author Organization [facility] Address [address] [place] [address] Care Team Providers Care Sales And Marketing Intern Name Role Phone Unavailable Primary Care Provider Unavailabl e Reason for Visit * Reason Comments Outpatient Infusion 2 units PRBCs Encounter Details Date Type Department Care Team (Late st Contact Info) Description 12/11/2023 9:00 AM CDT Infusion Department of Infusion Therapy in [place], [place] [address] [place] [address] Aurea Altamirano, C.N.P. [address], [facility] [address] [place] [address] Anemia (Primary Dx); Malignant Neoplasm [...] through Thursday 8:00 a.m. to 4:30 p.m. [phone] After Hours/Weekends/Holidays You will reach the [facility] in [place] switchboard- tell the plug making operator you need to leave a message for the oncologist special education professional and he will return your phone call. [...]
--- OUTSIDE RECORDS SUMMARY | 2024-02-03 01:25 | XMS_ITS | Encounter Summary ---
Author Organization [facility] Address [address] [place] [address] Care Team Providers Care Analog Circuit Designer Name Role Phone Unavailable Primary Care Provider Unavailabl e Reason for Visit * Reason Comments Outpatient Infusion 2units PRBCs Encounter Details Date Type Department Care Team (Late st Contact Info) Description 01/11/2024 10:30 AM CDT Infusion Department of Infusion Therapy in [place], [place] [address] [place] [address] Aurea Altamirano, C.N.P. [address], [facility] [address] [place] [address] Malignant Neoplasm Of Exocervix (HCC) [...] * Patient Instructions* Jessica English R.N. - 01/11/2024 10:30 AM CDT Images from the original note were not included. Patient Education Blood Transfusion What Is a Blood Transfusion? A blood transfusion involves giving a donated blood component (a part of whole blood) through an intravenous (IV) line to a person. Blood transfusions sometimes are needed to replace blood lost during accidents or surgery (emergency, general, cardiac, orthopedic, renal), or to help treat medical diseases or conditions (anemia, cancer). Sometimes women require a blood transfusion during or childbirth. About one in 20 Americans will require a blood transfusion at some point in their life. What Is in Blood? Blood is made of red blood cells (almost 45 percent), white blood cells and platelets (less than 1 percent), and plasma (55 percent with 50 percent of it being water). These four parts of blood are called components. Blood also contains clotting factors or cryoprecipitate (mad-h-[id number]-SIP-ih-marx). See Figure 1. There are four types of blood transfusions: Red blood cells (also called packed cells) Platelets Plasma (also called fresh frozen plasma or FFP) Cryoprecipitate The type of blood component(s) you receive depends on your medical condition. Usually, a single blood component, such as plasma or red blood cells, is transfused. Sometimes a combination of components is transfused. A person rarely receives a whole-blood transfusion. Red blood cells Red blood cells carry oxygen from your lungs throughout your body and return carbon dioxide from your body to your lungs where the carbon dioxide is removed. Blood also carries nutrients to the body???s organs. The organs cannot function properly if they do not receive these nutrients. Certain factors, such as anemia, bleeding, chemotherapy and radiation treatments, can decrease red blood cells in your body. Fewer red blood cells means less oxygen is being transported throughout your body. A lack of oxygen may cause you to feel tired, weak, dizzy or light-headed. The transfusion of one unit of red blood cells usually takes two or more hours. Platelets Bone marrow makes platelets that circulate in your blood. Your spleen temporarily stores some of the platelets. Platelets help your blood clot and repair injured blood vessels. When you cut your skinand it begins to bleed, platelets go to the injured site, clump together and stop the bleeding. Conditions that affect your bone marrow or spleen can affect how many platelets you have and your body???s ability to store platelets. For example, leukemia causes bone marrow to produce too many white blood cells, resulting in a decreased number of platelets. If your platelets are low, your blood will not clot normally. The transfusion of one unit of platelets usually takes one to three hours. Plasma Plasma, the yellow fluid of whole blood, contains water, protein, hormones and blood-clotting factors. Your body uses plasma to maintain normal blood clotting and to prevent blood loss. If you are bleeding excessively or do not have certain blood-clotting factors, you may receive plasma transfusions to help prevent blood loss by increasing the amount of blood-clotting factors. The transfusion of one unit of plasma usually takes one to two hours. Cryoprecipitate If you do not have certain blood-clotting factors, you may receive cryoprecipitate, which is a component of plasma to help prevent bleeding. Cryoprecipitate typically is transfused as multiple individual units combined into one bag, such asfive or 10 units of cryoprecipitate (often called a pool of cryoprecipitate). The transfusion of cryoprecipitate takes about five minutes per unit (for example, 25 minutes for a five-unit pool of cryoprecipitate). What Are Types of Blood Transfusion? There are four main blood types -- A, B, AB and O. Each blood type also is classified according to its Rh factor. The Rh factor refers to the presence or absence of a specific antigen in the blood. An antigen is a substance that can cause an immune response. You are either Rh positive or Rh negative; you either have the antigen or you do not For your safety, one or more samples of blood will be drawn to identify your blood type and Rh factor, and the presence of additional antibodies that may require matching. Donated blood also is tested for the same factors. These tests are important when selecting the correct blood match to prevent your body from reacting negatively to the transfused blood. Before you receive a blood component, a sample of the donor???s blood is tested with a sample of your blood to help determine if the donor???s blood component will be compatible with your blood type.This is called crossmatching. Because the testing process is thorough and complex, finding suitable blood may take up to 12 hours. Safety of transfused blood The chance of an infectious disease being passed through a blood transfusion is extremely rare. Thepeople who donate or give blood (blood donors) are thoroughly screened. Each unit of donated blood is tested for infectious diseases, including hepatitis B, hepatitis C, syphilis, HIV 1 and 2, West Nile Virus, and Chagas Disease. The blood is carefully processed, labeledand stored, and then retested for compatibility before being transfused. How Is a Blood Transfusion Done? Before your transfusion, your health care provider does one or more of the following to make certain you receive the correct blood product. Uses an electrical scanner to compare the bar code on your identification (ID) band with the bar code on the label of the unit of blood. Compares your identification number on your ID band with the number on the label of the unit of blood. Asks you to spell your name and give your date, which the health care provider compares to the label of the unit of blood. If you do not already have an intravenous (IV) line in your arm, one will be started. If you have acentral venous access or indwelling IV catheter, you may receive the transfusion through one of these lines. A nurse will monitor your temperature, blood pressure and pulse before and during the transfusion. You are not necessarily confined to a bed or chair during a transfusion. You may eat or move about during the transfusion, provided you remain on the patient care unit. Ask your health care provider about resuming your previous level of activity after the transfusion. Reaction to a blood transfusion A reaction to a blood transfusion is uncommon. However, tell your health care provider if you have one or more of the following symptoms during or up to 24 hour after the blood transfusion: Chills Fever Nausea Rash or hives Itching Leith-Hatfield-colored urine Shortness of breath or breathing difficulty Yellowing of your skin or eyes (jaundice) Risks, Benefits and Alternatives While blood transfusion is considered a very safe procedure, short-term and long-term risks are possible. Talk with your health care provider about possible risks and the benefits of receiving blood or blood products. Before prescribing a blood transfusion, your health care provider considers the risks and benefits of a blood transfusion for your medical condition. Ask your health care provider about any possible alternatives to having a blood transfusion. For example, if you have time before your surgery, you may be able to donate your blood (autologous donation) to be given back to you during surgery. Although rare, serious risks of a blood transfusion include: Transfusion associated circulatory overload (TACO). The lungs become filled with fluid (pulmonary edema) due to a rapid transfusion of a large volume of fluid and blood, usually during an emergency situation or in patients who have heart failure. Transfusion-related acute lung injury (TRALI). This acute lung injury usually occurs within the first six hours following a blood transfusion. If TACO or TRALI occur, oxygen and possibly mechanical ventilation are needed to support breathing.It is important to tell your health care providers if you have breathing difficulties so that they may be addressed promptly. Additional risks associated with blood transfusions include: Immediate or delayed hemolytic reaction (a breakdown in blood cells secondary to antibody mismatch between donor and recipient) Bacterial contamination or sepsis (mostly from platelets) The transmission of other infectious agents Transfusion-related immune modulation (TRIM), which can increase the risk of infections If any of these medical risks occur, your health care team will explain the situation and provide treatment. If you have questions or concerns about any of this information, talk with your health care provider. Contacting Your Health Care Provider If you have questions about this information or your blood transfusion, talk with your health care provider or another member of your health care team. This material is for your education and information only. This content does not replace medical advice, diagnosis or treatment. New medical research may change this information. If you have questionsabout a medical condition, always talk with your health care provider. ?? 2009 [employer] ([facility]). All rights reserved. [id number] documented in this encounter Plan of Treatment Pending Results Name Type Priority Associated Diagnoses Date /Time Prepare Red Blood Cells, 2 Units Blood Bank Routine Anemia Malignant Neoplasm Of Exocervix (HCC) 01/11/2024 9:38 AM CDT documented as of this encounter [...] Blood Cells : (01/11/2024 3:09 PM CDT) Aurea Tolliver Czel C.N.P. BLOOD TRANSFUSION OR DERABLES * Transfuse Red Blood Cells : , 2 Units (01/11/2024 3:09 PM CDT) Aurea Tolliver Czel C.N.P. BLOOD TRANSFUSION OR DERABLES * Transfuse Red Blood Cells : (01/11/2024 12:51 PM CDT) Aurea Tolliver Czel C.N.P. BLOOD TRANSFUSION OR DERABLES documented in this encounter Visit Diagnoses Diagnosis Malignant Neoplasm Of Exocervix (HCC)- Primary Anemia documented in this encounter Administered Medications Inactive Administered Medications - up to 3 most recent administrations Medication Order MAR Action Action Date Dose Rate Site heparin flush 500 Units 500 Units, intra-catheter, As needed, line care, Starting on Thu01/11/24 at 1409, When IVAD accessed and not infusing: When no infusion to maintain patency flush every 7 days following NaCL flush. 5 mL (500 units) of Heparin 100 units/mL to each port/lumen. When IVAD not accessed or infusing: When no infusion to maintain patency flush every 28 days following NaCL flush. 5 mL (500 units) of Heparin 100 units/mL to each port/lumen. Given 01/11/2024 3:16 PM CDT 500 Units sodium chloride 0.9 % injection 10-20 mL 10-20 mL, intra-catheter, As needed, line care, Starting on Thu01/11/24 at 1409, When IVAD accessed and infusing: Flush prior to and following infusion, between multiple consecutive infusions. 10 mL to each port/lumen. Given 01/11/2024 3:16 PM CDT 20 mL documented in this encounter
--- OUTSIDE RECORDS SUMMARY | 2024-02-03 01:25 | XMS_ITS | Encounter Summary ---
Author Organization [facility] Address [address] [place] [address] Care Team Providers Care Parts Clerk Plant Maintenance Name Role Phone Unavailable Primary Care Provider Unavailabl e Reason for Visit * Reason Comments Lab Monitoring Encounter Details Date Type Department Care Team (Late st Contact Info) Description 01/11/2024 9:30 AM CDT Lab Department of Infusion Therapy in [place], [place] [address] [place] [address] Aurea Altamirano, C.N.P. [address], [facility] [address] [place] [phone] Anemia; Malignant Neoplasm Of Exocervix (HCC) Social History [...] Date/Time Associated Diagnosis Comments TESTING LOCATION Routine 01/11/2024 9:38 AM CDT TYPE AND SCREEN Routine 01/11/2024 9:38 AM CDT Anemia Malignant Neoplasm Of Exocervix (HCC) documented in this encounter Results * Testing Location (01/11/2024 9:38 AM CDT) Testing Location [facility] DEFAULT 01/11/2024 9:39 AM CDT NPRG Blood 01/11/2024 9:38 AM CDT 01/11/2024 9:39 AM CDT Soft Results Interface LAB BLOOD BANK TE ST ORDERABLES Performing Organization Address [facility]/ZIP Co de Phone Number [facility] [address] [place] [address], [place] NPRG [place] [address] [place] [address] * Type and Screen (with Reflex Antibody ID) (01/11/2024 9:38 AM CDT) ABO Group A 01/11/2024 10:25 AM CDT [...] BLOOD BANK TEST ORDERABLES Performing Organization Address City/[facility]/ZIP Co de Phone Number [facility] [address] [place] [address], [place] NPR[place] [address] [place] [address] documented in this encounter Visit Diagnoses Diagnosis Anemia Malignant Neoplasm Of Exocervix (HCC) documented in this encounter
--- OUTSIDE RECORDS SUMMARY | 2024-02-03 01:25 | XMS_ITS | Encounter Summary ---
Author Organization [facility] Address [address] [place] [address] Care Team Providers Care Controller Operations And Hr Manager Name Role Phone Unavailable Primary Care Provider Unavailabl e Encounter Details Date Type Department Care Team (Late st Contact Info) Description 01/11/2024 Orders Only Department of Oncology in [place], [place] [address] [place] [phone] Talisha Munguia, R.NDottie [address] [place] [phone] Anemia (Primary Dx); Malignant Neoplasm Of Exocervix [...] Altamirano C.N.P. LAB BLOOD BANK TEST ORDERABLES [facility] [address] [place] [address], [facility] NPRG [facility] [address] [place] [address] documented in this encounter Visit Diagnoses Diagnosis Anemia- Primary Malignant Neoplasm Of Exocervix (HCC) documented in this encounter
--- OUTSIDE RECORDS SUMMARY | 2024-02-03 01:25 | XMS_ITS ---
Author Organization [facility] Address [address] [place] [address] Care Team Providers Care Assortment Planner Name Role Phone Unavailable Primary Care Provider Unavailabl e Active Problems Problem Noted Date Diagnosed Date Anemia 11/11/2023 Malignant Neoplasm Of Exocervix 11/11/2023 Current Oncology Plans Vascular Access Patency - Implanted Vascular Access Device (IVAD) Venous Non-Valved* Plan Start Date:11/12/2023 Plan Provider:Generic, Care Everywhere Linked Problems Malignant Neoplasm Of Exocer vix (HCC)Anemia Treatment Medications No medications scheduled. Past Plans Blood Plan Name Start Date Discontinue Date Treatment Medications Discontinue Reason Plan Provider *Blood Administration - Red Blood Cells (RBC) - For patients greater than 35 kg (Units) 01/11/2024 01/11/2024 No medications scheduled. Therapy Complete Generic, Care Everywhere *Blood Administration - Red Blood Cells (RBC) - For patients greater than 35 kg (Units) 12/09/2023 01/11/2024 No medications scheduled. Therapy Complete Generic, Care Everywhere *Blood Administration - Red Blood Cells (RBC) - For patients greater than 35 kg (Units) 11/11/2023 11/12/2023 No medications scheduled. Therapy Complete Generic, Care Everywhere Radiation Treatments * No radiation treatments are documented for this patient in [facility]. Treatments may have been administered in another system.
--- OUTSIDE RECORDS SUMMARY | 2024-02-03 01:25 | XMS_ITS | Referral Summary ---
Author Organization [facility] Address [address] [place] [address] Care Team Providers Care Protective Signal Operator Name Role Phone Unavailable Primary Care Provider Unavailabl e Source Comments Patient records contain information from all sites at [facility]. For routine questions regarding patient records, call [phone] during business hours, M-F 8:00 AM - 5:00 PM Central Time. Record requests for emergency care only can be directed to [phone] at any time[address] Encounters Date Type Department Care Team Description 01/11/2024 10:30 AM CDT Infusion Department of Infusion Therapy in [address] [address] Aurea Altamirano, C.N.P. Malignant Neoplasm Of Exocervix (HCC) (Primary Dx); Anemia 01/11/2024 9:30 AM CDT Lab Department of Infusion Therapy in [address] [address] Aurea Altamirano, C.N.P. Anemia; Malignant Neoplasm Of Exocervix (HCC) 01/11/2024 Orders Only Department of Oncology in [address] [address] Talisha Munguia, R.N. Anemia (Primary Dx); Malignant Neoplasm Of Exocervix (HCC) 12/11/2023 9:00 AM CDT Infusion Department of Infusion Therapy in [place] [address] [place] [address] Aurea Altamirano, C.N.P. Anemia (Primary Dx); Malignant Neoplasm Of Exocervix (HCC) 12/10/2023 2:00 PM CDT Lab Department of Infusion Therapy in [address] [address] Aurea Altamirano C.N.P. Malignant Neoplasm Of Exocervix (HCC) (Primary Dx); Anemia 12/09/2023 Orders Only Department of Oncology in [address] [place] [address] Agata Melendez R.N. Anemia (Primary Dx); Malignant Neoplasm Of Exocervix (HCC) 11/12/2023 8:00 AM CDT Infusion Department of Infusion Therapy in [address] [place] [address] Aurea Altamirano C.N.P. Malignant Neoplasm Of Exocervix (HCC) (Primary Dx); Anemia 11/12/2023 7:26 AM CDT - 11/12/2023 11:59 PM CDT Hospital Encounter Department of Laboratory Medicine in [address] [place] [address] Aurea Altamirano C.N.P. Anemia; Malignant Neoplasm Of Exocervix (HCC) Discharge Disposition: Home or Self Care 11/11/2023 Orders Only Department of Oncology in [address] [phone] Deyanira Mariscal, R.N. Anemia (Primary Dx); Malignant Neoplasm Of [...] resultswithin the time period is included. Aurea Mendez.N.P. BLOOD TRANSFUSION OR DERABLES * Testing Location (01/11/2024 9:38 AM CDT) Only the most recent of3 resultswithin the time period is included. Testing Location [facility] DEFAULT 01/11/2024 9:39 AM CDT NPRG Blood 01/11/2024 9:38 AM CDT 01/11/2024 9:39 AM CDT Soft Results Interface LAB BLOOD BANK TE ST ORDERABLES [facility] [address] [place] [address], [facility] NPRG [place] [address] [place] [address] * Type and Screen (with Reflex Antibody [...] Altamirano C.N.P. LAB BLOOD BANK TEST ORDERABLES [facility] [address] [place] [address], [facility] NPRG [place] [address] [place] [address] from Last [address] HARISH Kumar [phone]
--- OUTSIDE RECORDS SUMMARY | 2024-02-03 01:26 | XMS_ITS | Encounter Summary ---
Author Organization [facility] Address [address] [place] [address] Care Team Providers Care Stained Glass Glazier Helper Name Role Phone Unavailable Primary Care Provider Unavailabl e Reason for Visit * Reason Comments Outpatient Infusion 2 unit prbc Encounter Details Date Type Department Care Team (Late st Contact Info) Description 11/12/2023 8:00 AM CDT Infusion Department of Infusion Therapy in [place], [place] [address] [place] [address] Aurea Altamirano, C.N.P. [address], [facility] [address] [place] [address] Malignant Neoplasm Of Exocervix (HCC) [...]
--- OUTSIDE RECORDS SUMMARY | 2024-02-03 01:26 | XMS_ITS | Encounter Summary ---
Author Organization [facility] Address [address] [place] [address] Care Team Providers Care Neon Sign Maker Name Role Phone Unavailable Primary Care Provider Unavailabl e Encounter Details Date Type Department Care Team (Latest Contact Info) Description 11/12/2023 7:26 AM CDT - 11/12/2023 11:59 PM CDT Hospital Encounter Department of Laboratory Medicine in [place], [place] [address] [place] [address] Aurea Altamirano, C.N.P. [address] , [facility] [address] [place] [address] Anemia; Malignant Neoplasm Of Exocervix [...] Location (11/12/2023 7:40 AM CDT) Testing Location [facility] DEFAULT 11/12/2023 7:45 AM CDT NPRG Blood 11/12/2023 7:40 AM CDT 11/12/2023 7:45 AM CDT Soft Results Interface LAB BLOOD BANK TE ST ORDERABLES [facility] [address] [place] [address], [place] NPRG [facility] [address] [place] [address] * Type and Screen (with Reflex Antibody [...] Altamirano C.N.P. LAB BLOOD BANK TEST ORDERABLES [facility] [address] [place] [address], [facility] NPRG [facility] [address] [place] [address] documented in this encounter Visit Diagnoses Diagnosis Anemia Malignant Neoplasm Of Exocervix (HCC) documented in this encounter
--- OUTSIDE RECORDS SUMMARY | 2024-02-03 01:26 | XMS_ITS | Data Portability ---
Author Organization [place] [facility], [facility] Address [address] [place] [address] Care Team Providers Care Cylinder Worker Name Role Phone SUKUMAR MEJIA Referring Provider Assessment Encounter Date Assessment Date Assessment LastModified [...] Name Description Value Unit Range Abnormal Flag Note LastModifiedBy Organization Detail LastModifiedTime 10/27/1907/16/2023 CT, chest + abdom en + pelvi s, w/ contr ast No observ ation record ed. [email or web address] Not Available 2023 10:44:48 Result Notes None recorded. Problems Name Problem SNOMED Code Status Onset Date Resolution Date Notes Provider Name and Address Organization Details Recorded Time Carcinoma of cervix 645904851 Active 2023 Félix jones MD, PHD [address] [place] [address], [phone], [facility] 4 12:03:59 Vesicovaginal fistula 31842504 Active 2023 Félix jones MD, PHD [address] [place] [address], [phone], [facility] 4 12:04:07 Problem Notes None recorded. Procedures Surgical History None recorded. Imaging Results Imaging Date Name Status LastModified by Organiz ation Details LastModified Time 07/16/2023 CT, chest + abdomen + pelvis, w/ contrast completed [email or web address] Information not available 10/27/2023 10:44:48 Procedure Notes [...] Updated DateTime 10/29/2023 175.26 cm 44.3 kg/m2 986724.71 g Félix mulligan MD, PHD [address] [place] [address], [phone], [facility] [place] [facility] 10/29/2023 11:35:30 Social History Question Answer Notes LastModified by Organizat ion Details LastModified Time Tobacco Smoking Status Former Smoker Félix Gaines MD, PHD [address] [place] [address], [phone], [facility] 10/29/2023 11:38:59 What Is Your Level [...] Tdap 10/29/2013 completed Félix Gaines MD, PHD [address] [place] [address], [phone], [facility] 10/29/2023 11:35:41 Past Encounters Encounter ID Performer Location Encounter Start Date Encounter Closed Date Diagnosis/Indication Diagnosis SNOMED-CT Code Diagnosis ICD10 Code [id number] Félix begum MD, PHD [facility] [address] [place] [phone] 10/29/2023 11:18:50 10/30/2023 12:39:02 Vesicovaginal fistula 75296137 N82.0 Carcinoma of cervix 2854 29533 C53.9 Health Concerns Section Related Observation LastModified by Organization Detai ls LastModified Time None Recorded Concern Status LastModified by Organization Details LastModified Time None Recorded Advance Directives Directive None Recorded Payers Encounter Date Sequence Insurance Name Policy Number Policy Penn Covered Member ID Penn Member ID Guarantor Name 10/29/2023 1 [employer] [employer] Zoe Kessler [id number] Mora Kessler Notes Date Note Type Note [...] EtOH: FamHx: Félix Gaines MD, PHD [address] [facility],[address], [place], [address], [facility] 10/29/2023 18:16:30 OBGyn Episode No OBEpisode recorded.
--- OUTSIDE RECORDS SUMMARY | 2024-02-03 01:26 | XMS_ITS | Encounter Summary ---
Author Organization [facility] Address [address] [place] [address] Care Team Providers Care Coding Advisor Name Role Phone Unavailable Primary Care Provider Unavailabl e Encounter Details Date Type Department Care Team (Late st Contact Info) Description 11/11/2023 Orders Only Department of Oncology in [place], [place] [address] [place] [phone] Deyanira Mariscal, RSofi [address] [place] [phone] Anemia (Primary Dx); Malignant Neoplasm Of Exocervix [...] Altamirano C.N.P. LAB BLOOD BANK TEST ORDERABLES [facility] [address] [place] [address], [facility] NPRG [facility] [address] [place] [address] documented in this encounter Visit Diagnoses Diagnosis Anemia- Primary Malignant Neoplasm Of Exocervix (HCC) documented in this encounter
== END 2024-02-01 09:07 | disposition home or self-care (01) ==
LOC: AMB 02-03 01:21
PROVIDERS: PCP Student in an Organized Health Care Education/Training Program; Visit Provider Emergency Medicine
DX: R53.1 Weakness (principal)
CPT/HCPCS: A0425; A0427